=== PATIENT | female | born 1995 | race Caucasian/White ===

== ENCOUNTER 2022-11-14 15:58 | Outpatient (OUT) | payer OTHER, SELFPAY ==
[2022-11-14 16:40] LABS: HCG Quantitative 247 mIU/mL
== END 2022-11-14 15:59 ==
LOC: LAB 16:01
PROVIDERS: PCP Family Medicine; Visit Provider Obstetrics & Gynecology
DX: N92.6 Irregular menstruation, unspecified (principal)
CPT/HCPCS: 36415; 84702

== ENCOUNTER 2022-11-16 11:05 | Outpatient (OUT) | payer OTHER, SELFPAY ==
[2022-11-16 12:22] LABS: HCG Quantitative 544 mIU/mL
== END 2022-11-16 11:06 ==
LOC: LAB 11:06
PROVIDERS: PCP Family Medicine; Visit Provider Obstetrics & Gynecology
DX: N92.6 Irregular menstruation, unspecified (principal)
CPT/HCPCS: 36415; 84702

== ENCOUNTER 2022-12-08 12:39 | Emergency (ER) | payer OTHER, SELFPAY ==
[2022-12-08 12:45] VITALS: BP 131/99; PULSE 98; RESP 16; TEMP 36.5; O2SAT 99; BMI 27.1
--- NOTE | 2022-12-08 12:54 | PC.NURSE ---
PT C/O RELATED NAUSEA AND VOMITING OFF AND ON X 1 WEEK WITH NON PRODUCTIVE COUGH
--- NOTE | 2022-12-08 13:27 | ED.GENADUL1 ---
HPI - General Adult General Chief complaint: Nausea/Vomiting/Diarrhea Stated complaint: DEHYDRATION, COUGH Time Seen by Provider: 12/08/22 13:01 Source: patient Mode of arrival: walk-in Limitations: no limitations History of Present Illness HPI narrative: 27-year-old female presents with chief complaint nausea vomiting. Patient is currently eight weeks . She has not yet seen her RN BURN Dr. Tavares. Patient is one para zero. States symptoms began yesterday.Patient denies any other pain denies any vaginal bleeding or discharge. She states she's also had a cough and congestion. When she coughs it causes her to vomit. States his phlegm and vomiting. She is not taking any medication at home. Related Data Home Medications Medication Instructions Recorded Confirmed cephalexin 500 mg capsule 500 mg PO BID 12/08/22 12/08/22 ondansetron 4 mg disintegrating 4 mg PO TID-QID PRN nausea and 12/08/22 12/08/22 tablet vomiting Allergies Allergy/AdvReac Type Severity Reaction Status Date / Time No Known Drug Allergies Allergy Verified 12/08/22 12:45 Review of Systems ROS Narrative All Systems are negative except as noted/marked.All systems reviewed and otherwise negative PFSH PFSH Social History Smoking status: Never smoker Exam Narrative Exam Narrative: Nurses note and vital signs reviewed and patient is not hypoxic. General: The patient appears well and in no apparent distress. Patient is resting comfortably on cart. Skin: Warm, dry, no pallor noted. There is no rash noted. Head: Normocephalic, atraumatic Eye: Normal conjunctiva, no drainage, EOMI. PERRL Ears, Nose, Mouth, and Throat: oral mucosa is moist. Nares patent. Mouth without vesicles. Ear canals patent. Tm's without Erythema Cardiovascular: Regular Rate and Rhythm Respiratory: Patient is in no distress, no accessory muscle use, lungs are clear to auscultation, no wheezing, rales or rhonchi Back: non-tender, no CVA tenderness bilaterally to percussion. GI: Normal bowel sounds, no tenderness to palpation, no masses appreciated. No rebound, guarding, or rigidity noted. Musculoskeletal: The patient has no evidence of calf tenderness, no pitting edema, symmetrical pulses noted bilaterally Neurological: A&O x4, normal speech Psychiatric: Cooperative Constitutional Vital Signs - 24 hr 12/08/22 12:45 Temperature 97.7 F Pulse Rate [Monitor] 98 H Respiratory Rate 16 Blood Pressure [Right Arm] 131/99 H Pulse Oximetry 99 Oxygen Delivery Method Room Air Course Vital Signs Vital signs: Vital Signs Temperature 97.7 F 12/08/22 12:45 Pulse Rate 98 H 12/08/22 12:45 Respiratory Rate 16 12/08/22 12:45 Blood Pressure 131/99 H 12/08/22 12:45 Pulse Oximetry 99 12/08/22 12:45 Oxygen Delivery Method Room Air 12/08/22 12:45 Temperature 97.7 F 12/08/22 12:45 Pulse Rate 98 H 12/08/22 12:45 Respiratory Rate 16 12/08/22 12:45 Blood Pressure 131/99 H 12/08/22 12:45 Pulse Oximetry 99 12/08/22 12:45 Oxygen Delivery Method Room Air 12/08/22 12:45 Medical Decision Making MDM Narrative Medical decision making narrative: She presented here chief complaint nausea vomiting she currently eight weeks . She states she's been unable to keep any food or fluids down today. Patient was given IV fluids and Zofran. She states she feels much better at this time. CBC BMP review. She does have positive ketones. Patient will To home and of Zofran medication. Patient has a follow-up appointment next week with Dr. Tavares. Patient is to call the office if symptoms worsen or change. Verbalizes understanding agrees with plan of care. Differential Diagnosis Differential Diagnosis: Nausea, vomiting, gastritis, hyperemesis Medical Records Medical records reviewed: Yes I reviewed the patient's medical records Lab Data Lab results reviewed: Yes I reviewed the patient's lab results Labs: Lab Results 12/08/22 12/08/22 Range/Units 13:24 13:54 WBC 11.2 H (4.0-11.0) 10^3/uL RBC 4.65 (4.20-5.40) 10^6/uL Hgb 14.1 (12.0-16.0) g/dL Hct 41.0 (36.0-48.0) % MCV 88.2 (81.0-99.0) fL MCH 30.3 (26.7-34.0) pg MCHC 34.4 (29.9-35.2) g/dL RDW 12.8 (11.0-15.0) % Plt Count 302 (150-450) 10^3/uL MPV 9.2 L (9.5-13.5) fL Neut % (Auto) 73.2 (43.0-75.0) % Lymph % (Auto) 18.8 L (20.5-60.0) % Evangeline % (Auto) 6.3 (1.7-12.0) % Eos % (Auto) 1.0 (0.9-7.0) % Baso % (Auto) 0.4 (0.2-2.0) % Neut # (Auto) 8.2 H (1.4-6.5) 10^3/uL Lymph # (Auto) 2.1 (1.2-3.8) 10^3/uL Evangeline # (Auto) 0.7 (0.3-0.8) 10^3/uL Eos # (Auto) 0.1 (0.0-0.7) 10^3/uL Baso # (Auto) 0.1 (0.0-0.1) 10^3/uL Abs Immat Gran (auto) 0.03 (0.00-0.03) 10^3/uL Imm/Tot Granulo (auto) 0.3 (0.0-0.5) % Sodium 137 (136-145) mmol/L Potassium 3.9 (3.5-5.1) mmol/L Chloride 103 (98-107) mmol/L Carbon Dioxide 23.2 (21.0-32.0) mmol/L Anion Gap 14.7 BUN 9.0 (7.0-18.0) mg/dL Creatinine 0.90 (0.55-1.02) mg/dL Est GFR ( Amer) >60 (>=60) Est GFR (Non-Af Amer) >60 (>=60) BUN/Creatinine Ratio 10.0 Glucose 83 (74-106) mg/dL Calcium 9.6 (8.5-10.1) mg/dL Total Bilirubin 0.5 (0.2-1.0) mg/dL AST 17 (15-37) U/L ALT 22 (14-59) U/L Alkaline Phosphatase 76 (46-116) U/L Total Protein 7.8 (6.4-8.2) g/dL Albumin 3.9 (3.4-5.0) g/dL Globulin 3.9 g/dL Albumin/Globulin Ratio 1.0 Lipase 73.0 (73.0-393.0) U/L HCG, Quant 553144 mIU/mL Urine Color Lt. yellow (YELLOW) Urine Clarity Clear (CLEAR) Urine pH 6.5 (5.0-9.0) Ur Specific [place] 1.015 (1.005-1.025) Urine Protein Negative (NEG/TRACE) mg/dL Urine Glucose (UA) Negative (NEGATIVE) mg/dL Urine Ketones 15 A (NEGATIVE) mg/dL Urine Occult Blood Trace-i (NEGATIVE) Urine Nitrite Negative (NEGATIVE) Urine Bilirubin Negative (NEGATIVE) Urine Urobilinogen 1.0 (0.2-1.0) EU/dL Ur Leukocyte Esterase Small A (NEGATIVE) Urine RBC 2-5 A (0-2) #/HPF Urine WBC 5-10 A (NONE SEEN) #/HPF Ur Squamous Epith Cells Few A (NONE/RARE) #/LPF Urine Crystals None seen (None Seen) #/HPF Urine Bacteria None seen (NONE SEEN) #/HPF Urine Casts None seen (NONE SEEN) #/LPF Urine Mucus Trace A (NONE SEEN) Ur Culture Indicated? Yes Discharge Plan Discharge Chief Complaint: Nausea/Vomiting/Diarrhea Clinical Impression: UTI (urinary tract infection), Nausea and vomiting during Patient Disposition: Home, Self-Care Time of Disposition Decision: 14:28 Condition: Good Mode of Transportation: Private Vehicle Prescriptions / Home Meds: No Action ondansetron 4 mg tablet,disintegrating 4 mg PO TID-QID PRN (Reason: nausea and vomiting) cephalexin 500 mg capsule 500 mg PO BID Patient Comments: X 7 DAYS Instructions: Nausea and Vomiting in (ED) Additional Instructions: follow up with dariusz as scheduled call if symptoms change or worsen Stand Alone Forms: Portal Instructions Referrals: GEETA BARRIOS [Primary Care Provider] - 1 week Discharge Date/Time: 12/08/22 14:48
[2022-12-08] MEDS: 0.9 % SODIUM CHLORIDE 1,000 ML 1000 ML IV (13:35)
[2022-12-08] MEDS: ONDANSETRON PF 4 MG/2 ML VIAL IV (13:35)
[2022-12-08 13:37] LABS: Basophils Absolute Auto 0.1 10^3/uL (0.0-0.1); Basophils Percent Auto 0.4 % (0.2-2.0); Eosinophils Absolute Auto 0.1 10^3/uL (0.0-0.7); Hemoglobin 14.1 g/dL (12.0-16.0); Immature Granulocytes Abs Auto 0.03 10^3/uL (0.00-0.03); Immature Granulocytes Pct Auto 0.3 % (0.0-0.5); Lymphocytes Absolute Auto 2.1 10^3/uL (1.2-3.8); Lymphocytes Percent Auto 18.8 % (20.5-60.0); Mean Corpuscular HGB Conc 34.4 g/dL (29.9-35.2); Mean Corpuscular Hemoglobin 30.3 pg (26.7-34.0); Mean Corpuscular Volume 88.2 fL (81.0-99.0); Mean Platelet Volume 9.2 fL (9.5-13.5); Monocytes Absolute Auto 0.7 10^3/uL (0.3-0.8); Monocytes Percent Auto 6.3 % (1.7-12.0); Neutrophils Absolute Auto 8.2 10^3/uL (1.4-6.5); Neutrophils Percent Auto 73.2 % (43.0-75.0); Platelet Count 302 10^3/uL (150-450); Red Blood Count 4.65 10^6/uL (4.20-5.40); Red Cell Distribution Width 12.8 % (11.0-15.0); White Blood Count 11.2 10^3/uL (4.0-11.0)
[2022-12-08 13:57] LABS: Bilirubin Urine NEGATIVE (NEGATIVE); Blood Urine TRACE-I (NEGATIVE); Clarity Urine CLEAR (CLEAR); Color Urine LT. YELLOW (YELLOW); Glucose Urine UA NEGATIVE (NEGATIVE); Ketones Urine 15 mg/dL (NEGATIVE); Leukocyte Esterase Urine SMALL (NEGATIVE); Nitrite Urine NEGATIVE (NEGATIVE); Protein Urine NEGATIVE (NEG/TRACE); Specific Gravity Urine 1.015 (1.005-1.025); pH Urine 6.5 (5.0-9.0)
[2022-12-08 13:58] LABS: Alanine Aminotransferase 22 U/L (14-59); Albumin Level 3.9 g/dL (3.4-5.0); Alkaline Phosphatase 76 U/L (46-116); Anion Gap 14.7; Aspartate Amino Transferase 17 U/L (15-37); Bilirubin Total 0.5 mg/dL (0.2-1.0); Calcium 9.6 mg/dL (8.5-10.1); Carbon Dioxide 23.2 mmol/L (21.0-32.0); Chloride 103 mmol/L (98-107); Estimated GFR (African America >60 (>=60); Estimated GFR (Non-African Ame >60 (>=60); Globulin 3.9 g/dL; Glucose 83 mg/dL (74-106); Potassium 3.9 mmol/L (3.5-5.1); Sodium 137 mmol/L (136-145); Total Protein 7.8 g/dL (6.4-8.2)
[2022-12-08 14:12] LABS: Bacteria Urine NONE SEEN #/HPF (NONE SEEN); Cast Seen? NONE SEEN #/LPF (NONE SEEN); Crystals Seen? None Seen #/HPF (None Seen); Mucus Urine TRACE (NONE SEEN); Squamous Epithelial Cell Urine FEW #/LPF (NONE/RARE); Urine Culture Indicated YES
[2022-12-08] MEDS: ONDANSETRON 4 MG RAPDIS TABLET SL (14:43)
== END 2022-12-08 14:48 | disposition home or self-care (01) ==
PROVIDERS: Physician Assistant; Emergency Provider Emergency Medicine; PCP Family Medicine
DX: O23.41 Unspecified infection of urinary tract in pregnancy, first trimester (principal); N39.0 Urinary tract infection, site not specified; O26.891 Other specified pregnancy related conditions, first trimester; R11.2 Nausea with vomiting, unspecified; Z3A.08 8 weeks gestation of pregnancy
CPT/HCPCS: 36415; 80053; 81001; 83690; 84702; 85025; 87086; 96361; 96374; 99284

== ENCOUNTER 2022-12-21 12:27 | Outpatient (OUT) | payer OTHER, SELFPAY ==
--- NOTE | 2022-12-21 12:28 | US_ITS ---
[address] [address] Patient Name: KATIE HANNON MRN: [id number] date: 1995 Sex: F Assigned Patient Location: US Current Patient Location: US Accession/Order Number: [id number] Exam Date: 12/21/2022 12:28 Report Date: 12/21/2022 16:58 At the request of: TAYO AVILA Procedure: US OB transvaginal EXAMINATION: US OB transvaginal HISTORY: MISSED PERIOD COMPARISON: No relevant comparison available. FINDINGS: Transvaginal images Cassidy intrauterine gestation Gestational sac: 3.26 cm, 8 weeks 2 days CRL: 2.53 cm, 9 weeks 2 days Yolk sac: 5.2 mm Heart rate: 174 bpm Cervix: Closed, 4.0 cm The uterus is normal, anteverted, anteflexed The ovaries are normal in appearance. Clinical age: 10 weeks 0 days Clinical MARSHAL: 07/19/2023 Ultrasound age: 9 weeks 2 days Ultrasound MARSHAL: 07/24/2023 US/US OB transvaginal IMPRESSION: Viable cassidy intrauterine gestation measuring 9 weeks 2 days Electronically authenticated by: REKHA NIETO Date: 12/21/2022 16:58
== END 2022-12-21 12:28 | disposition home or self-care (01) ==
LOC: US 12:27
PROVIDERS: PCP Family Medicine; Visit Provider Obstetrics & Gynecology
DX: Z34.91 Encounter for supervision of normal pregnancy, unspecified, first trimester (principal); Z3A.09 9 weeks gestation of pregnancy; N92.6 Irregular menstruation, unspecified
CPT/HCPCS: 76817

== ENCOUNTER 2022-12-28 10:57 | Outpatient (OUT) | payer OTHER, SELFPAY ==
[2022-12-28 11:24] LABS: Estimated Average Glucose 94 mg/dL; Glycohemoglobin A1C 4.9 % (4.5-6.2)
[2022-12-28 11:26] LABS: Basophils Absolute Auto 0.1 10^3/uL (0.0-0.1); Basophils Percent Auto 0.5 % (0.2-2.0); Eosinophils Absolute Auto 0.2 10^3/uL (0.0-0.7); Eosinophils Percent Auto 2.3 % (0.9-7.0); Hematocrit 39.8 % (36.0-48.0); Hemoglobin 13.3 g/dL (12.0-16.0); Immature Granulocytes Abs Auto 0.04 10^3/uL (0.00-0.03); Immature Granulocytes Pct Auto 0.4 % (0.0-0.5); Lymphocytes Absolute Auto 2.1 10^3/uL (1.2-3.8); Lymphocytes Percent Auto 22.2 % (20.5-60.0); Mean Corpuscular HGB Conc 33.4 g/dL (29.9-35.2); Mean Corpuscular Hemoglobin 29.8 pg (26.7-34.0); Mean Corpuscular Volume 89.2 fL (81.0-99.0); Mean Platelet Volume 9.3 fL (9.5-13.5); Monocytes Absolute Auto 0.6 10^3/uL (0.3-0.8); Monocytes Percent Auto 6.3 % (1.7-12.0); Neutrophils Absolute Auto 6.6 10^3/uL (1.4-6.5); Neutrophils Percent Auto 68.3 % (43.0-75.0); Platelet Count 294 10^3/uL (150-450); Red Blood Count 4.46 10^6/uL (4.20-5.40); Red Cell Distribution Width 12.7 % (11.0-15.0); White Blood Count 9.7 10^3/uL (4.0-11.0)
[2022-12-28 11:48] LABS: Thyroid Stimulating Hormone 0.482 uIU/mL (0.358-3.740)
[2022-12-29 05:08] LABS: HCV Ab Non Reactive (Non Reactive); HIV Ab/p24 Ag Screen Non Reactive (Non Reactive); Rubella Antibodies, IgG 1.26 index (Immune >0.99)
[2022-12-29 06:09] LABS: HBsAg Screen Negative (Negative)
[2022-12-29 10:09] LABS: Rapid Plasma Reagin, Quant Non Reactive (NonRea<1:1)
== END 2022-12-28 10:58 | disposition home or self-care (01) ==
LOC: LAB 10:57
PROVIDERS: PCP Family Medicine; Visit Provider Obstetrics & Gynecology
DX: N91.2 Amenorrhea, unspecified (principal)
CPT/HCPCS: 36415; 83036; 84443; 85025; 86592; 86706; 86762; 86803; 86850; 86900; 86901; 87086; 87389

== ENCOUNTER 2023-01-11 12:34 | Outpatient (OUT) | payer OTHER, SELFPAY | END 2023-01-11 12:35 | disposition home or self-care (01) | LOC: LAB 12:35 | PROVIDERS: PCP Family Medicine; Visit Provider Obstetrics & Gynecology | DX: Z34.80 Encounter for supervision of other normal pregnancy, unspecified trimester (principal) | CPT/HCPCS: 36415 ==

== ENCOUNTER 2023-02-08 10:28 | Outpatient (OUT) | payer OTHER, SELFPAY ==
[2023-02-13 16:09] LABS: AFP Value 35.4 ng/mL (.); Gest. Age on Collection Date 16.3 weeks (.); Gestat. Age Based On As provided (.); Insulin Dep Diabetes No (.); Maternal Age At EDD 30.3 yr (.); OSBR Risk 1 IN 10000 (.); Results Report (.)
== END 2023-02-08 10:29 | disposition home or self-care (01) ==
PROVIDERS: PCP Family Medicine; Visit Provider Obstetrics & Gynecology
DX: Z34.92 Encounter for supervision of normal pregnancy, unspecified, second trimester (principal)
CPT/HCPCS: 36415; 82105

== ENCOUNTER 2023-03-08 08:47 | Outpatient (OUT) | payer OTHER, SELFPAY ==
--- NOTE | 2023-03-08 08:50 | US_ITS ---
[address] [address] Patient Name: KATIE HANNON MRN: [id number] date: 1995 Sex: F Assigned Patient Location: US Current Patient Location: US Accession/Order Number: [id number] Exam Date: 03/08/2023 08:50 Report Date: 03/08/2023 17:14 At the request of: TAYO AVILA Procedure: US OB anatomy EXAMINATION: US OB anatomy, US OB cervical length HISTORY: ANATOMY COMPARISON: No relevant comparison available. TECHNIQUE: Transabdominal sonographic examination was performed for obstetrical and evaluation. FINDINGS: Number: 1 Heart Rate: 131.0 bpm H.B. /min Amniotic Fluid Volume: Subjectively normal position: Cephalic presentation, longitudinal lie Placental Location: anterior, grade 0. Placental edge 6.0 cm from the internal os Cervix Length: 3.6 cm , closed Normal anatomy: Lateral ventricles, cerebellum, posterior fossa, nose, lips, orbits, four-chamber heart, RVOT, LVOT, diaphragm, stomach, kidneys, abdominal cord insertion, bladder, umbilical arteries, three-vessel cord, spine, extremities BIOMETRY: BPD: 4.7 cm 20 weeks 1 days , 46% HC: 17.7 cm 20 weeks 1 days, 36% AC: 14.7 cm 20 weeks 0 days, 35% FL: 3.3 cm 20 weeks 1 days, 38% EFW:332.5 grams; 12 ounces, 35% FL/AC: 22.1 FL/BPD: 69.4 HC/AC: 1.2 GESTATIONAL AGE: Age by EDC: 20 weeks 2 days Age by current US: 20 weeks 1 days MARSHAL by current US: 07/25/2023 MARSHAL by EDC: 07/24/2023 US/US OB anatomy IMPRESSION: Normal anatomy scan Closed cervix measuring 3.6 cm *Reference: [employer] Practice Guideline for the performance of Obstetric Ultrasound Examinations, March 04, 2007. Electronically authenticated by: REKHA NIETO Date: 03/08/2023 17:14
--- NOTE | 2023-03-08 08:50 | US_ITS ---
[address] [address] Patient Name: KATIE HANNON MRN: [id number] date: 1995 Sex: F Assigned Patient Location: US Current Patient Location: Accession/Order Number: [id number] Exam Date: 03/08/2023 08:50 Report Date: 03/08/2023 17:14 At the request of: TAYO AVILA Procedure: US OB cervical length EXAMINATION: US OB anatomy, US OB cervical length HISTORY: ANATOMY COMPARISON: No relevant comparison available. TECHNIQUE: Transabdominal sonographic examination was performed for obstetrical and evaluation. FINDINGS: Number: 1 Heart Rate: 131.0 bpm H.B. /min Amniotic Fluid Volume: Subjectively normal position: Cephalic presentation, longitudinal lie Placental Location: anterior, grade 0. Placental edge 6.0 cm from the internal os Cervix Length: 3.6 cm , closed Normal anatomy: Lateral ventricles, cerebellum, posterior fossa, nose, lips, orbits, four-chamber heart, RVOT, LVOT, diaphragm, stomach, kidneys, abdominal cord insertion, bladder, umbilical arteries, three-vessel cord, spine, extremities BIOMETRY: BPD: 4.7 cm 20 weeks 1 days , 46% HC: 17.7 cm 20 weeks 1 days, 36% AC: 14.7 cm 20 weeks 0 days, 35% FL: 3.3 cm 20 weeks 1 days, 38% EFW:332.5 grams; 12 ounces, 35% FL/AC: 22.1 FL/BPD: 69.4 HC/AC: 1.2 GESTATIONAL AGE: Age by EDC: 20 weeks 2 days Age by current US: 20 weeks 1 days MARSHAL by current US: 07/25/2023 MARSHAL by EDC: 07/24/2023 US/US OB cervical length IMPRESSION: Normal anatomy scan Closed cervix measuring 3.6 cm *Reference: [employer] Practice Guideline for the performance of Obstetric Ultrasound Examinations, March 04, 2007. Electronically authenticated by: REKHA NIETO Date: 03/08/2023 17:14
== END 2023-03-08 08:48 | disposition home or self-care (01) ==
LOC: US 08:47
PROVIDERS: PCP Family Medicine; Visit Provider Obstetrics & Gynecology
DX: Z34.92 Encounter for supervision of normal pregnancy, unspecified, second trimester (principal)
CPT/HCPCS: 76805; 76817

== ENCOUNTER 2023-04-03 09:00 | Outpatient (OUT) | payer OTHER, SELFPAY ==
[2023-04-03 10:28] LABS: Basophils Absolute Auto 0.1 10^3/uL (0.0-0.1); Basophils Percent Auto 0.5 % (0.2-2.0); Eosinophils Absolute Auto 0.2 10^3/uL (0.0-0.7); Eosinophils Percent Auto 1.6 % (0.9-7.0); Hematocrit 36.4 % (36.0-48.0); Hemoglobin 11.6 g/dL (12.0-16.0); Immature Granulocytes Pct Auto 0.8 % (0.0-0.5); Lymphocytes Absolute Auto 2.3 10^3/uL (1.2-3.8); Lymphocytes Percent Auto 19.2 % (20.5-60.0); Mean Corpuscular HGB Conc 31.9 g/dL (29.9-35.2); Mean Corpuscular Hemoglobin 29.7 pg (26.7-34.0); Mean Corpuscular Volume 93.3 fL (81.0-99.0); Mean Platelet Volume 9.1 fL (9.5-13.5); Monocytes Absolute Auto 0.5 10^3/uL (0.3-0.8); Monocytes Percent Auto 4.5 % (1.7-12.0); Neutrophils Absolute Auto 8.7 10^3/uL (1.4-6.5); Neutrophils Percent Auto 73.4 % (43.0-75.0); Platelet Count 275 10^3/uL (150-450); Red Cell Distribution Width 13.8 % (11.0-15.0); White Blood Count 11.9 10^3/uL (4.0-11.0)
[2023-04-03 11:17] LABS: Glucose 1 Hour 144 mg/dL
== END 2023-04-03 09:01 | disposition home or self-care (01) ==
LOC: LAB 09:00
PROVIDERS: PCP Family Medicine; Visit Provider Obstetrics & Gynecology
DX: Z13.1 Encounter for screening for diabetes mellitus (principal)
CPT/HCPCS: 36415; 82950; 85025

== ENCOUNTER 2023-04-10 06:53 | Outpatient (OUT) | payer OTHER, SELFPAY ==
[2023-04-10 07:08] LABS: Glucose Fasting 74 mg/dL (74-106)
[2023-04-10 09:15] LABS: Glucose 1 Hour 118 mg/dL
[2023-04-10 12:45] LABS: Glucose 2 Hour 69 mg/dL
[2023-04-10 13:07] LABS: Glucose 3 Hour 33 mg/dL
== END 2023-04-10 06:54 | disposition home or self-care (01) ==
LOC: LAB 06:53
PROVIDERS: PCP Family Medicine; Visit Provider Obstetrics & Gynecology
DX: R73.09 Other abnormal glucose (principal)
CPT/HCPCS: 36415; 82951; 82952

== ENCOUNTER 2023-05-01 10:03 | Outpatient (RCR) | payer OTHER, SELFPAY | END 2023-05-03 16:56 | disposition home or self-care (01) | LOC: LAB 10:03 | PROVIDERS: PCP Family Medicine; Visit Provider Obstetrics & Gynecology | DX: O26.893 Other specified pregnancy related conditions, third trimester (principal); Z67.91 Unspecified blood type, Rh negative | CPT/HCPCS: 36415; 86850; 86900; 86901 ==

== ENCOUNTER 2023-05-02 07:23 | Outpatient (RCR) | payer OTHER, SELFPAY ==
[2023-05-02] MEDS: RHO(D) IMMUNE GLOBULIN 1,500 UNIT SYRINGE 1500 UNIT IM (09:04)
[2023-05-02 09:16] VITALS: BP 126/73; PULSE 105; RESP 18; TEMP 36.4; O2SAT 97
--- NOTE | 2023-05-02 09:18 | PC.NURSE ---
0856: Pt. to [facility] amb for Rhophylac injection. Pt. given education regarding med. Denies questions. Blood type verified. VSS. 0904: Medicated with Rhophylac IM as ordered. No bleeding to injection site. Pt. tolerated with no c/o. Instructed pt. need for brief observation to monitor for adverse reaction. Pt. offered food and beverage, pt. declines. 0972: Pt. without c/o or s&s of adverse reaction. No bleeding at injection site. D/c'd amb. to home.
== END 2023-05-03 23:59 | disposition home or self-care (01) ==
LOC: INF 07:23
PROVIDERS: PCP Family Medicine; Visit Provider Obstetrics & Gynecology
DX: O26.893 Other specified pregnancy related conditions, third trimester (principal); Z67.91 Unspecified blood type, Rh negative
CPT/HCPCS: 96372; J2790

== ENCOUNTER 2023-06-26 21:58 | Outpatient (REF) | payer OTHER, SELFPAY ==
--- OUTSIDE RECORDS SUMMARY | 2023-06-26 22:02 | XMS_ITS | CCD ---
Author Name Unknown Address [address] [place] [address] Organization [facility] Care Team Providers Care Jewelry Polisher Name Role Phone Phil Mueller Unavailable PHIL MUELLER Primary Care Physician [phone] ZONIA NELSON Attending Unavailable ZONIA NELSON Admitting Unavailable ERVIN PROVIDERPHIL Admitting Unavail able ERVIN PROVIDERPHIL Attending Unavail able Yue CHOWDARY Attending Unavailable TAYO TAVARES Attending Unavailable TAYO TAVARES Consulting Unavailable TAYO TAVARES Admitting Unavailable DR PHIL MUELLER Primary Care Unavailable AARON THAKKAR Attending Unavailable TAYO TAVARES Attending Unavailable AARON THAKKAR Attending Unavailable Allergies Allergy Classification Reported Allergen(s) Allergy Type Date of Onset Reaction(s) Facility (11 sources) montelukast Drug Allergy stomach upset [facility] Other Medications Current Medications Medication Drug Class(es) Dates Sig (Normalized) Sig (Original) ProAir HFA (6 sources) beta2-Adrenergic Agonist Start: 05-26-2021 ProAir HFA Inhalation, q6hr, Refill(s) 0 Start Date: 05/26/21 Status: Ordered Start: 07-20-2010 take 1 puff(s) by in halation every four hours as needed ProAir HFA 108 (90 Base) MCG/ACT 1 puff Inhalation every 4 hrs PRN for 90 day(s) Jul, Active ethinyl estradiol 0.02 mg / ferrous fumarate 75 mg / norethindrone 1 mg oral tablet (7 sources) Estrogen Start: 05-26-2021 [place] FE 1/2 0 oral tablet Refill(s) 0 Start Date: 05/26/21 Status: Ordered Microgestin FE 1-20 MG-MCG 1 tablet Orally Daily for Three Weeks, 1 Week off for 30 day(s) Active Flovent HFA 44 mcg/inh inhalation aerosol with adapter (2 sources) Start: 01-04-2020 take 2 puff(s) by mouth twice daily Flovent HFA 44 mcg/inh inhalation aerosol with adapter = 2 puff(s), Inhalation, BID, rinse mouth and throat after use, # 1 EA, Refills(s) 0, Pharmacy: [facility], 158, cm, 01/04/20 10:14:00 EDT, Height/Length Measured, 58.4, kg, 01/04/20 10:14:00 EDT, Weight Measured Start Date: 01/04/20 Status: Ordered fluticasone propionate 0.05 mg/actuat metered dose nasal spray (11 sources) Corticosteroid Start: 12-17-2018 take 2 spray(s) nasal route once daily Fluticasone Propionate 50 MCG/ACT 2 spray in each nostril Nasally Once a day for 30 day(s) Dec, Active 60 actuat fluticasone propionate 0.25 mg/actuat / salmeterol 0.05 mg/actuat dry powder inhaler (3 sources) Corticosteroid, beta2-Adrenergic Agonist Start: 09-05-2021 take 1 puff(s) by inhalation twice daily Fluticasone-Salmet alanna 250-50 MCG/DOSE 1 puff Inhalation Twice a day for 90 days Sep, Active fluticasone 0.05 mg/inh Nasal [place] (2 sources) Start: 01-04-2020 fluticasone 0.05 mg/inh Nasal [place] 2 spray(s), Nasal, Daily Congestion, 16 gram, Refill(s) 0, each nostril, [facility], 158, cm, 01/04/20 10:14:00 EDT, Height/Length Measured, 58.4, kg, 01/04/20 10:14:00 EDT, Weight Measured Start Date: 01/04/20 Status: Ordered Fluticasone-Salmet alanna 250-50 MCG/DOSE (8 sources) Start: 09-05-2021 take 1 puff(s) by inhalation twice daily Fluticasone-Salmet alanna 250-50 MCG/DOSE 1 puff Inhalation Twice a day for 90 days Sep, Active montelukast 10 mg oral tablet (2 sources) Leukotriene Receptor Antagonist Start: 01-04-2020 take 1 tablet by mouth once daily in the evening Singulair 10 mg Tab 10 mg = 1 tab(s), Oral, qPM, # 30 tab(s), Refills(s) 0, Pharmacy: [facility] #[facility], 158, cm, 01/04/20 10:14:00 EDT, Height/Length Measured, 58.4, kg, 01/04/20 10:14:00 EDT, Weight Measured Start Date: 01/04/20 Status: Ordered ProAir HFA 108 (90 Base) MCG/ACT (7 sources) Start: 07-20-2010 take 1 puff(s) by inhalation every four hours as needed ProAir HFA 108 (90 Base) MCG/ACT 1 puff Inhalation every 4 hrs PRN for 90 day(s) Jul, Active triamcinolone acetonide 5 mg/ml topical cream (11 sources) Corticosteroid Start: 11-11-2015 Triamcinolone Acetonide 0.5 % 1 application to affected area Externally Twice a day for 90 days Nov, Active Completed/Discontinued Medications Medication Drug Class(es) Dates Sig (Normalized) Sig (Original) sodium chloride 0.111 meq/ml nasal spray (2 sources) Start: 01-04-2020 [place] 0.65% Nasal [place] 2 spray(s), Nasal, QID Congestion, 1 EA, Refill(s) 0, [facility], 158, cm, 01/04/20 10:14:00 EDT, Height/Length Measured, 58.4, kg, 01/04/20 10:14:00 EDT, Weight Measured Start Date: 01/04/20 Status: Ordered Problems Active Problems Problem Classification Problem Date Documented Date Episodic/Chronic Asthma (14 sources) Exacerbation of asthma; Translations: [Unspecified asthma with (acute) exacerbation] Onset: 09-05-2021 Resolved: 11-29-2021 Chronic Disorders usually diagnosed in infancy, childhood, or adolescence (11 sources) Adult attention deficit hyperactivity disorder ; Translations: [Other specified behavioral and emotional disorders with onset usually occurring in childhood and adolescence] Chronic Malaise and fatigue (7 sources) Fatigue; Translations: [Chronic fatigue, unspecified] Chronic Menstrual disorders (10 sources) Irregular periods; Translations: [Irregular menstruation, unspecified] Onset: 09-22-2022 Chronic Nutritional deficiencies (7 sources) Vitamin D deficiency; Translations: [Vitamin D deficiency, unspecified] Chronic Other skin disorders (11 sources) Folliculitis; Translations: [Follicular disorder, unspecified] Episodic Other skin disorders (11 sources) Hyperhidrosis; Translations: [Primary focal hyperhidrosis, unspecified] Episodic Unclassified (2 sources) Body mass index 20-24 - normal 01-04-2020 Past or Other Problems Problem Classification Problem Date Documented Da te Episodic/Chronic Other skin disorders (2 sources) Follicular disorder, unspecified Onset: 09-05-2021 Resolved: 09-06-2021 Episodic Results Test Name Value Interpretation Reference Range Facility ANTI-MULLERIAN HORMONEon Anti-Mullerian Hormone (AMH) 6.57 ng/mL Normal [facility] Comment on above: Result Comment: For assays employing antibodies, the possibility exists for interference by heterophile antibodies in the samples.1 1.Demond Nunez Interferences in Immunoassays - still a threat. Clin. Chem. 2000; 46: 4769-6596. This test was developed and its performance characteristics determined by [facility]. It has not been cleared or approved by the Food and Drug Administration. Reference Range: Females 26 - 30y: 1.03 - 11.10 Median 4.20 AMH concentrations of >= 1.06 ng/mL is correlated with a better response to ovarian stimulation, produced more retrievable oocytes and higher odds of live according to Maryer et al. Fertility and Sterility. 2010: 94:5456-8423. The current AMH test method correlates with the study method with a slope of 0.94. Females at risk of ovarian hyperstimulation syndrome or polycystic ovarian syndrome (PCOS) may exhibit elevated serum AMH concentrations. AMH levels from PCOS patients may be 2 to 5 fold higher than age-appropriate reference interval values. Granulosa cell tumors of the ovary may secrete AMH along with other tumor markers. Elevated AMH is not specific for malignancy, and the assay should not be used exclusively to diagnose or exclude an AMH-secreting ovarian tumor. Performed By: #### A AGGIE #### [facility] [address] [place], [place] [address] Dr. Matilde Fitch PROGESTERONEon 09-23-2022 Progesterone 0.4 ng/mL Normal [facility] Comment on above: Result Comment: Foll icular phase 0.1 - 0.9 Luteal phase 1.8 - 23.9 Ovulation phase 0.1 - 12.0 First trimester 11.0 - 44.3 Second trimester 25.4 - 83.3 Third trimester 58.7 - 214.0 Postmenopausal 0.0 - 0.1 Performed By: #### P ALBA #### [facility] [address] [place], [place] [id number] Dr. Matilde Fitch Coding Summary.on 05-16-2022 Coding Summary. [id number] Gh0bWw+PGhlYWQ+PE1FV KBlY83bbHJeuG4BW0lAJ V8YFEEIEUWAXL5ZAR1ol WL3IYtlF6QmseMo KaahmQAbYI87UJx8IJZ5 rMjuBAhgzJ2cdKAsE0w6 LdEyHO29oS88UBcgMXLu FiC1HfMtgbbfbLXh S4pwEnSklJZlKzf+PHRh YmxlIHdpZHRoPScxMDAl KjJvsUlyML8eEl4cLIBl LWNvbGxhcHNlOiBj o0mhGIVbTKuzWN0ukOai T3QkjFV6BLGwu6x6Zg60 dHI+WUDsXIN7rUyhGFth s366UjPqm6jxSFG6 fXPsZXndQKE8H73ya6U9 ZGEqYHLhZEB7fSW2uR9n eEsfslqxG4CspHMhKjN4 CVJ5aORftI3crJge ugwzrR4rOzp+Q05HGS5W JKWJKC4COuy1O6XfXrux dHI+XF84OQFjKW71bAJb uWDqw6bliPy4DcPn UXBeSGL7qJpcCDtlp2Wu OGVjJ74ufNLpr6X1UIWx xVavvWNdEyEgjOC4uN2e SRygnxbbc2likkqg Qprzx1ombt47gU68D15d WZqeDXYbILC7ZQVpMTNp iFrokl1ilU6qVx8+IDxj n9yfc2eewUm9GkDx TVEcnsNdhPjaHAK7f5Tf Da19X9TmuPdwa7UdRus7 vw54tMAts6G1hEJ5SHqa WGAcaM6aRQrgNoG1 PHOaKnGfkZ99lELhWDny Bn0oyNmneAbxVR7uAACu jrdsYOLjaL0tYYWygNZm wMvcXO5mMQGvkxam n143YoFhMUF1TTBpiAFy A1RvlG6qCzPeRPYkWMQg A2BewIFtSXfyQ065YIya WlN3IEIiyeNpH8If KWIapEvcWjB6z1E6Gw6G h3OxzprqSEZ6WWulKWNc JnAdHfIrSzW9J8AePne8 ALDqlZhlSU4fT5Jp SBGqtczugryuvPQ1ZRBo NTRriG58gYSpMWkvRf1j p2S2u993ULEgBMLorF53 Qi1mvXekNEFaoBAA tB3xtgibe9msveyzPqDt FBPiXTb7IRh7PZGohRws WiEkMVL5SdH4QFZ3hTXn aJ4xaJmxsjyrzO6s Oyc+P69hgM0bWXH5LBI4 eohjEQYgecDwIE77QL02 B8LvIwjiwNFreLG+PGRp hsPrvJyxZA4nSmJv o3aqs3LaOElrI6OiAEBw QXxxTcs1MWNsOAW9eCB3 qA6cQVZvPAdbc7K5nKG0 B4QrdnKobr8eq7nn QDWzFSihX76yzCDqn9S7 DMHjrUF1SVSiuWylWtCm sB03Pmj+FRJucAcqg4Ef Qlnnf8hlw5woaMr3 IjMwJSIgdmFsaWduPSJ0 w7CpWl47A01eTJkkRVPl FFCzCAPfLVLmhIitbi9j gM9wAu2+PGNvbCB3 eLO0yY9tZEIlDtE7HNix X615IsJcdOOuDemvu1ha h3damQp5GiLfBRExxoUn cYjpEBN8i3TfSh54 A14pICioMDYxIKOuRQTb DJQtgVdxop9exJ2tDk0+ YX8za2mjkv27mW97sRH+ CFGdTLS5rGyyAOwb KUNbqR6vEZghUqC0SOKy NgIcpS52dOLhJMjgWf7r lVxdbSrySY9xCRPquyvl i442SdNvh2ebTXFu dEOpAUrmRPR1V68lv4F6 UEXbDVUjRZW8hET6oZ5c bGlnbjogbGVmdDsgdmVy qXvfAWsrAInyI035 IHRvcDsnPlBhdGllbnQg TqNiCLm6N0AmMaj0AGKr jQukDW4fvDOpUGlfGi1k dNazzKlyYT8kGFZx zqtbl939BsTwk7edEOGe eNLtKXsbEIT4I65zr7R7 ZFVfKFXzTOH5qBY4uE6t bGlnbjogbGVmdDsg ycBapYnmXGrhOYkjP973 IHRvcDsnPkJpcnRoIERh sRR4HW06FQ40cUAga3F5 aFW6G5UaXIQruiwk nsrrpMS9MSRiHSGhzQ71 Tg7osVykUs9pDBOzVJD5 NFUigZBzD9ZxtV7sIiUn QHYvBFRcC7ZpcBFn XTygB654WGtkFfK7XKOk kjCyC1XkOIOgwYrxAdO4 k2X5Mc4RZ7J0DA21EY24 hTUzj9X9iWK3I8Re DHTuffgretozcDV8ADDp CBRoxJ35Go9sfXvsXc0m RMPlKNF5KYBgjBFzT8Bm rO5yKiTdBZCbXKBb B1UtyROlYQjxB088IVya HzS1FOVtlaTwO7AfIXFl xHhbZtW2q0J0Jd9FICz9 AI73LH26vDFut4W9 ePT3M5CnUDFwntfwxizs zJE9NNGtYVXhhB31Rj5s rOreGe3wWBTcXOX7NMCo nVShV6UscJ8sKvTo GYVpKGHuQ3QprUJnVWon T396SHjhZrH6MEMjllWl D2KvEQNttOwdGaP9d8V4 Dj8IZFBpSH71JIF9 jFK6CX68LY32O9ZuKvpg dGFibGU+PHRhYmxlIHdp ZHRoPScxMDAlJyBzdHls WK5wNk7iHTBwROKl gGdyiJNwNyFmu9vdCQEx ISpbIB5ytDxaS4IwrLO0 RHTqo1k9Ty97P04hP1Ge dXA+ZPUkfEJ5pUS5 cJ3mXcLdDdM2SVhuF822 CyGfcRDfXimof7ztv9nc sSm9FwF6YGNkpxGmsSem UOF2e4RlGm45H97q IHdpZHRoPSIxNSUiIHZh nOhaxy5fmP7iXi0+PGNv yQQ3aYW3kX2uCkUgVoY7 JHdkJ666NiNivWTz Rralg8xov2ddfDa3JzEo QJBfsjNfiPmuUDK1q1Rn Zg36O6AzkCexv9HpKoo5 rb24aNAas7P2kRJ9 N4UtQBZxzfbmqARisCzg CN4xGDLtpklyGFQpgI8g YAZvP9l5OyCfVrU2TZpc T2SaprQ8JRVdmSQn EVpfJKJ6B50br6H5OVKc UTUsLZC1gBS3fO5pgMhx bjogbGVmdDsgdmVydGlj JYhwPVseM137QHPl kXhgBQUbaM6qQDIoeIHp fDblGZ0zVPEmyfwtMu5K MXSPJXFUQYJTN27CClMl TTwvdGQ+PHRkIHN0 tVjaMUccNPInjM2mYISs B1m4UcAnWyP9FMksI4Oe FPZkwowaVh45gR8pQmMs RiA6HOidI6WrhaD3 KKNcjYVlHZqmFWD0W56t n1O8EICjSRFcBXE5yAL1 tO1lsLedwgrptGZmcYpr dmVydGljYWwtYWxp K459LYKraYfrAmOuOxSl WaK1QTS1R5UuGfv3FWCh cScoDC5lwSXpHPepRx7r sGborEvnIQ4uMSQx drdgEVRcjD1oVOUpnRYm aTltJT0jWMHrudvag718 CjLaBKC7VOJomLTnJ7Qb uG5jIiOxJVQlJKGa W8NgvBTqDWwtS720SCvp OfJ2FMMzhgFaD7NtATYz tPhcTyE2k3Z2Tk9lRRGD ZWFyczwvdGQ+PHRk WSQ3iPxgTQnnMPLikN5z FZAiJ4a4PxTaWfF3KIwf Z3RgYRYxgvpaIi59pJ3y XjRrCaM5PWsfZ0Ge qvN6GSBnvRQaQLveOFI3 H01ba9M6XSCbVYFzMUV1 uZI8oW0vzJurjledgSRh dDsgdmVydGljYWwt RHznE684FTUfuZshDyFq bWFsZTwvdGQ+PHRkIHN0 bAvjTKbgSNXspU3cJRIq V3v5WmPyWpU5OGnu V3OmFNFwdbjvGc33qD3g QwVzUgZ1KIvzD4XcsoU7 LKQfuYDbOCibSWA3S24v d3U8ZJEvRWAvSIG0 fFD0uI6mzWxmmhjfeLDp dDsgdmVydGljYWwtYWxp I306PFWgaUyyPa55bSIf fYrpieS3S2LoQsdw dHI+UQ84NQIpIM94bQPl hAYhj8xzrEj0GlXfYGPx QYQ6yQtcIZgoq8TfIKFg I09eqYLhx5P7KFPn aMpniBIiMrBwbXT1vY2e RPsvltbwn7iuaflmAlew v6ujrc99eL06Y60zKQyd ZHRoPSIzMCUiIHZh gHtlht9moM9iMy1+PGNv kQO5rNT5cA7dVkOuSuX3 SBykT708HbUrvBZwUsrq m2cwf0heoRz3LfBn IDMnswSmqUjmFZI9e1Pb Cq85Y74lJPoeKOTyNJAc BEThQNUbmFwcrr4biW5r Ii8+AC5qq3jmql57 wH46oGA+MPBjBDD8uXtv HStyGXRzhS2aBHopZjP0 AUWrTaWfeP96pWCgWXkt Hx5ysLiojEgvTK1a QWAmpyiym795SoOmg1le BJRibDThLBiuQBT8O62q w5Q6LVKsBCBwVII7kAF5 xV2keUytgmidiMCj dDsgdmVydGljYWwtYWxp H161GXPxeJkmWcNbdFXt N4xnpdMQIE3oPsbsiQW+ DBFuESR2tZylPMwi RJKcwN6jIMUdI2n7MaSo EgG6JGswQ4XrsoQ3WCZu jFKhTLAzvAGZsB4qlrkw r4jujdhxKkHbBKOt BTo1MSa8IEBphGrtOiUi JZL0HzV0BOA4tXNrmH9h kRzayppqlS4yDtf+RklO OjwvdGQ+PHRkIHN0 hUemJTspJGAjuS7cXPMu U6h7XtOwHwR2HSduP2Gf ktD5STRsdDUwPBQnnSHK wN3ubpkob6hmkubn HzXmHPGrJDt7XFb1MGBd cEjhLjXcAQM7SyB0CBM1 iEYsuN0tpGnbhzazkX6q Oyc+TVJOOjwvdGQ+ KFQeCJP2oBcxPIjeYSNe lV7pXHBlQ8f5BgHgNnF9 MJtpU8XhgyG2RYQcrNZi IRSgnBZMkL9qfotf k6gfsylnHtAvSNRiUNw2 NNj2ZINarSozQzIrXZZ4 TgS3ZJK3sGMbrI0yaFdu aqvejT5eAmm+UGF5 ZUX3EC98CB66C1HlMdbq dGFibGU+PHRhYmxlIHdp ZHRoPScxMDAlJyBzdHls EW9hTt0oKGTsGXCy bGxh (more content not included)... Normal [facility] T3 Freeon 05-12-2022 Free T3 [Mass/Vol] 3.8 pg/mL Invalid Interpretation Code 2.0-4.4 [facility] Comment on above: Result Comment: Perf ormed at: [facility] [address] [id number] PhD Boone Coronado Performed By: #### 2 885275, 3121215, 2958805, 5559880, 646110465, 9875645, 00503320, 2005834, 2373990 ####[facility] [address] [place] [address] Auto Diffon 05-11-2022 Basophils/100 WBC (Bld) 1.1 % Normal 0.0-2.0 [facility] Comment on above: Order Comment: Order Added by Discern Expert. Performed By: #### 2 481512, 8367470, 2952633, 2928416, 297622938, 9460393, 64762674, 3209331, 4928230 #### [facility] [address] [place] [address] Basophils/Leukocytes Auto (Bld) [Pure # fraction] 0.1 E9/L Normal 0.0-0.2 [facility] Comment on above: Order Comment: Order Added by Discern Expert. Performed By: #### 2 968561, 8016939, 6990897, 1687144, 451093469, 6916468, 77965098, 7110808, 9453396 #### [facility] [address] [place] [address] Eosinophils/100 WBC (Bld) 3.3 % Normal 0.0-8.0 [facility] Comment on above: Order Comment: Order Added by Discern Expert. Performed By: #### 2 805592, 9479716, 0397073, 1234556, 841867950, 3947772, 19266412, 4352760, 7857766 #### [facility] [address] [place] [address] Eosinophils/Leukocyte s Auto (Bld) [Pure # fraction] 0.3 E9/L Normal 0.0-0.5 [facility] Comment on above: Order Comment: Order Added by Discern Expert. Performed By: #### 2 212767, 3392315, 6089343, 9366241, 983203872, 1180909, 71970294, 0906568, 0805495 #### [facility] [address] [place] [address] Lymphocytes/100 WBC (Bld) 34.9 % Normal 14.0-50.0 [facility] Comment on above: Order Comment: Order Added by Discern Expert. Performed By: #### 2 017556, 8643520, 6256580, 2463008, 031497906, 8048558, 32552556, 4745586, 9200435 #### [facility] [address] [place] [address] Lymphocytes/Leukocyte s Auto (Bld) [Pure # fraction] 3.0 E9/L Normal 1.0-4.0 [facility] Comment on above: Order Comment: Order Added by Discern Expert. Performed By: #### 2 645137, 8586902, 6315001, 9488607, 030360852, 1367000, 27850058, 3886154, 0597971 #### [facility] [address] [place] [address] Monocytes/100 WBC (Bld) 5.8 % Normal 4.0-14.0 [facility] Comment on above: Order Comment: Order Added by Discern Expert. Performed By: #### 2 881263, 4144431, 1373388, 8896138, 213087272, 8765646, 80908518, 0844328, 6056118 #### [facility] [address] [place] [address] Monocytes/Leukocytes Auto (Bld) [Pure # fraction] 0.5 E9/L Normal 0.2-1.0 [facility] Comment on above: Order Comment: Order Added by Roma Expert. Performed By: #### 2 960471, 2849182, 4565301, 9680803, 840416241, 5104458, 91524565, 6672140, 1793584 #### [facility] [address] [place] [address] Neutrophils/100 WBC (Bld) 54.9 % Normal 36.0-75.0 [facility] Comment on above: Order Comment: Order Added by Roma Expert. Performed By: #### 2 501492, 2406911, 0062280, 4032228, 400683228, 4578682, 53794393, 0983469, 8966377 #### [facility] [address] [place] [address] Neutrophils/Leukocyte s Auto (Bld) [Pure # fraction] 4.7 E9/L Normal 2.0-7.5 [facility] Comment on above: Order Comment: Order Added by Roma Expert. Performed By: #### 2 419736, 6957872, 9217125, 8778052, 180109538, 0529356, 58518021, 5084268, 0696513 #### [facility] [address] [place] [address] CBC w/ Auto Diffon Erythrocyte distribution width (RBC) [Ratio] 12.9 % Normal 10.9-14.2 [facility] Comment on above: Performed By: #### 2 263079, 8740195, 2732954, 9844161, 693117834, 2393521, 57993218, 9129464, 2658368 #### [facility] [address] [place] [address] Hematocrit (Bld) [Volume fraction] 43.0 % Normal 34.0-46.0 [facility] Comment on above: Performed By: #### 2 341574, 2012129, 2033689, 1882020, 139345757, 0506057, 94259316, 4910072, 7700688 #### [facility] [address] [place] [address] Hemoglobin (Bld) [Mass/Vol] 14.6 g/dL Normal 12.0-16.0 [facility] Comment on above: Performed By: #### 2 265281, 5620880, 4576704, 9992938, 367178562, 7430597, 31458427, 2363070, 2266930 #### [facility] [address] [place] [address] MCH (RBC) [Entitic mass] 29.4 pg Normal 27.0-34.0 [facility] Comment on above: Performed By: #### 2 813400, 5745530, 7513278, 8048752, 280593081, 7383573, 79686624, 1942734, 7994518 #### [facility] [address] [place] [address] MCHC (RBC) [Mass/Vol] 33.9 g/dL Normal 31.4-36.0 [facility] Comment on above: Performed By: #### 2 467969, 0685543, 8751716, 1646808, 769588056, 0114617, 38042384, 8676954, 8458180 #### [facility] [address] [place] [address] MCV (RBC) [Entitic vol] 86.7 fL Normal 80.0-100.0 [facility] Comment on above: Performed By: #### 2 159629, 0404989, 2832755, 4580590, 991707182, 6255755, 86564632, 8249492, 9319590 #### [facility] [address] [place] [address] Platelet mean volume (Bld) [Entitic vol] 7.1 fL Normal 6.4-10.8 [facility] Comment on above: Performed By: #### 2 179265, 2368082, 7893696, 1820763, 895740650, 5595818, 77899360, 4838083, 3880216 #### [facility] [address] [place] [address] Platelets (Bld) [#/Vol] 316.0 E9/L Normal 150.0-500.0 [facility] Comment on above: Performed By: #### 2 484044, 8792579, 9657046, 2134087, 248835236, 4907311, 57418945, 8215256, 5340785 #### [facility] [address] [place] [address] RBC (Bld) [#/Vol] 5.0 E12/L Normal 4.3-5.9 [facility] Comment on above: Performed By: #### 2 805480, 8787400, 8616190, 7066000, 990146571, 4129105, 59427891, 8107895, 6184904 #### [facility] [address] [place] [address] WBC corrected for nucl RBC Auto (Bld) [#/Vol] 8.5 E9/L Normal 4.0-11.0 [facility] Comment on above: Performed By: #### 2 931259, 2152657, 2588828, 2474314, 297453150, 5616438, 95050307, 1842555, 2289909 #### [facility] [address] [place] [id number] CHEMISTRYOrdered By: SYSTEM SYSTEM on 05-11-2022 25-hydroxyvitamin D3 [Mass/Vol] 48.8 ng/mL Normal 30.0 - 100.0 ng/mL [facility] Remisol Albumin [Mass/Vol] 4.3 g/dL Normal 3.3 - 5.0 gm/dL [facility] Albumin/Globulin [Mass ratio] 1.2 {ratio} Normal 1.1 - 2.2 [facility] ALP [Catalytic activity/Vol] 80 [iU]/d Normal 21 - 98 Int._Unit/L [facility] ALT No additional P-5'-P [Catalytic activity/Vol] 15 [iU]/d Normal 6 - 46 Int._Unit/L [facility] Anion gap [Moles/Vol] 11 mmol/L Normal 6 - 16 mEq/L [facility] AST [Catalytic activity/Vol] 17 [iU]/d Normal 5 - 43 Int._Unit/L [facility] Bilirubin [Mass/Vol] 0.9 mg/dL Normal 0.0 - 1 .1 mg/dL [facility] Calcium [Mass/Vol] 9.6 mg/dL Normal 8.9 - 11. 1 mg/dL [facility] Chloride [Moles/Vol] 102 mmol/L Normal 101 - 1 11 mmol/L [facility] CO2 [Moles/Vol] 28 mmol/L Normal 21 - 31 mmol/L [facility] Creatinine [Mass/Vol] 0.8 mg/dL Normal 0.5 - 1.3 mg/dL [facility] Free T4 [Mass/Vol] 0.64 ng/dL Normal 0.58 - 1. 64 ng/dL [facility] GFR/1.73 sq M.predicted among blacks MDRD (S/P/Bld) [Vol rate/Area] mL/min/1.73 m2 Normal >=59mL/min/1. 73 m2 [facility] Chem S GFR/1.73 sq M.predicted among non-blacks MDRD (S/P/Bld) [Vol rate/Area] mL/min/1.73 m2 Normal >=59mL/min/1. 73 m2 [facility] Chem S Globulin (S) [Mass/Vol] 3.5 g/dL Normal 1.4 - 4.0 gm/dL [facility] Glucose [Mass/Vol] 83 mg/dL Normal 55 - 199 mg/dL [facility] Potassium [Moles/Vol] 4.0 mmol/L Normal 3.5 - 5.3 mmol/L [facility] Protein [Mass/Vol] 7.8 g/dL Normal 6.0 - 7.8 gm/dL [facility] Sodium [Moles/Vol] 137 mmol/L Normal 135 - 145 mmol/L [facility] TSH Qn 2.11 m[IU]/L Normal 0.34 - 5.60 mcIU/mL [facility] Urea nitrogen [Mass/Vol] 16 mg/dL Normal 5 - 21 mg/dL [facility] Urea nitrogen/Creatinine [Mass ratio] 20 mg/mg Normal 10 - 20 [facility] CHEMISTRYOrdered By: Phil gould on 05-11-2022 Cobalamin (Vitamin B12) [Mass/Vol] 364 pg/mL Normal 50 - 1500 pg/mL [facility] CMPon 05-11-2022 Albumin [Mass/Vol] 4.3 g/dL Normal 3.3-5.0 [facility] Comment on above: Performed By: #### 2 [id number], 6468591, 0885922, 4066841, [id number], 8132542, 78925257, 0695897, 9082544 #### [facility] [address] [place] [address] Albumin/Globulin (S) [Mass conc ratio] 1.2 Normal 1.1-2.2 [facility] Comment on above: Performed By: #### 2 026568, 7454747, 6215857, 6425150, [id number], 5091626, 02771678, 7388265, 2109850 #### [facility] [address] [place] [address] ALP [Catalytic activity/Vol] 80 Int._Unit/L Normal 21-98 [facility] Comment on above: Performed By: #### 2 409196, 0710300, 6489425, 9788254, [id number], 0666923, 52214440, 7544138, 4535119 #### [facility] [address] [place] [address] ALT No additional P-5'-P [Catalytic activity/Vol] 15 Int._Unit/L Normal 6-46 [facility] Comment on above: Performed By: #### 2 951906, 3942543, 8359669, 5995302, [id number], 5275413, 61303253, 0514894, 2478329 #### [facility] [address] [place] [address] Anion gap [Moles/Vol] 11 mmol/L Normal 6-16 [facility] Comment on above: Performed By: #### 2 465342, 5202791, 0411604, 1155722, [id number], 3578562, 72431278, 4168694, 8067833 #### [facility] [address] [place] [address] AST [Catalytic activity/Vol] 17 Int._Unit/L Normal 5-43 [facility] Comment on above: Performed By: #### 2 640409, 0021526, 4906580, 0604660, 071525854, 6462654, 99511731, 7522428, 3522780 #### [facility] [address] [place] [address] Bilirubin [Mass/Vol] 0.9 mg/dL Normal 0.0-1.1 [facility] Comment on above: Performed By: #### 2 479031, 5719882, 1980516, 4922873, 114623821, 0589727, 96262593, 1007532, 4868629 #### [facility] [address] [place] [address] Calcium [Mass/Vol] 9.6 mg/dL Normal 8.9-11.1 [facility] Comment on above: Performed By: #### 2 121606, 4544706, 9663169, 2721431, 236066352, 4370224, 43145961, 6860103, 3931335 #### [facility] [address] [place] [address] Chloride [Moles/Vol] 102 mmol/L Normal 101-111 [facility] Comment on above: Performed By: #### 2 632232, 8666588, 2912774, 8814709, 879475761, 9300890, 77057563, 7149269, 7159866 #### [facility] [address] [place] [address] CO2 [Moles/Vol] 28 mmol/L Normal 21-31 [facility] Comment on above: Performed By: #### 2 089155, 4618885, 2461075, 6643750, 663809678, 9097303, 14942532, 7721373, 9011863 #### [facility] Laboratory [address] [place] [address] Creatinine [Mass/Vol] 0.8 mg/dL Normal 0.5-1.3 [facility] Comment on above: Performed By: #### 2 648902, 0951319, 0449375, 4386906, [id number], 5320099, 72489572, 3240028, 3609500 #### [facility] [address] [place] [address] Globulin (S) [Mass/Vol] 3.5 g/dL Normal 1.4-4.0 [facility] Comment on above: Performed By: #### 2 351278, 8783314, 3000892, 4270270, 768711070, 9830294, 30489995, 6006831, 3370392 #### [facility] Laboratory [address] [place] [address] Glucose [Mass/Vol] 83 mg/dL Normal 55-199 [facility] Comment on above: Result Comment: If t his glucose result represents a fasting glucose, interpretation should refer to the following reference range: 55-99 mg/dL Performed By: #### 2 413696, 8394369, 7306452, 3872054, 382573597, 0874007, 98528619, 3151623, 6393444 #### [facility] [address] [place] [address] Potassium [Moles/Vol] 4.0 mmol/L Normal 3.5-5.3 [facility] Comment on above: Performed By: #### 2 086134, 9356819, 5145747, 1298300, 513526160, 2627311, 90584363, 1536013, 8069499 #### [facility] [address] [place] [address] Protein [Mass/Vol] 7.8 g/dL Normal 6.0-7.8 [facility] Comment on above: Performed By: #### 2 443661, 8501369, 2799446, 8042283, 446358032, 1263674, 39054950, 2632019, 7602558 #### [facility] Laboratory [address] [place] [address] Sodium [Moles/Vol] 137 mmol/L Normal 135-145 [facility] Comment on above: Performed By: #### 2 519178, 4557599, 9385807, 3728054, 560836945, 7869343, 26543711, 1854554, 1981083 #### [facility] [address] [place] [address] Urea nitrogen [Mass/Vol] 16 mg/dL Normal 5-21 [facility] Comment on above: Performed By: #### 2 877196, 2628278, 5427600, 6976584, 629441167, 4025235, 09376156, 5170232, 5674083 #### [facility] [address] [place] [address] Urea nitrogen/Creatinine [Mass ratio] 20 No Units Normal 10-20 [facility] Comment on above: Performed By: #### 2 260869, 5556131, 8839215, 5307380, 556792185, 2277563, 08490096, 1724015, 7859477 #### [facility] [address] [place] [address] [place] [id number] Coding Summary.on 05-11-2022 Coding Summary. CD:[id number] Gh0bWw+PGhlYWQ+PE1FV LYvJ16raNAfcB7FG9kVW E3KLVHSHQFXKB0NZN6ub GI3QGfzO3HpvqAh DuxqiHBjUC31WOf3EQX9 tIofPCmyzY9rkWTsG0j6 CnUgVR09pX60BBsrNYNu GgP2EqHwuknngFPn N4zgYuPvwOBzTfd+PHRh YmxlIHdpZHRoPScxMDAl JpCkxLubFL4qNf4pOYGx LWNvbGxhcHNlOiBj m7raCSOcJDcxXJ9fnUhy B2OliLU5AYCho2s7Ak64 dHI+BIUlXEF9pNozMGmu p576JaOtn5znPHL3 zCXbVKjfHGL2X92bk2C6 MPVkGZSlNKW8mWO0fY4v wEbavmubV1VldEUxSxK2 QIB3wFIpwR5caBgv qvugsH9lHww+M48SVI7E OTVRYN5TTig5R3IcAvdp dHI+UE02TLRhUQ72vIPk uLOmk2pybQr9LaAs ZMXkCFL0vKciGKnay9Bv XYFhW61bqIKuw8K2QXIq dFdmwYGyQhUgwQS9bJ8w YJnysxmdy3tzuttk Kmqcj9ezxi82cI06F62z XXexKSQcLJS0XMRaNEHz pGhkhv8osM8zKw5+IDxj p3slv2uhpYl7OaGb XRGzefUhaYunXZB5o6Wn Et78W0BhdFwas8EmRms4 dn76qKJfc1F9gWQ8GKhx GFVcvG4rBZswVdE8 CEWhZlAsmT30sLZyPBog Qn5zrTzuqIkqTZ0cHHVx wtqmGGMczR9cBBIctLBo xTvsAD9jRURqizhn q174ZuMuBUV2FMYwaAQb Y8VouG6qWlJsDFCfERRy S4YszCCvXPhpB954WIti UrR4ZXYiwxBzY9Zc PFTouCmhHoL9z4A4Ak6Q h9NticrsWIW3VImyMWBb LdA8DaJfCoI1I8WhZsb0 CUTfuFkhCO5uV8Op QGUxqujoiiixmWQ5YLZm KRSbfH88tYCmJZzbPa5e h4G2r071FYBgNFJqhS07 Lw2jdEyfVVLhxEQN jX0mukdip3suzbntJyNk DKFaXGf7AWw3RHAorZbq HvPoMTW5SlT0DWF9vWUe gN2hlAjcvnbuwB8z Oyc+L50dxR5aWBH4THX4 gxseSTUktnJgVK18HT50 M5OqVqrfuKHfvFK+PGRp ujAcmFmlRP2eRsRy g4rll8WcXPvyD9JiGYTu FMatWmp9JHLvLJJ3fRY7 sE0yLJUjPMybx8H4aEI2 D8SbirCfvj7rz7cj GDMyXSubE91wmBFpg6S7 GENxnSY5OXXnyAmkYdWy bV70Trd+TIJnwQpzw7Qe Bkgqz5qoj5nelVb7 IjMwJSIgdmFsaWduPSJ0 l8YiFa20U24ePXeyDRZz HJRzXCSoCLIziElsam5k hL9kZi8+PGNvbCB3 wJY1nR3rJCXcHcU8REnn B387OfNokGJvZgqrk2dv t4tprOv7IfIyJBNqnhZo cFjiIWX9x5CjMq61 B64nWNnaXJEdMNEoOTWi JGDjzTgiie6naM6tEv4+ YC0bg6qciz99eC64zPF+ ITJvWBC0vUwuQSqr IWReyJ4tUZvtDdI4BBMe QwBdwT76nDQzMPpiUd4z tDmwjRrjRP2hBWTnxxwt k294CeTzq5ghYZEx rLIwDEpgIYP3C63je2F0 KJFnWNIuGMT1aIX4yR1b bGlnbjogbGVmdDsgdmVy aRsoWUvzOSivL351 IHRvcDsnPlBhdGllbnQg MjEkEAl5L4XxUcz0NCYp yPtlCN5kvVEnWFkoSk4q aLsxjQgkNV1xZSHu xkwvh316PuFpd7upBTUh hFXqESxvOFD8C02av9C1 HKUnETCsJWW0xMM6yT2y bGlnbjogbGVmdDsg loJuiEfbWRdfFOohE629 IHRvcDsnPkJpcnRoIERh fSI6QA30QK86qRXbv5S0 fHH5U6BhTRPbxnfo dhoklTJ6IJZnFLNxgE90 Eq1jdXewPr7xZYSrRBF9 FHHtkQSfZ2LrxB5lYhUn JBArVRCnB3RfyVFd JReoE611PWotXwP0IODt hoWqN8FtIHEwnOgrVeI4 c0T6Oj8CS5A6JY18PC84 zSXvb4O5zVZ5V9Go VKImeufaywhecVB2SHBz YAEdbS62Bb6pbCuiSc1q SXPvUJX6XYYbuVLuK5Mk sU4dEqZxYQJaCYNh U8KrbSGxVYoaC678WGyc LrU5WXPwkeDaW9XgQDSr uFqmFwG5e9E7Kz5FGWe7 KU57BK00cQRng2E5 sKA4A4RrNEGmwsdglkyn yIQ4SYShWLHpiP34Sd3q jXlpRb8fHLVmUAC9ZYBt kYPnU7IwnF3iXpKx YRYwUCFqN2MoxBLmMGer Q586RKiyLtY9SBZnyrRf Q1HyOLLzxBblObR1o9M1 Om9RPXMoLH27OHK9 uYW5PN35QM47P5NyPide dGFibGU+PHRhYmxlIHdp ZHRoPScxMDAlJyBzdHls DB8hXp0aFTGqYYGu uRdfuYQpGzUwe1sgKHCz AVmuQI5kdJknR2FekFL1 SAHpk5r2Gs52V19aP9Hm dXA+QDTbvJJ7fRG1 gV8lGfHaTyO0VFytF057 AhWaeVJxTbdji7ivi9pe mHo4UuI7XBZyseEffOuq TAX8f3GyIk99L35x IHdpZHRoPSIxNSUiIHZh uRvusv9drN8nXe9+PGNv iTX1oOZ9dQ4wTpRnVwK4 JOqsK999KqRyfANe Kyeag7xra2mkiGa5FvEb ZTKtqwBjqWghMUQ9c2Mg Dj95A6FweJsil3SeFkw4 gl14uYMij3U6lMM2 Z6ZgTRAmtyfojBZldJus FM4yXUPbecezANVyeV4p IQIeD4g1JqRcPtZ6GXyu W1DzqrW4SJGnkQVu ERsaJJL2N73gt3X0ULRo EBDnCPM7gED4uF9mlUtq bjogbGVmdDsgdmVydGlj FAiyZDghO231XMKs uIlhOYUowO3xHKEbzTCb fNsqIX5hSVHqgnqcVr8P NCPZEWUTVJDAV81FSkJy TTwvdGQ+PHRkIHN0 oIgcVOjvHOMdqK3eIFRg R6o2WcNrDpQ8SZiaX8Bd WLFeugvaQk64pT8hOtCw TcY3YOyhT4ImtnJ3 NBOwgKMrAVrnILX6H76r i4O7KHIlNEQdHDI1vSA7 hN7jiCjzssadtDJcpNgy dmVydGljYWwtYWxp T966TVXamIruVpIcViCt DeN3MKG7E1TtZbu3RBQh oHhzEF3xlUSqFYvbHf1d yCagrVwfQV8kMCMl tdwsFCGpsS7bNTMjnTMm xGjnUE0gYWKyzkugm423 CmMkXAU1NVLbjSGcK5Vz lZ6hHnOiOBLeCKDb A2HbeVQaBDqaF243IYej NdF0YHLptlZdL7FoCJOh wFybAzQ7j9Z1Vl8nQPWV ZWFyczwvdGQ+PHRk RPQ0iPgqGXaaADHjeD9u AGHmT5q9BiEwCrF4IJye C9HkHUGdgamwCu24hG8d SbZdWwJ1QFwgY5Op bcK9IOYwxEYrFFepPZR2 X19hm3J8PVFkJHXwLNV7 oKS0qN7xuAtpvvtiiEGh dDsgdmVydGljYWwt JAitQ813WKZcrAdhXrQt bWFsZTwvdGQ+PHRkIHN0 nVwxXBvyGHSgaR0gRSCx N2u4LzMzJzV6GElm G6HgWYObpqfyEu69fU8w VmQhXwB9QBvnC6MvinQ6 LSNfsMOoWDgsIHI3L11d j0N5MQWhWJIkCIL0 dQJ9vO7gtUbqvvqbqKZp dDsgdmVydGljYWwtYWxp B952POCcuEhpIz54rHGu tIhpfkR6M4BsWfkd dHI+AV58IDHzJZ74dWEy nZDhz9pcqXn3KzOmQQIx BKO0nGqmFKglo5TaJGMt E82fsGNhd9A0FNCd eVqrgYUaKcConRF3eL3x YQgyisoej1kwqjknCgos v4sebf17dZ51Q80gGZqu ZHRoPSIzMCUiIHZh cGzchk3snQ1iHm7+PGNv aES0gVF7uY1nPzHfIrR1 HZxhM586LdNizJElAklr o6jsz4xrtLg3MxXh RPStzfIgmCbmNAE8l6Dx Jv15R36nFObqGYNlADGr PJNdTOEpbBuqvd3uyL9q Ii8+VM1uc3jfiq72 zK49eAN+OEOrQEZ3zXan NZtjONPvnY3dPYcfKaD6 MSKnBnAkxE73jFIbMDzy Bv8kpLvphMugNC6f XUOhalgpd821MiWyj2xv ZXFmnAYyDFlaZLE3H26l x9D8AXDqUXKhAFY6oUV2 nZ2rrZjycnpluOGy dDsgdmVydGljYWwtYWxp K288VQSifQbcGiFitLUj Q9ndklUDQC9pOnvedAF+ INApNYL7sOrbIXft KAJmtZ0uVMUnD9f8GdXe PkR1WFemG0GmbpE2HHOh tCQgAWHjeSKIqC3ingxd c9duvtvhGzHoYDQx AGu7POm3YDEckNlmPaRs SJW0TsJ8EHR1qQEvvV5b cQacfnuejW6pZct+RklO OjwvdGQ+PHRkIHN0 oVgrCFkfSMFfqZ2qNRVb R8v2XcSnJaW2DGynC6Fa vlZ6IEIdhQJnKXKusLGZ wO1zmcwdl9tdkdfp IbUxTODyIPp3SOd4TMGs pKioVcVgFMH4NjX0CXE7 yOSmgP1krYjudmjryK3l Oyc+TVJOOjwvdGQ+ LRPcYRQ7hOewEOprUJLy zH9rJSZrT0n8HxIlVuA7 DUtxT1TuxgF1VAEcyLYc ZQIinRZKyM0yjkjt e0tzsankUiGhETXbNJs1 BAp0FFNbmUypAvSsTZC8 EhJ6UZX4kDWnwY6ibHuc faoauE9qLbl+UGF5 IIS4MH31CG05O0PbFvva dGFibGU+PHRhYmxlIHdp ZHRoPScxMDAlJyBzdHls NA3lYy8nOOSsUIBo bGxh (more content not included)... Normal [facility] Consent for Treatmenton Consent for Treatment [id number] #1.00CD:127 Normal [facility] Free T4on 05-11-2022 Free T4 [Mass/Vol] 0.64 ng/dL Normal 0.58-1.64 [facility] Comment on above: Performed By: #### 2 872919, 0350554, 0191749, 7350636, 079564122, 5019089, 55209462, 7073774, 2301956 #### [facility] [address] [place] [address] HEMATOLOGYOrdered By: SYSTEM SYSTEM on 05-11-2022 Basophils/100 WBC (Bld) 1.1 % Normal 0.0 - 2.0 % [facility] Basophils/Leukocytes Auto (Bld) [Pure # fraction] 0.1 E9/L Normal 0.0 - 0.2 E9/L [facility] Eosinophils/100 WBC (Bld) 3.3 % Normal 0.0 - 8.0 % [facility] Eosinophils/Leukocyte s Auto (Bld) [Pure # fraction] 0.3 E9/L Normal 0.0 - 0.5 E9/L [facility] Lymphocytes/100 WBC (Bld) 34.9 % Normal 14.0 - 50.0 % [facility] Lymphocytes/Leukocyte s Auto (Bld) [Pure # fraction] 3.0 E9/L Normal 1.0 - 4.0 E9/L [facility] Monocytes/100 WBC (Bld) 5.8 % Normal 4.0 - 14.0 % [facility] Monocytes/Leukocytes Auto (Bld) [Pure # fraction] 0.5 E9/L Normal 0.2 - 1.0 E9/L [facility] Neutrophils/100 WBC (Bld) 54.9 % Normal 36.0 - 75.0 % [facility] Neutrophils/Leukocyte s Auto (Bld) [Pure # fraction] 4.7 E9/L Normal 2.0 - 7.5 E9/L [facility] HEMATOLOGYOrdered By: Lyndsey Alba on 05-11-2022 Erythrocyte distribution width (RBC) [Ratio] 12.9 % Normal 10.9 - 14.2 % [facility] Hematocrit (Bld) [Volume fraction] 43.0 % Normal 34.0 - 46.0 % [facility] Hemoglobin (Bld) [Mass/Vol] 14.6 g/dL Normal 12.0 - 16.0 gm/dL [facility] MCH (RBC) [Entitic mass] 29.4 pg Normal 27.0 - 34.0 pg [facility] MCHC (RBC) [Mass/Vol] 33.9 g/dL Normal 31.4 - 36.0 gm/dL [facility] MCV (RBC) [Entitic vol] 86.7 fL Normal 80.0 - 100.0 fL [facility] Platelet mean volume (Bld) [Entitic vol] 7.1 fL Normal 6.4 - 10.8 fL [facility] Platelets (Bld) [#/Vol] 316.0 E9/L Normal 150.0 - 500.0 E9/L [facility] RBC (Bld) [#/Vol] 5.0 E12/L Normal 4.3 - 5.9 E12/L [facility] WBC corrected for nucl RBC Auto (Bld) [#/Vol] 8.5 E9/L Normal 4.0 - 11.0 E9/L [facility] Physician Orderon 05-11-2022 Physician Order [id number] 5#1.00CD:127 Normal [facility] TSHon 05-11-2022 TSH Qn 2.11 m[IU]/L Normal 0.34-5.60 [facility] Comment on above: Performed By: #### 2 057693, 4890466, 2653473, 3165831, 281784600, 2387865, 34235331, 7034466, 6098874 #### [facility] [address] [place] [address] Vit B12on 05-11-2022 Cobalamin (Vitamin B12) [Mass/Vol] 364 pg/mL Normal 50-1500 [facility] Comment on above: Performed By: #### 2 237642, 3109419, 6887941, 2830539, 657343280, 8496503, 93361782, 6864896, 5680870 ####[facility] [address] [place] [address] Vitamin D 25 Hydroxyon 05-11 25-hydroxyvitamin D3 [Mass/Vol] 48.8 ng/mL Normal 30.0-100.0 [facility] Comment on above: Result Comment: Vit young D deficiency has been defined as a level of serum 25-OH vitamin D less than 20 ng/mL (1,2) by the [place] [employer] and an Endocrine Society practice guideline. The Endocrine Society further defined vitamin D insufficiency as a level between 21 and 29 ng/mL (2). 1. IOM ([place] [employer]). 2010. Dietary reference intakes for calcium and D. [place]: The National Academies Press. 2. Megan MF, Lay [place], John VALERIO, et al. Evaluation, treatment, and prevention of vitamin D deficiency: an Endocrine Society clinical practice guideline. JCEM. 2010; 96 (7):1911-30. Performed By: #### 2 601354, 9874296, 9377148, 2438678, 999047689, 1667720, 51244278, 9338181, 6566172 #### [facility] [address] [place] [address] eGFRon 05-11-2022 GFR/1.73 sq M.predicted among blacks MDRD (S/P/Bld) [Vol rate/Area] mL/min/{1.73_m2} Normal >=59 [facility] Comment on above: Order Comment: Order added by Discern Expert. Result Comment: eGFR is race adjusted. AA=. Performed By: #### 2 885927, 6199670, 9590840, 4871623, 861055009, 5861925, 57101638, 0351013, 2760074 ####[facility] [address] [place] [address] GFR/1.73 sq M.predicted among non-blacks MDRD (S/P/Bld) [Vol rate/Area] mL/min/{1.73_m2} Normal >=59 [facility] Comment on above: Order Comment: Order added by Discern Expert. Result Comment: Web Editor zach kidney disease could be indicated at eGFR's of less than 60 mL/min/1.73m2. Kidney failure is indicated at less than 15 mL/min/1.73m2. Performed By: #### 2 844557, 0859949, 1257085, 1506695, 226669266, 3976908, 87867608, 2902277, 7233548 ####[facility] [address] [place] [address] CHEMISTRYOrdered By: SYSTEM SYSTEM on 05-06-2022 Progesterone [Mass/Vol] 1.10 ng/mL Invalid Interpretation Code [facility] Remisol Consent for Treatmenton Consent for Treatment [id number] #1.00CD:127 Normal [facility] Physician Orderon 05-06-2022 Physician Order [id number] #1.00CD:127 Normal [facility] Progesteroneon 05-06-2022 Progesterone [Mass/Vol] 1.10 ng/mL Invalid Interpretation Code [facility] Comment on above: Result Comment: REFE RENCE RANGE Males 0.14-2.06 ng/mL Non- Females Follicular 0.10-0.60 ng/mL Luteal 3.00-17.5 ng/mL Midluteal 3.30-18.6 ng/mL Post-Menopausal 0.10-0.40 ng/mL First Trimester 8.30-66.5 ng/mL Second Trimester 18.9-66.1 ng/mL Third Trimester 35.8-312.4 ng/mL Performed By: #### 2 [id number] #### [facility] [address] [place] [address] Family Medicine Office/Clini c Noteon 05-26-2021 Family Medicine Office/Clinic Note Chief Complaint EST - asthma and coughing HPI Staff Pt is a 26 y/o female presenting with asthma and cough. onset - x4 days congestion - yes, not coughing anything up difficulty breathing - yes wheezing - no chest pain - tightness fevers - no Covid exposure - unknown vaccinated - yes, Pfizer x2 Treatment - breathing tx, Mucinex, Sudafed, nasal spray, inhaler History of Present Illness I have reviewed and verified the staff HPI to be accurate for this encounter. Patient presents in office for concern of cough x4 days. States she has a history of asthma. Complains of shortness of breath. Complains of chest tightness. Denies fever. Denies known Covid exposure. Patient is vaccinated with 2 Pfizer vaccines- last dose about 2 months ago. Patient took a rapid Covid test on first day of symptoms which was negative. Has been using albuterol breathing treatments, Mucinex, Sudafed, nasal spray with minimal improvement. Review of Systems PHQ Score Initial Depression Screen Score: 0 Fatigue: no Body aches: no Chills: no Fever: no VALERIO: no Nasal congestion: yes Rhinorrhea: yes Cough: yes, dry SOB: minimal Wheezing: yes, mild + chest tightness Sore throat: no, resolved Ear pain: no Ear drainage: no Loss of taste or smell: no Nausea: no Vomiting: no Diarrhea: no Current or former smoker: no Underlying health conditions: yes, asthma Known Covid exposure: no Physical Exam Vitals & Measurements T: 36.4 ?C(Oral) HR: 115(Peripheral) BP: 130/82 SpO2: 99% HT: 158 cm HT: 158.0 cm WT: 58.4 kg WT: 58.4 kg BMI: 23.39 General: Well developed, well nourished, in no acute distress Ears: No deformity or lesion of external ear. Canals and TM appear normal bilaterally. TM?s intact, not inflamed, with normal light reflex. Hearing grossly normal to conversational speech Nose: mild nasal mucosa inflammation and edema, no significant drainage. Mouth: Mucous membranes moist. Normal oropharynx, and posterior pharynx without lesions or exudates. Tongue normal, no pharyngeal erythema Neck: no adenopathy Lungs: Clear anteriorly. Mild scattered wheezing posteriorly. No rales. No signs of respiratory distress. Pulse ox stable. Cardio: regular rate and rhythm, no murmur Mental Status: Alert and oriented x3. Normal mood and affect Assessment/Plan 1. Acute asthma exacerbation (J45.901: Unspecified asthma with (acute) exacerbation) Discussed exam and hx are consistent with viral illness. Advised of typical duration. Discussed antibiotics unfortunately do not treat viral illnesses, it will take time to run course- usually 7-14 days. Fluids/rest encouraged, PRN tylenol/ibuprofen for any pain. May use Sudafed D, Mucinex DM, Flonase for symptomatic tx. Follow up with PCP if not improving over next 7 days or significantly worsening symptoms. Patient and/or parent verbalized understanding of tx plan. with mild asthma exacerbation. Will treat with 9-day prednisone taper given wheezing. Continue rescue inhaler or albuterol nebs for SOB, wheezing. Follow up with PCP if not improving over next 4-5 days with medications, sooner or ER if significantly worsening symptoms, SOB, signs respiratory distress. May use mucinex DM for cough/symptoms. Discussed other cold symptoms are consistent with viral uri- typical duration usually 7-14 days. Patient and/or parent verbalized understanding of tx plan. Orders: albuterol, 2.5 mg, 3 mL, Inhalation, q6hr for wheezing for 30 day(s), 25 EA, Refill(s) 0, [facility], 158, cm, 05/26/21 15:24:00 EST, Height/Length Dosing, 58.4, kg, 05/26/21 15:24:00 EST, Weight Dosing predniSONE, 20 mg = 1 tab(s), Oral, As Directed, Take three tabs by mouth for 3 days, then two tabs for 3 days, then one tab for 3 days, X 2 week(s), # 18 tab(s), Refills(s) 0, Pharmacy: [facility], 158, cm, 05/26/21 15:24:00 EST, Height/Length Do... Follow-up With When Contact Information ERVIN LOCK[place], PHIL Hernadez, [facility] [address], [facility] [address] [place] [address]- Additional Instructions: Patient Education Asthma, Adult, [id number] Problem List/Past Medical History Ongoing BMI 23.0-23.9, adult Historical No qualifying data Procedure/Surgical History None. Medications albuterol 0.083% Inh [place] 3 mL, 2.5 mg= 3 mL, Inhalation, q6hr, PRN [place]isovi FE 06/23 oral tablet Flovent HFA 44 mcg/inh inhalation aerosol with adapter, 2 puff(s), Inhalation, BID, Not taking fluticasone 0.05 mg/inh Nasal [place], 2 spray(s), Nasal, Daily, PRN, Not taking [place] 0.65% Nasal [place], 2 spray(s), Nasal, QID, PRN, Not taking predniSONE 20 mg Tab, 20 mg= 1 tab(s), Oral, As Directed ProAir HFA, Inhalation, q6hr Singulair 10 mg Tab, 10 mg= 1 tab(s), Oral, qPM, Not taking Allergies No Known Allergies Social History Tobacco - Denies Tobacco Use, 05/26/2021 Never (less than 100 in lifetime) Tobacco Use:. Never Smokeless Tobacco Use:. Cigarettes, 05/26/2021 Never (less than 100 in lifetime) Tobacco (more content not included)... Normal [facility] Comment on above: Result Comment: Elec tronically Signed By: Yue CHOWDARY CNP\.willam\Date and Time Signed: 05/26/21 16:13 EST Patient Educationon 05-26-20 Patient Education Pulmonary Medicine Asthma, Adult Asthma is a long-term (chronic) condition in which the airways get tight and narrow. The airways are the breathing passages that lead from the nose and mouth down into the lungs. A person with asthma will have times when symptoms get worse. These are called asthma attacks. They can cause coughing, whistling sounds when you breathe (wheezing), shortness of breath, and chest pain. They can make it hard to breathe. There is no cure for asthma, but medicines and lifestyle changes can help control it. There are many things that can bring on an asthma attack or make asthma symptoms worse (triggers). Common triggers include: ? Mold. ? Dust. ? Cigarette smoke. ? Cockroaches. ? Things that can cause allergy symptoms (allergens). These include animal skin flakes (dander) and pollen from trees or grass. ? Things that pollute the air. These may include household hadoop consultant, wood smoke, smog, or chemical odors. ? Cold air, weather changes, and wind. ? Crying or laughing hard. ? Stress. ? Certain medicines or drugs. ? Certain foods such as dried fruit, potato chips, and grape juice. ? Infections, such as a cold or the flu. ? Certain medical conditions or diseases. ? Exercise or tiring activities. Asthma may be treated with medicines and by staying away from the things that cause asthma attacks. Types of medicines may include: ? Controller medicines. These help prevent asthma symptoms. They are usually taken every day. ? Fast-acting reliever or rescue medicines. These quickly relieve asthma symptoms. They are used as needed and provide short-term relief. ? Allergy medicines if your attacks are brought on by allergens. ? Medicines to help control the body's defense (immune) system. Follow these instructions at home: Avoiding triggers in your home ? Change your heating and air conditioning filter often. ? Limit your use of fireplaces and wood stoves. ? Get rid of pests (such as roaches and mice) and their droppings. ? Throw away plants if you see mold on them. ? Clean your floors. Dust regularly. Use cleaning products that do not smell. ? Have someone vacuum when you are not home. Use a vacuum bobbin cleaner hand with a HEPA filter if possible. ? Replace carpet with wood, tile, or vinyl phillip. Carpet can trap animal skin flakes and dust. ? Use allergy-proof pillows, mattress covers, and box spring covers. ? Wash bed sheets and blankets every week in hot water. Dry them in a dryer. ? Keep your bedroom free of any triggers. ? Avoid pets and keep windows closed when things that cause allergy symptoms are in the air. ? Use blankets that are made of polyester or cotton. ? Clean bathrooms and jd with bleach. If possible, have someone repaint the swift in these rooms with mold-resistant paint. Keep out of the rooms that are being cleaned and painted. ? Wash your hands often with soap and water. If soap and water are not available, use hand litigation associate. ? Do not allow anyone to smoke in your home. General instructions ? Take [id number] and prescription medicines only as told by your doctor. ? Talk with your doctor if you have questions about how or when to take your medicines. ? Make note if you need to use your medicines more often than usual. ? Do not use any products that contain nicotine or tobacco, such as cigarettes and e-cigarettes. If you need help quitting, ask your doctor. ? Stay away from secondhand smoke. ? Avoid doing things outdoors when allergen counts are high and when air quality is low. ? Wear a ski mask when doing outdoor activities in the winter. The mask should cover your nose and mouth. Exercise indoors on cold days if you can. ? Warm up before you exercise. Take time to cool down after exercise. ? Use a peak flow meter as told by your doctor. A peak flow meter is a tool that measures how well the lungs are working. ? Keep track of the peak flow meter's readings. Write them down. ? Follow your asthma action plan. This is a written plan for taking care of your asthma and treating your attacks. ? Make sure you get all the shots (vaccines) that your doctor recommends. Ask your doctor about a flu shot and a pneumonia shot. ? Keep all follow-up visits as told by your doctor. This is important. Contact a doctor if: ? You have wheezing, shortness of breath, or a cough even while taking medicine to prevent attacks. ? The mucus you cough up (sputum) is thicker than usual. ? The mucus you cough up changes from clear or white to yellow, green, breen, or bloody. ? You have problems from the medicine you are taking, such as: ? A rash. ? Itching. ? Swelling. ? Trouble breathing. ? You need reliever medicines more than 2?3 times a week. ? Your peak flow reading is still at 50?79% of your personal best after following the action plan for 1 hour. ? You have a fever. Get help right away if: ? You seem to be worse and are not res (more content not included)... Normal [facility] Patient Letter [facility]TMCon 2020 Patient Letter [facility] May 26, 2021 KATIE ARIAS [address] [place] [phone] Please excuse KATIE ARIAS from work . Date and/or Time of Absence: From: 05/26/21 May return to work on: next scheduled work day Restrictions: None Comments: Please excuse due to an acute illness. Provider Signature: Yue Chowdary, REGIONAL [employer] MANAGER-SUPERVISOR [employer]UT PROCESSING, INVESTMENT OFFICER-C Nurse Practitioner [address] [place] [address] [place] [address] [facility] Vital Signs Date Time Vital Sign Value Performing Clinician Facility 07-14-2022 09:45-0500 Body height 153.67 cm Phil Ervin Other [facility] Other 07-14-2022 09:45-0500 Body mass index (BMI) [Ratio] 26.7 kg/m2 Phil Ervin Other [facility] Other 07-14-2022 09:45-0500 Body temperature 96 [degF] Phil Ervin Other [facility] Other 07-14-2022 09:45-0500 Body weight 63.05 kg Phil Ervin Other [facility] Other 07-14-2022 09:45-0500 Diastolic blood pressure 62 mm[Hg] Phil Ervin Other [facility] Other 07-14-2022 09:45-0500 Respiratory rate 16 /min Phil Ervin Other [facility] Other 07-14-2022 09:45-0500 SaO2% (BldA) [Mass fraction] 97 % Phil Ervin Other [facility] Other 07-14-2022 09:45-0500 Systolic blood pressure 98 mm[Hg] Phil Ervin Other [facility] Other 05-09-2022 12:45-0500 Body height 153.67 cm Phil Ervin Other [facility] Other 05-09-2022 12:45-0500 Body mass index (BMI) [Ratio] 26.12 kg/m2 Phil Ervin Other [facility] Other 05-09-2022 12:45-0500 Body temperature 97.9 [degF] Phil Ervin Other [facility] Other 05-09-2022 12:45-0500 Body weight 61.69 kg Phil Ervin Other [facility] Other 05-09-2022 12:45-0500 Diastolic blood pressure 82 mm[Hg] Phil Ervin Other [facility] Other 05-09-2022 12:45-0500 Respiratory rate 16 /min Phil Ervin Other [facility] Other 05-09-2022 12:45-0500 SaO2% (BldA) [Mass fraction] 98 % Phil Ervin Other [facility] Other 05-09-2022 12:45-0500 Systolic blood pressure 124 mm[Hg] Phil Ervin Other [facility] Other 09-05-2021 11:00-0400 Body height 153.67 cm Phil Ervin Other [facility] Other 09-05-2021 11:00-0400 Body mass index (BMI) [Ratio] 26.5 kg/m2 Phil Ervin Other [facility] Other 09-05-2021 11:00-0400 Body temperature 98.5 [degF] Phil Ervin Other [facility] Other 09-05-2021 11:00-0400 Body weight 62.6 kg Phil Ervin Other [facility] Other 09-05-2021 11:00-0400 Diastolic blood pressure 60 mm[Hg] Phil Ervin Other [facility] Other 09-05-2021 11:00-0400 Respiratory rate 16 /min Phil Ervin Other [facility] Other 09-05-2021 11:00-0400 SaO2% (BldA) [Mass fraction] 98 % Phil Ervin Other [facility] Other 09-05-2021 11:00-0400 Systolic blood pressure 96 mm[Hg] Phil Ervin Other [facility] Other Encounters Encounter Date Encounter Type Care Provider Facility Start: 06-12-2023 End: 06-12-2023 ambulatory AARON THAKKAR Not Available Start: 05-24-2023 End: 05-24-2023 ambulatory AARON THAKKAR Not Available Start: 05-10-2023 End: 05-10-2023 ambulatory TAYO AUSTIN Not Available Start: 11-06-2022 End: 11-06-2022 ambulatory Phil Ervin Other [facility] Other Start: 11-06-2022 Telephone encounter Phil Ervin [facility] Start: 09-22-2022 End: 09-23-2022 ambulatory TAYO AUSTIN Facility: Start: 07-14-2022 End: 07-14-2022 ambulatory Phil Ervin Other [facility] Other Start: 07-14-2022 Office outpatient vi sit 25 minutes Phil Ervin [facility] Start: 07-14-2022 Telephone encounter Phil Ervin [facility] Start: 07-11-2022 End: 07-11-2022 ambulatory Phil Ervin Other [facility] Other Start: 07-11-2022 Telephone encounter Phil Ervin [facility] Start: 05-16-2022 End: 05-16-2022 ambulatory Phil Ervin Other [facility] Other Start: 05-16-2022 Telephone encounter Phil Ervin [facility] Start: 05-11-2022 End: 05-12-2022 ambulatory PHIL M ERVIN PROVIDER Facility:[facility] Start: 05-11-2022 End: 05-11-2022 Patient encounter procedure PHIL M ERVIN [facility] Start: 05-09-2022 End: 05-09-2022 ambulatory Phil Ervin Other [facility] Other Start: 05-09-2022 Office outpatient vi sit 15 minutes Phil Ervin [facility] Start: 05-06-2022 End: 05-07-2022 ambulatory ZONIA NELSON Facility:[facility] Start: 05-06-2022 End: 05-06-2022 Patient encounter procedure ZONIA NELSON [facility] Start: 05-02-2022 End: 05-02-2022 ambulatory Phil Ervin Other [facility] Other Start: 05-02-2022 Telephone encounter Phil Ervin [facility] Start: 11-29-2021 End: 11-29-2021 ambulatory Phil Ervin Other [facility] Other Start: 11-29-2021 Telephone encounter Phil Ervin [facility] Start: 09-09-2021 End: 09-09-2021 ambulatory Phil Ervin Other [facility] Other Start: 09-09-2021 Telephone encounter Phil Ervin [facility] Start: 09-06-2021 End: 09-06-2021 ambulatory Phil Ervin Other [facility] Other Start: 09-06-2021 Telephone encounter Phil Ervin [facility] Start: 09-05-2021 End: 09-05-2021 ambulatory Phil Ervin Other [facility] Other Start: 09-05-2021 Encounter for genera l adult medical examination without abnormal findings Phil Ervin [facility] Start: 09-05-2021 Periodic preventive med est patient 18-39 yrs Phil Ervin [facility] Start: 05-26-2021 End: 05-27-2021 ambulatory uYe CHOWDARY Facility:[facility] Procedures Date Procedure Procedure Detail Performing Clinician None (qualifier value) JESUS NELSON Immunizations Immunization Date Immunization Notes Care Provider Fa cility 03-20-2021 COVID-19 Vaccine Pfizer - Documentation Purposes Only Phil Ervin Other [facility] Other 02-27-2021 COVID-19 Vaccine Pfizer - Documentation Purposes Only Phil Ervin Other [facility] Other NEGATED: Highlighted row has not occurred!12-17-2018 influenza, injectable, quadrivalent, contains preservative Patient Objection Phil Ervin Other [facility] Other NEGATED: Highlighted row has not occurred!07-14-2016 influenza, injectable, quadrivalent, contains preservative Patient Objection Phil Ervin Other [facility] Other Payers Date Payer Category Payer [facility] [id number] 1995 Unknown [id number] [id number] 1995 Unknown [id number] 2.16.8 [id number] 1993 Unknown [id number] 2.16.8 [id number] 1993 Unknown [id number] 2.16.84 [id number] 1993 Unknown [id number] 2.16.84 [id number] 1993 Unknown [id number] 1993 Unknown [id number] 1959 Unknown [id number] 2. [id number] Social History Date Type Detail Facility Unknown if ever smoked [employer] [facility] Compendium Other Sex Assigned At [facility] Start: 05-26-2021 Tobacco smoking status Never s moked tobacco (finding) [facility] Tobacco smoking status Never [facility] Clinical Notes 06-04-2014 to 07-14-2022 Note Date & Type Note Facility 07-14-2022 Evaluation note Encounter Date Diagnosis Assessment Notes Jul, Irregular periods (ICD-10 - N92.6) Lengthy 30+ minute discussion with patient and her mother today. I will do some research on the insulin level, but I feel that this number is actually normal, especially in a nonfasting position. Patient states she had fast food as well as a [employer] coffee shortly before the lab testing. With her hemoglobin A1c being 5.0, there is certainly no evidence of any diabetes. Also, without abnormalities on the ultrasound, PCOS seems unlikely. Patient took control for over 10 years, and has just really been off control for barely 6 months. She is going to be seeing a different [employer] [facility], and I think this is certainly not unreasonable. [facility] Other 12-08-2022 Evaluation + Plan note Diagnostic Tests Pending * T3 Free 05/11/22 [facility]12-06-2022 Evaluation note* Encounter Date Diagnosis Assessment Notes Treatment Notes Treatment Clinical Notes May, Chronic fatigue (ICD-10 - R53.82) We will simply call patient with results of the blood work. Should all of this proved to be normal, she would just simply need to continue to follow-up with [employer] [facility]. May, Vitamin D deficiency (ICD-10 - E55.9) [facility] Other 06-28-2022 Evaluation note* Encounter Date Diagnosis Assessment Notes Treatment Notes Treatment Clinical Notes Nov, Asthma exacerbation (ICD-10 - J45.901) [facility] Other 04-05-2022 Evaluation note* Encounter Date Diagnosis Assessment Notes Treatment Notes Treatment Clinical Notes Sep, Asthma exacerbation (ICD-10 - J45.901) Sep, Folliculitis (ICD-10 - L73.9) [facility] Other 04-04-2022 Evaluation note* Encounter Date Diagnosis Assessment Notes Treatment Notes Treatment Clinical Notes Sep, Encntr for general adult medical exam w/o abnormal findings (ICD-10 - Z00.00) Sep, Asthma exacerbation (ICD-10 - J45.901) Discussed with patient that we will go ahead and send this locally. She is to call or get a hold of the office if this absolutely has to go through mail order insurance. Call with results. Sep, Folliculitis (ICD-10 - L73.9) Sep, Other No change today...Continue as is...FU PRN/Yearly... [facility] Other 01-01-2015 History general Narrative - Reported* Type Description Date Medical History 6 Weeks Premature Medical History Asthma Medical History ADD Surgical History cervical bx. from [employer] [facility] = Dr. Leyva 06/2014 Hospitalization History - Apnea [place] i3 membrane Other Evaluation + Plan note No data available for this section [facility] Other Hospital Discharge instructions No data available for this section [facility] No data available for this section [facility] Summary Purpose Family History No Family History Records FoundNo Family History Records FoundNo Family History Records Found Advance Directives No Advanced Directives Records FoundNo Advanced Directives Records FoundNo Advanced Directives Records Found Additional Source Comments REASON FOR VISIT (unrecogniz ed section and content) refill albuterol MDIRequest for CardFollow up - annual wellness examrequest 90 dayBlood work requestDiscuss getting lab work - generalized as I haven't been feeling well Clinical Acute IllnessLab work concernsInsulin Lab resultsDiscuss PATHOLOGICAL TECHNICIAN labs - will bring copy for review. (dr Martinez) - is switching to Dr Tavares and that appt is 08/21/22 (she says Pap from june was normal), says that her insulin level was very high and she is concerned-says that all of the labs were drawn d/t her not having a period-Clinical Acute Illness Patient Care team informatio n (unrecognized section and content) Personnel Name: PHIL MUELLER DO Address: Address: [facility] [place] [address]- Personnel Name: PHIL MUELLER DO Address: Address: [facility] [place] [address]- INFORMATION SOURCE (unrecogn ized section and content) DATE CREATED AUTHOR 05/17/2022 [place] [facility] DATE CREATED AUTHOR AUTHOR'S ORGANIZ ATION 09/29/2022 [facility] DATE CREATED AUTHOR AUTHOR'S ORGANIZ ATION 06/13/2023 [facility] FOR RECORDS PERTAINING TO PATIENTS WHO ARE OR HAVE BEEN ENROLLED IN A CHEMICAL DEPENDENCY/SUBSTANCEABUSE PROGRAM, SOME INFORMATION MAY BE OMITTED. This clinical summary was aggregated from multiple sources. Caution should be exercised in using it in the provision of clinical care. This summary normalizes information from multiple sources, and as a consequence, information in this document may materially change the coding, format and clinical context of patient data. In addition, data may be omitted in some cases. CLINICAL DECISIONS SHOULD BE BASED ON THE PRIMARY CLINICAL RECORDS. [facility] [employer] provides no warranty or guarantee of the accuracy or completeness of information in this document.
== END 2023-06-26 21:59 | disposition home or self-care (01) ==
LOC: LAB 21:58
PROVIDERS: PCP Family Medicine; Visit Provider Obstetrics & Gynecology
DX: Z34.93 Encounter for supervision of normal pregnancy, unspecified, third trimester (principal)
CPT/HCPCS: 87081; 87150; 87186

== ENCOUNTER 2023-07-03 09:06 | Outpatient (OUT) | payer OTHER, SELFPAY ==
--- NOTE | 2023-07-03 09:07 | US_ITS ---
[address] [address] Patient Name: KATIE HANNON MRN: [id number] date: 1995 Sex: F Assigned Patient Location: [facility] Current Patient Location: [facility] Accession/Order Number: [id number] Exam Date: 07/03/2023 09:08 Report Date: 07/03/2023 09:54 At the request of: TAYO AVILA Procedure: US OB growth EXAMINATION: US OB growth HISTORY: LGA COMPARISON: No relevant comparison available. FINDINGS: Heart Rate: 131.0 bpm Amniotic Fluid Volume: 11.5 cm Number: 1.0 Position: Cephalic presentation, longitudinal lie Maximum Vertical Pocket: 3.3 cm cm 3.0 cm cm 1.9 cm cm 3.4 cm cm BIOMETRY: BPD: 8.6 cm cm; 34 weeks 6 days; 11% HC: 31.5 cmcm; 35 weeks 3 days , 4% AC: 33.6 cm cm; 37 weeks 3 days, 77% FL: 7.1 cm cm; 36 weeks 3 days; 33.9 % % EFW: 3002.7 grams, 6 lbs. 10 oz., 47% FL/AC: 21.2 FL/BPD: 82.4 HC/AC: 0.9 GESTATIONAL AGE: Age by EDC: 37 weeks 0 days MARSHAL by EDC: 07/24/2023 Age by US: 36 weeks 0 days MARSHAL by US: 07/31/2023 US/US OB growth IMPRESSION: Normal interval growth Electronically authenticated by: REKHA NIETO Date: 07/03/2023 09:54
--- OUTSIDE RECORDS SUMMARY | 2023-07-03 09:09 | XMS_ITS | CCD ---
Author Name Unknown Address [address] [place] [address] Organization [facility] Care Team Providers Care Certified Ethical Hacker Name Role Phone Phil Mueller Unavailable PHIL MUELLER Primary Care Physician ZONIA NELSON Attending Unavailable ZONIA NELSON Admitting Unavailable ERVIN PROVIDERPHIL Admitting Unavail able ERVIN PROVIDERPHIL Attending Unavail able Yue CHOWDARY Attending Unavailable TAYO TAVARES Attending Unavailable TAYO TAVARES Consulting Unavailable TAYO TAVARES Admitting Unavailable DR PHIL MUELLER Primary Care Unavailable AARON THAKKAR Attending Unavailable TAYO TAVARES Attending Unavailable TAYO TAVARES Attending Unavailable AARON THAKKAR Attending Unavailable Allergies Allergy Classification Reported Allergen(s) Allergy Type Date of Onset Reaction(s) Facility (11 sources) montelukast Drug Allergy stomach [facility] [employer] Other Medications Current Medications Medication Drug Class(es) [...] use, # 1 EA, Refills(s) 0, Pharmacy: [facility] [address], 158, cm, 01/04/20 10:14:00 EDT, Height/Length [...] days Sep, Active fluticasone 0.05 mg/inh Nasal [place] (2 sources) Start: 01-04-2020 fluticasone 0.05 mg/inh Nasal [place] 2 spray(s), Nasal, Daily Congestion, 16 gram, Refill(s) 0, each nostril, [facility] [address], 158, cm, 01/04/20 10:14:00 EDT, Height/Length [...] qPM, # 30 tab(s), Refills(s) 0, Pharmacy: [facility] [address], 158, cm, 01/04/20 10:14:00 EDT, Height/Length [...] meq/ml nasal spray (2 sources) Start: 01-04-2020 [place] 0.65% Nasal [place] 2 spray(s), Nasal, QID Congestion, 1 EA, Refill(s) 0, [facility] [address], 158, cm, 01/04/20 10:14:00 EDT, Height/Length [...] Anti-Mullerian Hormone (AMH) 6.57 ng/mL Normal [facility] Comment on above: Result Comment: For assays employing antibodies, the possibility exists for interference by heterophile antibodies in the samples.1 1.Demond Nunez Interferences in Immunoassays - still a threat. Clin. Chem. 2000; 46: 2982-1891. This test was developed and its performance characteristics determined by [employer]. It has not been cleared or approved by the Food and Drug Administration. Reference Range: Females 26 - 30y: 1.03 - 11.10 Median 4.20 AMH concentrations of >= 1.06 ng/mL is correlated with a better response to ovarian stimulation, produced more retrievable oocytes and higher odds of live according to Maryer et al. Fertility and Sterility. 2010: 94:2860-5761. The current AMH test method correlates with [...] tumor. Performed By: #### A AGGIE #### [facility] [address], [place] [address] Dr. Matilde Fitch PROGESTERONEon 09-23-2022 Progesterone 0.4 ng/mL Normal [facility] Comment on above: Result Comment: Foll icular phase 0.1 - 0.9 Luteal phase 1.8 - 23.9 Ovulation phase 0.1 - 12.0 First trimester 11.0 - 44.3 Second trimester 25.4 - 83.3 Third trimester 58.7 - 214.0 Postmenopausal 0.0 - 0.1 Performed By: #### P ALBA #### [facility] [address], [place] [address] Dr. Matilde Fitch Coding Summary.on 05-16-2022 Coding Summary. CD:[id number] Gh0bWw+PGhlYWQ+PE1FV MGtI49biQPaiU2KY9nRJ R5ODGFPLBQWZA3VNS1rk QL7SSxtO0KansOv AirbxKDlRR78JOb3RPA8 gErtWZmkxO3hiAUzN1n9 CaInKC45zZ09PLkaSWWm WfK0EzGlmqintXWn G7xvNuZxsKAyZor+PHRh YmxlIHdpZHRoPScxMDAl PwEibZtyPQ2qYp9gYBHi LWNvbGxhcHNlOiBj a9ikMTVnEQejKA8etDvo Y6MbtRM7PDLdj5z4Ou24 dHI+DBFiXOH8sBnmSIoi l093AdZjj0wwRKC2 eHWvRPytKRO8V82mz3Y9 ISVwYWYyKPB9cAV0mK2h pKcvkpqkO5KgcDVyGuA4 QGT5jYKpgN4wvMrt ipvbcX0nPfv+L04GBU1G ASODUP5DFss0B4LnBtpz dHI+VH29UPRnDB49uRLu uEZeb7yawWu4RmNf KIWeCFO9pRavVXtaw5St BUAnY67rbFRgz9Y1RGFs sMxteRDiMbXffTB1nN1h XQqhoosjn6gxqtxs Wrczd3bahs25cS43M68j VXeqJYQrFOS9KBDwZVIl sEbvts0mtH7dGy8+IDxj y4mbm3jxiPs1PpRm RBBqwkFjoCuyBRN5m8Lv Cp71C8VexRvmo8LqDpq2 lx52mSWbf7W5hNF4JUxr YOMzlG7oOZasXqU2 YBLeYdExwT06rFYeTJmw Fi5wgPnaeWuzJR9qUCQk sgyxVHLdyP6tCTDrfMTa fTzmFE1vUXYmrzci p597MzAhTPA9MAEowGEy G1UleT5hPoZaPZIlNBZy H3AfcMYuPPmgT969YUpd WpM7JJLncvOuF8Us UQIldWolBbH5i3D4Wy0Z h5PjkujvWHZ1BQqsYTQt VaXxOrVdPtY6G3DtEld9 AGCwnHcmGU0yD0Iw NTPdxawaxinfsWW2NONz XAQpdO99xTWsTBezJq9e e4C6w430OXMwQFLcuL52 Qi5itJteYSDtyPHT lE6lsypvu3sqtfblKqPv PEXwFTt1AAe3LDVwbFeb IbXkPYI6UpU3YWJ1vRBi qZ0khMvlvbicmO9j Oyc+G24geH9zWRT6FJN2 indwRYTatnZlAY12PV68 H8VsRdzghHZliAE+PGRp qkBrsDstTZ7sKrYs a4rxi3TzSXxqR0EwXVVv KQquAgl2WCKqBIW9kVP1 fF2dGFVcJVvnj4G5qNO4 O2SysqPgeu0zz8oy TJKfDTniU93sjMQrs2G7 TFLeyVU0WDYvbBwgHiSa gV97Ede+RIBevFija7Le Hakyz6kjw7rndTq4 IjMwJSIgdmFsaWduPSJ0 r6LgAm02W77yZHetMKBg LZNfNDLePGHhfUutvl2p cC4lKt7+PGNvbCB3 aSV5lT5bYVGvWgW2BXui M789NrTlpEOmLhphi8gt i1bnuOp9EpOoBIGlvdQx uEbuNQX2r3TuPl98 Y60jGUipOMWkEAYtQLJm RWGtfSxbhj0bsF3xLm8+ CG1kp7dpid95oU88oMG+ NXDeDHK8eUmpBUez RSLwqU3dOHguCiW2SSWz KtZjaQ92pEGhXRkeJw1p dPgfuFreYC9fPINsyrzn g997YnZoc0ytJLAi fJTpMNuxWJW5N90ob6L0 IHQyZUZpTOL8cZK2dL4j bGlnbjogbGVmdDsgdmVy hCttAEbtNObeT577 IHRvcDsnPlBhdGllbnQg LlLiYXc9A2HwAjs9AMVl xEqiXH4ffLRwSMhlZt4n nAyozKgmEX7pBKJs wgfbn885FrTky1xrVZVz pMXtBGmmOGN1M05th2P3 YXTtBBXsDKS7qDC3sD3s bGlnbjogbGVmdDsg vxDrjHqwSEjyWAxcW652 IHRvcDsnPkJpcnRoIERh uOX2NV82MT62cCSeh2H5 tVY7U5GzTGXqszjo ozwfrXQ0IRGcMZQtlB31 Ym4blFeoCz4dVGCeHQT8 MDHlsRNsX6ImwM5iIlPa AXVjFCCfV8YlsCMa QMbaU465QWbkTeY6WJVa afNpN5FfQZFnqOccRkU6 y5O2Rc6NH8O4BR40ZX31 wQAgh9G9pRR0L9Wd YLEjfitfezxoxCK2UTXn JHNsdG30Mc2wsKuzFj3q DCJuNKN8TYGikRRwO4Os rX7fIhReUZWvVTJo O8FmxTJnJUvtZ260LWix DpT9LIXmkaWhA3UuSMQh jGhlQdT0r6N4Gn9DRBi5 GT44XM18rCEtf4W2 hXU6B9GeVCHfhiymdwyy qXS7UODuBQJapU66Vk6d yGwnGj0uNSJjXNO2YEUz jSAcQ6EzaZ5gNqJw SHXzESYeK5AyqCAeWTzu A344DFvzXoO9UZPhskWj S5ZkCQUabXkgHgJ9k8B3 Mn6FYLAfLU03IIF2 gVU1PW17PX55M2PaVncx dGFibGU+PHRhYmxlIHdp ZHRoPScxMDAlJyBzdHls GM4wMi3oXBRjYKNt mYzltKInHkQos9cqIMXk XMxcUD0yaKegA7BicPT5 NJSxm4a3Cj39W09dM8Bn dXA+PVXjtOP2oMM5 cK4pBcLpWrU0XWsmW041 ZhWdiYTfExkzh7oti4ol lWx5SrW1JHUvycAcdPcg UHU5o0AkLz58C41v IHdpZHRoPSIxNSUiIHZh jVrkwx5ymV2gJv2+PGNv yJB5lKC6oN9yKqSjJrI5 VFqyA214QnTpeREa Aeooy6udr5sinLb5YdQg FLQqdiHlaQvtMTO9i6Ez Zz22D1RkyHjjc5PdIae7 wj10oDIxl4U7aMY1 O1FpHXWdwauhcUHixIfy LX1xBLPsijryLDFokN7b MCOtY5w6YjHlDxD3FDck T4ZvztU4VQCfjWAh VEsnZOB4D94ug7S2HDYc TJWeSMI0bCG2zO0fhKsr bjogbGVmdDsgdmVydGlj BXjaPSdsH301UHKa iUeyUQWmxJ1aSISmcPKm qSsgDM0nMTAclwpcZw0J YAYNNMHAPRFNQ50MMqYg TTwvdGQ+PHRkIHN0 iIeiWKhoLJPfvT4pQXIu Q1z5IkYsJvE8TSmpB6Lb VPHauqdnRv68pI4kSyVi ZpH1CSdbN9HazjN6 CKKwmIJwFBdjLYW2A38m w1U1YUJcHVWrNMO8lYE6 sO7nhPmfvxoldBHjsXog dmVydGljYWwtYWxp P787XXQhbOahTwLwHvHh HdH7RIT9S3YqEkc4CHGc wGoqQZ3duRGgAKxmCe6i kBikvJpiWH3zSHOt jjohCCLpwD5vQREckVXr lEpgTS6hXELvfyxex787 JxNcXFK3EGKdeGFwG3We zY4yDaJzSFIuHYMc N1UauNPpCWynC399LPkd LeO4UDScbgStK4WyTAVz nRoyLdX8n0V9Ki9xCCKA ZWFyczwvdGQ+PHRk LSP2dNudOFzmEGRiuA3w IZPuC8z4RnBlHdX6UErb V0VtJOAueotwFb62vH8t ZnAsHwJ7QMxiV0Qu pjN6ZHGhwBRhBKnsMDA2 S47bq2Q2IRMkDUTjZVK6 sAI1yA1xfFctbhppmSTy dDsgdmVydGljYWwt EKvvE766ECYxmDdgUxDj bWFsZTwvdGQ+PHRkIHN0 wMljYGbbSZEgbC4rCBUr K9m9OfTbFyM6YIea V4RtQILslcofZw46lZ5f NuBsVmD0PRdvM0CwudZ4 CZKiuCJzLFvfELN4E08j v8J9LRTuMRUlAWG6 gHK7eM5xyCrktfmubQIu dDsgdmVydGljYWwtYWxp G064VFQndMuuJu32gQYm rMhwflA7K0DiOswz dHI+IO84DYYaBS66xPWu xTYxj0xnqKd3HjJjIGVc NFI7sGukJXamh4EgDORz Q69wwKOkq0V4UBIe pGndgAApFrHrlFT5oU5s FApxxtumy4dqhqzkQjch f0atmw12cK60F73nSFsh ZHRoPSIzMCUiIHZh rUxhmf8asP8rNc2+PGNv gEO4nIA1zB2cOdHeCoN5 LEakR640UgQahPKpNhyc q4bxh6elxUa3GjTy GVMgukBhvJqvTZJ1v6Es Aw47H25qILorVRWfLKRm FUPjSJVwvJlzsz7mgN6q Ii8+IQ4wv6iasr59 bG22pSB+MMUvCRT7fGvx XSbmVSCwoN0aONtuVzT1 HXUrYjTssW35kRZjEMjv Wf7ogXaviHlhGG7l WKUpjrlar609FsOek7mq TBXxtZTzXEqqHYT5M87x y6O6OKNuEYQrCYR6rLO7 vA2xeForwfzebLIk dDsgdmVydGljYWwtYWxp L941TBQeiGkzYbLreARu Q7xgwiWRPM3fShahhXT+ BEUfWMZ5zSsxBDps RZCdnQ1tMWOdT6x2HvQq NtK4MFzyY4QejuZ8XTUm lHAyWOXdjMHTqW1qhdty u5bwxorzPoReKLSu QYx2WVy6TJQpyQjmSaSj WLK3TqK4QNH0oXAvkU8w bFqzrhpwuF4hNbb+RklO OjwvdGQ+PHRkIHN0 uSeeCYoxVTKioH9lIJIh W5r3LlFbTwI4KDpnX5Qa vxE7UPZvfAOjAYEibHGR uS3tkvhtf0wqhlmc ZfRsETPtSYx5QZl0CPMc uZjpLpXdHCU0OcX9TUL3 yMCelI9kyZepxxferX0j Oyc+TVJOOjwvdGQ+ ZHQhFPD4qPfhPQxmWSLu mZ1uYJBhX8q9EfZgQoL2 OYlwQ0IdgsQ0LTSuyCDh EQZdxZGAbQ5xvmgj y6ybhwvcLoKoUFHcMCr2 JQd3GNGxtAdoPsWyKIZ2 KrJ6YWP2yRNpfV9gtVcx ltbnvG9eRso+UGF5 ORM0DU29KI26U2DhOyom dGFibGU+PHRhYmxlIHdp ZHRoPScxMDAlJyBzdHls XU6kBz3kFOMgUAOb bGxh (more content not included)... Normal [facility] T3 Freeon 05-12-2022 Free T3 [Mass/Vol] 3.8 pg/mL Invalid Interpretation Code 2.0-4.4 [facility] Comment on above: Result Comment: Perf ormed at: [facility] [address], [place] [id number] PhD Boone Coronado Performed By: #### 2 579340, 8793998, 5798005, 9688680, 301449450, 1755410, 83807398, 7930010, 7004222 ####[facility] [address] [place] [address] Auto Diffon 05-11-2022 Basophils/100 WBC (Bld) 1.1 % Normal 0.0-2.0 [facility] Comment on above: Order Comment: Order Added by Discern Expert. Performed By: #### 2 183985, 9253366, 2784371, 4001727, 256654259, 6515475, 89759985, 6143001, 2000201 #### [facility] [address] [place] [address] Basophils/Leukocytes Auto (Bld) [Pure # fraction] 0.1 E9/L Normal 0.0-0.2 [facility] Comment on above: Order Comment: Order Added by Discern Expert. Performed By: #### 2 581666, 3578777, 8497064, 1003335, 757804892, 8700162, 11930388, 0456173, 9840481 #### [facility] [address] [place] [address] Eosinophils/100 WBC (Bld) 3.3 % Normal 0.0-8.0 [facility] Comment on above: Order Comment: Order Added by Discern Expert. Performed By: #### 2 003371, 4077012, 3154343, 6644952, 355086570, 3062458, 34896581, 5647935, 8849372 #### [facility] [address] [place] [address] Eosinophils/Leukocyte s Auto (Bld) [Pure # fraction] 0.3 E9/L Normal 0.0-0.5 [facility] Comment on above: Order Comment: Order Added by Discern Expert. Performed By: #### 2 018148, 2179875, 4223669, 1099602, 660671273, 7567735, 18828498, 3609806, 4224687 #### [facility] [address] [place] [address] Lymphocytes/100 WBC (Bld) 34.9 % Normal 14.0-50.0 [facility] Comment on above: Order Comment: Order Added by Discern Expert. Performed By: #### 2 463181, 9390106, 7514886, 3555473, 193323788, 6854598, 34086818, 6969459, 0202910 #### [facility] [address] [place] [address] Lymphocytes/Leukocyte s Auto (Bld) [Pure # fraction] 3.0 E9/L Normal 1.0-4.0 [facility] Comment on above: Order Comment: Order Added by Discern Expert. Performed By: #### 2 195860, 6216742, 6985836, 2131911, 885463240, 6791962, 10157475, 5156891, 6604261 #### [facility] [address] [place] [address] Monocytes/100 WBC (Bld) 5.8 % Normal 4.0-14.0 [facility] Comment on above: Order Comment: Order Added by Discern Expert. Performed By: #### 2 434685, 5019893, 6565197, 8112476, 348279670, 4974907, 64581079, 9016093, 0157067 #### [facility] [address] [place] [address] Monocytes/Leukocytes Auto (Bld) [Pure # fraction] 0.5 E9/L Normal 0.2-1.0 [facility] Comment on above: Order Comment: Order Added by Roma Expert. Performed By: #### 2 123321, 2749458, 4766349, 8208915, 801444422, 9187533, 21093337, 3166983, 6348391 #### [facility] [address] [place] [address] Neutrophils/100 WBC (Bld) 54.9 % Normal 36.0-75.0 [facility] Comment on above: Order Comment: Order Added by Roma Expert. Performed By: #### 2 599228, 8777533, 8302044, 8089186, 940577574, 9583654, 81372012, 8155183, 0357898 #### [facility] [address] [place] [address] Neutrophils/Leukocyte s Auto (Bld) [Pure # fraction] 4.7 E9/L Normal 2.0-7.5 [facility] Comment on above: Order Comment: Order Added by Roma Expert. Performed By: #### 2 656935, 8206296, 6645287, 5247846, 339229790, 3049369, 10393252, 9623963, 0987472 #### [facility] [address] [place] [address] CBC w/ Auto Diffon Erythrocyte distribution width (RBC) [Ratio] 12.9 % Normal 10.9-14.2 [facility] Comment on above: Performed By: #### 2 330333, 7025515, 3756311, 9008475, 756666642, 2106176, 76562352, 8424755, 4638288 #### [facility] [address] [place] [address] Hematocrit (Bld) [Volume fraction] 43.0 % Normal 34.0-46.0 [facility] Comment on above: Performed By: #### 2 380279, 4445090, 9097398, 9716362, 788351180, 0214918, 26821195, 5432271, 1214322 #### [facility] [address] [place] [address] Hemoglobin (Bld) [Mass/Vol] 14.6 g/dL Normal 12.0-16.0 [facility] Comment on above: Performed By: #### 2 096091, 1333688, 8991556, 1554167, 932627532, 6332116, 87445682, 6048911, 1351399 #### [facility] [address] [place] [address] MCH (RBC) [Entitic mass] 29.4 pg Normal 27.0-34.0 [facility] Comment on above: Performed By: #### 2 553744, 7491793, 3308149, 3105265, 625820830, 7540796, 31365264, 5770101, 5918749 #### [facility] [address] [place] [address] MCHC (RBC) [Mass/Vol] 33.9 g/dL Normal 31.4-36.0 [facility] Comment on above: Performed By: #### 2 921804, 7753438, 6751488, 5752234, 787472699, 8955860, 33145528, 8773777, 8895239 #### [facility] [address] [place] [address] MCV (RBC) [Entitic vol] 86.7 fL Normal 80.0-100.0 [facility] Comment on above: Performed By: #### 2 706263, 9979258, 2408705, 2558261, 361403464, 0900189, 94580320, 1815386, 4120167 #### [facility] [address] [place] [address] Platelet mean volume (Bld) [Entitic vol] 7.1 fL Normal 6.4-10.8 [facility] Comment on above: Performed By: #### 2 839365, 8034633, 4000558, 2548424, 014447844, 3144117, 20727562, 7566445, 3618104 #### [facility] [address] [place] [address] Platelets (Bld) [#/Vol] 316.0 E9/L Normal 150.0-500.0 [facility] Comment on above: Performed By: #### 2 236443, 0702998, 9717810, 1370883, 130949861, 9301266, 94256301, 5430650, 3558708 #### [facility] [address] [place] [address] RBC (Bld) [#/Vol] 5.0 E12/L Normal 4.3-5.9 [facility] Comment on above: Performed By: #### 2 841586, 6791118, 4802423, 6298264, 155456920, 7453266, 36582950, 0598324, 2377874 #### [facility] [address] [place] [address] WBC corrected for nucl RBC Auto (Bld) [#/Vol] 8.5 E9/L Normal 4.0-11.0 [facility] Comment on above: Performed By: #### 2 451902, 7628601, 4553085, 7958027, 472194591, 7596778, 12333383, 7802951, 2149468 #### [facility] [address] [place] [address] CHEMISTRYOrdered By: SYSTEM SYSTEM on 05-11-2022 25-hydroxyvitamin [...] 05-11-2022 Albumin [Mass/Vol] 4.3 g/dL Normal 3.3-5.0 [facility] Comment on above: Performed By: #### 2 356242, 2504505, 7827676, 9859824, 363342459, 8308857, 85410982, 1675081, 4353927 #### [facility] [address] [place] [address] Albumin/Globulin (S) [Mass conc ratio] 1.2 Normal 1.1-2.2 [facility] Comment on above: Performed By: #### 2 797174, 5529196, 7429012, 0524353, 492483432, 3123408, 08717950, 7615247, 8910456 #### [facility] [address] [place] [address] ALP [Catalytic activity/Vol] 80 Int._Unit/L Normal 21-98 [facility] Comment on above: Performed By: #### 2 816149, 3973167, 6393729, 6920659, 565428554, 3298468, 53924241, 4790350, 1470552 #### [facility] [address] [place] [address] ALT No additional P-5'-P [Catalytic activity/Vol] 15 Int._Unit/L Normal 6-46 [facility] Comment on above: Performed By: #### 2 426801, 7173582, 3509850, 1461177, 666420449, 5665136, 01512986, 9465546, 1405579 #### [facility] [address] [place] [address] Anion gap [Moles/Vol] 11 mmol/L Normal 6-16 [facility] Comment on above: Performed By: #### 2 570909, 7687255, 5898759, 2476932, 966902232, 0476721, 66726745, 9821752, 7013190 #### [facility] [address] [place] [address] AST [Catalytic activity/Vol] 17 Int._Unit/L Normal 5-43 [facility] Comment on above: Performed By: #### 2 946508, 4931675, 0200299, 7576450, 404954662, 7588904, 17712602, 4642355, 5839532 #### [facility] [address] [place] [address] Bilirubin [Mass/Vol] 0.9 mg/dL Normal 0.0-1.1 [facility] Comment on above: Performed By: #### 2 793464, 1340851, 4356834, 2227034, 927167637, 4279153, 78251302, 5839802, 3516150 #### [facility] [address] [place] [address] Calcium [Mass/Vol] 9.6 mg/dL Normal 8.9-11.1 [facility] Comment on above: Performed By: #### 2 272417, 1052186, 4667248, 3187503, 161008832, 4023051, 12179753, 8751100, 3014336 #### [facility] [address] [place] [address] Chloride [Moles/Vol] 102 mmol/L Normal 101-111 [facility] Comment on above: Performed By: #### 2 672788, 2085625, 1428341, 1612754, 107526196, 0769794, 07835312, 8943902, 1793517 #### [facility] [address] [place] [address] CO2 [Moles/Vol] 28 mmol/L Normal 21-31 [facility] Comment on above: Performed By: #### 2 110191, 0864650, 8566284, 6672756, 432934916, 0675822, 15376198, 0560538, 3077248 #### [facility] [address] [place] [address] Creatinine [Mass/Vol] 0.8 mg/dL Normal 0.5-1.3 [facility] Comment on above: Performed By: #### 2 401123, 5625353, 8962095, 0902377, 556760879, 6406015, 47790925, 4511030, 5884309 #### [facility] [address] [place] [address] Globulin (S) [Mass/Vol] 3.5 g/dL Normal 1.4-4.0 [facility] Comment on above: Performed By: #### 2 195398, 9970042, 4116504, 1812150, 267422559, 6254953, 88594071, 7921522, 9924855 #### [facility] [address] [place] [address] Glucose [Mass/Vol] 83 mg/dL Normal 55-199 [facility] Comment on above: Result Comment: If t his glucose result represents a fasting glucose, interpretation should refer to the following reference range: 55-99 mg/dL Performed By: #### 2 890993, 0252507, 4515649, 9695930, 505943787, 1801546, 15036806, 1583981, 1610154 #### [facility] [address] [place] [address] Potassium [Moles/Vol] 4.0 mmol/L Normal 3.5-5.3 [facility] Comment on above: Performed By: #### 2 816027, 7140053, 8347601, 7138143, 285912768, 3168799, 56909741, 8668366, 3233918 #### [facility] [address] [place] [address] Protein [Mass/Vol] 7.8 g/dL Normal 6.0-7.8 [facility] Comment on above: Performed By: #### 2 839986, 7830997, 3230052, 8921521, 432690997, 2078555, 92634986, 8818491, 6827117 #### [facility] [address] [place] [address] Sodium [Moles/Vol] 137 mmol/L Normal 135-145 [facility] Comment on above: Performed By: #### 2 [id number], [id number], 4703127, 1052524, [id number], 2105238, 06041500, 2674486, 8569825 #### [facility] [address] [place] [address] Urea nitrogen [Mass/Vol] 16 mg/dL Normal 5-21 [facility] Comment on above: Performed By: #### 2 [id number], 5159078, 8117290, 1672068, [id number], 8685982, [id number], 5303700, [id number] #### [facility] [address] [place] [address] Urea nitrogen/Creatinine [Mass ratio] 20 No Units Normal 10-20 [facility] Comment on above: Performed By: #### 2 [id number], 3899103, 5512519, 6211242, [id number], 5388119, 71207094, 5432420, 5574960 #### [facility] [address] [place], [place] [address] [address] Coding Summary.on 05-11-2022 Coding Summary. CD:[id number] Gh0bWw+PGhlYWQ+PE1FV JJeV50mjVDodM3HO8mDV T7WZGQIXKFYVR4HNU6gk RJ9QMvdY8RwtuKe YttzpKFrQU03OBe0QYD7 aJlcTRwepC3euUEdR2n4 KcFdLI43iI40ZEcsELLw EoW1BeClrgzbcLXp D5ioRfAdeBQlFua+PHRh YmxlIHdpZHRoPScxMDAl WlIkvUazGJ3yVn1xQFQe LWNvbGxhcHNlOiBj y3pfTKQaPYjySW5iuDut U2GqcQI1MAPax9i2Mu71 dHI+ZRMdUQI1gAtrPQgy b589HhUoq4veMNM5 hKHsRGjeMVI1W70kz6J4 BMCfTMEwIUV4eON1fT7z mXtjbxbqU3FeqYCbPvM0 DNH2rKWglK4moUse epfssU9gEqw+A84CXL5A GTHTRT7BPii2I9VvOtiv dHI+KD54ZSCvCW05zJMn mBAjs8ofqDy9LxKk DAKpXXT5eNysZUmea8Vm VEEyG41uwZGmg2U2WTGl lPlmcEQmNbBqpPT3sZ5h PYbajyojs0mmyoil Vnswi1tggm84bK72E08k FDyoRABePOP8EXMpEJSp lLafht3rbG1lFs2+IDxj d5tim9wncAl2BbMh QWKaxqFxfBjbLVY8s7Ms Fj81G5NifYbaf2IrZuu7 pv09sZGzq2Y5fPZ9APbg IRUzfB6lIBexLjP6 NVPeArVhoI31qJFcHWpg Jr6mzTobxPqgRL1wWSTw nttwKHNbnB6bKPIetRYx zCsqGQ3qAANshuac e752BdXcPOJ6DOKplYQz Z3GfoW2zEtPfJVEuSGHj D2OyrKBhEZyuI206VCsd SpR3MBRsofUrH2Sz NYBgwTjzVhU7q4C7Xx4X n4PfbehbCTY1JQtiHBCr WkX0TaExIyA7P3TlFgd1 LDRsoCkcNL3pO5Mj WEFhfvpjhtehoJX4ZIPb HZZftE12bIZcYQyrDw5x g3K2y552DRTeLJQbbA95 Pa7apOuuGTFatCZP kK8kqtwdm4almhaiLpZl UWDiBTz7BBo9LUReyFjz PlDhFTQ7RuF6FTC4uHIn xF9yyDcfzwslqT8e Oyc+Z96seT8pJAU5JFC5 rqbpDFZharByZL46SH26 F2UtFtfvgBWdqRD+PGRp erLfbBjrZN8wMxSi j5lqq6EiUBajD0RvJSBq QDkuEvi9BDWcRHK2oTG8 zI5nADEsGGbcb2K2eZN4 A8ZkvvBfbu7vl8bg DWNiFNtrY66gpHDzy7V9 KXBogRT9TOXewFpgFgWm tT93Dnv+BKXfgLklg0Vf Vjief0fgo1cbtTq0 IjMwJSIgdmFsaWduPSJ0 q9AzRw96Z27kBFnkPSQm DTQpUZVxNDUvkTocur4m kT4hXj1+PGNvbCB3 xXH8wF5pSFLfDgX2IMng T239RsHqkOUySbbtj4vd g8rgjNi6HxIzNGJgdqJv wXfzIZN0s4QqDv39 H54rUDftEKRkPHYsGJJs KDXbcZuthh0oiJ0pKz0+ WH1ea8beqs89jU40eXM+ PHFqXBW6lOaqKCmg FPOwuR4tDRxzGeU9NCGw MmAlfF95bLAhFVdcFc2s hEkceIhiJE1sZJYksnwl o832WjZll9iuEHQg mTAzXMkxFSA6C16wx2Q5 KBAaBKQbJAS0xTL9fV9s bGlnbjogbGVmdDsgdmVy nObiTGohLGepR078 IHRvcDsnPlBhdGllbnQg TiAbATa7Q4OaWyx2SUPe iMdsHO7goHOvSUrnWk0v rFtpgDjiMM9xIEJm lpwuo929LjIpr8ahORIo cMAzNZzwWFO2M42yn2Z8 FMGoXFIgSMO4rDC9uE8y bGlnbjogbGVmdDsg yvIquUxaBTctODasG755 IHRvcDsnPkJpcnRoIERh uZU7IX74DS82gJCyf8F5 vFC6R0GaMLEuipyy ykxgkGH2MZXtJVCtoR34 Qc3atRswFn2qBRPhAKN0 NJHhuLXvO7TliF8xCyQe SUCfNDRgT7PdfTZu GWexI903ZAbaWvF0WQIh ebIqX9QlWSXxiNwwWhY7 o6E6Mu2TQ4Z8QG59KJ07 tGZwb6J4nFQ6V2Qk SYTulphqaehyhPG8OGIh FXIfwP71Sd5ncNayNw2r STDoUUS2WOYdsQTmT3Xv aZ0iUbFpSHBaSZWi X3MaaQSsQSfzJ184YYej EfI6VCOtrcDcV3KaVHVw aCecVgB1b8N7Bu1RZUd3 IT65AW71yDZlf6V2 lKG5R7YwNFAztjcpirhu xGA1WDJnXOBedQ65Lu5y kDgkTz4vLXPgSWX7MRDq kGCnH4LoqE5rXvUw HVKcYIMwX2FpaYYrCMfa P156VXscPqS2WXWufbUp B4ZbTYEewAsdJcZ2z3K6 Dy1XTWVtRS20AZQ8 lBQ4UP20AB87C6LaRzlj dGFibGU+PHRhYmxlIHdp ZHRoPScxMDAlJyBzdHls EW0pOi6wGULuSWKa mUmhgCVqRpJrp5jbSLXj BZvlPX3vrDolB9FlkYF6 GFNsn5g8Qq07V20hQ1Sb dXA+HJPhaKS4wFZ3 dH9yIfHcYtZ5NBhvI838 ZpGwjJPwNlnuf7urr9lv gEd6VsS0LHAlxbUfaOfb PMI1r4GfHk10F38i IHdpZHRoPSIxNSUiIHZh sJzgnb7pqB4dQw0+PGNv mVD0nDG8kA3pRrYvYaK8 CNkeJ670ReKgzBOm Rdpfa7poy2yrwTk5CsNa NNPkxwYzfUbuXUR3x6Hj Lp59A6MpsPthf4UlAvb6 vl43uFAad2U5fYQ7 W7DoFONpfvoqeIHjpEti NQ9fUJIikzhxEGGepE8i TFSvB9n5TyFwXkX6DQfo C9IwgjG8LLHbpFGs KCqdXGL4U58un7U0MMBu CNDwNQQ6kRA6hW0zeJth bjogbGVmdDsgdmVydGlj FQgkHJtqZ932LUXw qDpoQBAjgU7cRYYjsSNs dTvpTG6tEXXxrossCj6F TIPCBBOLVVIUH15VTxCw TTwvdGQ+PHRkIHN0 lKsyUQbrBPHqrP1aNTUd J4k3WyGbFiL1CChaD9Hp DOAqdzlqMz12mT6fEjOw BlB8LGfqG3TvybC1 PHGqcPTaAPfqJOP2E56z u7X5ZLLvXHUcQSB8pFD5 jC1ibDhfxqywhGSvrGtx dmVydGljYWwtYWxp O364ZRCaiDwqCsKsRxEq PsT4MSS7B9QiWmq8QQJa lWduTA6efBJmILtyXm3n rXyooCaqTD8fEQEl wwrzNQQsjD7yBXGxtNAf uWmyMJ0vYPWemrtus511 EhIkHWG6RNWcrNSnG7Nh xF1zUlXrVBXbVFEm Y6FamYDuCFtnL595JFmh FoX9VGJtybUbD2QqHIQb mZerAsR0v1A1Zs4xVMXN ZWFyczwvdGQ+PHRk VSC7gHuxYMvnVDFnrY0y BUXuL5i0OxRdYtS3ITfx L2HrMFVoxrlmWb89mZ0q BmKkOwA4BNssG7Cx lzZ9GYAicOZjLAsiWBA4 D91iu1D2PCBuCKOeDGH6 iYG8pQ8kxRuinmqeuKZj dDsgdmVydGljYWwt IHszE716JWXxsXpmQwOq bWFsZTwvdGQ+PHRkIHN0 kFufMYflWIUggF8gZLMn A1k4TuJjWaK1VMac T0UjJZFiiysiXd34jW5v BhEtGqH2MOaqY5OxdbP0 NSUogKLaZJlfYIA1A65t g6R7BOEbPYNyRKY4 pYG4bL6arNqtyaxjoOYm dDsgdmVydGljYWwtYWxp D049TLSieDicFt15iPWf jJpcjhC0I4RkBzsv dHI+QE04LTYyYW12eTSk pMFbw1tmhTf1DnZeUTFe DPO5tKzoPWmxf4FjOFJp A17zaVIsb0Q7GSCp rHueqCCoNtCdiIE3jL1j IXrzowhvj3zquwecBluo k2zgfw01jI35G39gRCar ZHRoPSIzMCUiIHZh rFgwzv1rcF0wDl5+PGNv fNE6oVE2oJ2bWvJeUrV2 JDovE320QvPtpKClXdtf h9quz8hjmAx1VfWy IRYbfiUumTsaPPO0v2Zu Lb85L80tSVjwDBXvVNLv YNNvTOEhzEnyao4knY9x Ii8+QV9cz0gszd79 bT89nSX+ESReWIM6ePkq QCqfILKagA2aBVcsQjZ8 KMZpEzBrrA39eVQhLCka Ri3waRkatTjlCT3v OSSzlmzqd252KsMat0qa WTSkmMBjJIeoLRZ1T54r d8K9AEZhYAXgNDX5uGM7 xW7jvBbzdylxpGIy dDsgdmVydGljYWwtYWxp S009ESUxlEodSpNjlOEc O3ejhoIFCE6kYdrveJH+ BCSbWKF4sMxkGDln VUXnhJ3kAXTdS7k8BcSp ErN3TStsG8UrjjM4SHWd rAVjWZAeeDZTsQ7qlsva m7gflcxkWxSyHBYv GPg2VJb8RLJlfMgbByKk THR3JpP4EYN8tIRncK4l xRjiygzupG7zHwy+RklO OjwvdGQ+PHRkIHN0 zJwqJCbhXYLaoK0mPVRd I5e8WmBpWtR7IVejW7Ow nkB5JZBgxTPyBZNmuPHO bE3jnzfvp3rlcegj WfUtNLYeEZg6EHf3KUMv fZfyViVfAKI4YvH5KHP1 iYUwcO4pwWxjemkijR0i Oyc+TVJOOjwvdGQ+ FCEyWST0zLwgGEmpYLAr dW2rMQOkL2o6AzVzOyQ1 URszX5BnlgD6VPChfBZe SUXptNTPcN9jqmnk l6tpmojpEoUzDMBsSJw9 ZGp6KNXrrUybTyXyLZG5 ApA1HIY5nQMrbT1qjHjp gqkmcI2qThk+UGF5 HGP0EW66JZ19J4VsMhyz dGFibGU+PHRhYmxlIHdp ZHRoPScxMDAlJyBzdHls LY6pXk8kQVSzFKXq bGxh (more content not included)... Normal [facility] Consent for Treatmenton Consent for Treatment [id number] #1.00CD:127 Normal [facility] Free T4on 05-11-2022 Free T4 [Mass/Vol] 0.64 ng/dL Normal 0.58-1.64 [facility] Comment on above: Performed By: #### 2 [id number], 2736299, 1220162, 5469575, [id number], 1425978, 25445867, 2946032, 1100253 #### [facility] [address] [place] [address] HEMATOLOGYOrdered By: SYSTEM SYSTEM on 05-11-2022 Basophils/100 [...] [facility]AutoSS Physician Orderon 05-11-2022 Physician Order [id number] 5#1.00CD:127 Normal [facility] 05-11-2022 TSH Qn 2.11 m[IU]/L Normal 0.34-5.60 [facility] Comment on above: Performed By: #### 2 433655, 4781545, 3051429, 4852963, [id number], 1097630, 34502159, 5182776, 6229308 #### [facility] [address] [place] [address] Vit B12on 05-11-2022 Cobalamin (Vitamin B12) [Mass/Vol] 364 pg/mL Normal 50-1500 [facility] Comment on above: Performed By: #### 2 259300, 7514640, 2887015, 2650942, 750793514, 0142259, 22256904, 9917741, 6092831 ####[facility] [address] [place] [address] Vitamin D 25 Hydroxyon 05-11 25-hydroxyvitamin D3 [Mass/Vol] 48.8 ng/mL Normal 30.0-100.0 [facility] Comment on above: Result Comment: Vit young D deficiency has been defined as a level of serum 25-OH vitamin D less than 20 ng/mL (1,2) by the [place] [employer] and an Endocrine Society practice guideline. The Endocrine Society further defined vitamin D insufficiency as a level between 21 and 29 ng/mL (2). 1. IOM ([place] [employer]). 2010. Dietary reference intakes for calcium and D. [place]: The National Academies Press. 2. Megan MF, Lay [place], John VALERIO, et al. Evaluation, treatment, and prevention of vitamin D deficiency: an Endocrine Society clinical practice guideline. JCEM. 2010; 96 (7):1911-30. Performed By: #### 2 040249, 5478793, 2678032, 3457946, 157814654, 3957532, 35994852, 9794224, 3705360 #### [facility] [address] [place] [address] eGFRon 05-11-2022 GFR/1.73 sq M.predicted among blacks MDRD (S/P/Bld) [Vol rate/Area] mL/min/{1.73_m2} Normal >=59 [facility] Comment on above: Order Comment: Order added by Discern Expert. Result Comment: eGFR is race adjusted. AA=. Performed By: #### 2 096334, 5072823, 2461976, 0937426, 180556439, 4005225, 73603474, 7264979, 9054240 ####[facility] [address] [place] [address] GFR/1.73 sq M.predicted among non-blacks MDRD (S/P/Bld) [Vol rate/Area] mL/min/{1.73_m2} Normal >=59 [facility] Comment on above: Order Comment: Order added by Discern Expert. Result Comment: Flight Physician zach kidney disease could be indicated at eGFR's of less than 60 mL/min/1.73m2. Kidney failure is indicated at less than 15 mL/min/1.73m2. Performed By: #### 2 691579, 9632997, 2067668, 1778556, 689400497, 3712278, 77155909, 6255865, 5087110 ####[facility] [address] [place] [address] CHEMISTRYOrdered By: SYSTEM SYSTEM on 05-06-2022 Progesterone [Mass/Vol] 1.10 ng/mL Invalid Interpretation Code [facility] Consent for Treatmenton Consent for Treatment [id number] #1.00CD:127 Normal [facility] Physician Orderon 05-06-2022 Physician Order [id number] #1.00CD:127 Normal [facility] Progesteroneon 05-06-2022 Progesterone [Mass/Vol] 1.10 ng/mL Invalid Interpretation Code [facility] Comment on above: Result Comment: REFE RENCE RANGE Males 0.14-2.06 ng/mL Non- Females Follicular 0.10-0.60 ng/mL Luteal 3.00-17.5 ng/mL Midluteal 3.30-18.6 ng/mL Post-Menopausal 0.10-0.40 ng/mL First Trimester 8.30-66.5 ng/mL Second Trimester 18.9-66.1 ng/mL Third Trimester 35.8-312.4 ng/mL Performed By: #### 2 [id number] #### [facility] [address] [place] [address] Family Medicine Office/Clini c Noteon 05-26-2021 Family [...] for 30 day(s), 25 EA, Refill(s) 0, [facility] [address], [address], cm, 05/26/21 15:24:00 EST, Height/Length Dosing, 58.4, kg, 05/26/21 15:24:00 EST, Weight Dosing predniSONE, 20 mg = 1 tab(s), Oral, As Directed, Take three tabs by mouth for 3 days, then two tabs for 3 days, then one tab for 3 days, X 2 week(s), # 18 tab(s), Refills(s) 0, Pharmacy: [facility] [address], 158, cm, 05/26/21 15:24:00 EST, Height/Length Do... Follow-up With When Contact Information ERVIN LOCKWOOD, PHIL Satya, [facility] [address], [address] [place] [address]- Additional Instructions: Patient Education Asthma, Adult, Juju-xe-Zcjm Problem List/Past Medical History Ongoing BMI 23.0-23.9, adult Historical No qualifying data Procedure/Surgical History None. Medications albuterol 0.083% Inh [place] 3 mL, 2.5 mg= 3 mL, Inhalation, q6hr, PRN Blisovi FE 06/23 oral tablet Flovent HFA 44 mcg/inh inhalation aerosol with adapter, 2 puff(s), Inhalation, BID, Not taking fluticasone 0.05 mg/inh Nasal [place], 2 spray(s), Nasal, Daily, PRN, Not taking [place] 0.65% Nasal [place], 2 spray(s), Nasal, QID, PRN, Not taking [...] lifetime) Tobacco (more content not included)... Normal [facility] Comment on above: Result Comment: Elec tronically [...] pollute the air. These may include household road commissioner, wood smoke, smog, or chemical odors. ? [...] you are not home. Use a vacuum parts cleaner with a HEPA filter if possible. ? [...] and water are not available, use hand agriculture laboratory technician. ? Do not allow anyone to smoke in your home. General instructions ? Take rnfq-gig-klwjivn and prescription medicines only as told by [...] not res (more content not included)... Normal [facility] Patient Letter FTon 2020 Patient Letter [facility] May 26, 2021 JUANA KATIE Satya [address] [place] [id number] Please excuse JEFE ARIASONDRA Satya from work . Date and/or Time of Absence: From: 05/26/21 May return to work on: next scheduled work day Restrictions: None Comments: Please excuse due to an acute illness. Provider Signature: Yue Chowdary, FEED MILL SUPERVISOR-ENGRAVER COPPERPLATE, CABLE INSTALLER REPAIRER HELPER-C Nurse Practitioner [address] [place] [address] [place] [address] [facility] Vital Signs Date Time Vital Sign Value Performing Clinician Facility 07-14-2022 09:45-0500 Body height 153.67 cm Phil Ervin Other [facility] Other 07-14-2022 09:45-0500 Body mass index (BMI) [Ratio] 26.7 kg/m2 Phil Ervin Other [facility] Other 07-14-2022 09:45-0500 Body temperature 96 [degF] Phil Ervin Other [facility] Other 07-14-2022 09:45-0500 Body weight 63.05 kg Phil Ervin Other [facility] Other 07-14-2022 09:45-0500 Diastolic blood pressure 62 mm[Hg] Phil Ervin Other [facility] Other 07-14-2022 09:45-0500 Respiratory rate 16 /min Phil Ervin Other [facility] Other 07-14-2022 09:45-0500 SaO2% (BldA) [Mass fraction] 97 % Phil Ervin Other [facility] Other 07-14-2022 09:45-0500 Systolic blood pressure 98 mm[Hg] Phil Ervin Other [facility] Other 05-09-2022 12:45-0500 Body height 153.67 cm Phil Ervin Other [facility] Other 05-09-2022 12:45-0500 Body mass index (BMI) [Ratio] 26.12 kg/m2 Phil Ervin Other [facility] Other 05-09-2022 12:45-0500 Body temperature 97.9 [degF] Phil Ervin Other [facility] Other 05-09-2022 12:45-0500 Body weight 61.69 kg Phil Ervin Other [facility] Other 05-09-2022 12:45-0500 Diastolic blood pressure 82 mm[Hg] Phil Ervin Other [facility] Other 05-09-2022 12:45-0500 Respiratory rate 16 /min Phil Ervin Other [facility] Other 05-09-2022 12:45-0500 SaO2% (BldA) [Mass fraction] 98 % Phil Ervin Other [facility] Other 05-09-2022 12:45-0500 Systolic blood pressure 124 mm[Hg] Phil Ervin Other [facility] Other 09-05-2021 11:00-0400 Body height 153.67 cm Phil Ervin Other [facility] Other 09-05-2021 11:00-0400 Body mass index (BMI) [Ratio] 26.5 kg/m2 Phil Ervin Other [facility] Other 09-05-2021 11:00-0400 Body temperature 98.5 [degF] Phil Ervin Other [facility] Other 09-05-2021 11:00-0400 Body weight 62.6 kg Phil Ervin Other [facility] Other 09-05-2021 11:00-0400 Diastolic blood pressure 60 mm[Hg] Phil Ervin Other [facility] Other 09-05-2021 11:00-0400 Respiratory rate 16 /min Phil Ervin Other [facility] Other 09-05-2021 11:00-0400 SaO2% (BldA) [Mass fraction] 98 % Phil Ervin Other [facility] Other 09-05-2021 11:00-0400 Systolic blood pressure 96 mm[Hg] Phil Ervin Other [facility] Other Encounters Encounter Date Encounter Type Care Provider Facility Start: 06-26-2023 End: 06-26-2023 ambulatory TAYO TAVARES Not Available Start: 06-12-2023 End: 06-12-2023 ambulatory AARON THAKKAR Not Available Start: 05-24-2023 End: 05-24-2023 ambulatory AARON THAKKAR Not Available Start: 05-10-2023 End: 05-10-2023 ambulatory TAYO CLAIREO Not Available Start: 11-06-2022 End: 11-06-2022 ambulatory Phil Ervin Other [facility] Other Start: 11-06-2022 Telephone encounter Phil Ervin [facility] Start: 09-22-2022 End: 09-23-2022 ambulatory TAYO AUSTIN Facility: Start: 07-14-2022 End: 07-14-2022 ambulatory Phil Ervin Other [facility] Other Start: 07-14-2022 Office outpatient vi sit 25 minutes Phil Ervin [facility] Start: 07-14-2022 Telephone encounter Phil Ervin [facility] Start: 07-11-2022 End: 07-11-2022 ambulatory Phil Ervin Other [facility] Other Start: 07-11-2022 Telephone encounter Phil Ervin [facility] Start: 05-16-2022 End: 05-16-2022 ambulatory Phil Ervin Other [facility] Other Start: 05-16-2022 Telephone encounter Phil Ervin [facility] Start: 05-11-2022 End: 05-12-2022 ambulatory PHIL M ERVIN PROVIDER Facility[facility] Start: 05-11-2022 End: 05-11-2022 Patient encounter procedure PHIL M ERVIN [facility] Start: 05-09-2022 End: 05-09-2022 ambulatory Phil Ervin Other [facility] Other Start: 05-09-2022 Office outpatient vi sit 15 minutes Phil Ervin [facility] Start: 05-06-2022 End: 05-07-2022 ambulatory ZONIA NELSON Facility:[facility] Start: 05-06-2022 End: 05-06-2022 Patient encounter procedure ZONIA NELSON [facility] Start: 05-02-2022 End: 05-02-2022 ambulatory Phil Ervin Other [facility] Other Start: 05-02-2022 Telephone encounter Phil Ervin [facility] Start: 11-29-2021 End: 11-29-2021 ambulatory Phil Ervin Other [facility] Other Start: 11-29-2021 Telephone encounter Phil Ervin [facility] Start: 09-09-2021 End: 09-09-2021 ambulatory Phil Ervin Other [facility] Other Start: 09-09-2021 Telephone encounter Phil Ervin [facility] Start: 09-06-2021 End: 09-06-2021 ambulatory Phil Ervin Other [facility] Other Start: 09-06-2021 Telephone encounter Phil Ervin [facility] Start: 09-05-2021 End: 09-05-2021 ambulatory Phil Ervin Other [facility] Other Start: 09-05-2021 Encounter for genera l adult medical examination without abnormal findings Phil Ervin [facility] Start: 09-05-2021 Periodic preventive med est patient 18-39 yrs Phil Ervin [facility] Start: 05-26-2021 End: 05-27-2021 ambulatory Yue CHOWDARY Facility:[facility] Procedures Date Procedure Procedure Detail Performing Clinician None (qualifier value) JESUS NELSON Immunizations Immunization Date Immunization Notes Care Provider Gi alas 03-20-2021 COVID-19 Vaccine Pfizer - Documentation Purposes Only Phil Ervin Other [facility] Other 02-27-2021 COVID-19 Vaccine Pfizer - Documentation Purposes Only Phil Ervin Other [facility] Other NEGATED: Highlighted row has not occurred!12-17-2018 influenza, injectable, quadrivalent, contains preservative Patient Objection Phil Ervin Other [facility] Other NEGATED: Highlighted row has not occurred!07-14-2016 influenza, injectable, quadrivalent, contains preservative Patient Objection Phil Ervin Other [facility] Other Payers Date Payer Category Payer [facility] [id number] 1993 Unknown [id number] 2.16.8 [id number] 1993 Unknown [id number] 2.16.8 [id number] 1993 Unknown [id number] 2.16.8 [id number] 1993 Unknown [id number] 2.16.84 [id number] 1993 Unknown [id number] 2.16.84 [id number] 1993 Unknown [id number] 2.16.84 [id number] 1993 Unknown [id number] [id number] .[id number] 1993 Unknown [id number] [id number] 1959 Unknown [id number] 2. [id number] Social History Date Type Detail Facility Unknown if ever smoked [facility] Other Sex Assigned At [facility] Start: 05-26-2021 Tobacco smoking status Never s moked tobacco (finding) [facility] Tobacco smoking status Never [facility] Clinical Notes 06-04-2014 to 07-14-2022 Note Date [...] is going to be seeing a different HEAVY EQUIPMENT RENTAL ASSOCIATE, and I think this is certainly not unreasonable. [facility] Other 12-08-2022 Evaluation + Plan note Diagnostic Tests Pending * T3 Free 05/11/22 [facility]12-06-2022 Evaluation note* Encounter Date Diagnosis Assessment Notes Treatment Notes Treatment Clinical Notes May, Chronic fatigue (ICD-10 - R53.82) We will simply call patient with results of the blood work. Should all of this proved to be normal, she would just simply need to continue to follow-up with HEAVY EQUIPMENT RENTAL ASSOCIATE. May, Vitamin D deficiency (ICD-10 - E55.9) [facility] Other 06-28-2022 Evaluation note* Encounter Date Diagnosis Assessment Notes Treatment Notes Treatment Clinical Notes Nov, Asthma exacerbation (ICD-10 - J45.901) [facility] Other 04-05-2022 Evaluation note* Encounter Date Diagnosis Assessment Notes Treatment Notes Treatment Clinical Notes Sep, Asthma exacerbation (ICD-10 - J45.901) Sep, Folliculitis (ICD-10 - L73.9) [facility] Other 04-04-2022 Evaluation note* Encounter Date Diagnosis [...] Other No change today...Continue as is...FU PRN/Yearly... [facility] Other 01-01-2015 History general Narrative - Reported* Type Description Date Medical History 6 Weeks Premature Medical History Asthma Medical History ADD Surgical History cervical bx. from HEAVY EQUIPMENT RENTAL ASSOCIATE = Dr. Leyva 06/2014 Hospitalization History - Apnea [place] [facility] Other Evaluation + Plan note No data available for this section [facility] Information[facility] Other Hospital Discharge instructions No data available for this section [facility] No data available for this section [facility] Summary Purpose Family History No Family History [...] Clinical Acute IllnessLab work concernsInsulin Lab resultsDiscuss VISUAL BASIC PROGRAMMER labs - will bring copy for review. [...] Personnel Name: PHIL MUELLER DO Address: Address: [address] [place] [address] [place] [address]- Personnel Name: PHIL MUELLER DO Address: Address: [address] [place] [address] [place] [address]- INFORMATION SOURCE (unrecogn ized section and content) DATE CREATED AUTHOR 05/17/2022 [facility] DATE CREATED AUTHOR AUTHOR'S ORGANIZ ATION 09/29/[address] [facility] DATE CREATED AUTHOR AUTHOR'S ORGANIZ ATION 06/27/2023 [facility] FOR RECORDS PERTAINING TO PATIENTS WHO [...] BE BASED ON THE PRIMARY CLINICAL RECORDS. [facility] [employer] provides no warranty or guarantee of the accuracy or completeness of information in this document.
--- OUTSIDE RECORDS SUMMARY | 2023-07-19 08:20 | XMS_ITS | CCD ---
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 Name Role Phone Phil Mueller Unavailable PHIL MUELLER Primary Care Physician ZONIA NELSON Attending Unavailable ZONIA NELSON Admitting Unavailable ERVIN PROVIDERPHIL Admitting Unavail able ERVIN PROVIDER, PHIL Hernadez Attending Unavail able Yue CHOWDARY Attending Unavailable [...] (11 sources) montelukast Drug Allergy stomach upset ADIKTIVO Other Medications Current Medications Medication Drug Class(es) [...] use, # 1 EA, Refills(s) 0, Pharmacy: [facility], 158, cm, 01/04/20 10:14:00 EDT, Height/Length [...] days Sep, Active fluticasone 0.05 mg/inh Nasal [place] (2 sources) Start: 01-04-2020 fluticasone 0.05 mg/inh Nasal [place] 2 spray(s), Nasal, Daily Congestion, 16 gram, Refill(s) 0, each nostril, [facility], 158, cm, 01/04/20 10:14:00 EDT, Height/Length [...] qPM, # 30 tab(s), Refills(s) 0, Pharmacy: [facility], 158, cm, 01/04/20 10:14:00 EDT, Height/Length [...] meq/ml nasal spray (2 sources) Start: 01-04-2020 [place] 0.65% Nasal [place] 2 spray(s), Nasal, QID Congestion, 1 EA, Refill(s) 0, [facility], 158, cm, 01/04/20 10:14:00 EDT, Height/Length [...] [facility] Work Phone: Color, UA Yellow [facility] Work Phone: Glucose, UA Negative Negative - 1999(110) ++++ mg/dL [facility] Work Phone: Interpretation and review of laboratory results Abnormal [facility] Work Phone: Ketones, UA Negative Negative - 160(16) ++++ mg/dL [facility] Work Phone: Leukocytes, UA Trace Negative - 500+++ Lavern/mcL [facility] Work Phone: Nitrite, UA Negative Negative - Positive [facility] Work Phone: pH, UA 7.0 5 - 9 [facility] Work Phone: Protein, UA Negative Negative - 1999(20) ++++ mg/dL [facility] Work Phone: Spec Grav, UA 1.015 1 - 1.03 [facility] Work Phone: Urobilinogen, UA 0.2 0.2 - 12 mg/dL [facility] Work Phone: [facility] Work Phone: ANTI-MULLERIAN HORMONEon Anti-Mullerian Hormone (AMH) 6.57 ng/mL Normal [facility] Comment on above: Result Comment: For assays employing antibodies, the possibility exists for interference by heterophile antibodies in the samples.1 1.Demond Nunez Interferences in Immunoassays - still a threat. Clin. Chem. 2000; 46: 8888-0079. This test was developed and its performance characteristics determined by [employer] It has not been cleared or approved by the Food and Drug Administration. Reference Range: Females 26 - 30y: 1.03 - 11.10 Median 4.20 AMH concentrations of >= 1.06 ng/mL is correlated with a better response to ovarian stimulation, produced more retrievable oocytes and higher odds of live according to Andrzej et al. Fertility and Sterility. 2010: 94:5864-6121. The current AMH test method correlates with [...] tumor. Performed By: #### A AGGIE #### [facility] [address] [place], [place] [address] Dr. Matilde Fitch PROGESTERONEon 09-23-2022 Progesterone 0.4 ng/mL Normal [facility] Comment on above: Result Comment: Foll icular phase 0.1 - 0.9 Luteal phase 1.8 - 23.9 Ovulation phase 0.1 - 12.0 First trimester 11.0 - 44.3 Second trimester 25.4 - 83.3 Third trimester 58.7 - 214.0 Postmenopausal 0.0 - 0.1 Performed By: #### P ALBA #### [facility] [address] [place], [place] [address] Dr. Matilde Fitch Coding Summary.on 05-16-2022 Coding Summary. CD:[id number] Gh0bWw+PGhlYWQ+PE1FV WScJ34siFCggK9FP3mQV I0FLIGSCGVDII2DOK5wr WH6JOfmQ0ZrcdNm PdopaDQyZD03RCe4XOP0 iAsyAAcmnH1psPTgH2g2 YpRrZK32lH44HGiwQYPc NrG0QhKfzcasrKAe J3ugUbRgsXNnMnt+PHRh YmxlIHdpZHRoPScxMDAl EjRiyCgxHN1rNu0pLFBq LWNvbGxhcHNlOiBj q0xnCZFrBNcrWT5wgPue U9VvhJX0XXMht3v8Bf55 dHI+HVRnOLT7mZpbBJow j715DwIts5kyLUZ1 xKUtZGozLQB8L14pk4B1 TGWbRCJzVFU7gXC6nX3w aWpwqzxuA6WpbHFzSaZ8 JVN2sPLyoP0odWnd zbdpeZ9nVgb+W53QKG7F FARTLQ6FQxq7K4AsKpyx dHI+XH08FFEgMK98rGSx qRHyw8aisBl8IeNs TDAoJBM1oOymBZpte9Rg BPZcN75glNCfw6J6RIAj bUiadTYrXpOqyER5sJ8a JMjtxlvjd6qqjvfw Pwrcd0vxls42zF66C64d QXxfHYFjTKF0DTVxMTRe yJrooy8psM3aJa1+IDxj z9qwa9ogqOo9PeHb PQIrbmWggVfoYWR0y8Ln Zq88D3AhcAbnb1YyTit1 jb77aWKow4J4rSH8EXzr KKQdfI3jNJswGhW7 FMTyHlWtkD76tLEfMGlz Xo9niIjmeEgiCS2aPRMs dodfDRNvlN8cUGZmtZPs rZtrZF6wMZAungne j534IxMfLDL0WPEioPSx P6QglY3zYfZkIKUgOBWx L1DqiTXhIRayU503DMnz ObM0IOQstgOrN4Ku LUYspDwoClM6o1J9Fc2H q4RtaizrKCG2YDisOLVn NlWwUvMxNgO7N6YlMqr3 SHUeaWprIC1dE8Bn BFXdkgdsgdegqCE8GQYu QYLadE43dFEoFEngFx9k k1M7i158VIHuSEOtfU39 Qd8axMzdHWWdgUJT yA9rcowdh6ughielKuXh REOtZKg2GFw9HDHtrIfz ChNhAWL1GmX8HBA9cRBa kK0pcVndkqmeiD6h Oyc+L96zbP3wYCN7GCA8 uxwmDESkhwYwXX87IM41 R3JzXolveMYxySD+PGRp qzSumGplPD2uAiAu f3gds9VrSLwtU5AdWSOf YVfzUez7PVVyFSI2bUE4 aG8yGIFyHKxnf6I0pQH7 N6PvyjMtpy9ot8cg WIJkZNijN29vlYDgy4A1 VBNrhYA9DXExaYvxDoEq iG95Geb+UXOriIyvq9Fl Dautj5lft0mkqKd6 IjMwJSIgdmFsaWduPSJ0 f1GyFw95Y64oQRlkNVUz TAIsFYHhGDSjoJwfho8u aL6aHw2+PGNvbCB3 iYH9sT8bJHFgGuS1GMfx E819OcVkyPQrTaaru3zl r8yeaKm8WaLeYXOociZr xTdkHIR3c5BxEg36 W61dPKhbMUZiCKXkXDHt BVGotEgfin8anZ7uEq2+ OK5fq4emhw72iW57sLE+ TLMhNAR6yGtdETcp CWAqeP5nDUzzNbA4FDRp QtNcsK41iPHgETmjHu5t zQmrrWatMH8lVDAlqfbs e162UiTlh3mlLQMb xKQaSRwaRTQ9B80lo7B5 FKAzEXBlBWX5pJF0rK1d bGlnbjogbGVmdDsgdmVy tWjzWHcnVRwhU388 IHRvcDsnPlBhdGllbnQg VgHgBEk2Y6CnVgm4ILEe zFnfDC9ypBNaKMvpWt0v rUykbIjmWB5hVUWd ohqls066AmXfp9meIRGi hDTkUYpnINM5D98xv1S1 QQZzVQFtYXB5aCE6dX8h bGlnbjogbGVmdDsg foHxkShcQPswCQfiG455 IHRvcDsnPkJpcnRoIERh yXN0OX00RL83zZOsb0Q5 sVP4N2HnWILtecld yviwzIR2YTIhDXXwqE34 Lr8omXwsLz3fETWcVXS9 YQBqcHLbE6BmoC2cSbYc EMEySBHvK6OkhMEk TSbvD216AWprNaN3IGKm kfKbT4MzRAYwhGxkKwS3 l3T0Az4IZ0C1SC46TI14 bGFhw8U6yIO1X0Mg DLXrjdehrugnmNC5YNZc WQNgqO11Jw0ppAinTe3i LCClWNN4ZKUlcLCcN7Lo nU9bNmVwEXOhWADq G8MigTLxDVlxZ436DHll IgH9RFBsgiBeD5WzYIIy tGpyHgS9r1T2Vh4IROw2 MO56FW15kJVeq3S3 dXN3R4HrHDDluspaikie lGN8TFKbGGTjuL98Mw7i tNslTc5jDEAlURM6JRTs gNBzS9FznC6oItGj TJVqUOXqD2GqgGKeQQqk C795KOdcOeS8AQRyqcTc G2YgEBAloSmhPdB9v2X0 Jt9RQUAwLX10VBR8 rPC0FP69QV24W4OeKhpy dGFibGU+PHRhYmxlIHdp ZHRoPScxMDAlJyBzdHls YT7cEz7yLKUtZTMa cJiesNIrQvSsj9maKGKs STqkHD9gxYmcM4HyuAQ9 IMUkj3b7Om71H22mE4Tc dXA+IIXatLM9jLA4 sC0eBpPsQjU2ZRanI563 XaNayVJqFlxkt1zrf5nh cZw7FxD1SPXfqrFdxOeg HWZ3s8YcXt21H01z IHdpZHRoPSIxNSUiIHZh lCaqvq1vmE3fAc0+PGNv jVM6zSA2mW0vRqXeEqA3 HLxeQ796LkOatRRr Mjlln1yqp8mteTx0PgJo TCRbaaGiqNqyRVF2v8Kw Gz04J2ZpyInhh8VvBpu7 vq88gEYsj5E5tYZ7 V1IlSWGizhgrdJThfXoe RR7sPDXwhfisXURecP7j NCVbT3x2XxRpQiQ2MEfa H5UrlgP4MBTamYKx JMexAHN1Z54qe6F6WRTt CZAiPUO3dML1kW8wcMxf bjogbGVmdDsgdmVydGlj RBsbPVfgA935VRBs zLciBQNxnR9jSXHhqORc hQvqXJ1cTUKilxjjWj7B LJHRVDNCYPGMO25ZQwCx TTwvdGQ+PHRkIHN0 xMkrQSfsIIClzM3jRCJs R3e1XhNsLtV7IZjtJ5Wx SBQhvxnzQn78bQ0rXrYj MlU2UBhqN2AtxlC1 LCFyjNGaBZcxTEB7A41c v6P2AMFaDTFuUHJ1yLZ9 gI4tdTbfyhgbvDUfpUtr dmVydGljYWwtYWxp R424HBWehNcdWgUjBcLp DxS2JCY4N6RzAct9GPDv xNpeQD4xeEHqYRugIk4x vImngKtkSO5iLJYf nvaxXNYjpD9aIEDkyRYo vWdaBH5iJCFectakr327 ApFiHVI1MZHanJTeR8Kc fW5oZtPgQNHmOXSq Y6XmeOOlBDqhJ171HThd QbA1RTNmqiBmJ5SrMLUu xArpZqG6u8W4Qk1eJQPE ZWFyczwvdGQ+PHRk ELI0fPxaIEfnVUOkeN5n RFBsX6z5NkDdWgF7TUjh W4PyFTBjpfjcRb03cU4e EcOdVfA7BYsrC7Hk xaI7QIZicARxMKczZOF3 Z97je7C9XJYkLQNyVXO0 vYD7zF0wbOactnzbeSSt dDsgdmVydGljYWwt DWnjC839LJMnqFejJlQq bWFsZTwvdGQ+PHRkIHN0 cAtzYSolTVKgbO3dYNNr R1q4RaDsGiG8OHtg B2VlKHTyqrbmFu28hI4s EzDkQkM5NGhtR2ZzweG7 GXRhgDThOAtbVKV5F11r c7P4IPMvZJGqTXK2 sVS0hH6btRbhyzrteDQd dDsgdmVydGljYWwtYWxp Q809EQTjrFrpWv64zMWl fJamhdP4R2HzReuw dHI+YG01WDQnZK39lWIy pYUzi5ispBc7OdApMMZj ORN0kDmfQPydo6JtSIIt Q74wrEOsr9C3AREc gRlajPPjKdSepYL6vJ2s USxwwygqs9uwolprUicd w0fcmi32bE66O06pKTht ZHRoPSIzMCUiIHZh dJtimf0yzF0xUn0+PGNv mRV1xTZ4kN8aMmQmIeT9 UHdtS402YcWfdQPfOcnx w9xvu1zrzJx9RgHf LKImmuNpaLxcPLF9p5Gh Dy02L86iYKtnCHBdFDVn PFMvZNGbmPxabz4oqD6n Ii8+UK5ju8xqln01 hW40rNU+POWcNAC6tRbv MRlgBIFcsD8hYHeuKpJ3 ZSQqFfRswH86mMYfDWue Rg1vcAyhcIijXH7k IONbqhhit846ZsJxl5zm WKSloUWdHYdfISK1D53b a7R8KRUgHSUdEGB6ePR0 wF7qnPpolpmgzDDd dDsgdmVydGljYWwtYWxp M025UXMmtZvcTdHweUHw I7eptjADBA9dUiqszVR+ ZOGqUNM7hVurSVsk MFQhaW5zTJKwV0e7VuNs SuG3AZtgD9GxrjS1SDOa cSKdJKAofMVYqG8oatxi c2rrvzowUeUxDILz GKz8AIg6TVGliQocZkUg XVG7YyN0PFV4mXIduZ8c zLahxvlljZ6gVdk+RklO OjwvdGQ+PHRkIHN0 mLwbUPurECDcaQ8sLEDr F9y5KjSfIeW6WZpjA6Qn ygZ4SORmzDApGHZkmCCY eF3pglzjr0wazysz MnMzPAKbQVf8XCt0INFr sEtdGtHhUWP2UkX4VBF8 aKIguG8rrEnbxxyntJ1v Oyc+TVJOOjwvdGQ+ OQGdRAQ9qCaoJWviNFTc bQ7mMELgZ7s5LyNpLvO2 DSumL7RzblB9NZXnqUDp NJOgyZZOgR8rveko r2smqmhfBuSwAINnTBm6 TUk8VZEkgXhuVfDkFMN6 MsA5SOA0cJDnfJ7wgNos zblrtY1nEax+UGF5 DZZ0XQ78FY71K1ObPebs dGFibGU+PHRhYmxlIHdp ZHRoPScxMDAlJyBzdHls BZ8hWk0eSEIbHXTn bGxh (more content not included)... Normal [facility] T3 Freeon 05-12-2022 Free T3 [Mass/Vol] 3.8 pg/mL Invalid Interpretation Code 2.0-4.4 [facility] Comment on above: Result Comment: Perf ormed at: [facility] [address] [place], [place] [id number] PhD Boone Coronado Performed By: #### 2 327193, 9144231, 9766897, 0081111, 837507698, 1339343, 00525245, 9243083, 7644805 ####[facility] [address] [place] [address] Auto Diffon 05-11-2022 Basophils/100 WBC (Bld) 1.1 % Normal 0.0-2.0 [facility] Comment on above: Order Comment: Order Added by Discern Expert. Performed By: #### 2 108791, 0631132, 5914768, 0800281, 238614190, 4549225, 80773528, 8605921, 9140251 #### [facility] [address] [place] [address] Basophils/Leukocytes Auto (Bld) [Pure # fraction] 0.1 E9/L Normal 0.0-0.2 [facility] Comment on above: Order Comment: Order Added by Discern Expert. Performed By: #### 2 603369, 1063349, 3112775, 4332057, 419101383, 0748161, 58743960, 5999482, 3363138 #### [facility] [address] [place] [address] Eosinophils/100 WBC (Bld) 3.3 % Normal 0.0-8.0 [facility] Comment on above: Order Comment: Order Added by Discern Expert. Performed By: #### 2 126598, 2762516, 3761665, 3395707, 036749892, 0557382, 94144396, 4370432, 5509440 #### [facility] [address] [place] [address] Eosinophils/Leukocyte s Auto (Bld) [Pure # fraction] 0.3 E9/L Normal 0.0-0.5 [facility] Comment on above: Order Comment: Order Added by Discern Expert. Performed By: #### 2 697067, 8981353, 3610193, 5132052, 746354167, 5372601, 78199731, 9760542, 6556662 #### [facility] [address] [place] [address] Lymphocytes/100 WBC (Bld) 34.9 % Normal 14.0-50.0 [facility] Comment on above: Order Comment: Order Added by Discern Expert. Performed By: #### 2 089997, 0584148, 0526929, 4705561, 933239372, 1497215, 30154608, 2882280, 9317081 #### [facility] [address] [place] [address] Lymphocytes/Leukocyte s Auto (Bld) [Pure # fraction] 3.0 E9/L Normal 1.0-4.0 [facility] Comment on above: Order Comment: Order Added by Discern Expert. Performed By: #### 2 841031, 8304199, 8920510, 8930827, 305065030, 2296238, 99604387, 9192727, 3829948 #### [facility] [address] [place] [address] 24886 Monocytes/100 WBC (Bld) 5.8 % Normal 4.0-14.0 [facility] Comment on above: Order Comment: Order Added by Discern Expert. Performed By: #### 2 588550, 7387181, 7397213, 4088328, 305306687, 1561157, 82185235, 2607851, 9185913 #### [facility] [address] [place] [address] Monocytes/Leukocytes Auto (Bld) [Pure # fraction] 0.5 E9/L Normal 0.2-1.0 [facility] Comment on above: Order Comment: Order Added by Discern Expert. Performed By: #### 2 242223, 4433599, 6918613, 1866690, 519309303, 9773483, 22390611, 5619850, 6651523 #### [facility] [address] [place] [address] Neutrophils/100 WBC (Bld) 54.9 % Normal 36.0-75.0 [facility] Comment on above: Order Comment: Order Added by Discern Expert. Performed By: #### 2 584447, 5435958, 3640767, 5838191, 770691817, 2027685, 63315306, 2124349, 0839113 #### [facility] [address] [place] [address]001 Neutrophils/Leukocyte s Auto (Bld) [Pure # fraction] 4.7 E9/L Normal 2.0-7.5 [facility] Comment on above: Order Comment: Order Added by Discern Expert. Performed By: #### 2 780210, 3578211, 9306063, 2454196, 395367398, 9405134, 73600513, 9822936, 1903053 #### [facility] [address] [place] [address] CBC w/ Auto Diffon Erythrocyte distribution width (RBC) [Ratio] 12.9 % Normal 10.9-14.2 [facility] Comment on above: Performed By: #### 2 540723, 6258351, 5337647, 0042226, 208188721, 8364102, 19205661, 7384532, 9416713 #### [facility] [address] [place] [address] Hematocrit (Bld) [Volume fraction] 43.0 % Normal 34.0-46.0 [facility] Comment on above: Performed By: #### 2 105868, 8396968, 5695982, 9501270, 734404050, 8438206, 07505909, 8273371, 2038493 #### [facility] [address] [place] [address] Hemoglobin (Bld) [Mass/Vol] 14.6 g/dL Normal 12.0-16.0 [facility] Comment on above: Performed By: #### 2 676795, 9827889, 1475760, 7316630, 452777082, 5394766, 68866604, 8488847, 4994832 #### [facility] [address] [place] [address] MCH (RBC) [Entitic mass] 29.4 pg Normal 27.0-34.0 [facility] Comment on above: Performed By: #### 2 479848, 7446635, 2880378, 0404778, 800126249, 8465244, 15687823, 5039609, 5073490 #### [facility] [address] [place] [address] MCHC (RBC) [Mass/Vol] 33.9 g/dL Normal 31.4-36.0 [facility] Comment on above: Performed By: #### 2 291958, 7551965, 9831871, 3284546, 775385353, 7056936, 14960065, 0970478, 6079756 #### [facility] [address] [place] [address] MCV (RBC) [Entitic vol] 86.7 fL Normal 80.0-100.0 [facility] Comment on above: Performed By: #### 2 034390, 9616101, 6145197, 7743803, 758746114, 9033473, 85018954, 2946790, 8014012 #### [facility] [address] [place] [address] Platelet mean volume (Bld) [Entitic vol] 7.1 fL Normal 6.4-10.8 [facility] Comment on above: Performed By: #### 2 582938, 7273905, 2334997, 4063337, 028135757, 2237970, 42849067, 6978534, 9607586 #### [facility] [address] [place] [address] Platelets (Bld) [#/Vol] 316.0 E9/L Normal 150.0-500.0 [facility] Comment on above: Performed By: #### 2 131098, 8341707, 2611446, 4317313, 296009426, 5006195, 51809606, 1569865, 4829911 #### [facility] [address] [place] [address] RBC (Bld) [#/Vol] 5.0 E12/L Normal 4.3-5.9 [facility] Comment on above: Performed By: #### 2 903388, 1930068, 3676530, 1427846, 009434759, 0204372, 34216745, 2631610, 2031816 #### [facility] [address] [place] [address] WBC corrected for nucl RBC Auto (Bld) [#/Vol] 8.5 E9/L Normal 4.0-11.0 [facility] Comment on above: Performed By: #### 2 487634, 5972824, 1788399, 7269287, 799981220, 0001835, 15464587, 0564706, 1726034 #### [facility] [address] [place] [address] CHEMISTRYOrdered By: SYSTEM SYSTEM on 05-11-2022 25-hydroxyvitamin [...] 05-11-2022 Albumin [Mass/Vol] 4.3 g/dL Normal 3.3-5.0 [facility] Comment on above: Performed By: #### 2 590028, 7308462, 8384544, 5253978, 336813985, 5219812, 81394777, 7244704, 5143184 #### [facility] [address] [place] [address] Albumin/Globulin (S) [Mass conc ratio] 1.2 Normal 1.1-2.2 [facility] Comment on above: Performed By: #### 2 482617, 6039661, 1595730, 1335117, 306139206, 2048012, 14641259, 9698720, 6333551 #### [facility] [address] [place] [address] ALP [Catalytic activity/Vol] 80 Int._Unit/L Normal 21-98 [facility] Comment on above: Performed By: #### 2 393179, 5213209, 9721082, 2098628, 587352988, 4129517, 09123612, 5781400, 0015339 #### [facility] [address] [place] [address] ALT No additional P-5'-P [Catalytic activity/Vol] 15 Int._Unit/L Normal 6-46 [facility] Comment on above: Performed By: #### 2 732849, 1203282, 8576069, 1454099, 500410406, 2835048, 86981750, 0983502, 5196236 #### [facility] [address] [place] [address] Anion gap [Moles/Vol] 11 mmol/L Normal 6-16 [facility] Comment on above: Performed By: #### 2 094874, 1475438, 3397418, 6493230, 164207907, 0045467, 22199282, 8021818, 0458476 #### [facility] [address] [place] [address]2866 AST [Catalytic activity/Vol] 17 Int._Unit/L Normal 5-43 [facility] Comment on above: Performed By: #### 2 301552, 0879610, 7555103, 7360639, 743226280, 4295369, 49623059, 4897936, 4657519 #### [facility] [address] [place] [address]357 Bilirubin [Mass/Vol] 0.9 mg/dL Normal 0.0-1.1 [facility] Comment on above: Performed By: #### 2 319656, 6314163, 9618308, 2865237, 710317268, 7690745, 09154875, 9414056, 1115232 #### [facility] [address] [place] [address] Calcium [Mass/Vol] 9.6 mg/dL Normal 8.9-11.1 [facility] Comment on above: Performed By: #### 2 503430, 2545122, 8886580, 2440313, 499856017, 2959027, 06338959, 4678345, 7886948 #### [facility] [address] [place] [address] Chloride [Moles/Vol] 102 mmol/L Normal 101-111 [facility] Comment on above: Performed By: #### 2 269132, 0528574, 2294117, 1652179, 225032446, 2246580, 09661970, 6549317, 8136625 #### [facility] [address] [place] [address] CO2 [Moles/Vol] 28 mmol/L Normal 21-31 [facility] Comment on above: Performed By: #### 2 568089, 6951375, 3148471, 2594193, 571061477, 5434501, 48269279, 2525264, 3974517 #### [facility] [address] [place] [address] Creatinine [Mass/Vol] 0.8 mg/dL Normal 0.5-1.3 [facility] Comment on above: Performed By: #### 2 750442, 8323491, 0948420, 8677877, 010144938, 2437250, 17041405, 7679019, 9487888 #### [facility] [address] [place] [address] Globulin (S) [Mass/Vol] 3.5 g/dL Normal 1.4-4.0 [facility] Comment on above: Performed By: #### 2 230892, 2296022, 3685249, 1325531, 697914499, 6491230, 97008052, 2234968, 2861979 #### [facility] [address] [place] [address] Glucose [Mass/Vol] 83 mg/dL Normal 55-199 [facility] Comment on above: Result Comment: If t his glucose result represents a fasting glucose, interpretation should refer to the following reference range: 55-99 mg/dL Performed By: #### 2 475591, 3362715, 6202620, 9428818, 683481548, 8920953, 06209083, 4552913, 1816833 #### [facility] [address] [place] [address] Potassium [Moles/Vol] 4.0 mmol/L Normal 3.5-5.3 [facility] Comment on above: Performed By: #### 2 917641, 9394940, 6779603, 5706175, 278027881, 1809527, 47892878, 7839220, 5471762 #### [facility] [address] [place] [address] Protein [Mass/Vol] 7.8 g/dL Normal 6.0-7.8 [facility] Comment on above: Performed By: #### 2 650235, 4502965, 9391512, 0217530, 077540438, 7642193, 26538370, 7669641, 9776763 #### [facility] [address] [place] [address] Sodium [Moles/Vol] 137 mmol/L Normal 135-145 [facility] Comment on above: Performed By: #### 2 701703, 2004925, 3012417, 3560488, 188173062, 4991689, 89086077, 2934746, 9252408 #### [facility] [address] [place] [address] Urea nitrogen [Mass/Vol] 16 mg/dL Normal 5-21 [facility] Comment on above: Performed By: #### 2 603822, 8130707, 5168799, 7502245, 910988553, 6716262, 43508203, 0753727, 3846710 #### [facility] [address] [place] [address] Urea nitrogen/Creatinine [Mass ratio] 20 No Units Normal 10-20 [facility] Comment on above: Performed By: #### 2 583837, 5026004, 4431847, 7931243, 633002520, 0549189, 45727145, 9196258, 2302913 #### [facility] [address] [place] [address] Coding Summary.on 05-11-2022 Coding Summary. [id number] Gh0bWw+PGhlYWQ+PE1FV TFxE23ufFGtwK6YF8iUS H5EABLXXQZQQS4KEM7zj OV5GLhpI1HuaiPe PxmnlAFbLB91NEs7VQM7 kXuqAKzsoA1joTNfS8l9 GzVuFS88rV93GLgoERDg MzS9HjGjhcoxzIQj U0avDjWfwSPuPtg+PHRh YmxlIHdpZHRoPScxMDAl KtJwvVeoVB4xPe2eLYWx LWNvbGxhcHNlOiBj h9mjVDXpNElfCH7juVwy G3HgsHP4HMZhl5v5Pv56 dHI+PUJsHUO3iKabEDzt l623EuBoo2hpBNL8 qZKmVOxsMGO7Z69hm4C5 IVVbVSTkLPG9qMS8pH5y eXtzwosdL2MnyPJmHdN7 UMQ8zFWehR6zqGkf epyxbF8hXvx+N94YBX0C LBBNYB3CSuq9W2CqGydh dHI+NC65MZCjTD48sAEo tAXlp8vdmPg8HwZh OTCxQWH9tFmsJMepa3Je TFWpN13waPHlq2Z5EQKg iIzxsIZfYvGjzMZ4zZ0l ZWekqibcv0mavevh Jhxvn2uarg01eQ91Q59v LKfaDEQxQHB0XFNpYPOv pJvtcq0gdU7fEt9+IDxj w9nrk6ugwYq3BiJv GYTfivVmyGjdTJJ4p5Ka Vg80C7UmqCtxx7XtVde6 xs76xPVvi3L0vHP2XBtp PVMynB1bEOtsYeC0 JXRrIeIarW57qBWrAQkl Hx6koXdccWkbZP0ePRXg cvlxAIHngE2bCRTdpDFb bOjyLW5pPOBwepml e724KwAlNGU1CVNzqQVg J8SjcD5fFyArXDGsGANd D0PekBAbUVkqA885BTzh SmR5YGJqafBiR9Yx SOHmvVdwDnZ1q4D1Yi7Y a4ZehhixBCS7FAsmAYMx DpS3TeIxXiE8X4EgZxy3 ZIOkeEorJT9wR1Pg WMRpeixajeqgeCD0RNSy IZTmgT32mPKeOOjtJl5b n4I9b686TWSdAIAnbO77 Ag6jaIhmIMDvmKGH lU4pbhpnk7uljlrxSpBs HUDhCFv0VJw5AFIaiZiq QgXyKJP1RjO6EHZ7yQYj zI0lwMsjgrkqaO4z Oyc+B59zkB0hDYQ0URT3 dzhcOQAoskEcUU85XK20 I9FwJyjheCSeqDR+PGRp qgYxsWlmXE8yPaMb m3rzl8RkKMquT9AnMBLl KSbdGrz0WUCeHLI7lGP8 uB5cUORbLPmta1Y8pDS3 A8CuvnZpmv8ta6mv EIAgEBrdI59jrYVff2W3 DXKndXG0HUPmpAetWbRk pZ61Zop+DFEchWfel4Kq Hqwer7vgw3ettDl4 IjMwJSIgdmFsaWduPSJ0 x7VmWx29Q18hFNlvGQAa CDFeYXWnAPHmtBiphr3l mH9zZi5+PGNvbCB3 jLY1vC4aPRImEyI1NYvh W510BdDpzJBiZoram7gx a8vpmOa0MkQeJYDnsfJj qXgnUYW3x8GaQf48 M47kQVlmPOVrCVBrOWEd DKBcsJfxfb1loP8sLd9+ CJ7yr5gidd60eZ11zZU+ MKTvZKC2wNriRSvi PQHieC6zXTojCkV5FKEl AxAyfR62pRAwRGubMo3k wRbzeFghMN4lKBTieefj y095ZqEkc4vyRGJy cKEgKEnkFYX4K26fb9F1 RFFaVUOxBBD5pGT6dA6u bGlnbjogbGVmdDsgdmVy wGboIQxvJXohB335 IHRvcDsnPlBhdGllbnQg DpNxZFt6S5KyUwh8AANg eVpbLF5fiNTjTAibPn3w aXkzuDbyLJ3pQLAy ygbzd415QoHpd4enWBSf gAXuQNueMOJ3X91vc2T1 FJDnDQVeTFX8bEY1nZ0u bGlnbjogbGVmdDsg quFjhAppAXznMGcgG413 IHRvcDsnPkJpcnRoIERh tIG6RV85ET06xOSjv1T9 mRL8D8FyRQBndydz iwxxuDV6SKZiHPUanE66 Ij6jhKhrUr1mHDKyBBJ1 NEFxhEUjY4RsrZ5iYrEa YOLdEKCyG9BlkQVo BDnlJ891JXjuHzO1SBZx glFwJ4PgXBLylXpkCqA4 z8T0Mv3WX2Q2VB39HN32 wGBdl7I9cNR5C6Yt WZRcpmcceyythUU8UMZy HZTqoA54Mb4zsKyyOe8d LJWoZTJ8OZIomOLzK8Ms mY6eMnTtYRWaQBLr F8GpiVTrZKmgW399YLro VlC2GCToryHaF7JmYGIu jGrpDjR7r5T5Tn3IYNn1 LD60SC27fIPgr6K6 zWA7E9WbPKAhrezzwubb uFV7IKTmEGKvhA35Pd9n gHcxUa3kPMNbQAP2PTHp zFLsF3DqyK8dGwDa FAQfDUTuE6YdaJVkDNcu M554GYdiNlJ9OMUxrnBg V8FdGJNkvYnyWzF1s1K0 Bg4KXZBcAX91UZN4 pQF8RM88ZY26U9InTkll dGFibGU+PHRhYmxlIHdp ZHRoPScxMDAlJyBzdHls RN9gXj9gZEMnAMPk lFdnaPEfKeFda6zdKWQi YBrsXR2ssAtcP9TzhPX6 GYEzc6x6Kg99M08oV4Ra dXA+KCNhpLC2hZH6 yJ9mWzOlKoB0KOdwB341 NgPzmQGqLeyky7ecd2cp wRz2JnB4BRYcubRsbWln PES9d8BsVx24D37v IHdpZHRoPSIxNSUiIHZh kDmrdv6edU9mVn4+PGNv aXO6fLY7jE8mEoQiBbK9 LHnuU124RfQjhHWy Uxhug9wit4lhvOh4TvKm QZPopoGceZodIZE5k9Ib Wl26U8HlcBgfl6CgNyi1 jt40rZNgw1W4rMQ7 M6ElXTEhvbnlqLCvzGdt YH6uIVXhuglfYSLxzV2b JRBqL6d4KzUoLlH9UJoc B0HhvaH2AQRzoTBx KRkcSRY2E64qv4J3OLOt AMKlSNW7uWK0aB7xnDie bjogbGVmdDsgdmVydGlj MIoaPGapS759EEDf zXwvUAVloP8zZFFojSAa xAgkOV0rIYVbtjtdFk9N IKJWWRQNSGWFE74VAsTq TTwvdGQ+PHRkIHN0 pLydOOxfGDAtuD3tHSOz P6v7HxAdAdU6TXswI4Sj ZAGuedspEm70rB2sTaUo EfF0PIrlO5TyoiE6 BSKfyQCcIFglOLZ1T16y m6F1AMSlHMUgXYR1eWT3 gI2ghWgucphglSIdbOat dmVydGljYWwtYWxp T043VMPqlYzxAdAcPxHy MgT0AVT4I5XwPns8GEVk bNbjNV2giARsBFbrMt1g uMkrbEgfXI4iSZDk zxetBUSfpW0wHPIzqNRd aShwDC2aTUYaacfac679 IgYcMAE9SBVcyTMeM6Hy nQ5aMwPtPDZsVXAd A7LhpIEgESkiB087NFrl UvZ2ADXzjmDmY5ZfABVz mYxzSuM3r3X1Ws1eGOUM ZWFyczwvdGQ+PHRk ZCH0cAahRLywDWBupQ9s VXTiR9q5KqUiAbK8SYvu F5JtZXByjwfySz84pP6g LoWjIvR0PLnmX8Es bxZ1TWSkuMEyZRliYMY1 Z02wz3A1IFTbIUGfYKB0 mFL9hU0ykFrryfdqoNAg dDsgdmVydGljYWwt ZPucH278ODQtgLrrJrOo bWFsZTwvdGQ+PHRkIHN0 kBjhMUzhLJTafO5qKPUz M4n6QhNuKzL6AMlq G6ZcWQFblkeqJf93gE1z VxIuHlL2WSauP1BqvbP0 KNNwvJFfHDyqZYA7W45a s7K7XHYvGMTzIEQ3 aXB6iE2uiWsksoctwQQm dDsgdmVydGljYWwtYWxp J917YQHxmJsoAk08uOTa iIyvyzZ2J5FaAozv dHI+CJ48HBDxMZ85gRNc jAXih9lgtAh4WuBwGKMq ZUN3dMviFAaow3LhRYYw P77lfDBso7V5NJLz zWovsUBaFkSoeKL9kZ7z UFtbrunzr9eeyydqNdrp q4emen10bG46Y65lITqt ZHRoPSIzMCUiIHZh eFdyew7cvD5gKr1+PGNv ePS0rBX2gQ6nFfGtWdP7 BBzrY999IoPkfMPiHjcr o4mzc7hhzFf1OvFm LXBlrsOyeIjoPPB3k2Yx Jx94A42dFEynSBGiFCWg CHDoYFUpaIgonq3lnW0g Ii8+XO7wl2kdnr71 bI22fXP+UJRfVMA6bHie FSpnEGQdaV7zJCufGpK0 SUSwYyZsnI62aXBoVJhn Up4jvUwopRybLH7l HYIfcqwjm927LaNwc7rk QGUrzGJoDHteZLX9I63k s7G3EAFtISEnLXY3jEI0 cU4xqOwmpdejsQKq dDsgdmVydGljYWwtYWxp I462UZPblSdtKxYuuZQq G4tidySYXS9jMeqhdCN+ YFDhDMI7aStrTKyt TNEesA6sIJGaN0g5MtDy XvT8BSuqM3LkapV2OUGf cIAsJMJsoYSSdN2cehox e9xbquimGdOhKHNb PAw7QRy8NBOzcGtvMePe QWJ1NiZ6WQY0pOUiwE6e jYeiomclfW1wSzj+RklO OjwvdGQ+PHRkIHN0 wRbtYFhmHEIsmZ3pBVXf X9k6GcIvBdP1HAkjI5Wm ssU7YLNfoFTgRZJweSTQ dC6ewyctl7izvosz GsMjTNRwTBd0IKj5CTKv fXvvQdWuVEF3TkU6ROB8 hHSanQ0zhQoueyotnC4z Oyc+TVJOOjwvdGQ+ ROPhQWC5bBpxYQfgFSLu jW8kKXEhM2u2XxAlMiX7 ECtoA4RxanK2KXCweWYu DWJgmLCMjM1ddjyx d1xauysrEkPfNESgVTf0 QKk6JVTgnLdlXyUuSBZ3 OxT9JVJ2zVFmlO4ndGet mncmeG8ePiw+UGF5 QIM4SI08PV86I8CbBxuj dGFibGU+PHRhYmxlIHdp ZHRoPScxMDAlJyBzdHls VV4jEp6mETTuXRAg bGxh (more content not included)... Normal [facility] Consent for Treatmenton Consent for Treatment [id number] #1.00CD:127 Normal [facility] Free T4on 05-11-2022 Free T4 [Mass/Vol] 0.64 ng/dL Normal 0.58-1.64 [facility] Comment on above: Performed By: #### 2 [id number], [id number], 3989205, 6737361, [id number], 7543187, 32994217, 5127032, 2680671 #### [facility] Laboratory [address] [place] [address] HEMATOLOGYOrdered By: SYSTEM SYSTEM on 05-11-2022 Basophils/100 [...] 8.5 E9/L Normal 4.0 - 11.0 E9/L [facility] HemeAutoSS Physician Orderon 05-11-2022 Physician Order [id number]#1.00CD:127 Normal [facility] TSHon 05-11-2022 TSH Qn 2.11 m[IU]/L Normal 0.34-5.60 [facility] Comment on above: Performed By: #### 2 755210, 5560503, 4305060, 2825823, [id number], 3741738, 22464328, 6859211, 9788298 #### [facility] Laboratory [address] [place] [address] Vit B12on 05-11-2022 Cobalamin (Vitamin B12) [Mass/Vol] 364 pg/mL Normal 50-1500 [facility] Comment on above: Performed By: #### 2 454454, 0399440, 3628296, 8342048, [id number], 0160760, 02210019, 7867785, 7350760 ####[facility] [address] [place] [address] Vitamin D 25 Hydroxyon 05-11 25-hydroxyvitamin D3 [Mass/Vol] 48.8 ng/mL Normal 30.0-100.0 [facility] Comment on above: Result Comment: Vit young D deficiency has been defined as a level of serum 25-OH vitamin D less than 20 ng/mL (1,2) by the [place] of [employer] and an Endocrine Society practice guideline. The Endocrine Society further defined vitamin D insufficiency as a level between 21 and 29 ng/mL (2). 1. IOM ([place] of Medicine). 2010. Dietary reference intakes for calcium and D. [place]: The National Academies Press. 2. Megan MF, Lay [place], John VALERIO, et al. Evaluation, treatment, and prevention of vitamin D deficiency: an Endocrine Society clinical practice guideline. JCEM. 2010; 96 (7):1911-30. Performed By: #### 2 759355, 6508553, 8560812, 3772342, 218532777, 1659352, 51716219, 2825249, 5294353 #### [facility] Laboratory [address] [place] [address] eGFRon 05-11-2022 GFR/1.73 sq M.predicted among blacks MDRD (S/P/Bld) [Vol rate/Area] mL/min/{1.73_m2} Normal >=59 [facility] Comment on above: Order Comment: Order added by Discern Expert. Result Comment: eGFR is race adjusted. AA=. Performed By: #### 2 184807, 2058686, 5116818, 1449773, 157780708, 3364328, 14203609, 5145602, 4200648 ####[facility] [address] [place] [address] GFR/1.73 sq M.predicted among non-blacks MDRD (S/P/Bld) [Vol rate/Area] mL/min/{1.73_m2} Normal >=59 [facility] Comment on above: Order Comment: Order added by Discern Expert. Result Comment: Skill Labor zach kidney disease could be indicated at eGFR's of less than 60 mL/min/1.73m2. Kidney failure is indicated at less than 15 mL/min/1.73m2. Performed By: #### 2 648370, 6402040, 3090256, 9771095, 162894991, 3957173, 44992200, 8720052, 3877648 ####[facility] [address] [place] [address] CHEMISTRYOrdered By: SYSTEM SYSTEM on 05-06-2022 Progesterone [Mass/Vol] 1.10 ng/mL Invalid Interpretation Code [facility] Remisol Consent for Treatmenton Consent for Treatment [id number] #1.00CD:127 Normal [facility] Physician Orderon 05-06-2022 Physician Order [id number] #1.00CD:127 Normal [facility] Progesteroneon 05-06-2022 Progesterone [Mass/Vol] 1.10 ng/mL Invalid Interpretation Code [facility] Comment on above: Result Comment: REFE RENCE RANGE Males 0.14-2.06 ng/mL Non- Females Follicular 0.10-0.60 ng/mL Luteal 3.00-17.5 ng/mL Midluteal 3.30-18.6 ng/mL Post-Menopausal 0.10-0.40 ng/mL First Trimester 8.30-66.5 ng/mL Second Trimester 18.9-66.1 ng/mL Third Trimester 35.8-312.4 ng/mL Performed By: #### 2 [id number] #### [facility] [address] [place] [address] Family Medicine Office/Clini c Noteon 05-26-2021 Family [...] for 30 day(s), 25 EA, Refill(s) 0, [facility], 158, cm, 05/26/21 15:24:00 EST, Height/Length Dosing, 58.4, kg, 05/26/21 15:24:00 EST, Weight Dosing predniSONE, 20 mg = 1 tab(s), Oral, As Directed, Take three tabs by mouth for 3 days, then two tabs for 3 days, then one tab for 3 days, X 2 week(s), # 18 tab(s), Refills(s) 0, Pharmacy: [facility], 158, cm, 05/26/21 15:24:00 EST, Height/Length Do... Follow-up With When Contact Information ERVIN LOCKWOOD, PHIL Hernadez, [facility] [employer] [address] [facility], [place] [address] [place] [address]- Additional Instructions: Patient Education Asthma, Adult, Jcmo-fs-Tzut Problem List/Past Medical History Ongoing BMI 23.0-23.9, adult Historical No qualifying data Procedure/Surgical History None. Medications albuterol 0.083% Inh Melida 3 mL, 2.5 mg= 3 mL, Inhalation, q6hr, PRN Blisovi FE 06/23 oral tablet Flovent HFA 44 mcg/inh inhalation aerosol with adapter, 2 puff(s), Inhalation, BID, Not taking fluticasone 0.05 mg/inh Nasal [place], 2 spray(s), Nasal, Daily, PRN, Not taking [place] 0.65% Nasal [place], 2 spray(s), Nasal, QID, PRN, Not taking [...] lifetime) Tobacco (more content not included)... Normal [facility] Comment on above: Result Comment: [...] pollute the air. These may include household mica plate layer, wood smoke, smog, or chemical odors. ? [...] you are not home. Use a vacuum fish cleaner with a HEPA filter if possible. [...] and water are not available, use hand principal law clerk. ? Do not allow anyone to smoke in your home. General instructions ? Take pupa-ebe-egxrtib and prescription medicines only as told by [...] not res (more content not included)... Normal [facility] Patient Letter FTon 2020 Patient Letter [facility] May 26, [address]AS [address] [place] [phone] Please excuse SHELLY ARIAS from work . Date and/or Time of Absence: From: 05/26/21 May return to work on: next scheduled work day Restrictions: None Comments: Please excuse due to an acute illness. Provider Signature: Yue Chowdary, VICTIM ADVOCATE-POWERHOUSE ATTENDANT, SIGN DESIGNER-C Nurse Practitioner [address] [place] [address] [facility] Vital Signs Date Time Vital Sign Value Performing Clinician Facility 07-10-2023 09:38-0500 Body mass index (BMI) [Ratio] 30.79 kg/m2 TayoTripChamp DO Work Phone: [facility] 07-10-2023 09:38-0500 Body weight 78.83 kg Tayo Chaitanya DO Work Phone: [facility] 07-10-2023 09:38-0500 Diastolic blood pressure 80 mm[Hg] Tayo Chaitanya DO Work Phone: [facility] 07-10-2023 09:38-0500 Systolic blood pressure 112 mm[Hg] Tayo Chaitanya DO Work Phone: [facility] 07-14-2022 09:45-0500 Body height 153.67 cm Phil Ervin Other [facility] Other 07-14-2022 09:45-0500 Body mass index (BMI) [Ratio] 26.7 kg/m2 Phil Ervin Other [facility] Other 07-14-2022 09:45-0500 Body temperature 96 [degF] Phil Ervin Other [facility] Other 07-14-2022 09:45-0500 Body weight 63.05 kg Phil Ervin Other [facility] Other 07-14-2022 09:45-0500 Diastolic blood pressure 62 mm[Hg] Phil Ervin Other [facility] Other 07-14-2022 09:45-0500 Respiratory rate 16 /min Phil Ervin Other [facility] Other 07-14-2022 09:45-0500 SaO2% (BldA) [Mass fraction] 97 % Phil Ervin Other [facility] Other 07-14-2022 09:45-0500 Systolic blood pressure 98 mm[Hg] Phil Ervin Other [facility] Other 05-09-2022 12:45-0500 Body height 153.67 cm Phil Ervin Other [facility] Other 05-09-2022 12:45-0500 Body mass index (BMI) [Ratio] 26.12 kg/m2 Phil Ervin Other [facility] Other 05-09-2022 12:45-0500 Body temperature 97.9 [degF] Phil Ervin Other [facility] Other 05-09-2022 12:45-0500 Body weight 61.69 kg Phil Ervin Other [facility] Other 05-09-2022 12:45-0500 Diastolic blood pressure 82 mm[Hg] Phil Ervin Other [facility] Other 05-09-2022 12:45-0500 Respiratory rate 16 /min Phil Ervin Other [facility] Other 05-09-2022 12:45-0500 SaO2% (BldA) [Mass fraction] 98 % Phil Ervin Other [facility] Other 05-09-2022 12:45-0500 Systolic blood pressure 124 mm[Hg] Phil Ervin Other [facility] Other 09-05-2021 11:00-0400 Body height 153.67 cm Phil Ervin Other [facility] Other 09-05-2021 11:00-0400 Body mass index (BMI) [Ratio] 26.5 kg/m2 Phil Ervin Other [facility] Other 09-05-2021 11:00-0400 Body temperature 98.5 [degF] Phil Ervin Other [facility] Other 09-05-2021 11:00-0400 Body weight 62.6 kg Phil Ervin Other [facility] Other 09-05-2021 11:00-0400 Diastolic blood pressure 60 mm[Hg] Phil Ervin Other [facility] Other 09-05-2021 11:00-0400 Respiratory rate 16 /min Phil Ervin Other [facility] Other 09-05-2021 11:00-0400 SaO2% (BldA) [Mass fraction] 98 % Phil Ervin Other [facility] Other 09-05-2021 11:00-0400 Systolic blood pressure 96 mm[Hg] Phil Ervin Other [facility] Other Encounters Encounter Date Encounter Type Care [...] 11-06-2022 End: 11-06-2022 ambulatory Phil Ervin Other [facility] Other Start: 11-06-2022 Telephone encounter Phil Ervin [facility] [place] Start: 09-22-2022 End: 09-23-2022 ambulatory TAYO CHAITANYA Facility: Start: 07-14-2022 End: 07-14-2022 ambulatory Phil Ervin Other [facility] Other Start: 07-14-2022 Office outpatient vi sit 25 minutes Phil Ervin [facility] Start: 07-14-2022 Telephone encounter Phil Ervin [facility] Start: 07-11-2022 End: 07-11-2022 ambulatory Phil Ervin Other [facility] Other Start: 07-11-2022 Telephone encounter Phil Ervin [facility] Start: 05-16-2022 End: 05-16-2022 ambulatory Phil Ervin Other [facility] Other Start: 05-16-2022 Telephone encounter Phil Ervin [facility] Start: 05-11-2022 End: 05-12-2022 ambulatory PHIL M ERVIN PROVIDER Facility:[facility] Start: 05-11-2022 End: 05-11-2022 Patient encounter procedure PHIL M ERVIN [facility] Start: 05-09-2022 End: 05-09-2022 ambulatory Phil Ervin Other [facility] Other Start: 05-09-2022 Office outpatient vi sit 15 minutes Phil Ervin [facility] Start: 05-06-2022 End: 05-07-2022 ambulatory PENOLA NELSON Facility:[facility] Start: 05-06-2022 End: 05-06-2022 Patient encounter procedure PENOLA NELSON [facility] Start: 05-02-2022 End: 05-02-2022 ambulatory Phil Ervin Other [facility] Other Start: 05-02-2022 Telephone encounter Phil Ervin [facility] Start: 11-29-2021 End: 11-29-2021 ambulatory Phil Ervin Other [facility] Other Start: 11-29-2021 Telephone encounter Phil Ervin [facility] Start: 09-09-2021 End: 09-09-2021 ambulatory Phil Ervin Other [facility] Other Start: 09-09-2021 Telephone encounter Phil Ervin [facility] Start: 09-06-2021 End: 09-06-2021 ambulatory Phil Ervin Other [facility] Other Start: 09-06-2021 Telephone encounter Phil Ervin [facility] Start: 09-05-2021 End: 09-05-2021 ambulatory Phil Ervin Other [facility] Other Start: 09-05-2021 Encounter for genera l adult medical examination without abnormal findings Phil Ervin [facility] Start: 09-05-2021 Periodic preventive med est patient 18-39 yrs Phil Ervin [facility] Start: 05-26-2021 End: 05-27-2021 ambulatory Yue CHOWDARY Facility:[facility] Procedures Date Procedure Procedure Detail Performing Clinician Start: 07-10-2023 Urnls dip stick/tabl et rgnt non-auto w/o micrscp Tayo Tavares DO Work Phone: None (qualifier value) JESUS NELSON Plan of Treatment Date Care Activity Detail Author Start: 07-17-2023 End: 07-17-2023 Patient encounter procedure 07/17/2023 8:30 AM EST Routine [facility] [address] [place] [id number] Tayo Tavares, DO [address] [place] [address] [facility] Immunizations Immunization Date Immunization Notes Care Provider Fa cility 03-20-2021 COVID-19 Vaccine Pfizer - Documentation Purposes Only Phil Ervin Other [facility] Other 02-27-2021 COVID-19 Vaccine Pfizer - Documentation Purposes Only Phil Ervin Other [facility] Other NEGATED: Highlighted row has not occurred!12-17-2018 influenza, injectable, quadrivalent, contains preservative Patient Objection Phil Ervin Other [facility] Other NEGATED: Highlighted row has not occurred!07-14-2016 influenza, injectable, quadrivalent, contains preservative Patient Objection Phil Ervin Other [facility] Other Payers Date Payer Category Payer Unknown [employer] [id number] 2022-Present [address] [place] [address] [id number] 2021 [facility] [id number] 1993 Unknown [id number] [id number] 7 1993 Unknown [id number] [id number] 7 1993 Unknown [id number] [id number] 7 1993 Unknown [id number] 2.16.840.1.192782.3.579.2.59 3 1993 Unknown [id number] 2.16.840.1.776796.3.579.2.12 59 1993 Unknown [id number] 2.16.840.1.429443.3.579.2.12 59 1993 Unknown [id number] 2.16.840.1.153497.3.579.2.12 59 1993 Unknown [id number] 2.16.840.1.026493.3.579.2.12 59 1993 Unknown [id number] 2.16.840.1.988619.3.579.2.12 59 1993 Unknown [id number] [id number] 59 1959 Unknown [id number] Social History Date Type Detail Facility Unknown if ever smoked [facility] Other Start: 01-09-2023 End: 04-11-2023 Sex Assigned At [facility] Start: 05-26-2021 End: 01-09-2023 Tobacco smoking status Never smoked tobacco (finding) [facility] Tobacco smoking status Never [facility] Start: 01-09-2023 Tobacco use and exposure [...] Not on file [facility] Start: 08-16-2022 Gender identity Identifies as female gender (finding) [facility] Clinical Notes 06-04-2014 to 07-10-2023 Marguerite Hawley, [employer] - 07/10/2023 9:30 AM EST Note Date [...] nursing note reviewed. Exam conducted with a precinct captain present. Vitals: Estimated body mass index is 30.79 kg/m as calculated from the following: Height as of 23: 5' 3 . Weight as of this [...] Tayo Tavares DO documented in this encounter [facility] 07-14-2022 Evaluation note Encounter Date Diagnosis Assessment [...] is going to be seeing a different TABULATING SUPERVISOR, and I think this is certainly not unreasonable. [facility] Other 12-08-2022 Evaluation + Plan note Diagnostic Tests Pending * T3 Free 05/11/22 [facility]12-06-2022 Evaluation note* Encounter Date Diagnosis Assessment Notes Treatment Notes Treatment Clinical Notes May, Chronic fatigue (ICD-10 - R53.82) We will simply call patient with results of the blood work. Should all of this proved to be normal, she would just simply need to continue to follow-up with TABULATING SUPERVISOR. May, Vitamin D deficiency (ICD-10 - E55.9) [facility] Other 06-28-2022 Evaluation note* Encounter Date Diagnosis Assessment Notes Treatment Notes Treatment Clinical Notes Nov, Asthma exacerbation (ICD-10 - J45.901) [facility] Other 04-05-2022 Evaluation note* Encounter Date Diagnosis Assessment Notes Treatment Notes Treatment Clinical Notes Sep, Asthma exacerbation (ICD-10 - J45.901) Sep, Folliculitis (ICD-10 - L73.9) [facility] Other 04-04-2022 Evaluation note* Encounter Date Diagnosis [...] Other No change today...Continue as is...FU PRN/Yearly... [facility] Other 01-01-2015 History general Narrative - Reported* Type Description Date Medical History 6 Weeks Premature Medical History Asthma Medical History ADD Surgical History cervical bx. from TABULATING SUPERVISOR = Dr. Leyva 06/2014 Hospitalization History - Apnea [facility] Other Evaluation + Plan note No data available for this section [facility] Other Evaluation note* Diagnosis Third trimester state, incidental [facility] No data available for this section [facility] No data available for this section [facility] Summary Purpose Family History No Family History Records FoundNo Family History Records FoundNo Family History Records Found Advance Directives No Advanced Directives Records FoundNo Advanced Directives Records FoundNo Advanced Directives Records Found Additional Source Comments REASON FOR VISIT (unrecogniz ed section and content) Reason Comments Routine Visit Patient Care team informatio n (unrecognized section and content) 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 DATE CREATED AUTHOR AUTHOR'S ORGANIZ ATION 07/11/2023 [facility] FOR RECORDS PERTAINING TO PATIENTS [...] BE BASED ON THE PRIMARY CLINICAL RECORDS. [facility] [employer] [facility]. provides no warranty or guarantee of the accuracy or completeness of information in this document.
== END 2023-07-03 09:07 | disposition home or self-care (01) ==
LOC: NOMS 09:06
PROVIDERS: PCP Family Medicine; Visit Provider Obstetrics & Gynecology
DX: O36.63X1 Maternal care for excessive fetal growth, third trimester, fetus 1 (principal); Z3A.37 37 weeks gestation of pregnancy
CPT/HCPCS: 76816

== ENCOUNTER 2023-07-13 11:55 | Observation (INO) | payer OTHER, SELFPAY ==
--- OUTSIDE RECORDS SUMMARY | 2023-07-13 12:17 | XMS_ITS | CCD ---
Author Name Unknown Address [facility] [address] [place] [id number] Organization [facility] Care Team Providers Care Real Estate Account Executive Name Role Phone Phil Mueller Unavailable PHIL MUELLER Primary Care Physician [phone] ZONIA NELSON Attending Unavailable ZONIA NELSON Admitting Unavailable ERVIN PROVIDER, PHIL Hernadez Admitting Unavail able ERVIN PROVIDER, PHIL Hernadez Attending Unavail Yue Ochoa Attending Unavailable TAYO TAVARES Attending Unavailable TAYO TAVARES Consulting Unavailable TAYO TAVARES Admitting Unavailable ERVIN, DR PHIL Hernadez Primary Care Unavailable AARON THAKKAR Attending Unavailable TAYO TAVARES Attending Unavailable TAYO TAVARES Attending Unavailable TAYO TAVARES Attending Unavailable TAYO TAVARES Attending Unavailable AARON THAKKAR Attending Unavailable Phil Mueller MD Primary Care Provider Allergies Allergy Classification Reported Allergen(s) Allergy Type Date of Onset Reaction(s) Facility (11 sources) montelukast Drug Allergy stomach upset [facility] Other Medications Current Medications Medication Drug Class(es) Dates Sig (Normalized) Sig (Original) ProAir HFA (8 sources) beta2-Adrenergic Agonist Start: 05-26-2021 ProAir HFA Inhalation, q6hr, Refill(s) 0 Start Date: 05/26/21 Status: Ordered Start: 07-20-2010 take 1 puff(s) by in halation every four hours as needed ProAir HFA 108 (90 Base) MCG/ACT 1 puff Inhalation every 4 hrs PRN for 90 day(s) Jul, Active take 2 puff(s) by in halation every four hours for wheezing albuterol HFA 90 mcg/act inhaler Inhale 2 puffs every 4 (four) hours if needed for wheezing. 0 Active ethinyl estradiol 0.02 mg / ferrous [...] use, # 1 EA, Refills(s) 0, Pharmacy: [facility], 158, cm, 01/04/20 10:14:00 EDT, Height/Length [...] days Sep, Active fluticasone 0.05 mg/inh Nasal [place] (2 sources) Start: 01-04-2020 fluticasone 0.05 mg/inh Nasal [place] 2 spray(s), Nasal, Daily Congestion, 16 gram, Refill(s) 0, each nostril, [facility], 158, cm, 01/04/20 10:14:00 EDT, Height/Length Measured, 58.4, kg, 01/04/20 10:14:00 EDT, Weight Measured Start Date: 01/04/20 Status: Ordered Fluticasone-[place] rol 250-50 MCG/DOSE (8 sources) Start: 09-05-2021 take [...] qPM, # 30 tab(s), Refills(s) 0, Pharmacy: [facility], 158, cm, 01/04/20 10:14:00 EDT, Height/Length Measured, 58.4, kg, 01/04/20 10:14:00 EDT, Weight Measured Start Date: 01/04/20 Status: Ordered ondansetron 4 mg disintegrating oral tablet (2 sources) Serotonin-3 Receptor Antagonist Start: 12-08-2022 take 1 tablet by mouth every eight hours as needed ondansetron ODT (Zofran-ODT) 4 MG disintegrating tablet Take 4 mg by mouth every 8 (eight) hours if needed. 0 12/08/2022 Active ProAir HFA 108 (90 Base) MCG/ACT (7 [...] meq/ml nasal spray (2 sources) Start: 01-04-2020 [place] 0.65% Nasal [place] 2 spray(s), Nasal, QID Congestion, 1 EA, Refill(s) 0, [facility], 158, cm, 01/04/20 10:14:00 EDT, Height/Length [...] Translations: [Vitamin D deficiency, unspecified] Chronic Other and delivery including normal (2 sources) Third trimester ; Translations: [Encounter for supervision of normal , unspecified, third trimester] 07-04-2023 Episodic Other skin disorders (11 sources) Folliculitis; Translations: [...] Test Name Value Interpretation Reference Range Facility Urinalysis macro (dipstick) panel (U)Ordered By: Mary Chavez on 07-10-2023 Bilirubin, UA Negative Negative - 4(70) +++ mg/dL [facility] Work Phone: Blood, UA Negative Negative - 50 Pasha/mcL [facility] Work Phone: Clarity, UA Clear [facility] Work Phone: Color, UA Yellow [facility] Work Phone: Glucose, UA Negative Negative - 1999(110) ++++ mg/dL [facility] Work Phone: Interpretation and review of laboratory results Abnormal [facility] Work Phone: Ketones, UA Negative Negative - 160(16) ++++ mg/dL [facility] Work Phone: Leukocytes, UA Trace Negative - 500+++ Lavern/mcL [facility] Work Phone: Nitrite, UA Negative Negative - Positive [facility] Work Phone: pH, UA 7.0 5 - 9 [facility] Work Phone: Protein, UA Negative Negative - 1999(20) ++++ mg/dL [facility] Work Phone: Spec Grav, UA 1.015 1 - 1.03 [facility] Work Phone: Urobilinogen, UA 0.2 0.2 - 12 mg/dL [facility] Work Phone: [facility] Work Phone: ANTI-MULLERIAN HORMONEon Anti-Mullerian Hormone (AMH) 6.57 ng/mL Normal [facility] Comment on above: Result Comment: For assays employing antibodies, the possibility exists for interference by heterophile antibodies in the samples.1 1.Demond Boyer. Interferences in Immunoassays - still a threat. Clin. Chem. 2000; 46: 9389-4194. This test was developed and its performance characteristics determined by [facility]. It has not been cleared or approved by the Food and Drug Administration. Reference Range: Females 26 - 30y: 1.03 - 11.10 Median 4.20 AMH concentrations of >= 1.06 ng/mL is correlated with a better response to ovarian stimulation, produced more retrievable oocytes and higher odds of live according to Andrzej et al. Fertility and Sterility. 2010: 94:7496-3111. The current AMH test method correlates with [...] tumor. Performed By: #### A AGGIE #### [facility] [address] [place], [place] [address] Dr. Matilde Fitch PROGESTERONEon 09-23-2022 Progesterone 0.4 ng/mL Normal [facility] Comment on above: Result Comment: Foll icular phase 0.1 - 0.9 Luteal phase 1.8 - 23.9 Ovulation phase 0.1 - 12.0 First trimester 11.0 - 44.3 Second trimester 25.4 - 83.3 Third trimester 58.7 - 214.0 Postmenopausal 0.0 - 0.1 Performed By: #### P ALBA #### [facility] [address] [place] [id number] Matilde Fitch Coding Summary.on 05-16-2022 Coding Summary. CD:[id number] Gh0bWw+PGhlYWQ+PE1FV CSlE31xtQOtsZ3ZU1hXS M1WZFYPYOZQUQ2BUO0yk VD4LMtoX1RapxRa PjwjyHSyUF22LXf7SMM6 hUemXTdriA5zeIMfG5e5 CrLfDI01iF34SKgfDLAb IcN8NxOpipcvlQKc A5goMdRqmEBuJgb+PHRh YmxlIHdpZHRoPScxMDAl OhHdjWohEZ2rDp6fYPFi LWNvbGxhcHNlOiBj i5mwQQQrCKibXE3heQsr M2VwqFJ1DULwb3u4Gw65 dHI+UWSwIMR4pZtaUBiu i247XiXov3ruQIG8 wZRaZIlwWGZ4U29iv3I7 BSUuEGDhVUF0fQC8hB9u rGyugaqjK4ReaMMtAtA0 RKY2sSEwvP9wxVrd mehzyQ1gAwn+I86SLW8R YKHEUP4XVkw3L4IkLdht dHI+HK35HCOoME90pCOu iPDsw6syxJd5JdEy DTChJFV6wLeaLCtwi0Xf GBZfU98frCZja5H4PXFa kEqpoUMuYhFpiXQ4vD8h FZcocaibz6awbyqv Dbsqp9tuam38nR65G45i HKnaCVYiCUC5JGPsEDMq vIuyzo3gxQ2mKw9+IDxj u5yez0qvdSy7HvUw HDZklmRmrUyzEOQ2a7Tk Om07A3GpnLknf3PnYxt2 xj53xHTco1B5bNQ4HYbn JORzoN2pZHttXuG0 VBWgSlDfbC58gNBiLYvy Bo0qcAnffPhiSZ3xZVCe sswnXGJkeP0tQYKmrOCd lOrxWH1vHYHpfmcv b555SzCkVNL7TPOdhSKe U2IacX1oYlLrLRYfRYYs G2HvlCKaYSdfB296LCnr JwU3NLDgjwPlN2Yp DDXghVdzIpS3y7Q3He1G t8EckenbNZX4GNkeQCFv ByBxJqZlBvD8B7RjEbl8 AVOzdYdxIN1kR4Rb QUUowvjovzflwWV5SIDf VCCorV17fNMaFBfbDe8s d4M6x869LDZqLVEyoV12 Ub9djOuaHJRnlOEG sF6hpdsne0rluawvPoZr AXKvFOp5GAg8XYDrtDyk LuMmVIJ2BjX7VQL4dTWt gM3pvQlyhpoazB5t Oyc+A68auM5aDKB2DKQ8 gdbjYJOjajCjGS26HJ66 O1VtPtjsnJYfpJM+PGRp djAyhXnrPB5yDqCq t7dms3QjIZkwT2VsOAPs GUldZyp9IPMhKER6fEI4 dK4sHVFxABcay4A2jAV2 K5EnlgQutp0wb6hx YMDqJRrcO17nhAKbu4M3 WZZtsRN2YWAmhTayThUo qX80Sun+TQNoyFmyy3Ht Qodrm5abg8ulvZg9 IjMwJSIgdmFsaWduPSJ0 t0SsFy70G01mNEigDMKm LRTuFDIhYOOnrGuubl1d bO9rDw3+PGNvbCB3 pIH6dR6hSLGsZtJ6WElk B889PsWxcSCxDuhsl3zk q7mlvSy3BoUhQSQyzjHo hRhbRDA3h1OzHl43 N09iIFpbVLHmUZNgHAXx NSKwdUnido4iaU8lWp9+ OI7pw2okyc49xT85kQS+ SHQbYMO5fAwcMRoi SRBfyY6mIGmyNaQ2ITTp GmEryT59eYXoTXylMz1q nQtlpOacHP9mSBMkdrxp f562OfDun1zdPKVe rYCjWOkuCLA1O89yf5W6 XRYmUCQkONN3jLN0qM7f bGlnbjogbGVmdDsgdmVy rRswWVyzCUsjG682 IHRvcDsnPlBhdGllbnQg DgFqNCo0V6WqBvh3OJKc aBjfZF0mkWQjBNdpDh9q yYsmnUpcLL8aDHWb djemw697SfIrz9yeFEVx aWEdRHopREB2T87qy9M6 EGCdUUZtDKI2tMD4dU1l bGlnbjogbGVmdDsg vkUjsAvfVEysSRajK428 IHRvcDsnPkJpcnRoIERh mXV6DP16OC75aAGuf1T9 lKK0C1ZfLUDoqqrz fvnqwGX2WWJzTVOfcB05 Is5ezDwcNo7nIOHqDVI1 GGYhdDGoT1WbyG0aNoGr JINzMTOhT5RjmNCh YNinL304GVzfCyH7MRVe jxPqD3NmZIAndWnbYzG2 n2Y4Xo6MZ2Q1LW51XX03 mGQzh7L8cUC3X3Qa QNWgvllsmbukoLL7WTFa AFGeyJ14Iy4mwWqcLb9c OCJlFBZ5HNHdgDQdZ1Uz tC8zPkZnVBKpBWWl G6BncXVrYEtjR452XKoo VvQ9JATptbAhN2BpIKUp lTwuVlY9m0Y0Hs2ABVl6 SF79MA96vQXql7Z6 pZH6K8TkQHAuuwjpgump wRE9NNFdOTPgxB82Mh2v gVmkNl2wWLLnQEO4IEPc bTKvO7DgvS7zOlJs FQAlNLOvW5KraUKpYWxv T179GHdbWgX5HJDeacZu B4WeJVDjbJjoFfF4o9L2 Wk5PXMBwQL97YXI9 yVI3RD18QM60Y3ExXfmi dGFibGU+PHRhYmxlIHdp ZHRoPScxMDAlJyBzdHls GG7eXm5bCXEyQHNq aCxcuZDrUrHoq4ysYIIu AJriFV1ttHizC5EmyGK3 MOLcc0p2Rl28R60iY7Dk dXA+OLHovCG9mGN4 dW7bWdXrNqT0ETidX250 LwLufCAdRfqdx8fyb4cj qGh9AcG0TERwthBitFsr NTB5r2AmDa37K72d IHdpZHRoPSIxNSUiIHZh vGjelu2coT5bHs5+PGNv bJO5hEV2cL1fHcOfSeU2 VKkrQ976EmNkcSCu Gvson4noo8jyyFg9YsFx FVZlolWlpJmlXLP5b4Ho Fk30P9MxfPzss1BrPgp3 pp29hYHmu4B4mDP1 O7FpCPKxqeduuVQcaCwe OU1mTHCpvlrnNNHllU4o WIWdB7b4DgJnPmL6BUwf C1VwcnL7RMOroXZe GJbeZCJ9O49xb7T1DPYf KBSzZCB8qPK7yP7mzHmz bjogbGVmdDsgdmVydGlj QLtxCNgiM081BDNi rJqpHYVvbF7vVIWcgFXa kLulDX4aPSKmkbehXe0C BTUTVSKHLUGXZ88IZmSc TTwvdGQ+PHRkIHN0 cEqfPVlvANRgvP4mIAQv J3y1ShRnGnA6UNqvH4Mu HMTwcqokBj00fM9gJpBp RlH4QPfjO8ClhwB6 KOKohOYjEDibEDK7F63x e4D6ZPYcMCRyHEZ1dUW4 wO0bpCsfedwwlZGhoZlq dmVydGljYWwtYWxp H184WWFdzNfwCzItWhLz UbG3GWZ3K1DoHld1QVWm bCfdDV3iuKJhAZywNv2f pYvflFbvPG1zDSAk qnfdDQZojG2rJUBliAYq gZzcTF9fBHGpvccwe186 NoYtPUK1YZRjtVXbY6Id bV0jLnPsCZMdDPPk C4MtcJDdEQvuD296KOlj RtM0THBntcRrU2TeTZYd zRmoHcK4a8N7Ns8vPZDJ ZWFyczwvdGQ+PHRk UBT3mHchMUxtJMLnhG7u OMTxA3f9IlIgImO3GXov N7ArAVJmrfzlCv86oA5q FkXwJxM1DVlwY9Hg krX8AMUsrJDcJNgyMGY0 D38io9F1TXRcHWMyBAT9 vMJ1kG2mhRqhwutbwGQd dDsgdmVydGljYWwt PCgpE519ODOphFpmYtUu bWFsZTwvdGQ+PHRkIHN0 wZxqYOjaOAKyyE7rUULi Q3y3UyQlCqP9VQjj Y8SxPRZbswnoUr88yG9u DvNaRgW7FFlzH3VkjrA8 CPBwwQEbWRdoENF4F99g u7H4GCAhWHJcPYX6 qAA2sM7cjTsynpbjkRJr dDsgdmVydGljYWwtYWxp M569VFHcyOqvQu17qIVi fUbexeZ0V8AmNnmf dHI+EJ87SSTuWB88yVCi kQBiz3hjbCk3YuMfLNFl XAP3cUvmMZram1KkZBGc T82zoYXtn1S3DYAw yAhjoWSaQzLvgNB5rG7j WXdkdgjht5atqqhtSsjy k1ktqs43aK60K75oLQvn ZHRoPSIzMCUiIHZh vVynbt5htP6iPv6+PGNv nLQ2yHG8lJ1fYlQvNeD8 QJkpQ518DmLjdNPeUska i5smw0emvVo7OoRn EKBywpAbbFshXUF5h4Rf Jc26J41hSShsGKDbMEEp CXQwBURwuIkmjt4xkC3n Ii8+JS6gm5hssq57 tD66aXQ+LJFdYFY4wVyw VEtvRDUawI1zEKllVbV7 UNYbAuZalA59yZUgKBsj Zc4pzVkpaTyjYY1o ZPNouheoy113WtUbo1iv CJGjcSSyJZflXLR0M23g k9P7MUQsKJYtAMS4wAZ0 cR3omSdprmsezUJh dDsgdmVydGljYWwtYWxp W662JLOxqTnlNxUprIUc S8zisfKHLL1iVbzkqNL+ MOGxZPM6pRgyBFhu CUHajA7mAYCxL5w5MaHw DdP9QSvnO9DluuX0MNQu cZYhMWRseDYHwR8dihpj o0qburfaQdMlIJHf XYc0OTo9GTYcxScqEiMv PZJ5XrZ9HVE4cUDxuP6u mTwifpyyrW4sSwu+RklO OjwvdGQ+PHRkIHN0 vSmeWGeiGYDufE0kXHXb O2k7HpJaWpK7RSpvT9Uc tqE1QVDffQLqSOLgaVEU pC7twlnch5jurvyz SaWsDRKwHEg2ZIv8LBXk dRkvFsSyAZW2BvP1VIM1 jPGwkX1fiVyvlqeoaE2y Oyc+TVJOOjwvdGQ+ ZFJiFDK9cLrlCTmgDNNg nZ0jXTXuK7x7KiUnGiF0 BPtwW2PxkpQ3PIJzsXZw IVGxyAGUtI7vfhxd o4wnqzjjNpZaSQFcBSe2 JIc5NEPylMnpUvQgRZR1 ErN7OJG4iBYyoP7zdIfx bbhqqL4vGwg+UGF5 ZCO5TQ62JA47F1WyRbak dGFibGU+PHRhYmxlIHdp ZHRoPScxMDAlJyBzdHls SX1hXy9fFERkERSz bGxh (more content not included)... Normal [facility] T3 Freeon 05-12-2022 Free T3 [Mass/Vol] 3.8 pg/mL Invalid Interpretation Code 2.0-4.4 [facility] Comment on above: Result Comment: Perf ormed at: [facility] [address] [place], [place] [id number] PhD Boone Coronado Performed By: #### 2 886942, 2634133, 8182179, 1677555, 994849682, 9156768, 98696123, 9653683, 7055926 ####[place] [place] [address] Auto Diffon 05-11-2022 Basophils/100 WBC (Bld) 1.1 % Normal 0.0-2.0 [facility] Comment on above: Order Comment: Order Added by Discern Expert. Performed By: #### 2 926064, 8234998, 7521671, 6924519, 161234685, 5743490, 44732530, 9937173, 5891061 #### [facility] [address] [place] [address]26[address] Basophils/Leukocytes Auto (Bld) [Pure # fraction] 0.1 E9/L Normal 0.0-0.2 [facility] Comment on above: Order Comment: Order Added by Discern Expert. Performed By: #### 2 048801, 7931288, 2680878, 8183105, 965668870, 6861263, 75537759, 3227006, 6425123 #### [facility] [address] [place] [address] 51783 Eosinophils/100 WBC (Bld) 3.3 % Normal 0.0-8.0 [facility] Comment on above: Order Comment: Order Added by Discern Expert. Performed By: #### 2 667706, 6073389, 7321650, 3987800, 610565766, 7433387, 10933189, 5026427, 0379716 #### [facility] [address] [place] [address]1935 Eosinophils/Leukocyte s Auto (Bld) [Pure # fraction] 0.3 E9/L Normal 0.0-0.5 [facility] Comment on above: Order Comment: Order Added by Discern Expert. Performed By: #### 2 842804, 8737760, 7195097, 0468323, 187275156, 4240107, 85268382, 6042552, 1776078 #### [facility] [address] [place] [address]169 Lymphocytes/100 WBC (Bld) 34.9 % Normal 14.0-50.0 [facility] Comment on above: Order Comment: Order Added by Discern Expert. Performed By: #### 2 628964, 2873466, 5975720, 7127646, 430764924, 4345408, 91505818, 2050140, 3812620 #### [facility] [address] [place] [address] 67[address] Lymphocytes/Leukocyte s Auto (Bld) [Pure # fraction] 3.0 E9/L Normal 1.0-4.0 [facility] Comment on above: Order Comment: Order Added by Discern Expert. Performed By: #### 2 506554, 5353192, 2918132, 5591425, 070072156, 3508119, 84334844, 1122687, 3142920 #### [facility] [address] [place] [address] 29991 Monocytes/100 WBC (Bld) 5.8 % Normal 4.0-14.0 [facility] Comment on above: Order Comment: Order Added by Discern Expert. Performed By: #### 2 985972, 2350327, 0486849, 4227572, 185004028, 8477158, 40741141, 7467050, 8517368 #### [facility] [address] [place] [address] 10687 Monocytes/Leukocytes Auto (Bld) [Pure # fraction] 0.5 E9/L Normal 0.2-1.0 [facility] Comment on above: Order Comment: Order Added by Discern Expert. Performed By: #### 2 392723, 4124438, 4068521, 1032470, 712875738, 9788701, 97460477, 9045845, 1479701 #### [facility] [address] [place] [address] 84973 Neutrophils/100 WBC (Bld) 54.9 % Normal 36.0-75.0 [facility] Comment on above: Order Comment: Order Added by Discern Expert. Performed By: #### 2 919062, 6269033, 9011487, 7907500, 823687681, 5544190, 49033664, 9462078, 9078019 #### [facility] [address] [place] [address] 72844 Neutrophils/Leukocyte s Auto (Bld) [Pure # fraction] 4.7 E9/L Normal 2.0-7.5 [facility] Comment on above: Order Comment: Order Added by Discern Expert. Performed By: #### 2 431413, 3301661, 8796321, 5943254, 830372234, 0992882, 89383925, 2480731, 9189089 #### [facility] [address] [place] [address] CBC w/ Auto Diffon 2 Erythrocyte distribution width (RBC) [Ratio] 12.9 % Normal 10.9-14.2 [facility] Comment on above: Performed By: #### 2 125518, 6874990, 0832091, 1848038, 517730227, 1420547, 77218030, 6239204, 8836647 #### [facility] [address] [place] [address] Hematocrit (Bld) [Volume fraction] 43.0 % Normal 34.0-46.0 [facility] Comment on above: Performed By: #### 2 893512, 2989816, 5706194, 6550519, 661897371, 5506673, 86521026, 9451337, 8442093 #### [facility] [address] [place] [address] Hemoglobin (Bld) [Mass/Vol] 14.6 g/dL Normal 12.0-16.0 [facility] Comment on above: Performed By: #### 2 564050, 5492454, 2218958, 0622048, 990095516, 1239596, 35452474, 0285323, 8067096 #### [facility] [address] [place] [address] MCH (RBC) [Entitic mass] 29.4 pg Normal 27.0-34.0 [facility] Comment on above: Performed By: #### 2 419521, 8517093, 1387638, 6686678, 386039442, 3353091, 24904930, 9318155, 0548893 #### [facility] [address] [place] [address] 08237 MCHC (RBC) [Mass/Vol] 33.9 g/dL Normal 31.4-36.0 [facility] Comment on above: Performed By: #### 2 065215, 0504026, 1582716, 4207213, 114758358, 7990998, 77348342, 8299511, 3572290 #### [facility] [address] [place] [address] 17574 MCV (RBC) [Entitic vol] 86.7 fL Normal 80.0-100.0 [facility] Comment on above: Performed By: #### 2 869727, 2743097, 8222344, 1331748, 395518052, 8066600, 58127661, 0315700, 3818879 #### [facility] [address] [place] [address] 99544 Platelet mean volume (Bld) [Entitic vol] 7.1 fL Normal 6.4-10.8 [facility] Comment on above: Performed By: #### 2 029722, 1118267, 2846544, 1651291, 531001658, 9317842, 85332508, 4292571, 2010018 #### [facility] [address] [place] [address] 86176 Platelets (Bld) [#/Vol] 316.0 E9/L Normal 150.0-500.0 [facility] Comment on above: Performed By: #### 2 932778, 0413326, 6278651, 9248071, 883551377, 0753020, 82729734, 8133347, 7276114 #### [facility] [address] [place] [address] 61481 RBC (Bld) [#/Vol] 5.0 E12/L Normal 4.3-5.9 [facility] Comment on above: Performed By: #### 2 678821, 8226107, 0801526, 1930003, 375919436, 5679399, 35250246, 1491012, 5796120 #### [facility] [address] [place] [address] WBC corrected for nucl RBC Auto (Bld) [#/Vol] 8.5 E9/L Normal 4.0-11.0 [facility] Comment on above: Performed By: #### 2 949526, 2648100, 9500227, 6110181, 518319133, 1066696, 09271614, 6116268, 6418335 #### [facility] [address] [place] [address] CHEMISTRYOrdered By: SYSTEM SYSTEM on 05-11-2022 25-hydroxyvitamin [...] rate/Area] mL/min/1.73 m2 Normal >=59mL/min/1. 73 m2 FT Chem S Globulin (S) [Mass/Vol] 3.5 g/dL [...] 05-11-2022 Albumin [Mass/Vol] 4.3 g/dL Normal 3.3-5.0 [facility] Comment on above: Performed By: #### 2 664240, 6290432, 7324922, 0715931, 245290976, 5048259, 60953582, 2463414, 7523335 #### [facility] [address] [place] [address] Albumin/Globulin (S) [Mass conc ratio] 1.2 Normal 1.1-2.2 [facility] Comment on above: Performed By: #### 2 116687, 3235631, 5170456, 9897920, 905639134, 7119152, 45221016, 3632925, 1564299 #### [facility] [address] [place] [address] ALP [Catalytic activity/Vol] 80 Int._Unit/L Normal 21-98 [facility] Comment on above: Performed By: #### 2 729974, 5197721, 8581569, 9302701, 337127897, 0151670, 86437995, 1370084, 7109809 #### [facility] [address] [place] [address] ALT No additional P-5'-P [Catalytic activity/Vol] 15 Int._Unit/L Normal 6-46 [facility] Comment on above: Performed By: #### 2 552890, 1648739, 0812682, 0235906, 845458060, 5373333, 38597628, 0306693, 9895664 #### [facility] [address] [place] [address] Anion gap [Moles/Vol] 11 mmol/L Normal 6-16 [facility] Comment on above: Performed By: #### 2 846195, 6128115, 1030014, 3685314, 113044396, 1884198, 19246711, 0007240, 3823326 #### [facility] [address] [place] [address] AST [Catalytic activity/Vol] 17 Int._Unit/L Normal 5-43 [facility] Comment on above: Performed By: #### 2 366686, 0087927, 0782002, 8483506, 534789681, 5779097, 65438592, 5823758, 8725628 #### [facility] [address] [place] [address] Bilirubin [Mass/Vol] 0.9 mg/dL Normal 0.0-1.1 [facility] Comment on above: Performed By: #### 2 404757, 7074302, 7571254, 3719818, 458291969, 7940092, 79222059, 3422751, 6692216 #### [facility] [address] [place] [address] Calcium [Mass/Vol] 9.6 mg/dL Normal 8.9-11.1 [facility] Comment on above: Performed By: #### 2 863734, 3520710, 3495930, 0458402, 208637329, 7439971, 01218128, 6358840, 3003129 #### [facility] [address] [place] [address] Chloride [Moles/Vol] 102 mmol/L Normal 101-111 [facility] Comment on above: Performed By: #### 2 654141, 1306265, 9359562, 7433570, 976768088, 9519465, 07261436, 4742656, 2956008 #### [facility] [address] [place] [address] CO2 [Moles/Vol] 28 mmol/L Normal 21-31 [facility] Comment on above: Performed By: #### 2 054618, 6171482, 1006718, 5606655, 075424164, 0450284, 71043781, 8489349, 3857000 #### [facility] [address] [place] [address] Creatinine [Mass/Vol] 0.8 mg/dL Normal 0.5-1.3 [facility] Comment on above: Performed By: #### 2 894017, 8130154, 8775499, 5688812, 391167560, 3933289, 02909738, 9908834, 5257787 #### [facility] [address] [place] [address] Globulin (S) [Mass/Vol] 3.5 g/dL Normal 1.4-4.0 [facility] Comment on above: Performed By: #### 2 085756, 0276317, 4761125, 7733417, 380051008, 0458886, 85774742, 8902021, 4505994 #### [facility] [address] [place] [address] Glucose [Mass/Vol] 83 mg/dL Normal 55-199 [facility] Comment on above: Result Comment: If t his glucose result represents a fasting glucose, interpretation should refer to the following reference range: 55-99 mg/dL Performed By: #### 2 331172, 0378271, 7487867, 9155731, 558685326, 4668332, 74424490, 5776588, 3812382 #### [facility] [address] [place] [address] Potassium [Moles/Vol] 4.0 mmol/L Normal 3.5-5.3 [facility] Comment on above: Performed By: #### 2 737413, 3893858, 6993451, 4673001, 220015415, 7550233, 30935800, 0909916, 1346224 #### [facility] [address] [place] [address] Protein [Mass/Vol] 7.8 g/dL Normal 6.0-7.8 [facility] Comment on above: Performed By: #### 2 712019, 9184171, 3276892, 6574625, 160333786, 9430511, 95000000, 4728577, 7305662 #### [facility] [address] [place] [address] Sodium [Moles/Vol] 137 mmol/L Normal 135-145 [facility] Comment on above: Performed By: #### 2 843629, 5484477, 1217189, 6453091, 959714474, 9877732, 38565868, 5132806, 8207619 #### [facility] [address] [place] [address] Urea nitrogen [Mass/Vol] 16 mg/dL Normal 5-21 [facility] Comment on above: Performed By: #### 2 170733, 6058898, 8182042, 4817044, 239378703, 7070137, 91839000, 2231525, 9050149 #### [facility] [address] [place] [address] Urea nitrogen/Creatinine [Mass ratio] 20 No Units Normal 10-20 [facility] Comment on above: Performed By: #### 2 [id number], [id number], 1840555, [id number], [id number], 1155701, [id number], [id number], [id number] #### [facility] Laboratory [address] [place] [address] Coding Summary.on 05-11-2022 Coding Summary. CD:[id number] Gh0bWw+PGhlYWQ+PE1FV IRsF76xxLFhpY6GH0cHG K8FNTRCXGHFLS6FEE7cl FJ2NAdkS7DagaHw FsneiTLkMW06HTr5ZNH2 yZlcFFwycC6jvGCrF6w1 LaTwIG24aV81SXqqWKIe PuA8IcDkcnxcvKQr X6dkNiPfwGZbNsm+PHRh YmxlIHdpZHRoPScxMDAl MxJowFsdWD5aDs1zWUEs LWNvbGxhcHNlOiBj r8boDWMiAUhdLB7ttHwj B4PsmDU5YGAgt6w2Xl82 dHI+GMDrNXF8jQebBNgo q859NySsr6tbTJT2 dUOyDMcyUCH9J50bi0R0 PKZaTOZqUXR6rIT5qV6b cRbmripsG2KvvHMtVxG5 IHN9iVHwrR7mdXii vighhS4lAre+O67EYC3U FVTSFO5XOah6C1DoBnro dHI+RO41IICkJO96aWOq eJJet0hthSn4JfOc NUByYZD6lBllZQcwu7Ah USYiH81qsKUfu7U5BFCi yVauxUAaQhOfmIN9uG3y EYgjmrith1asvdqd Cjpfh7kkff64cA94E33w WDwmEZYrTYB1SMKuAEMf xAcuwa6tuF3eKp7+IDxj k7tna7zkyFk2WtHw ZMDelvHsmDnbXXK1k6Af Im96Z4RgxMyjw9JwJuy2 dk63bSCrx2Z7kDV6ULjj ASEgbG0xBWzhBkU0 SNGqGpHpcE76mRHdRQit To2ibGojiKbdSP3dONJx ptgnQSAaoY3bERKzyPCn nEnqIA6gKYZcnvko d329CtCmPTM3UTWktKTs L5BcoX7pLmNhFWZnMEQf P5QoyXCjLXgeD866QGuv WdQ5OPQjpyLvQ9Yv RXWwgZjoXaZ4y2P6Qe0S a2SbcyuxUQY4WVrsCZZb JcT5ZvNtZoE6B2MvMrx8 NAMhcEtwIW4yJ3Hp IQXkxnlqqzzdmZI7TESc ETEszE19eEPfJOmcLk9h j0Q6v727QZZlRGJslY04 Cs9myMehWIIktIDZ kM8rhngvs4fkwmkeSmSg MKRzBFt4GHo2LHGqaHme DdZgSYP3JiB9AKY5vWNl iJ8afDkkufmrtV5b Oyc+E21jzW2sRPW3DOS3 bybsQVFztcNwLM76IW23 O1CtJbtaqPGvqPC+PGRp rzItzXpjLK2eFbRm i3ofm0BaXQnwS5HrBMIr BKysIcw0YPNlIXP7iZC4 rW1xMBZqTTepx4Z3zHD7 R5HhtpKkyp1oq6zw FATxZMgqE65ajTQkl8F6 DYVbgHG4APNbhJseXbJn zJ11Wvv+VSOjhNrhn9Ln Xnzna6voe8nffUw9 IjMwJSIgdmFsaWduPSJ0 n0IqLm05E07oUJysEBAh VQFbWACtMHZfxEitqw0v hA5zMe4+PGNvbCB3 sIU9lO7nJQPwJbB1UMnq N309CuEuqVToDgmqm5rs z8otgJz4TvNtKEZdpkEf fYdbQFL0h0UnPu13 W58gKZceQFNcTWYsUSJl MIGzmTbdxx4gdL8aRm5+ NV3sd9eavg11sA91oTI+ XWUmTLW1dUalQTnb TFRgzW0cZFszVhM6WOTd BwEvnD21tYGmEGzxIr8u lZfaoOshAJ8dSJIefbfk n377XgUvk2rpZFWi cXZsQTxxRWA9Q90cx6X2 DRGbIJZoRZW1yVW1iA9k bGlnbjogbGVmdDsgdmVy mMmzHOasIOjaH932 IHRvcDsnPlBhdGllbnQg MwMrPJw8K7SqCow8NWZt jKuqOY3haEEsRZnxTo9l tNvqyNntSQ3gYBVl vmjyj887FpJil6rdDGWi oURrCWpxEID5V02le6K3 PZHxRLXyGXN6aWY6aE2g bGlnbjogbGVmdDsg neIuxHfdRUhwPCoeX324 IHRvcDsnPkJpcnRoIERh wPT3VQ26OR42vRTms5T0 fAD0I2GlZEYxgwis idrmtTH6XHVzEXHnfF80 Rd6kyLlvJt4zRHZnVHV9 JBQkvDNiR1PlqX2eMuEh BCRhBUOuT6BjxKEj MFelK584PIrrWmD3VYSm zlNwC8VlERVozTnkAxZ2 m2D1Fr5JB0S7RQ93WZ11 yUKso5X3bCP8Q2Ef FKZyfvwylylroSE2XDCo YAFusG43Zq9zhEirFl0h SILdDSM6KQLimAZvZ1Az fC9yXePsWWDrEHOl Q6SwaQTxSOhsR119OBvb ShF3SCWtjbRtS8PtSULm nXfjItA7m2P6Ba8IWAc8 IR98ZK70wKMfw5R4 qGK1Q9XqNBVwiarvixki eUD3ITIkWKQmaP92Ek1o uFvbQk9aJWQmUCG3WKHr ySKlH1KwzB1uQaQy HRTzEBWvA3QqmJFgZTtl R704HFpgWvJ8UHRidxVy J6YfCTUldYgaKlJ0b8L3 Nc4AAYJwRA44NJN3 zWK4PR55PU82Q9LnNvzx dGFibGU+PHRhYmxlIHdp ZHRoPScxMDAlJyBzdHls DO3mGn6uVPUdEYYt mWpwiRNlXeFtu6ccAQJq DMhqUH1gxChsO5SrrMO2 KJBev7g3Om67K44lW3Yo dXA+TPXxtKF0jTA2 dX8fXiIgJuO4ONhoJ360 WjOfuWLzLrwtb4xza7fn gQy8MbY9XCVmezPrdTzo TNN6b4IiDs79U97l IHdpZHRoPSIxNSUiIHZh hUywtt4vjS9cLv5+PGNv wMP0gKQ4gR3cOpCkVjT7 GOwjM986OsJtaDEq Jusev2heu3jezSs9XzXv RNTbapFgjOoaETG2t7Wd Ok92U0AswOjer3HqDsd1 gy57oOWmt7B9bEU2 Y4IaKWOwlcswjJBupZsf VL3vNBYcfzxoFCAnkK5t BPSzU4p2TaYtIsY1KNkg B9XbweF1XGBdoRFg WRxqMLN7A86bf5K0HUAc JMOvUPU7xOJ1sJ9asAot bjogbGVmdDsgdmVydGlj YBxdYEisT385DJAp rTayZLJthB8sAKJyfHFd mEopLL8oFMVzzkvzZk9P HPABQDQZWXWQV34RZmNu TTwvdGQ+PHRkIHN0 vXwiDRafFZBioN0cPURi A2w0WwDjMeC9TAwuW8Gx EBRnzptaZq56fR3iPwMl SxC3VJgsY0OduiC6 HWCrwMGzBVftTOB5T08v u7R7ZQLpCNJrNPL1pBD8 yN7ikRutwokxeEXjtOvg dmVydGljYWwtYWxp E882TZFtoDwzChLfUpXb LvC7SEK0F1MyKvt7LFGg uAmzDU3rvFLlIZwlFe8x bYpztEczZT2nAKLb ohreMLOwsZ4mQFMguFRs eLauRR6hCDZkcemkk756 HgBuRBX2RIOwtLTkO7Ra oL1sFeInKUQwGQOy A5WgcQImNBxdV998WDqs NkZ0FQVvazRaB8JpEZKl pRfjOiH5l0O0Xn6sSHTG ZWFyczwvdGQ+PHRk QFQ2kBqjTSdeEQTmbM6u LNQiB8d7VnIwZfO7MZab B3VdNEVxpdoiTg25vP6c UuVpKuA8SEcbE4Aa vgC3QHPopDAzZRlcXIN3 L10pc2W4KABqUUMmXZG2 nNC2kX7eoWwlaocrjOXc dDsgdmVydGljYWwt BKcdT989ZENvoNavRmXj bWFsZTwvdGQ+PHRkIHN0 yKryAMtmXFAkoR5gUTJe F0t0JxPqKiH2IAym G7PfIPHycsrcFv05rG3r UlFxHwS6OEttM9NcjkE1 YIJbcTTbNZvqUEE4Q25x r0M7KPXtJQFfHGN7 bUR2lE8sdRopfplkhCEj dDsgdmVydGljYWwtYWxp U688TNLtrOphIj07iZNv mZeatxX5P3MlPcil dHI+UK89ABBpUV52oXHr hOKoq3mmyXo9KnVbUHSq CVZ4oPbaTUont1XuSEDo Q25rgMGqo5Q2ZFFv oMkheFIdSmMftUJ3zW6f BIxvklaoa0ychnoqSxnk m6wtgf59aH94F22dTJvy ZHRoPSIzMCUiIHZh cRauli1pbI0tBi7+PGNv nOC5dIE5qC1yHgDrYcZ4 HRkcD038HeOucTGnLhms i0tei6apqZx1FzMq MSAposJbnGmkAFC1q1Wh Pp87L64lUBkvTOEqYQSv XXQnKCZvhNkpgw9htW4t Ii8+IK5dx1nvpq63 iC82jKX+FWCcBFD8mJhh NZmrXFJhcO6oXEaiSkU0 SYDrJiUnvH66hMCyKYwa Os1ebDrunXxaKT1r PSNtwwupo618HxWwp7rw ESWvoUXzXSgnUWV9G32o j1L6SNKsFQEcAOW8oNV2 zU4iwZkbjzazeNSx dDsgdmVydGljYWwtYWxp F660CZHkrAacXpChgXUe J0fydrKSLU4dEituqMR+ RKXvYJU6nSeoWXzm DFPfpA2qFMUsP7g8TtYf NwD8CLhgC8FaswA1BPMw cOGtBMXhrVHKiK5qqmwd x8nbzpljTsAqJKRw VCp1KQz5TAHekVojNyYg ADZ8MyI1THU7oDEtbM1v hPfjvtaouT7gTwi+RklO OjwvdGQ+PHRkIHN0 pVhoZRnyUBVnzN1dDFHt R2e2TfYpQqK1JNzgE7Gd zgX7FRKvfMWaLJQifZLQ qL7jzoprb8lgaepx DdJrZPXbHOw0HWo3JVWy bAmnAbUqKNN8NeH1CYO4 iZAynY1alSzmfyfmmF8e Oyc+TVJOOjwvdGQ+ ZLOmPVX3wVtzLXkxBNAu tU1rCYCmF5e9HsPsExU4 WTxoX0NyynE2PSWslULs WWQmeJMFtZ5khszn n9dguvgpCzCsWGCrFUr0 MZc0ETOxbRtbXgPxJRE3 SgF9BXK5gXIvxQ0czVck goikrX7eNkx+UGF5 ZNC8RM85GM64K9RhQvyj dGFibGU+PHRhYmxlIHdp ZHRoPScxMDAlJyBzdHls HH0hYb4uFSWpDMFs bGxh (more content not included)... Normal [facility] Consent for Treatmenton Consent for Treatment [id number] #1.00CD:127 Normal [facility] Free T4on 05-11-2022 Free T4 [Mass/Vol] 0.64 ng/dL Normal 0.58-1.64 [facility] Comment on above: Performed By: #### 2 687390, 8902359, 4165326, 4793970, [id number], 2343811, 33314798, 8435642, 2566194 #### [facility] Laboratory [address] [place] [address] HEMATOLOGYOrdered By: SYSTEM SYSTEM on 05-11-2022 Basophils/100 [...] 4.7 E9/L Normal 2.0 - 7.5 E9/L FT HemeAutoSS HEMATOLOGYOrdered By: Lyndsey Alba on 05-11-2022 [...] 8.5 E9/L Normal 4.0 - 11.0 E9/L [facility] HemeAutoSS Physician Orderon 05-11-2022 Physician Order [id number]#1.00CD:127 Normal [facility] TSHon 05-11-2022 TSH Qn 2.11 m[IU]/L Normal 0.34-5.60 [facility] Comment on above: Performed By: #### 2 930790, 4384361, 6335616, 0994134, [id number], 0218903, 59027376, 9877678, 0663759 #### [facility] [address] [place] [address] Vit B12on 05-11-2022 Cobalamin (Vitamin B12) [Mass/Vol] 364 pg/mL Normal 50-1500 [facility] Comment on above: Performed By: #### 2 851189, 0592258, 1128703, 9112559, [id number], 7447529, 80223085, 5338662, 2949676 ####[facility] [address] [place] [address] Vitamin D 25 Hydroxyon 05-11 25-hydroxyvitamin D3 [Mass/Vol] 48.8 ng/mL Normal 30.0-100.0 [facility] Comment on above: Result Comment: Vit young D deficiency has been defined as a level of serum 25-OH vitamin D less than 20 ng/mL (1,2) by the [employer] and an Endocrine Society practice guideline. The Endocrine Society further defined vitamin D insufficiency as a level between 21 and 29 ng/mL (2). 1. IOM ([employer]). 2010. Dietary reference intakes for calcium and D. [place]: The National Academies Press. 2. Megan MF, Lya ATKINS, John VALERIO, et al. Evaluation, treatment, and prevention of vitamin D deficiency: an Endocrine Society clinical practice guideline. JCEM. 2010; 96 (7):1911-30. Performed By: #### 2 745075, 0453206, 6000570, 6737518, [id number], 8578037, 77189756, 5644348, 6508404 #### [facility] [address] [place] [address] eGFRon 05-11-2022 GFR/1.73 sq M.predicted among blacks MDRD (S/P/Bld) [Vol rate/Area] mL/min/{1.73_m2} Normal >=59 [facility] Comment on above: Order Comment: Order added by Discern Expert. Result Comment: eGFR is race adjusted. AA=. Performed By: #### 2 927239, 2821785, 5861970, 6669965, [id number], 8633534, 51647660, 1903803, 0028336 ####[facility] [address] [place] [address] GFR/1.73 sq M.predicted among non-blacks MDRD (S/P/Bld) [Vol rate/Area] mL/min/{1.73_m2} Normal >=59 [facility] Comment on above: Order Comment: Order added by Discern Expert. Result Comment: Heel Slicker zach kidney disease could be indicated at eGFR's of less than 60 mL/min/1.73m2. Kidney failure is indicated at less than 15 mL/min/1.73m2. Performed By: #### 2 637140, 1900674, 6634146, 4845111, 969299273, 6988923, 39775172, 1896868, 9533849 ####[facility] [address] [place] [address] CHEMISTRYOrdered By: SYSTEM SYSTEM on 05-06-2022 Progesterone [Mass/Vol] 1.10 ng/mL Invalid Interpretation Code [facility] Remisol Consent for Treatmenton Consent for Treatment [id number] #1.00CD:127 Normal [facility] Physician Orderon 05-06-2022 Physician Order [id number] #1.00CD:127 Normal [facility] Progesteroneon 05-06-2022 Progesterone [Mass/Vol] 1.10 ng/mL Invalid Interpretation Code [facility] Comment on above: Result Comment: REFE RENCE RANGE Males 0.14-2.06 ng/mL Non- Females Follicular 0.10-0.60 ng/mL Luteal 3.00-17.5 ng/mL Midluteal 3.30-18.6 ng/mL Post-Menopausal 0.10-0.40 ng/mL First Trimester 8.30-66.5 ng/mL Second Trimester 18.9-66.1 ng/mL Third Trimester 35.8-312.4 ng/mL Performed By: #### 2 [id number] #### [facility] [address] [place] [address] Family Medicine Office/Clini c Noteon 05-26-2021 Family [...] for 30 day(s), 25 EA, Refill(s) 0, [facility], 158, cm, 05/26/21 15:24:00 EST, Height/Length Dosing, 58.4, kg, 05/26/21 15:24:00 EST, Weight Dosing predniSONE, 20 mg = 1 tab(s), Oral, As Directed, Take three tabs by mouth for 3 days, then two tabs for 3 days, then one tab for 3 days, X 2 week(s), # 18 tab(s), Refills(s) 0, Pharmacy: [facility], 158, cm, 05/26/21 15:24:00 EST, Height/Length Do... Follow-up With When Contact Information ERVIN LOCKWOOD, PHIL Hernadez, [facility] [address] [facility], [facility] [address] [place] [address]- Additional Instructions: Patient Education Asthma, Adult, Izpj-dr-Uolp Problem List/Past Medical History Ongoing BMI 23.0-23.9, adult Historical No qualifying data Procedure/Surgical History None. Medications albuterol 0.083% Inh Melida 3 mL, 2.5 mg= 3 mL, Inhalation, q6hr, PRN Blisovi FE 06/23 oral tablet Flovent HFA 44 mcg/inh inhalation aerosol with adapter, 2 puff(s), Inhalation, BID, Not taking fluticasone 0.05 mg/inh Nasal [place], 2 spray(s), Nasal, Daily, PRN, Not taking [place] 0.65% Nasal [place], 2 spray(s), Nasal, QID, PRN, Not taking [...] lifetime) Tobacco (more content not included)... Normal [facility] Comment on above: Result Comment: Elec tronically Signed By: Yue CHOWDARY CNP\.br\Date and Time Signed: 05/26/21 16:13 EST Patient [...] pollute the air. These may include household laborer petroleum refinery, wood smoke, smog, or chemical odors. ? [...] you are not home. Use a vacuum building cleaner with a HEPA filter if possible. [...] and water are not available, use hand baby stroller rental clerk. ? Do not allow anyone to smoke in your home. General instructions ? Take vowz-plw-xrebcrm and prescription medicines only as told by [...] not res (more content not included)... Normal [facility] Patient Letter FTon 2020 Patient Letter [facility] May 26, 2021 SHELLY ARIAS [address] [place] [phone] Please excuse SHELLY ARIAS from work . Date and/or Time of Absence: From: 05/26/21 May return to work on: next scheduled work day Restrictions: None Comments: Please excuse due to an acute illness. Provider Signature: Yue Chowdary, CONTRACT POST OFFICE CLERK-PRORATION CLERK, PUBLISHING MANAGER-C Nurse Practitioner [address] [place] [address] [place] [address] [facility] Vital Signs Date Time Vital Sign Value Performing Clinician Facility 07-10-2023 09:38-0500 Body mass index (BMI) [Ratio] 30.79 kg/m2 Tayo Chaitanya DO Work Phone: [facility] 07-10-2023 09:38-0500 Body weight 78.83 kg Tayo Chaitanya DO Work Phone: [facility] 07-10-2023 09:38-0500 Diastolic blood pressure 80 mm[Hg] Tayo Chaitanya DO Work Phone: [facility] 07-10-2023 09:38-0500 Systolic blood pressure 112 mm[Hg] Tayo Chaitanya DO Work Phone: [facility] 07-14-2022 09:45-0500 Body height 153.67 cm Phil Ervin Other [facility] Other 07-14-2022 09:45-0500 Body mass index (BMI) [Ratio] 26.7 kg/m2 Phil Ervin Other [facility] Other 07-14-2022 09:45-0500 Body temperature 96 [degF] Phil Ervin Other [facility] Other 07-14-2022 09:45-0500 Body weight 63.05 kg Phil Ervin Other [facility] Other 07-14-2022 09:45-0500 Diastolic blood pressure 62 mm[Hg] Phil Ervin Other [facility] Other 07-14-2022 09:45-0500 Respiratory rate 16 /min Phil Ervin Other [facility] Other 07-14-2022 09:45-0500 SaO2% (BldA) [Mass fraction] 97 % Phil Ervin Other [facility] Other 07-14-2022 09:45-0500 Systolic blood pressure 98 mm[Hg] Phil Ervin Other [facility] Other 05-09-2022 12:45-0500 Body height 153.67 cm Phil Ervin Other [facility] Other 05-09-2022 12:45-0500 Body mass index (BMI) [Ratio] 26.12 kg/m2 Phil Ervin Other [facility] Other 05-09-2022 12:45-0500 Body temperature 97.9 [degF] Phil Ervin Other [facility] Other 05-09-2022 12:45-0500 Body weight 61.69 kg Phil Ervin Other [facility] Other 05-09-2022 12:45-0500 Diastolic blood pressure 82 mm[Hg] Phil Ervin Other [facility] Other 05-09-2022 12:45-0500 Respiratory rate 16 /min Phil Ervin Other [facility] Other 05-09-2022 12:45-0500 SaO2% (BldA) [Mass fraction] 98 % Phil Ervin Other [facility] Other 05-09-2022 12:45-0500 Systolic blood pressure 124 mm[Hg] Phil Ervin Other [facility] Other 09-05-2021 11:00-0400 Body height 153.67 cm Phil Ervin Other [facility] Other 09-05-2021 11:00-0400 Body mass index (BMI) [Ratio] 26.5 kg/m2 Phil Ervin Other [facility] Other 09-05-2021 11:00-0400 Body temperature 98.5 [degF] Phil Ervin Other [facility] Other 09-05-2021 11:00-0400 Body weight 62.6 kg Phil Ervin Other [facility] Other 09-05-2021 11:00-0400 Diastolic blood pressure 60 mm[Hg] Phil Ervin Other [facility] Other 09-05-2021 11:00-0400 Respiratory rate 16 /min Phil Ervin Other [facility] Other 09-05-2021 11:00-0400 SaO2% (BldA) [Mass fraction] 98 % Phil Ervin Other [facility] Other 09-05-2021 11:00-0400 Systolic blood pressure 96 mm[Hg] Phil Ervin Other [facility] Other Encounters Encounter Date Encounter Type Care Provider Facility Start: 07-10-2023 End: 07-10-2023 ambulatory TAYO CHAITANYA Not Available Start: 07-10-2023 End: 07-10-2023 flow sheet Tayo Chaitanya DO Work Phone: [facility] Comment on above: Third trimester preg ashleigh Start: 07-03-2023 End: 07-03-2023 ambulatory TAYO CHAITANYA Not Available Start: 06-26-2023 End: 06-26-2023 ambulatory TAYO CHAITANYA Not Available Start: 06-12-2023 End: 06-12-2023 ambulatory AARON ARIANE Not Available Start: 05-24-2023 End: 05-24-2023 ambulatory AARON ARIANE Not Available Start: 05-10-2023 End: 05-10-2023 ambulatory TAYO CHAITANYA Not Available Start: 11-06-2022 End: 11-06-2022 ambulatory Phil Ervin Other [facility] Other Start: 11-06-2022 Telephone encounter Phil Ervin [facility] Start: 09-22-2022 End: 09-23-2022 ambulatory TAYO CHAITANYA Facility: Start: 07-14-2022 End: 07-14-2022 ambulatory Phil Ervin Other [facility] Other Start: 07-14-2022 Office outpatient vi sit 25 minutes Phil Ervin [facility] Start: 07-14-2022 Telephone encounter Phil Ervin [facility] Start: 07-11-2022 End: 07-11-2022 ambulatory Phil Ervin Other [facility] Other Start: 07-11-2022 Telephone encounter Phil Ervin [facility] Start: 05-16-2022 End: 05-16-2022 ambulatory Phil Ervin Other [facility] Other Start: 05-16-2022 Telephone encounter Phil Ervin [facility] Start: 05-11-2022 End: 05-12-2022 ambulatory PHIL M ERVIN PROVIDER Facility:[facility] Start: 05-11-2022 End: 05-11-2022 Patient encounter procedure PHIL M ERVIN [facility] Start: 05-09-2022 End: 05-09-2022 ambulatory Phil Ervin Other [facility] Other Start: 05-09-2022 Office outpatient vi sit 15 minutes Phil Ervin [facility] Start: 05-06-2022 End: 05-07-2022 ambulatory PENOLA NELSON Facility:[facility] Start: 05-06-2022 End: 05-06-2022 Patient encounter procedure PENOLA NELSON [facility] Start: 05-02-2022 End: 05-02-2022 ambulatory Phil Ervin Other [facility] Other Start: 05-02-2022 Telephone encounter Phil Ervin [facility] Start: 11-29-2021 End: 11-29-2021 ambulatory Phil Ervin Other [facility] Other Start: 11-29-2021 Telephone encounter Phil Ervin [facility] Start: 09-09-2021 End: 09-09-2021 ambulatory Phil Ervin Other [facility] Other Start: 09-09-2021 Telephone encounter Phil Ervin [facility] Start: 09-06-2021 End: 09-06-2021 ambulatory Phil Ervin Other [facility] Other Start: 09-06-2021 Telephone encounter Phil Ervin [facility] Start: 09-05-2021 End: 09-05-2021 ambulatory Phil Ervin Other [facility] Other Start: 09-05-2021 Encounter for genera l adult medical examination without abnormal findings Phil Ervin [facility] Start: 09-05-2021 Periodic preventive med est patient 18-39 yrs Phil Ervin [facility] Start: 05-26-2021 End: 05-27-2021 ambulatory Yue CHOWDARY Facility:[facility] Procedures Date Procedure Procedure Detail Performing Clinician Start: 07-10-2023 Urnls dip stick/tabl et rgnt non-auto w/o micrscp Tayo Tavares DO Work Phone: None (qualifier value) JESUS NELSON Plan of Treatment Date Care Activity Detail Author Start: 07-17-2023 End: 07-17-2023 Patient encounter procedure 07/17/2023 8:30 AM EST Routine [facility] [address] [place] [address] Tayo Tavares, DO [address] [place] [address] [facility] Immunizations Immunization Date Immunization Notes Care Provider Fa cility 03-20-2021 COVID-19 Vaccine Pfizer - Documentation Purposes Only Phil Ervin Other [facility] Other 02-27-2021 COVID-19 Vaccine Pfizer - Documentation Purposes Only Phil Ervin Other [facility] Other NEGATED: Highlighted row has not occurred!12-17-2018 influenza, injectable, quadrivalent, contains preservative Patient Objection Phil Ervin Other [facility] Other NEGATED: Highlighted row has not occurred!07-14-2016 influenza, injectable, quadrivalent, contains preservative Patient Objection Phil Ervin Other [facility] Other Payers Date Payer Category Payer Unknown [employer] [id number] 2022-Present [address] [place] [address] [id number] 2021 [employer] Cross [employer] [id number] 1993 Unknown [id number] 2.16.840.1.021065.3.579.2.72 7 1993 Unknown [id number] 2.16.840.1.477026.3.579.2.72 7 1993 Unknown [id number] 2.16.840.1.128736.3.579.2.72 7 1993 Unknown [id number] 2.16.840.1.363851.3.579.2.59 3 1993 Unknown [id number] 2.16.840.1.317914.3.579.2.12 59 1993 Unknown [id number] 2.16.840.1.920659.3.579.2.12 59 1993 Unknown [id number] 2.16.840.1.294441.3.579.2.12 59 1993 Unknown [id number] 2.16.840.1.846177.3.579.2.12 59 1993 Unknown [id number] 2.16.840.1.790763.3.579.2.12 59 1993 Unknown [id number] 2.16.840.1.365023.3.579.2.12 59 1959 Unknown [id number] Social History Date Type Detail Facility Unknown if ever smoked [facility] Other Start: 01-09-2023 End: 04-11-2023 Sex Assigned At [facility] Start: 05-26-2021 End: 01-09-2023 Tobacco smoking status Never smoked tobacco (finding) [facility] Tobacco smoking status Never [facility] Start: 01-09-2023 Tobacco use and exposure Smokeless tobacco non-user [facility] Start: 07-10-2023 Alcohol intake Current drinke r of alcohol (finding) [facility] Start: 01-09-2023 End: 04-11-2023 History of Social function [facility] How often to you hav e a drink containing alcohol? 2-4 times a month [facility] How many standard drinks containing alcohol do you have on a typical day? 3 or 4 [facility] How often do you hav e 6 or more drinks on 1 occasion? Never [facility] Start: 01-09-2023 Alcohol Comment Alcohol: 3 or 4 drinks /2 to 4 times a month. Caffeine: occasional soda [facility] Start: 10-31-2022 [facility] Start: 1995 Sex Assigned At Not on file [facility] Start: 03-15-2023 Gender identity Identifies as female gender (finding) [facility] Clinical Notes 06-04-2014 to 07-10-2023 Marguerite Hawley, [employer] - 07/10/2023 9:30 AM EST Note Date & Type Note Facility 07-10-2023 History of Presen t illness Narrative Reason for Appointment: Patient ID: Shelly Hannon is a 28 y.o. female who presents for Routine Visit Patient presents today for Return OB appointment. Current Medications: has a current medication list which includes the following prescription(s): albuterol hfa and ondansetron odt. Medical History: Active Ambulatory Problems Diagnosis Date Noted No Active Ambulatory Problems Resolved Ambulatory Problems Diagnosis Date Noted No Resolved Ambulatory Problems Past Medical History: Diagnosis Date ADD (attention deficit disorder) ADHD (attention deficit hyperactivity disorder) (CMS/HCC) Adrenal abnormality (CMS/HCC) Amenorrhea FERNANDO I (cervical intraepithelial neoplasia I) History of medical problems Insulin resistance Irregular menses Mild cervical dysplasia Ovarian dysfunction Prematurity Family History Problem Relation Name Age of Onset Pancreatitis Mother Learning disabilities Brother Cancer Neg Hx Social History Tobacco Use Smoking status: Never Smokeless tobacco: Never Substance Use Topics Alcohol use: Yes Comment: Alcohol: 3 or 4 drinks /2 to 4 times a month. Caffeine: occasional soda Drug use: Never Past Surgical History: Procedure Laterality Date CAST APPLICATION Right wrist COLPOSCOPY 01/02/2015 FERNANDO 1 PAP SMEAR 07/03/2022 negative No Known Allergies Review of Systems: Review of Systems Constitutional: Negative. HENT: Negative. Eyes: Negative. Respiratory: Negative. Cardiovascular: Negative. Gastrointestinal: Negative. Genitourinary: Negative. Musculoskeletal: Negative. Skin: Negative. Neurological: Negative. All other systems reviewed and are negative. Hematological: Negative. Endocrine: Negative. Allergic/Immunologic: Negative. Objective Physical Exam Constitutional: Appearance: Normal appearance. She is well-developed. Genitourinary: Vulva normal. Cardiovascular: Rate and Rhythm: Normal rate and regular rhythm. Pulmonary: Effort: Pulmonary effort is normal. Breath sounds: Normal breath sounds. Abdominal: General: Bowel sounds are normal. There is no distension. Palpations: Abdomen is soft. Tenderness: There is no abdominal tenderness. There is no guarding or rebound. Musculoskeletal: General: No swelling. Normal range of motion. Right lower leg: No edema. Left lower leg: No edema. Neurological: Mental Status: She is alert and oriented to person, place, and time. Skin: General: Skin is warm and dry. Psychiatric: Mood and Affect: Mood normal. Behavior: Behavior normal. Vitals and nursing note reviewed. Exam conducted with a manager video present. Vitals: Estimated body mass index is 30.79 kg/m as calculated from the following: Height as of 01/11/23: 5' 3 . Weight as of this encounter: 173 lb 12.8 oz. BP: 112/80 Patient's last menstrual period was 10/12/2022. Assessment/Plan Encounter Diagnosis Name Primary? Third trimester Patient presents today for a routine obstetrics appointment. Patient is currently 36w0d . Patient states she is doing well but has complaints of being tired due to current . Patient has verbalizes frequent movement. labor precautions was discussed/given and patient was instructed to perform kick counts three times a day. Follow Up: Patient is to return to office in 1 week for routine OB appointment. Documented by Marguerite Hawley LPN on behalf of: Tayo Tavares DO documented in this encounter [facility] 07-14-2022 Evaluation note Encounter Date Diagnosis Assessment [...] is going to be seeing a different [employer], and I think this is certainly not unreasonable. [facility] 12-08-2022 Evaluation + Plan note Diagnostic Tests Pending * T3 Free 05/11/22 [facility]12-06-2022 Evaluation note* Encounter Date Diagnosis Assessment Notes Treatment Notes Treatment Clinical Notes May, Chronic fatigue (ICD-10 - R53.82) We will simply call patient with results of the blood work. Should all of this proved to be normal, she would just simply need to continue to follow-up with [employer]. May, Vitamin D deficiency (ICD-10 - E55.9) [facility] Other 06-28-2022 Evaluation note* Encounter Date Diagnosis Assessment Notes Treatment Notes Treatment Clinical Notes Nov, Asthma exacerbation (ICD-10 - J45.901) [facility] 04-05-2022 Evaluation note* Encounter Date Diagnosis Assessment Notes Treatment Notes Treatment Clinical Notes Sep, Asthma exacerbation (ICD-10 - J45.901) Sep, Folliculitis (ICD-10 - L73.9) [facility] 04-04-2022 Evaluation note* Encounter Date Diagnosis [...] Other No change today...Continue as is...FU PRN/Yearly... [facility] Other 01-01-2015 History general Narrative - Reported* Type Description Date Medical History 6 Weeks Premature Medical History Asthma Medical History ADD Surgical History cervical bx. from [employer] = Dr. Leyva 06/2014 Hospitalization History - Apnea [facility] Other Evaluation + Plan note No data available for this section [facility] Other Evaluation note* Diagnosis Third trimester state, incidental [facility] No data available for this section [facility] data available for this section [facility] Summary Purpose Family History No Family History Records FoundNo Family History Records FoundNo Family History Records Found Advance Directives No Advanced Directives Records FoundNo Advanced Directives Records FoundNo Advanced Directives Records Found Additional Source Comments REASON FOR VISIT (unrecogniz ed section and content) Reason Comments Routine Visit Patient Care team informatio n (unrecognized section and content) Real Estate Account Executive Relationship Specialty Start Date End Date Phil Mueller MD [address] [place] [phone] PCP - General Family Medicine 12/21/22 INFORMATION SOURCE (unrecogn ized section and content) DATE CREATED AUTHOR 05/17/2022 [facility] DATE CREATED AUTHOR AUTHOR'S ORGANIZ ATION 09/29/2022 [facility] DATE CREATED AUTHOR AUTHOR'S ORGANIZ ATION 07/11/2023 [facility] FOR RECORDS PERTAINING TO PATIENTS WHO [...] BE BASED ON THE PRIMARY CLINICAL RECORDS. [employer] [facility]. provides no warranty or guarantee of the accuracy or completeness of information in this document.
[2023-07-13 12:47] VITALS: BP 122/84; PULSE 93
== END 2023-07-13 12:53 | disposition home or self-care (01) ==
PROVIDERS: Admitting Provider Obstetrics & Gynecology; PCP Family Medicine; Visit Provider Obstetrics & Gynecology
DX: O26.893 Other specified pregnancy related conditions, third trimester (principal); R52 Pain, unspecified; Z3A.38 38 weeks gestation of pregnancy
CPT/HCPCS: 59025; G0378; G0379

== ENCOUNTER 2023-07-14 08:32 | Inpatient (IN) | payer OTHER, SELFPAY ==
[2023-07-14] VITALS (65 sets, daily range): BP systolic 85–192; BP diastolic 33–96; PULSE 72–106; RESP 13–27; TEMP 35.9–36.8; O2SAT 95–97
--- OUTSIDE RECORDS SUMMARY | 2023-07-14 08:37 | XMS_ITS | CCD ---
Author Name Unknown Address [facility] [address] [place] [id number] Organization [facility] Care Team Providers Care License And Permit Specialist Name Role Phone Phil Mueller Unavailable PHIL MUELLER Primary Care Physician [phone] ZONIA NELSON Attending Unavailable ZONIA NELSON Admitting [...] (11 sources) montelukast Drug Allergy stomach upset [employer] Other Medications Current Medications Medication Drug Class(es) [...] use, # 1 EA, Refills(s) 0, Pharmacy: [facility], 158, cm, 01/04/20 10:14:00 EDT, Height/Length [...] days Sep, Active fluticasone 0.05 mg/inh Nasal [place] (2 sources) Start: 01-04-2020 fluticasone 0.05 mg/inh Nasal [place] 2 spray(s), Nasal, Daily Congestion, 16 gram, Refill(s) 0, each nostril, [facility], 158, cm, 01/04/20 10:14:00 EDT, Height/Length [...] qPM, # 30 tab(s), Refills(s) 0, Pharmacy: [facility], 158, cm, 01/04/20 10:14:00 EDT, Height/Length [...] meq/ml nasal spray (2 sources) Start: 01-04-2020 [place] 0.65% Nasal [place] 2 spray(s), Nasal, QID Congestion, 1 EA, Refill(s) 0, [facility], 158, cm, 01/04/20 10:14:00 EDT, Height/Length [...] [facility] Work Phone: Color, UA Yellow [facility] Work Phone: Glucose, UA Negative Negative - 1999(110) ++++ mg/dL [facility] Work Phone: Interpretation and review of laboratory results Abnormal [facility] Work Phone: Ketones, UA Negative Negative - 160(16) ++++ mg/dL [facility] Work Phone: Leukocytes, UA Trace Negative - 500+++ La[place]/mcL [facility] Work Phone: Nitrite, UA Negative Negative - Positive [facility] Work Phone: pH, UA 7.0 5 - 9 [facility] Work Phone: Protein, UA Negative Negative - 1999(20) ++++ mg/dL [facility] Work Phone: Spec Grav, UA 1.015 1 - 1.03 [facility] Work Phone: Urobilinogen, UA 0.2 0.2 - 12 mg/dL [facility] Work Phone: [facility] Work Phone: ANTI-MULLERIAN HORMONEon Anti-Mullerian Hormone (AMH) 6.57 ng/mL Normal [facility] Comment on above: Result Comment: For assays employing antibodies, the possibility exists for interference by heterophile antibodies in the samples.1 1.Demond Boyer. Interferences in Immunoassays - still a threat. Clin. Chem. 2000; 46: 0246-8134. This test was developed and its performance characteristics determined by [employer]. It has not been cleared or approved by the Food and Drug Administration. Reference Range: Females 26 - 30y: 1.03 - 11.10 Median 4.20 AMH concentrations of >= 1.06 ng/mL is correlated with a better response to ovarian stimulation, produced more retrievable oocytes and higher odds of live according to Andrzej et al. Fertility and Sterility. 2010: 94:3778-7868. The current AMH test method correlates with [...] tumor. Performed By: #### A AGGIE #### [facility] [address] [place], [place] [address] Dr. Matilde Fitch PROGESTERONEon 09-23-2022 Progesterone 0.4 ng/mL Normal [facility] Comment on above: Result Comment: Foll icular phase 0.1 - 0.9 Luteal phase 1.8 - 23.9 Ovulation phase 0.1 - 12.0 First trimester 11.0 - 44.3 Second trimester 25.4 - 83.3 Third trimester 58.7 - 214.0 Postmenopausal 0.0 - 0.1 Performed By: #### P ALBA #### [facility] [address] Matilde Fitch Coding Summary.on 05-16-2022 Coding Summary. CD:[id number] Gh0bWw+PGhlYWQ+PE1FV FSaH25qgAZvkW7HO2eEK A6EMOSPXWTVYJ7EYT8ka OK9QMsuG3UdorGz GbrjwFNrAQ18EOo3MDK5 ePpuPMmoaY6ncIWdL9n3 JlAwNK19dV29ZJwgJTJv KzE7PkQmgfsepLIy Y5gsOoDxcNHpZpu+PHRh YmxlIHdpZHRoPScxMDAl YaStfJoxGS9dNv5fSDZk LWNvbGxhcHNlOiBj j1ijDPXbNFneGH5ljRux V2CxoXD8XFNum5g1In38 dHI+FVOdLEB4cSwbZJee j624KdKtg0mzTHJ5 eAAkRMhyOFS1N47bj7P6 PCJyLPYlYMT5nMW4yC8f yWvwlxfbT7IvjSKqXcX6 ITO4vEKqoA8zlAsm ddksaI4lQut+Z83VOG8Q IFCODN1WIme2Z1CvAcqy dHI+FL53ATSpTT43zWQb nBRzk9buwBy5FmWt VAUmXQU6hTetELzsp4Xj YQLfD70elDBor1R1JIQw yFcrcUZzMkJsfLK2gG7n TZrveltcw6otudpz Amgcm6xiph97iS89T13k HFxxUKAlRJF0KSUdEJNr vGxzhg5acZ1nRs8+IDxj t2hnz4kizYr0ZzSe CSEpptJysZlmSZS0p5Ro Cq49K9HmoWiym9AdZsc9 ql15lDGne9T5lLI1JSyz GRFzwV8aECdnZfN8 SLSnFvMhmE26aCYzEBpu Op1anKlszGygCO6dZZXg qgxqVJZjxH7cGHDzbCId uJepQK3cYAPfclbn q542UnLsKXO6CBLhxTKd B3JiqA7eQuYgTXTlOGWn Y8RbwAIaWLlsK717LNso OyB2VQMsvqDxW1Br ATTpsRlcGtV6w4W9Mz6Y n7VdtwfeBZN2QMzvTSFs YiCyFmEuSmU0C7XxRyp6 VTZzdYelCS1xT0Dq ZTPsatpoyzrrvBI9FCOi FGJbnL42kCZiOPvkIn5r p5O3w723SZGxKZYahS24 Qd0ylJqyJIFdgSMK fF2elwjcf5hcxrnoCgWa UYKoLCi9QDi9HUBxpUyy BqWsLXD0JmJ0IUL3gRLu iG1loGjmkydiqR6o Oyc+M09saQ3qCHE9UJR0 ltqpCUZqmbBuGK69VO23 U6KlLmddlOYkzRH+PGRp lrTmkApgJQ9aVvZd r9vxd5IrYAknT9FbJBVc ERikNhu3FRWgNKY4gWD4 xB6xGFVwLMnej7O0xOD7 I8YnwrSxxy6qb6hs BERyQCunH33gxHKme7J8 QVHeiYF2BQRseGatExAn uP01Mfe+LVGoeJyag0Vk Zvkax3dtb4hqaBm4 IjMwJSIgdmFsaWduPSJ0 o8BqGq19S84cIXdyLKAj CVKxVYBsXOPsfLbyay5b hU2kSu2+PGNvbCB3 sRC6xT1lTQFkHlV9NMkp K708KmGpeOMpQngss7fz e9tloQz6JsGoFNWtofRw gBijUOQ9y5AaHz83 U46vXZycTAQvPPBiRZEl VVEpbBnybr5hpG1mJu4+ OZ6lm8ptgk63sN25yOJ+ JIOdRGP1wAbmNBpg NHDlsR2fNQjlAcZ9LRIz MuNzbY98cMYlNDtrHh9m eGwyuGrnPH8xBNPitxbo b620CeWra3egNINl sJWuBDisLNM4J54ni2U0 QDVdDHXaPNT7uZE0kR7a bGlnbjogbGVmdDsgdmVy qFluRRurNLizH213 IHRvcDsnPlBhdGllbnQg WkJjYWm1Q7MgTcy6FPRr mUegHA1wgTIfTNmcUn6a zAifgHdrHT0oSUNf hvpbk345CfPrq4nwFPDn gPSiSRwqWHL6Q98qy9E3 AGBtKQWfZMN4oPS8wL9z bGlnbjogbGVmdDsg paYxuFgvDJnoQXofV224 IHRvcDsnPkJpcnRoIERh pFW2WS14HP03mCUyg3S2 uJH9X1WeLBSvzgsb hlcyaGN0FGRlSMVorP81 Mh5qmSqkGp8gITVhYIK4 AQFjmXKmI9RhsG1rQxBq OUAiBZVwS9FcrEMq LPnxC643MFkbQcB6BHKv meBfD6RuNBWvvLeoKmH8 b9J6Xm8WP1T4QT84LN57 pJUfu7U4rXI3P2Gy AAUjwjouxmwzgFH0EGAf MRIyqC73Lv9qaTgmId5z FPKbQFK4LFLjvIQrG4Ts jJ8nQsVdSZGxCDTi F4LaaGBfQEtyE628CJwg MoB5UPXgueJjD1UlQCFv xOtzYyT8t6B9Cc2JRTc9 BA05JR68qQZfa8J5 pNN9L7VjSIGmiulsmvmc aUL4BXUeWKGwnN93Ak9l aIttKp8aVEXjPUB5WHHx zTVhU8LayV5fGwSn DGPvRJHpF5UxkQPiEDbe K947PWugUhC9UNWnmpAe T1VzWCQwwBezFlG3j7Y7 Nc6ISQSwXO45ODJ3 pJQ0CE53OQ93S6GcOmso dGFibGU+PHRhYmxlIHdp ZHRoPScxMDAlJyBzdHls LT8aMu7hYYBbCZNa oCbriUPxSbEak7dhHWBb WBdaYV3vlAnqX0CylRH0 OSEqi0p5Rz07D79nU8Ui dXA+HZPstKU6qPE5 oL6iAsCaWmZ3EQnuI244 KaSmfLPoVullu3zhg7vw dJf8EeI8YVCutoRmlVof TEA4g5QpOo39O62q IHdpZHRoPSIxNSUiIHZh zWabul0ebO2jTx7+PGNv nPT7fSX8pC9kRxSxXiN6 COejD718OdKawMTt Wmiqp0smv5rvtNk6LgJx SXXvqxJeeXzcOCE3k7Nv Qh32R0OmoKmsr1ZeRpo5 yu08rYIeo1J7kTL1 J4NuJRGlhjnmpRZrkXdo BO4iWBFmfammDNDdjB5d IKYfM4s4QwEpLhU4OYmb O0CxxeV3IQHmrFWy DTggDRM7C64yf9G8RAPz GJZlFUG9yUY5uO8bpWkg bjogbGVmdDsgdmVydGlj VBowGCzoC632EFRp jXkfIFSkrY4lAPDniNKm vSlfPL1uHNUpvnyxSr8Z RXMWHMDSPNMEX83TOjDm TTwvdGQ+PHRkIHN0 dDwkUHvyRJXwoA6rJNZi B8s6WwTqBuL3LUmuC4Ko UNDlfqxvGf17nD4kQcHr XuG9BFnsK9EkulR7 RMMaySLiOMgsZWM9Y85i l8E7MXYzOKHgQKF4wUE9 xK1gpMwgbhpnrYChlJys dmVydGljYWwtYWxp S872LWFpjEoxHkGuFkXi CpN6ASY4K0CcIoi0VDAm vFymFL0igNEcKPrmLe4v sWlamIpwRL1sNYZp ovquDYSisA6dFRXtyHAd lNszYT6vHGEtjmfzi191 AnGxPFK2YUXmgGLaX1Rs oF3sQtErJAFeMUAx J1PytVVxUWqiH982TEqn NvJ0JMPwvtQmO1WrXDLt fCxnLcI0w8T8Yx2xXBLS ZWFyczwvdGQ+PHRk YRR7oXmnYSrnEJEofX0q YNTeI6e4ClHwMfT1YTel G9CgJRPdmaezRy25mU7g RtRxMqU7INugQ2Vr buO8FPPwmWPjCGauERI9 D14uw3W9ODGvSPTuEIJ5 fOT7vN4tgLolgzqblNHj dDsgdmVydGljYWwt JVfiH685KBDcpNisEaAb bWFsZTwvdGQ+PHRkIHN0 lSooDRuySDAfvJ4qESWo F6x6YxZyAyQ9WOkf Z4QbEVZmluluIp25jA9b MlWvKkI5ZWlgF3DwjuA9 FGKswDDsAWuaIUV1V54k o4G7VDYzWNYtMEM2 mAQ7zM0kqAdzoidnqRLh dDsgdmVydGljYWwtYWxp I347WQHzcMkgEv76iMDa pCecyiH2O9JtSomp dHI+AO60FZLjWC42cVRc zUMej0uqaTu8XoOkMXOu COW8rAwoJDcwy4RtBBSz G07piKVsi9D0JVBq jEbmoOMeBwJjfIM4dG3w JRiwfahtb2fjqzoaAreu v9hcyh86yF11Z91lSItk ZHRoPSIzMCUiIHZh nUzkfr4xrI3iZy9+PGNv sQA9rVO4wQ9uMwDqDqM7 NLjjX016EoYkfVFoCcon k5yab1rknWp2LpOq QHCbrgByrImrLBN1j4Pj Tr69Y39rQSncECToIUIl AMHnYQPjmHkqsn5xlQ0l Ii8+TY1jf2azuh84 fR68fWY+JQSfPHU8nMpy ZJotFVPihN0qVXumVsI7 PATcFqZmaX39vXQhGUvn Ok6coBkxwJplUS2u LAIrayrjf102QfLue1uh PENitVQeUGxiAQX8B32l t0X7NSCrZQRyAES6nAD0 xY8exWnjjcairCMb dDsgdmVydGljYWwtYWxp D714QPQsbAczChIehAAv B3bsnmDNTV3tSmeffRF+ ANKvDXZ6cOtlNLjm NHBnrS4kBSHiI4q6UyUt PoQ2SScrL4RxqmE3IFTr jPQbXXGkfIQSlM7qcnxd r4dtkhkjAbGyKJRx RTl2ISh0GYMhxLyfBgAg JGU1KjS1CIP5vCRazY5n tNqksgixxY6uAlk+RklO OjwvdGQ+PHRkIHN0 nCjfINynSMPqgL3wBNNi A5f5PnVqQcQ8VWtjE9Gr phP8IWLvhCLxBMCpxTPS lE6moudpb1qxqzgi JcMxNDCyPXz6EWz3GPBj lYxtDkKdSSS0AkT4FXW2 lPVvfK5joHlifoilvV4z Oyc+TVJOOjwvdGQ+ IXOaCBB4eNvyHYkkTNYq bO3xKQAyF2b0PbCeZeI0 IYuxY8FwkrU7IDJueFWx WRFeyUGAyA9bkarq x6ybrintVeSaLVCxYYv6 PIh6MEQviWmvAyTcGWU1 NvG4FCS3qTQqjZ6jtRaa aadolD7gQev+UGF5 JIJ4NS44LF44H5XjYtek dGFibGU+PHRhYmxlIHdp ZHRoPScxMDAlJyBzdHls OJ6mMq5hSDEwYVKq bGxh (more content not included)... Normal [facility] T3 Freeon 05-12-2022 Free T3 [Mass/Vol] 3.8 pg/mL Invalid Interpretation Code 2.0-4.4 [facility] Comment on above: Result Comment: Perf ormed at: [facility] [address], [place] [id number] PhD Boone Coronado Performed By: #### 2 651627, 8678649, 1708627, 8142437, 005604000, 6477514, 46770544, 9188480, 6939452 ####[place] [address] [place] [address] Auto Diffon 05-11-2022 Basophils/100 WBC (Bld) 1.1 % Normal 0.0-2.0 [facility] Comment on above: Order Comment: Order Added by Discern Expert. Performed By: #### 2 666162, 1619820, 4687920, 7324042, 387856167, 9439122, 24836755, 6056683, 1718911 #### [facility] [address] [place] [address] Basophils/Leukocytes Auto (Bld) [Pure # fraction] 0.1 E9/L Normal 0.0-0.2 [facility] Comment on above: Order Comment: Order Added by Discern Expert. Performed By: #### 2 983502, 7918220, 7058878, 9733365, 967061479, 2764666, 40177731, 9689806, 3296348 #### [facility] [address] [place] [address] Eosinophils/100 WBC (Bld) 3.3 % Normal 0.0-8.0 [facility] Comment on above: Order Comment: Order Added by Discern Expert. Performed By: #### 2 646456, 7160148, 6754730, 3773610, 414560017, 7429952, 39624899, 9104163, 3282292 #### [facility] [address] [place] [address] Eosinophils/Leukocyte s Auto (Bld) [Pure # fraction] 0.3 E9/L Normal 0.0-0.5 [facility] Comment on above: Order Comment: Order Added by Discern Expert. Performed By: #### 2 713158, 8554329, 5649804, 9199601, 087332686, 6686341, 19237526, 7891774, 6575607 #### [facility] [address] [place] [address] Lymphocytes/100 WBC (Bld) 34.9 % Normal 14.0-50.0 [facility] Comment on above: Order Comment: Order Added by Discern Expert. Performed By: #### 2 574628, 5017587, 4203246, 0809423, 156776819, 9918790, 84620919, 1198687, 9205483 #### [facility] [address] [place] [address]2895 Lymphocytes/Leukocyte s Auto (Bld) [Pure # fraction] 3.0 E9/L Normal 1.0-4.0 [facility] Comment on above: Order Comment: Order Added by Discern Expert. Performed By: #### 2 692632, 6771157, 2098213, 7300723, 059567901, 4541225, 67073333, 9179874, 2703136 #### [facility] [address] [place] [address] 49571 Monocytes/100 WBC (Bld) 5.8 % Normal 4.0-14.0 [facility] Comment on above: Order Comment: Order Added by Discern Expert. Performed By: #### 2 393324, 1921126, 5219034, 0957630, 489192601, 7343625, 19442213, 3016492, 8217943 #### [facility] [address] [place] [address]9712 Monocytes/Leukocytes Auto (Bld) [Pure # fraction] 0.5 E9/L Normal 0.2-1.0 [facility] Comment on above: Order Comment: Order Added by Discern Expert. Performed By: #### 2 463807, 7931083, 4912930, 6062649, 318650588, 8111611, 38482824, 8812515, 3337446 #### [facility] [address] [place] [address]285 Neutrophils/100 WBC (Bld) 54.9 % Normal 36.0-75.0 [facility] Comment on above: Order Comment: Order Added by Discern Expert. Performed By: #### 2 215995, 6079025, 6382712, 8039353, 362619203, 5522043, 43811998, 6363514, 0229770 #### [facility] [address] [place] [address] 35232 Neutrophils/Leukocyte s Auto (Bld) [Pure # fraction] 4.7 E9/L Normal 2.0-7.5 [facility] Comment on above: Order Comment: Order Added by Discern Expert. Performed By: #### 2 652590, 6734722, 3876010, 8638353, 949422784, 3480017, 87932952, 5535988, 0615126 #### [facility] [address] [place] [address] CBC w/ Auto Diffon 2 Erythrocyte distribution width (RBC) [Ratio] 12.9 % Normal 10.9-14.2 [facility] Comment on above: Performed By: #### 2 660363, 6836482, 8074762, 9363065, 044727644, 8260988, 10023672, 3094821, 2768857 #### [facility] [address] [place] [address] Hematocrit (Bld) [Volume fraction] 43.0 % Normal 34.0-46.0 [facility] Comment on above: Performed By: #### 2 869706, 7568713, 6746666, 9199503, 030264305, 3831636, 74189821, 6445874, 6377786 #### [facility] [address] [place] [address] Hemoglobin (Bld) [Mass/Vol] 14.6 g/dL Normal 12.0-16.0 [facility] Comment on above: Performed By: #### 2 250072, 2055079, 1776253, 7035821, 565804169, 3596009, 57516251, 6389873, 8122646 #### [facility] [address] [place] [address] MCH (RBC) [Entitic mass] 29.4 pg Normal 27.0-34.0 [facility] Comment on above: Performed By: #### 2 002488, 9914834, 0552705, 3156585, 593852713, 8459642, 84091832, 6200898, 9776304 #### [facility] [address] [place] [address]370 MCHC (RBC) [Mass/Vol] 33.9 g/dL Normal 31.4-36.0 [facility] Comment on above: Performed By: #### 2 863891, 3613889, 4613323, 4521652, 191121721, 1860541, 10065105, 0635240, 4684504 #### [facility] [address] [place] [address] 06420 MCV (RBC) [Entitic vol] 86.7 fL Normal 80.0-100.0 [facility] Comment on above: Performed By: #### 2 667948, 4435646, 7395282, 7846316, 384107805, 2385682, 66751488, 1927800, 5180727 #### [facility] [address] [place] [address] 68703 Platelet mean volume (Bld) [Entitic vol] 7.1 fL Normal 6.4-10.8 [facility] Comment on above: Performed By: #### 2 105430, 6436915, 9577978, 8595331, 273977189, 9070610, 35143232, 7666492, 5629673 #### [facility] [address] [place] [address] 64311 Platelets (Bld) [#/Vol] 316.0 E9/L Normal 150.0-500.0 [facility] Comment on above: Performed By: #### 2 101960, 2545572, 4329886, 6074115, 478752779, 1331308, 55029919, 0905104, 8030166 #### [facility] [address] [place] [address] 29474 RBC (Bld) [#/Vol] 5.0 E12/L Normal 4.3-5.9 [facility] Comment on above: Performed By: #### 2 310404, 2871684, 4173112, 6647181, 856385466, 6590975, 02320425, 3519307, 8305656 #### [facility] [address] [place] [address] WBC corrected for nucl RBC Auto (Bld) [#/Vol] 8.5 E9/L Normal 4.0-11.0 [facility] Comment on above: Performed By: #### 2 524506, 6006725, 0811018, 0725653, 008596213, 4903615, 80199820, 3982011, 1370031 #### [facility] [address] [place] [address] CHEMISTRYOrdered By: SYSTEM SYSTEM on 05-11-2022 25-hydroxyvitamin [...] 05-11-2022 Albumin [Mass/Vol] 4.3 g/dL Normal 3.3-5.0 [facility] Comment on above: Performed By: #### 2 209204, 9030492, 1179770, 1812058, 727708377, 4705341, 77241222, 8001456, 4155963 #### [facility] [address] [place] [address] Albumin/Globulin (S) [Mass conc ratio] 1.2 Normal 1.1-2.2 [facility] Comment on above: Performed By: #### 2 125010, 0888745, 3073137, 9430786, 442766786, 8772429, 57116216, 5609235, 8830565 #### [facility] [address] [place] [address] ALP [Catalytic activity/Vol] 80 Int._Unit/L Normal 21-98 [facility] Comment on above: Performed By: #### 2 393703, 1107387, 2721812, 3746532, 073819527, 0609647, 16236699, 1988747, 3451205 #### [facility] [address] [place] [address] ALT No additional P-5'-P [Catalytic activity/Vol] 15 Int._Unit/L Normal 6-46 [facility] Comment on above: Performed By: #### 2 363593, 1536065, 8428503, 8579289, 483878175, 9981912, 95321685, 9508361, 8270331 #### [facility] [address] [place] [address] 87385 Anion gap [Moles/Vol] 11 mmol/L Normal 6-16 [facility] Comment on above: Performed By: #### 2 780297, 3415019, 8783502, 9577405, 783723414, 8031142, 65871798, 5907466, 8649855 #### [facility] [address] [place] [address] AST [Catalytic activity/Vol] 17 Int._Unit/L Normal 5-43 [facility] Comment on above: Performed By: #### 2 432098, 8267024, 6893133, 6272364, 615608449, 4486690, 84989793, 6843284, 1378230 #### [facility] [address] [place] [address] Bilirubin [Mass/Vol] 0.9 mg/dL Normal 0.0-1.1 [facility] Comment on above: Performed By: #### 2 540907, 5866110, 5354350, 2422147, 389875677, 5179348, 40136522, 7828105, 9994204 #### [facility] [address] [place] [address] Calcium [Mass/Vol] 9.6 mg/dL Normal 8.9-11.1 [facility] Comment on above: Performed By: #### 2 085954, 7452067, 0970805, 9564957, 808125955, 5227108, 62993747, 7157612, 2289847 #### [facility] [address] [place] [address] Chloride [Moles/Vol] 102 mmol/L Normal 101-111 [facility] Comment on above: Performed By: #### 2 224095, 8155087, 1846942, 8338956, 587380654, 7746691, 61047161, 3594523, 9709225 #### [facility] [address] [place] [address] CO2 [Moles/Vol] 28 mmol/L Normal 21-31 [facility] Comment on above: Performed By: #### 2 476182, 2370621, 4946510, 1165743, 129670610, 1157719, 78572634, 1449470, 0927128 #### [facility] [address] [place] [address] Creatinine [Mass/Vol] 0.8 mg/dL Normal 0.5-1.3 [facility] Comment on above: Performed By: #### 2 155288, 8147784, 8250437, 4540153, 063728522, 6544672, 47241179, 0170306, 5062679 #### [facility] [address] [place] [address] Globulin (S) [Mass/Vol] 3.5 g/dL Normal 1.4-4.0 [facility] Comment on above: Performed By: #### 2 676905, 5694264, 6581243, 5869734, 151151949, 8943364, 46343517, 3769193, 9465486 #### [facility] [address] [place] [address] Glucose [Mass/Vol] 83 mg/dL Normal 55-199 [facility] Comment on above: Result Comment: If t his glucose result represents a fasting glucose, interpretation should refer to the following reference range: 55-99 mg/dL Performed By: #### 2 945230, 2619949, 2077729, 6231250, 110309287, 9703915, 22568865, 6646682, 9928525 #### [facility] [address] [place] [address] Potassium [Moles/Vol] 4.0 mmol/L Normal 3.5-5.3 [facility] Comment on above: Performed By: #### 2 800350, 6592004, 6904898, 9187324, 820380350, 8105822, 09647092, 3437853, 7405367 #### [facility] [address] [place] [address] Protein [Mass/Vol] 7.8 g/dL Normal 6.0-7.8 [facility] Comment on above: Performed By: #### 2 842256, 2984377, 6501033, 8379969, 686939243, 1933140, 80263379, 9802508, 7877170 #### [facility] [address] [place] [address] Sodium [Moles/Vol] 137 mmol/L Normal 135-145 [facility] Comment on above: Performed By: #### 2 661540, 8335578, 5949070, 9115647, 724844929, 2560103, 99839231, 9100268, 2263896 #### [facility] [address] [place] [address] Urea nitrogen [Mass/Vol] 16 mg/dL Normal 5-21 [facility] Comment on above: Performed By: #### 2 752171, 6119991, 5990590, 9198729, 478908415, 6279445, 01288438, 5136155, 3715077 #### [facility] [address] [place] [address] Urea nitrogen/Creatinine [Mass ratio] 20 No Units Normal 10-20 [facility] Comment on above: Performed By: #### 2 250922, 9428416, 4240663, 3397804, 227844991, 6843237, 72427929, 1642917, 7374415 #### [facility] [address] [place] [address] Coding Summary.on 05-11-2022 Coding Summary. [id number] Gh0bWw+PGhlYWQ+PE1FV NXqM02oiFQahH4ID3pID Y6YPCERZLCRHV6UTY7mj RY1SYhcN4CgdkJw OkytlOHsLP75YJb3BMF8 rOevQBjbwH8xfHZzW4f4 KxJsBW59jV83JSpdNJEs IiM4WoXwjscoyDWa C2hwGdYmpIIxMfu+PHRh YmxlIHdpZHRoPScxMDAl KhTrcQunDA7pKd7mJAFu LWNvbGxhcHNlOiBj x3umXLUmZGcfKF5deIua G4AmeYP0VUCwz7w1Zw64 dHI+NSJaBJI4vMliEBdw m585RrRbt5djWNM0 xFWfRZjwXAO7E61dn6E6 NDOvRUZjZCK2xYQ1aH6k pHegrxtdN5CehYJqAiQ7 YOP6kNSfgD4oxGip rfzylW2jXpk+N98GFY1N BUVXHL0WKqr5A5DkHuxl dHI+EH16ZHOwPQ19iDDm qEQzd0thvAu4JoVk KUDcIGZ9zIewIBofb3Pj XARkO84xhSCsh8L1CWOm lWwqqJVoJeSxwEH6pQ8o PYfsqyyav2nqzyzt Mayxa2jpym07fL58B66d JFhjYHEgVXN4VWIuDEGn kBlclg2mxG8fNj5+IDxj r7rcy3bwyIs4ZuPw PLLkpiTntVfdSTY9w6Om Ua56W9WxxKdql4VkVje4 mj33fNVmt6U4tYX2UNvq SXQejL5dPZurQbW5 YEAlKaKqoT99hKIgWIyu Gy9ndNoynCnaEU7iIYBh ylueVWXcfC1hMMXzlWFp mSatKA5wHZWnnjlx v896GmWoYES3NWMzxCVa T7UreT8oHuXbIKSlJPMg B3ZieBNpZBrrA426LCgh OrP9YVEaxzCoL8Hb CKTpnOkfAiM7r8C3Ce9D r3QidhciROT6NButMUXh TwX1FoFzZtL7O3QnZsb2 CYEwnVhfKW1yW9Ul ELLgrcgvdaobrWU1SSFs GHJdtS84cTBkYYedNa7z i5Z1u482HBArNXLuyJ29 Yi3vpUntGVZtpOVL rE7bbbdjg5rjwrseYqTl PEMfNKi9PWq1QLUxiRas MlTlOEH2GpF2MBH2jUWu pF3gqXszevhzfS0q Oyc+P49ioC7vSFN5IJJ8 wnssWUQtbfCaNC08WC11 H8RbHifioOQafUJ+PGRp xpUwsRsjNR7wHdAm k3zmk7AwCJmnT2NvEZZs EAofNwy8FWKmKED1mRM5 mY9oJVHmEOomh3S5hNV8 P7RujbWhvs7ii8dw SCXgYAdwV56glWLiu9M8 ZXFuzAR8KAEogDesGiUd rB49Muq+OUNosPrri6Sm Exqur5izx3fclYt7 IjMwJSIgdmFsaWduPSJ0 r8IdUi87A71hIWhnFXSp ZDWbUHMzWVImbCwomu8s jL5jLp9+PGNvbCB3 tOA2lD4qMXOuToU0EKuq F886LbGeaTSdFvggg4cw n5mqiAy0CyBzJZAqmkYm zQbhUVH6k5YeDm98 I39jZRbqPFLsZJOpUYGf LDTtlRcwhx6lxJ8jFi0+ NG0fp5fshy54aZ71dEQ+ QUHrVVL5cTwpDZeg QPTzbC1kBDwxPvG6VUUk QxVwwZ04sZHnGFflBe5n zOwpsVfcUQ0pRSNwdtwx x283DfVap9ezLWVj vKJaXTpdQDQ6G02qp3R2 WYOrNTKbIZG4cPG2qZ7a bGlnbjogbGVmdDsgdmVy nLjxRAilMBgfT157 IHRvcDsnPlBhdGllbnQg FlDwGMi5T3QnNyj8KQYa oVgdER8dzEBdQAsiYl3s yQotgQqeYO6cTTBj vwnch717NeMav8ogOTUh zTHtMBgsPHG9H78op6Y7 OWEsBQHvMHD0pJP2tT4j bGlnbjogbGVmdDsg vaXndDluPDpvFZnoA137 IHRvcDsnPkJpcnRoIERh xWZ6CI13XS10nWBqa4Z3 iTZ1L3BpVRNsvdeh qwthnVG3JENjVTTslF15 Lx5ybHjhBa3fGRLtSVE2 WVNluKRcA0CqtZ2rXoUk CHFaAAChH2HbuTBr CZfhV035EWmeYnF0YCQm ryRvP3OpNEVfjIfdAfL4 a1P1Aj6XQ0O1UI44GW09 uMNms1D1bSJ7O2Se VGPhizqjmqormFO8VMEx KPFwqL85Vk2haYfjZr9w VWFjNFQ0GUTmjXMyT8Hz tN2rQcGmCBZhWDLc M6HtwXEaOCodK239JZur UpO0CMTmeeSiO8VuAKWz kShtVdM5x8S2Xf3JHRf4 WW79OH76sYSel5X2 nND2O0JnTCQbiihvqlds cGP9VJAdBGVtkA67Hf2n sBfqRx7bZHOrIBR6LQOu eUAgR4OrtR8nPbEh NWUnWQKzE5DluIEaSVgf S076PLmoKjT2XCDvhpLk J4RwEIXomEskPtK5s6A0 Ab5JZDReTZ80JRA7 cVX2EB25KS59M8PoVkix dGFibGU+PHRhYmxlIHdp ZHRoPScxMDAlJyBzdHls BZ6iQx7dDYWqZUBv yPymfYGyYhTlv3diTTVc FJzyZF7vdGyjX7AvsRC2 TZGxb9t7Ny40K05aN1Jj dXA+BORseKZ5eNK1 fR0mDzDnYyC3QGvxI877 BcNhvPWhRsnfa5reu8js yYk7HhF5KIXtxaNapJbb JHT0l2CoPp88J13s IHdpZHRoPSIxNSUiIHZh hTonqp7xhS4rZj7+PGNv nUC1aQE5qX2kKfOhQcF1 HLzzJ612IjPglLPg Rukph2foa5uqlMr2KxZk GFGfniEiqWhkNJW9i6Fx Gc35L2YznBlyj1TnVcp7 qj00tZRyy7J0kPV0 N6VtGVVrfdixmDGwjSgg TX9qZLIssvdbMDPveC0s CPQzF3p4GcWfSoU3ISuh N0HlrhL7GBYtkNMz XMmbSHJ7F01th1G2LPNc KOJhGAU6fFZ8rV1fvJjl bjogbGVmdDsgdmVydGlj BRxmZYzwX596SUBy fGsyKWKkoI8pDSHftBEe yDjlZJ8oBTZniawoYp9C ZWUMYZQOEEYQW50OAzAk TTwvdGQ+PHRkIHN0 fBceLTzwSXWcqQ9qADJh H1z3KlWfPwP5GEfsI0Rw PZUywauqRj71tQ1hXqMi OdQ5VUwvE4RygyR6 BSGkyQTkMJhrAWI7G86l w8D2PIBfAEGmRMZ8lXZ6 pP8fcUqbwlcukXJqvZll dmVydGljYWwtYWxp L754OPNspMvdYfFxUmDl YuY4XRN8O4UwAgd1MXDw rJptND1ssSKbOXbsFh6q yZhlaOwwBM8qGIYm xrtkWDZjlV9rBRDrbGWv tQobBQ9yCLDpggxyd492 IoIeNUY7WMXbfONzV8Re pJ0vHlJvGXPqLEMo D2GlmXEuIYrdS031EVfu MdM6WLLxlwVsR3IjSGWc sLnbBwF9m2H5Um8mDEAB ZWFyczwvdGQ+PHRk ZZT5jQbfBEupJHOezO4t AQIhS7j5LaLeKeZ3TErg D5LvSGZerlixIe40mI1q JnXjAwJ2NKnwF4Uw apM3JSCviZYnZIjgYHX6 K89ik4G7IDXsMEPcRCC5 lPP1pJ6ndAnqxjntaVFo dDsgdmVydGljYWwt UCveO456PRIusAgsHoVf bWFsZTwvdGQ+PHRkIHN0 lToiYCjoUOWfiX4zYYNy Y7f1JzTtAjC1QSmy B5GzYBEatmopEx80fU3u BkAfIxJ4QFdxP8AudtS7 PKTsuAWfSSnzXMM8Q26l q0X1AHMpYMSjCJR8 jFW1hT4rxKqoyfiryKNq dDsgdmVydGljYWwtYWxp S127KRZvsKxhFh41zBDc sUdtetK0X0MlTeqi dHI+JA49RSYxFY94qJGs dOLiv5rnqYl7CgJqYOPl RDU8xLdgIKjvv3QcMTLj G77qhPAli1E2CRJq vXcvbODiBcRufRI6tK8s TLfihoznd7dwbqxnSryf e5huoi94vZ56O13sAMfd ZHRoPSIzMCUiIHZh iCtwju1orN2lJd9+PGNv mNM6qQN8gX0mTiMtOcZ1 EZkyL744BpSjtHJbYmqo w3zym6ooaKn5CpDr NPFzgbEomWqiKLY8i3Pk Yn41N83dPFtvAFLvPPFx UTHyOUNpxDykpw0taK4u Ii8+ND4tz2mikb42 mQ39nSA+DKWwKAW8xEfi BMkaWXNyvD9fWGodAgS5 NLJsNaZhlR10fMCtPWul Fw5lyIoevCnjUV3d JQIuqqeks388RuDvw5pq WZGtkRFgSJsoHBL5X11m k6R8VCWbQFXgRKV6wVC7 lK8shVudhmzxiWEg dDsgdmVydGljYWwtYWxp P148MKMvoCmcZsMjhIBl X2nxfkAMWZ5oSsghyLX+ TDIePGZ4wJdbDSwz IOObqG7qGWTnX5k1WmIx NqO2HJxrZ0FxshX8IXMh jBVyWPPuqFXHnW7qycsv m4xuisvxVdQkTVJb LVa9KFf9JTJqxKesTuCh XTA8ZdH4COU9fIJydH3x cDsbamipqY9bLdu+RklO OjwvdGQ+PHRkIHN0 tCwtMTahOXRdbB3dLTDa R3f2PwJlKsB6GRofP4Zr tuJ6TWOjkHIkQLUfjPHY mT8viicbi8vmbkir QtDaHESeGXn9CBp9UXPh gLguDzNpDGW0SaL0OYD9 pIWepL0jjNepovdrxN1n Oyc+TVJOOjwvdGQ+ HRHqOVT0mPopYTppDOQj dI6fSTGrP9m3OcVlVyO7 SSwnP3HojgC2TLRshLOs OAKjiWAAbO1klwix q5tcbwehQwKwFUTxDEk0 RJv6KPIgvGpvIeOlEWO9 FyZ3QQM8yBAnhG7lhYpb okcbfH7bIgz+UGF5 FPJ5BM86DX30P0WdSliu dGFibGU+PHRhYmxlIHdp ZHRoPScxMDAlJyBzdHls XA0qJr8cEVVsEFTf bGxh (more content not included)... Normal [facility] Consent for Treatmenton Consent for Treatment [id number] #1.00CD:127 Normal [facility] Free T4on 05-11-2022 Free T4 [Mass/Vol] 0.64 ng/dL Normal 0.58-1.64 [facility] Comment on above: Performed By: #### 2 [id number], 1258882, 1802072, 3516645, [id number], 4412545, 15175283, 7685606, 7491051 #### [facility] [address] [place] [address] HEMATOLOGYOrdered By: SYSTEM SYSTEM on 05-11-2022 Basophils/100 [...] 8.5 E9/L Normal 4.0 - 11.0 E9/L [facility] HemeAutoSS Physician Orderon 05-11-2022 Physician Order [id number]#1.00CD:127 Normal [facility] TSHon 05-11-2022 TSH Qn 2.11 m[IU]/L Normal 0.34-5.60 [facility] Comment on above: Performed By: #### 2 [id number], 8681844, 0317684, 4043748, [id number], 3277906, 72486541, 9978668, 1516973 #### [facility] [address] [place] [address] Vit B12on 05-11-2022 Cobalamin (Vitamin B12) [Mass/Vol] 364 pg/mL Normal 50-1500 [facility] Comment on above: Performed By: #### 2 [id number], 7846849, 6033996, 0744933, [id number], 9034762, 76529557, 1482552, 3737611 ####[facility] [address] [place] [address] Vitamin D 25 Hydroxyon 05-11 25-hydroxyvitamin D3 [Mass/Vol] 48.8 ng/mL Normal 30.0-100.0 [facility] Comment on above: Result Comment: Vit young D deficiency has been defined as a level of serum 25-OH vitamin D less than 20 ng/mL (1,2) by the [place] of [employer] and an Endocrine Society practice guideline. The Endocrine Society further defined vitamin D insufficiency as a level between 21 and 29 ng/mL (2). 1. IOM ([place] of Medicine). 2010. Dietary reference intakes for calcium and D. [place]: The National Academies Press. 2. Megan MF, Lay ATKINS, John VALERIO, et al. Evaluation, treatment, and prevention of vitamin D deficiency: an Endocrine Society clinical practice guideline. JCEM. 2010; 96 (7):1911-30. Performed By: #### 2 [id number], 9598965, 4042117, 9456365, [id number], 2256686, 79740269, 1620547, 1620251 #### [facility] [address] [place] [address] eGFRon 05-11-2022 GFR/1.73 sq M.predicted among blacks MDRD (S/P/Bld) [Vol rate/Area] mL/min/{1.73_m2} Normal >=59 [facility] Comment on above: Order Comment: Order added by Discern Expert. Result Comment: eGFR is race adjusted. AA=. Performed By: #### 2 357194, 6306792, 5950671, 4444517, 611035493, 7513307, 11119571, 4352116, 1829410 ####[facility] [address] [place] [address] GFR/1.73 sq M.predicted among non-blacks MDRD (S/P/Bld) [Vol rate/Area] mL/min/{1.73_m2} Normal >=59 [facility] Comment on above: Order Comment: Order added by Discern Expert. Result Comment: Embroidery Specialist zach kidney disease could be indicated at eGFR's of less than 60 mL/min/1.73m2. Kidney failure is indicated at less than 15 mL/min/1.73m2. Performed By: #### 2 887860, 9841322, 7167399, 2220320, 252457347, 0824513, 04240576, 0987451, 7336709 ####[facility] [address] [place] [address] CHEMISTRYOrdered By: SYSTEM SYSTEM on 05-06-2022 Progesterone [Mass/Vol] 1.10 ng/mL Invalid Interpretation Code [facility] Remisol Consent for Treatmenton Consent for Treatment [id number] #1.00CD:127 Normal [facility] Physician Orderon 05-06-2022 Physician Order [id number] #1.00CD:127 Normal [facility] Progesteroneon 05-06-2022 Progesterone [Mass/Vol] 1.10 ng/mL Invalid Interpretation Code [facility] Comment on above: Result Comment: REFE RENCE RANGE Males 0.14-2.06 ng/mL Non- Females Follicular 0.10-0.60 ng/mL Luteal 3.00-17.5 ng/mL Midluteal 3.30-18.6 ng/mL Post-Menopausal 0.10-0.40 ng/mL First Trimester 8.30-66.5 ng/mL Second Trimester 18.9-66.1 ng/mL Third Trimester 35.8-312.4 ng/mL Performed By: #### 2 [id number] #### [facility] [address] [place] [address] Family Medicine Office/Clini c Noteon 05-26-2021 Family [...] 30 day(s), 25 EA, Refill(s) 0, [facility], 158, cm, 05/26/21 15:24:00 EST, Height/Length Dosing, 58.4, kg, 05/26/21 15:24:00 EST, Weight Dosing predniSONE, 20 mg = 1 tab(s), Oral, As Directed, Take three tabs by mouth for 3 days, then two tabs for 3 days, then one tab for 3 days, X 2 week(s), # 18 tab(s), Refills(s) 0, Pharmacy: [facility], 158, cm, 05/26/21 15:24:00 EST, Height/Length Do... Follow-up With When Contact Information ERVIN LOCKWOOD, PHIL Hernadez, [facility] [address], [facility] [address] [place] [address]- Additional Instructions: Patient Education Asthma, Adult, Xxio-se-Llsq Problem List/Past Medical History Ongoing BMI 23.0-23.9, adult Historical No qualifying data Procedure/Surgical History None. Medications albuterol 0.083% Inh [place] 3 mL, 2.5 mg= 3 mL, Inhalation, q6hr, PRN Blisovi FE 06/23 oral tablet Flovent HFA 44 mcg/inh inhalation aerosol with adapter, 2 puff(s), Inhalation, BID, Not taking fluticasone 0.05 mg/inh Nasal [place], 2 spray(s), Nasal, Daily, PRN, Not taking [place] 0.65% Nasal [place], 2 spray(s), Nasal, QID, PRN, Not [...] lifetime) Tobacco (more content not included)... Normal [facility] Comment on above: Result Comment: Elec [...] pollute the air. These may include household home connect lpn, wood smoke, smog, or chemical odors. ? [...] you are not home. Use a vacuum lamp cleaner with a HEPA filter if possible. [...] and water are not available, use hand double surface operator. ? Do not allow anyone to smoke in your home. General instructions ? Take pqjy-yfb-fetmdnw and prescription medicines only as told by [...] not res (more content not included)... Normal [facility] Patient Letter FTon 2020 Patient Letter [facility] May 26, 2021 SHELLY ARIAS [address] [place] [phone] Please excuse SHELLY ARIAS from work . Date and/or Time of Absence: From: 05/26/21 May return to work on: next scheduled work day Restrictions: None Comments: Please excuse due to an acute illness. Provider Signature: Yue Chowdary, [employer] PILOT-JOINERY SETTER OUT, EMERGENCY WORKER-C Nurse Practitioner [address] [place] [address] [place] [address] [facility] Vital Signs Date Time Vital Sign Value Performing Clinician Facility 07-10-2023 09:38-0500 Body mass index (BMI) [Ratio] 30.79 kg/m2 Tayo Chaitanya DO Work Phone: [facility] 07-10-2023 09:38-0500 Body weight 78.83 kg Tayo Chaitanya DO Work Phone: [facility] 07-10-2023 09:38-0500 Diastolic blood pressure 80 mm[Hg] Tayo Chaitanya DO Work Phone: [facility] 07-10-2023 09:38-0500 Systolic blood pressure 112 mm[Hg] Tayo Chaitanya DO Work Phone: [facility] 07-14-2022 09:45-0500 Body height 153.67 cm Phil Ervin Other [facility] Other 07-14-2022 09:45-0500 Body mass index (BMI) [Ratio] 26.7 kg/m2 Phil Ervin Other [facility] Other 07-14-2022 09:45-0500 Body temperature 96 [degF] Phil Ervin Other [facility] Other 07-14-2022 09:45-0500 Body weight 63.05 kg Phil Ervin Other [facility] Other 07-14-2022 09:45-0500 Diastolic blood pressure 62 mm[Hg] Phil Ervin Other [facility] Other 07-14-2022 09:45-0500 Respiratory rate 16 /min Phil Ervin Other [facility] Other 07-14-2022 09:45-0500 SaO2% (BldA) [Mass fraction] 97 % Phil Ervin Other [facility] Other 07-14-2022 09:45-0500 Systolic blood pressure 98 mm[Hg] Phil Ervin Other [facility] Other 05-09-2022 12:45-0500 Body height 153.67 cm Phil Ervin Other [facility] Other 05-09-2022 12:45-0500 Body mass index (BMI) [Ratio] 26.12 kg/m2 Phil Ervin Other [facility] Other 05-09-2022 12:45-0500 Body temperature 97.9 [degF] Phil Ervin Other [facility] Other 05-09-2022 12:45-0500 Body weight 61.69 kg Phil Ervin Other [facility] Other 05-09-2022 12:45-0500 Diastolic blood pressure 82 mm[Hg] Phil Ervin Other [facility] Other 05-09-2022 12:45-0500 Respiratory rate 16 /min Phil Ervin Other [facility] Other 05-09-2022 12:45-0500 SaO2% (BldA) [Mass fraction] 98 % Phil Ervin Other [facility] Other 05-09-2022 12:45-0500 Systolic blood pressure 124 mm[Hg] Phil Ervin Other [facility] Other 09-05-2021 11:00-0400 Body height 153.67 cm Phil Ervin Other [facility] Other 09-05-2021 11:00-0400 Body mass index (BMI) [Ratio] 26.5 kg/m2 Phil Ervin Other [facility] Other 09-05-2021 11:00-0400 Body temperature 98.5 [degF] Phil Ervin Other [facility] Other 09-05-2021 11:00-0400 Body weight 62.6 kg Phil Ervin Other [facility] Other 09-05-2021 11:00-0400 Diastolic blood pressure 60 mm[Hg] Phil Ervin Other [facility] Other 09-05-2021 11:00-0400 Respiratory rate 16 /min Phil Ervin Other [facility] Other 09-05-2021 11:00-0400 SaO2% (BldA) [Mass fraction] 98 % Phil Ervin Other [facility] Other 09-05-2021 11:00-0400 Systolic blood pressure 96 mm[Hg] Phil Ervin Other [facility] Other Encounters Encounter Date Encounter Type Care Provider Facility Start: 07-10-2023 End: 07-10-2023 ambulatory TAYO CHAITANYA Not Available Start: 07-10-2023 End: 07-10-2023 flow sheet Tayo Chaitanya DO Work Phone: [facility] Comment on above: Third trimester preg ashleigh Start: 07-03-2023 End: 07-03-2023 ambulatory TAYO CHAITANYA Not Available Start: 06-26-2023 End: 06-26-2023 ambulatory TAOY CHAITANYA Not Available Start: 06-12-2023 End: 06-12-2023 ambulatory AARON ARIANE Not Available Start: 05-24-2023 End: 05-24-2023 ambulatory AARON ARIANE Not Available Start: 05-10-2023 End: 05-10-2023 ambulatory TAYO CHAITANYA Not Available Start: 11-06-2022 End: 11-06-2022 ambulatory Phil Ervin Other [facility] Other Start: 11-06-2022 Telephone encounter Phil Ervin [facility] Start: 09-22-2022 End: 09-23-2022 ambulatory TAYO CHAITANYA Facility: Start: 07-14-2022 End: 07-14-2022 ambulatory Phil Ervin Other [facility] Other Start: 07-14-2022 Office outpatient vi sit 25 minutes Phil Ervin [facility] Start: 07-14-2022 Telephone encounter Phil Ervin [facility] Start: 07-11-2022 End: 07-11-2022 ambulatory Phil Ervin Other [facility] Other Start: 07-11-2022 Telephone encounter Phil Ervin [facility] Start: 05-16-2022 End: 05-16-2022 ambulatory Phil Ervin Other [facility] Other Start: 05-16-2022 Telephone encounter Phil Ervin [facility] Start: 05-11-2022 End: 05-12-2022 ambulatory PHIL M ERVIN PROVIDER Facility:[facility] Start: 05-11-2022 End: 05-11-2022 Patient encounter procedure PHIL M ERVIN [facility] Start: 05-09-2022 End: 05-09-2022 ambulatory Phil Ervin Other [facility] Other Start: 05-09-2022 Office outpatient vi sit 15 minutes Phil Ervin [facility] Start: 05-06-2022 End: 05-07-2022 ambulatory PENOLA NELSON Facility:[facility] Start: 05-06-2022 End: 05-06-2022 Patient encounter procedure PENOLA NELSON [facility] Start: 05-02-2022 End: 05-02-2022 ambulatory Phil Ervin Other [facility] Other Start: 05-02-2022 Telephone encounter Phil Ervin [facility] Start: 11-29-2021 End: 11-29-2021 ambulatory Phil Ervin Other [facility] Other Start: 11-29-2021 Telephone encounter Phil Ervin [facility] Start: 09-09-2021 End: 09-09-2021 ambulatory Phil Ervin Other [facility] Other Start: 09-09-2021 Telephone encounter Phil Ervin [facility] Start: 09-06-2021 End: 09-06-2021 ambulatory Phil Ervin Other [facility] Other Start: 09-06-2021 Telephone encounter Phil Ervin [facility] Start: 09-05-2021 End: 09-05-2021 ambulatory Phil Ervin Other [facility] Other Start: 09-05-2021 Encounter for genera l adult medical examination without abnormal findings Phil Ervin [facility] Start: 09-05-2021 Periodic preventive med est patient 18-39 yrs Phil Ervin [facility] Start: 05-26-2021 End: 05-27-2021 ambulatory Yue CHOWDARY Facility:[facility] Procedures Date Procedure Procedure Detail Performing Clinician Start: 07-10-2023 Urnls dip stick/tabl et rgnt non-auto w/o micrscp Tayo Tavares DO Work Phone: None (qualifier value) JESUS NELSON Plan of Treatment Date Care Activity Detail Author Start: 07-17-2023 End: 07-17-2023 Patient encounter procedure 07/17/2023 8:30 AM EST Routine [facility] [address] [place] [address] Tayo Tavares, DO [address] [place] [address] [facility] Immunizations Immunization Date Immunization Notes Care Provider Fa cility 03-20-2021 COVID-19 Vaccine Pfizer - Documentation Purposes Only Phil Ervin Other [facility] Other 02-27-2021 COVID-19 Vaccine Pfizer - Documentation Purposes Only Phil Ervin Other [facility] Other NEGATED: Highlighted row has not occurred!12-17-2018 influenza, injectable, quadrivalent, contains preservative Patient Objection Phil Ervin Other [facility] Other NEGATED: Highlighted row has not occurred!07-14-2016 influenza, injectable, quadrivalent, contains preservative Patient Objection Phil Ervin Other [facility] Other Payers Date Payer Category Payer Unknown [employer] [id number] 2022-Present [address] [place] [address] [id number] 2021 Blue Cross Blue Shield [id number] 1993 Unknown [id number] 7 1993 Unknown [id number] [id number] 7 1993 Unknown [id number] [id number] 7 1993 Unknown [id number] [id number] 3 1993 Unknown [id number] [id number] 59 1993 Unknown [id number] [id number] 59 1993 Unknown [id number] [id number] 59 1993 Unknown [id number] [id number] 59 1993 Unknown [id number] [id number] 59 1993 Unknown [id number] [id number] 59 1959 Unknown [id number] Social History Date Type Detail Facility Unknown if ever smoked [facility] Other Start: 01-09-2023 End: 04-11-2023 Sex Assigned At [facility] Start: 05-26-2021 End: 01-09-2023 Tobacco smoking status Never smoked tobacco (finding) [facility] Tobacco smoking status Never [facility] Start: 01-09-2023 Tobacco use and exposure [...] Gender identity Identifies as female gender (finding) [facility] Clinical Notes 06-04-2014 to 07-10-2023 Marguerite Hawley, DRY CLEANER - 07/10/2023 9:30 AM EST Note Date [...] nursing note reviewed. Exam conducted with a managing attorney present. Vitals: Estimated body mass index is [...] Tayo Tavares DO documented in this encounter [facility] 07-14-2022 Evaluation note Encounter Date Diagnosis Assessment [...] is going to be seeing a different [facility], and I think this is certainly not unreasonable. [facility] Other 12-08-2022 Evaluation + Plan note Diagnostic Tests Pending * T3 Free 05/11/22 [facility]12-06-2022 Evaluation note* Encounter Date Diagnosis Assessment Notes Treatment Notes Treatment Clinical Notes May, Chronic fatigue (ICD-10 - R53.82) We will simply call patient with results of the blood work. Should all of this proved to be normal, she would just simply need to continue to follow-up with [facility]. May, Vitamin D deficiency (ICD-10 - E55.9) [facility] Other 06-28-2022 Evaluation note* Encounter Date Diagnosis Assessment Notes Treatment Notes Treatment Clinical Notes Nov, Asthma exacerbation (ICD-10 - J45.901) [facility] Other 04-05-2022 Evaluation note* Encounter Date Diagnosis Assessment Notes Treatment Notes Treatment Clinical Notes Sep, Asthma exacerbation (ICD-10 - J45.901) Sep, Folliculitis (ICD-10 - L73.9) [facility] Other 04-04-2022 Evaluation note* Encounter Date Diagnosis [...] Other No change today...Continue as is...FU PRN/Yearly... [facility] Other 01-01-2015 History general Narrative - Reported* Type Description Date Medical History 6 Weeks Premature Medical History Asthma Medical History ADD Surgical History cervical bx. from [facility] = Dr. Leyva 06/2014 Hospitalization History - Apnea [facility] Other Evaluation + Plan note No data available for this section [facility] InformationNortNew [email or web address] Other Evaluation note* Diagnosis Third trimester state, incidental documented in [facility] No data available for this section [facility] No data available for this section [facility] Summary Purpose Family History No Family History Records FoundNo Family History Records FoundNo Family History Records Found Advance Directives No Advanced Directives Records FoundNo Advanced Directives Records FoundNo Advanced Directives Records Found Additional Source Comments REASON FOR VISIT (unrecogniz ed section and content) Reason Comments Routine Visit Patient Care team informatio n (unrecognized section and content) License And Permit Specialist Relationship Specialty Start Date End Date Phil Mueller MD [address] [place] [phone] PCP - General Family Medicine 12/21/22 INFORMATION SOURCE (unrecogn ized section and content) DATE CREATED AUTHOR 05/17/2022 [facility] DATE CREATED AUTHOR AUTHOR'S ORGANIZ ATION 09/29/2022 [facility] DATE CREATED AUTHOR AUTHOR'S ORGANIZ ATION 07/11/2023 [facility] Specialists [facility] FOR RECORDS PERTAINING TO PATIENTS WHO [...] BE BASED ON THE PRIMARY CLINICAL RECORDS. [employer] [employer] [facility]. provides no warranty or guarantee of the accuracy or completeness of information in this document.
[2023-07-14] MEDS: 0.9 % SODIUM CHLORIDE 1,000 ML 125 ML IV ×2 (09:32→10:50)
[2023-07-14] MEDS: AMPICILLIN SODIUM 2,000 MG in 0.9 % SODIUM CHLORIDE 100 ML 200 MG IV (09:33)
[2023-07-14 09:37] LABS: Hematocrit 39.3 % (36.0-48.0); Mean Corpuscular HGB Conc 33.1 g/dL (29.9-35.2); Mean Corpuscular Hemoglobin 28.9 pg (26.7-34.0); Mean Corpuscular Volume 87.3 fL (81.0-99.0); Mean Platelet Volume 11.2 fL (9.5-13.5); Platelet Count 252 10^3/uL (150-450); Red Cell Distribution Width 14.1 % (11.0-15.0); White Blood Count 13.4 10^3/uL (4.0-11.0)
--- NOTE | 2023-07-14 10:20 | PM.OBHP ---
OB - H&P: HPI History of Present Illness Chief complaint: WATER BROKE : 1 Para: 0 Gestational age based on last menstrual period: GA 38.3 History of Present Dating criteria: LMP confirmed by 2nd trimester US care: good care Ultrasounds: normal mid trimester US complications comment: GBS POSITIVE Medical complications OB: none PFSH PFSH Social History Smoking status: Never smoker Meds Home Medications and Allergies Home Medications Medication Instructions Recorded Confirmed Type cephalexin 500 mg capsule 500 mg PO BID 12/08/22 12/08/22 History ondansetron 4 mg disintegrating 4 mg PO TID-QID PRN nausea and 12/08/22 12/08/22 History tablet vomiting Allergies Allergy/AdvReac Type Severity Reaction Status Date / Time No Known Drug Allergies Allergy Verified 12/08/22 12:45 Exam Constitutional Vital Signs, click to edit/add: Last Vital Signs Temp 96.6 F L 07/14/23 09:21 Pulse 87 07/14/23 10:17 BP 107/60 07/14/23 10:17 Results Labs Labs: Short CBC 07/14/23 Range/Units 09:27 WBC 13.4 H (4.0-11.0) 10^3/uL Hgb 13.0 (12.0-16.0) g/dL Hct 39.3 (36.0-48.0) % Plt Count 252 (150-450) 10^3/uL
--- NOTE | 2023-07-14 10:26 | P.OBHP_ITS ---
OB - H&P: HPI History of Present Illness Chief complaint: WATER BROKE : 1 Para: 0 Date of last menstrual period: 10/16/22 Gestational age based on last menstrual period: 38.3 Comments: SROM CLEAR AT 7 AM, GBS POSITIVE History of Present Dating criteria: LMP confirmed by 1st trimester US care: none complications comment: GBS POSITIVE Labs Blood type: A (-) negative Rubella: immune RPR/VDLR: nonreactive GBS status: positive HBsAG: negative Review of Systems ROS Status of ROS: 10 or more systems reviewed and unremarkable except as noted in history and below [facility] Social History Smoking status: Never smoker Meds Home Medications and Allergies Home Medications Medication Instructions Recorded Confirmed Type cephalexin 500 mg capsule 500 mg PO BID 12/08/22 12/08/22 History ondansetron 4 mg disintegrating 4 mg PO TID-QID PRN nausea and 12/08/22 12/08/22 History tablet vomiting Allergies Allergy/AdvReac Type Severity Reaction Status Date / Time No Known Drug Allergies Allergy Verified 12/08/22 12:45 Exam Narrative Exam Narrative: COMFORTABLE WITH SPINAL Constitutional Vital Signs, click to edit/add: Last Vital Signs Temp 96.6 F L 07/14/23 09:21 Pulse 87 07/14/23 10:17 BP 107/60 07/14/23 10:17 Documenting provider has reviewed patient's vital signs: yes Common normals: no apparent distress, oriented x3, alert and well nourished [facility] Common normals: normocephalic and head/scalp atraumatic Eye Pupil: PERRL and accommodation reflex normal Neck & C-Spine Common normals: full ROM Respiratory Common normals: normal respiratory effort Cardio Common normals: regular rate and regular rhythm GI Common normals: Normal to inspection, nondistended, normoactive bowel sounds present, soft to palpation and non-tender Common normals: no CVA tenderness Back & Pelvis Common normals: thoracic and lumbar spine normal to inspection and no thoracic nor lumbar tenderness Extremity Common normals: full ROM and no calf tenderness Neuro Common normals: CN's II-XII intact bilaterally, moves all extremities, no focal motor deficits and no sensory deficits noted Psych Common normals: mental status grossly normal, cooperative, affect normal and activity/motor behavior normal Results Labs Labs: Short CBC 07/14/23 Range/Units 09:27 WBC 13.4 H (4.0-11.0) 10^3/uL Hgb 13.0 (12.0-16.0) g/dL Hct 39.3 (36.0-48.0) % Plt Count 252 (150-450) 10^3/uL OB - A/P Assessment and Plan (1) Normal labor: Assessment and Plan: PRIMIP, 38.3, SROM CLEAR AT 7 AM, GBS POSITIVE, RECEIVED ONE DOSE PCN, CAT I TRACING, VEGA IN, COMFORTABLE WITH SPINAL (2) GBS (group B Streptococcus carrier), +RV culture, currently : Assessment and Plan: RECEIVED ONE DOSE PCN BEFORE DELIVERY Plan EXPECTANT MANAGEMENT FOR VAGINAL DELIVERY
[2023-07-14 10:57] LABS: Amphetamine Screen Urine NEGATIVE (NEGATIVE); Barbiturates Screen Urine NEGATIVE (NEGATIVE); Benzodiazepines Screen Urine NEGATIVE (NEGATIVE); Buprenorphine Screen Urine NEGATIVE (NEGATIVE); Cannabinoid Screen Urine NEGATIVE (NEGATIVE); Cocaine Screen Urine NEGATIVE (NEGATIVE); Methadone Screen Urine NEGATIVE (NEGATIVE); Methamphetamines Screen Urine NEGATIVE (NEGATIVE); Opiate Screen Urine NEGATIVE (NEGATIVE); Oxycodone Screen Urine NEGATIVE (NEGATIVE); Phencyclidine Screen Urine NEGATIVE (NEGATIVE); Tricyclic Antidepressant Urine NEGATIVE (NEGATIVE)
[2023-07-14] MEDS: OXYTOCIN/0.9 % SODIUM CHLORIDE 10 UNITS/500 ML PLAST..BAG 18 UNIT IV (13:17)
[2023-07-14] MEDS: AMPICILLIN SODIUM 1,000 MG in 0.9 % SODIUM CHLORIDE 50 ML 100 MG IV (13:33)
--- NOTE | 2023-07-14 14:46 | PM.OBPN ---
OB - PN: Subj Subjective Interval history: HAS PROGRESSED QUICKLY FOR A PRIMIP TO COMPLETE DILATION BUT AT ZERO STATION TWO HOURS AGO. SUSPECT POSTERIOR PRESENTATION SPINAL STILL EFFECTIVE. STARTED PITOCIN AT 6 MIU. Patient comments: no complaints Exam Constitutional Vital Signs, click to edit/add: Last Vital Signs Temp 97.5 F L 07/14/23 10:50 Pulse 99 H 07/14/23 14:39 Resp 16 07/14/23 10:50 BP 141/68 07/14/23 14:39 Documenting provider has reviewed patient's vital signs: yes Common normals: no apparent distress HENMT Common normals: normocephalic and head/scalp atraumatic Eye Common normals: PERRL Respiratory Common normals: normal respiratory effort Cardio Common normals: regular rate and regular rhythm GI Common normals: soft to palpation and non-tender Common normals: no CVA tenderness Manual OB Exam: dilated 10 cm, effaced fully, station 0 and other (SUSPECT POSTERIOR) Amniotic Fluid: clear Back & Pelvis Common normals: thoracic and lumbar spine normal to inspection Extremity Common normals: full ROM and no calf tenderness Neuro Common normals: CN's II-XII intact bilaterally, moves all extremities, no focal motor deficits and no sensory deficits noted Psych Common normals: mental status grossly normal, cooperative and affect normal Results Labs Labs: Short CBC 07/14/23 Range/Units 09:27 WBC 13.4 H (4.0-11.0) 10^3/uL Hgb 13.0 (12.0-16.0) g/dL Hct 39.3 (36.0-48.0) % Plt Count 252 (150-450) 10^3/uL OB - PN: A/P Assessment and Plan (1) Normal labor: (2) GBS (group B Streptococcus carrier), +RV culture, currently : (3) Occipito-posterior presentation at : Assessment and Plan: SUSPECT POSTERIOR PRESENTATION , WILL LOOK FOR ONE CM OF DESCENT IN NEXT HOUR WITH ADEQUATE CONTRACTIONS WHICH WILL REQUIRE PITOCIN AUGMENTATION STARTING AT 6 MIU Plan START PITOCIN AT 6 MIU TO ESTABLISH ADQUATE CONTRACTION PATTERN, CHECK IN ONE HOUR, DISCUSS SITUATION WITH PERSONNEL RESEARCH PSYCHOLOGIST SPINAL WILL SOON BE REACHING LIMIT OF EFFICACY, (ANTICIPATED QUICK DELIVERY WHEN PLACED). WILL NEED TO GIVE EPIDURAL EITHER TO FACILITATE LABOR AND DELIVERY OR SECTION IF THERE IS FAILURE TO DESCEND. INDICATIONS FOR PRIMARY LTCS B EXPLAINED TO PATIENT AND THE FOB. ALL QUESTIONS WERE ANSWERED WITH STATED UNDERSTANDING. Time Spent with Patient Time: Total time spent is greater than 50% in coordination of care (as documented) at patient's floor/unit and/or counseling patient: Total time spent with greater than 50% in coordination of care (as documented) at patient's floor/unit and/or counseling patient: less than 15 minutes
[2023-07-14] MEDS: CEFAZOLIN SODIUM/DEXTROSE,ISO 2 GM/50 ML PIGGYBACK IV (17:20)
[2023-07-14] MEDS: METOCLOPRAMIDE HCL 10 MG/2 ML VIAL IVP (17:30)
[2023-07-14] MEDS: FAMOTIDINE/PF 20 MG/2 ML VIAL IV (17:30)
[2023-07-14] MEDS: CITRIC ACID/SODIUM CITRATE 30 ML SOLUTION ORACIT SHOHL'S SOLN PO (17:30)
[2023-07-14] MEDS: BUPIVACAINE LIPOSOME/PF 266 MG/13.3 ML VIAL INJ (18:27)
[2023-07-14] MEDS: WATER FOR INJECTION, STERILE 20 ML VIAL 40 ML INJ (18:28)
[2023-07-14] MEDS: LACTATED RINGER'S SOLUTION 1,000 ML 50 ML IV (18:28)
[2023-07-14] MEDS: BUPIVACAINE HCL 0.5% PF 50 MG/10 ML VIAL 20 ML INJ (18:28)
--- NOTE | 2023-07-14 18:48 | PM.OBPRCCS ---
Procedure Pre-op/Post-op diagnoses: Pre-Op/Post-Op Diagnoses Operation Date: 07/14/23 17:30 <No data on this case meets the specified criteria> Procedure: Procedures Operation Date: 07/14/23 17:30 Actual Procedure Side Surgeon p Not Applicable Minerva Bowser MD Sales Assistant: Rianna Bob Estimated blood loss (mL): 400 Disposition: floor Anesthesia type: Epidural Complications: none
[2023-07-14] MEDS: OXYTOCIN/0.9 % SODIUM CHLORIDE 20 UNITS/1,000 ML PLAST..BAG 125 UNIT IV (19:51)
--- NOTE | 2023-07-14 19:52 | PC.NURSE ---
Pericare given with clean chux and diaper applied; no active vaginal drainage noted; old pad and diaper with medium amount bloody drainage without clots
--- NOTE | 2023-07-14 19:55 | PC.NURSE ---
Recovered in FBC; pt shivering; denies feeling cold
[2023-07-15] VITALS (10 sets, daily range): BP systolic 112–128; BP diastolic 73–83; PULSE 81–103; RESP 12–16; TEMP 36.4–36.7; O2SAT 97
[2023-07-15] MEDS: KETOROLAC TROMETHAMINE 30 MG/ML VIAL IVP ×3 (00:02→13:08)
[2023-07-15] MEDS: CEFAZOLIN SODIUM/DEXTROSE,ISO 2 GM/50 ML PIGGYBACK IV (00:07)
[2023-07-15 05:53] LABS: Hemoglobin 9.5 g/dL (12.0-16.0); Mean Corpuscular HGB Conc 31.7 g/dL (29.9-35.2); Mean Corpuscular Hemoglobin 29.1 pg (26.7-34.0); Mean Platelet Volume 9.9 fL (9.5-13.5); Platelet Count 227 10^3/uL (150-450); Red Blood Count 3.26 10^6/uL (4.20-5.40); Red Cell Distribution Width 14.5 % (11.0-15.0); White Blood Count 20.7 10^3/uL (4.0-11.0)
[2023-07-15] MEDS: ACETAMINOPHEN 500 MG TABLET 1000 MG PO ×3 (06:18→23:02)
[2023-07-15 06:21] LABS: Band Neutrophils Absolute 0.6 10^3/uL (0.0-0.3); Lymphocytes Absolute Manual 3.31 10^3/uL (1.20-3.80); Monocytes Absolute Manual 1.03 10^3/uL (0.30-0.80); Segmented Neut Absolute Manual 15.73 10^3/uL (1.4-6.5)
[2023-07-15] MEDS: RHO(D) IMMUNE GLOBULIN 1,500 UNIT SYRINGE 1500 UNIT IV (09:06)
[2023-07-15] MEDS: DOCUSATE SODIUM 100 MG CAPSULE PO ×2 (09:20→20:39)
[2023-07-15] MEDS: ENOXAPARIN SODIUM 40 MG/0.4 ML SYRINGE SUBQ (09:20)
--- NOTE | 2023-07-15 13:13 | PM.OBPN ---
OB - PN: Subj Subjective Interval history: HAS PROGRESSED QUICKLY FOR A PRIMIP TO COMPLETE DILATION BUT AT ZERO STATION TWO HOURS AGO. SUSPECT POSTERIOR PRESENTATION SPINAL STILL EFFECTIVE. STARTED PITOCIN AT 6 MIU. Patient comments: no complaints, pain well controlled and flatus present infant status: doing well and well feeding status: exclusively Exam Narrative Exam Narrative: NO COMPLAINTS, HAPPY Constitutional Vital Signs, click to edit/add: Last Vital Signs Temp 97.9 F 07/15/23 09:47 Pulse 88 07/15/23 09:47 Resp 16 07/15/23 09:47 BP 127/73 07/15/23 09:47 Pulse Ox 97 07/15/23 05:30 O2 Del Method Room Air 07/15/23 05:30 Documenting provider has reviewed patient's vital signs: yes Common normals: no apparent distress, oriented x3, healthy appearing, alert and well nourished HENMT Common normals: normocephalic and head/scalp atraumatic Eye Pupil: PERRL and accommodation reflex normal Neck & C-Spine Common normals: full ROM Respiratory Common normals: normal respiratory effort Cardio Common normals: regular rate and regular rhythm GI Common normals: Normal to inspection, nondistended, normoactive bowel sounds present, soft to palpation and non-tender Common normals: no CVA tenderness Back & Pelvis Common normals: thoracic and lumbar spine normal to inspection Extremity Common normals: normal to inspection and no calf tenderness Neuro Common normals: CN's II-XII intact bilaterally, moves all extremities, no focal motor deficits and no sensory deficits noted Psych Common normals: mental status grossly normal, thought process normal, cooperative and affect normal Results Labs Labs: Short CBC 07/15/23 Range/Units 05:47 WBC 20.7 H (4.0-11.0) 10^3/uL Hgb 9.5 L (12.0-16.0) g/dL Hct 30.0 L (36.0-48.0) % Plt Count 227 (150-450) 10^3/uL Urinary Catheter Management Urinary Catheter Management Urethral: Cath placed during this visit: yes, but has since been removed by the nurse Removal date: 07/15/23 Removal time: 06:00 2-way Urethral: Cath placed during this visit: yes Urethral indwelling: No Insertion date: 07/14/23 OB - PN: A/P Assessment and Plan (1) GBS (group B Streptococcus carrier), +RV culture, currently : (2) Occipito-posterior presentation at : (3) CPD (cephalo-pelvic disproportion): Assessment and Plan: PPD POD ONE S/P PRIMARY CS FOR CPD. DOING WELL. ATTEMPTED VACUUM EXTRACTION (OUTLET) TIMES THREE WITH GENTLE TRACTION AFTER CUTTING EPISIOTOMY MIDLINE BY UNSUCCESSFUL. HEALTHY BABY BORN BY CS. Qualifiers: Cephalopelvic disproportion type: mixed maternal and factors Fetus number: single or unspecified fetus Qualified Code(s): O33.4XX0 - Maternal care for disproportion of mixed maternal and origin, not applicable or unspecified Plan EXPLAINED TO PATIENT THAT THOUGH BABY NOT LARGE, THAT THE POSITION OF THE BABY WAS SUCH THAT BABY COULD NOT FIT THROUGH PELVIC OUTLET. THIS WAS DETERMINED IN OPERATION WHEN THE LIE OF THE BABY'S BODY COULD BE SEEN. THIS WAS WHY VACUUM UNSUCCESSFUL. EXPLAINED THAT PATIENT NOT A GOOD CANDIDATE FOR LIKELY NOT TO BE SUCCESSFUL. Plan - day: 1 Plan: routine postop care Time Spent with Patient Time: Total time spent is greater than 50% in coordination of care (as documented) at patient's floor/unit and/or counseling patient: Total time spent with greater than 50% in coordination of care (as documented) at patient's floor/unit and/or counseling patient: less than 15 minutes
--- NOTE | 2023-07-15 13:31 | P.OBPRC_ITS ---
Procedure Pre-op/Post-op diagnoses: Pre-Op/Post-Op Diagnoses Operation Date: 07/14/23 17:30 <No data on this case meets the specified criteria> Procedure: Procedures Operation Date: 07/14/23 17:30 Actual Procedure Side Surgeon p Not Applicable Minerva Bowser MD Narrative: THE PATIENT PROGRESSED TO COMPLETE DILATION WITHOUT PITOCIN. ONCE COMPLETE, THE PATIENT BEGAN PUSHING WHICH SHE DID FOR NEARLY TWO HOURS. SHE WAS ABLE TO BRING THE BABY TO + 3 STATION. POSITION WAS OP. PATIENT HAS ASTHMA AND PUSHING NOW BECAME DIFFICULT FOR HER DUE TO HER ASTHMA. A MIDLINE EPISIOTOMY WAS CUT AND THE VACUUM WAS ATTACHED OVER THE MIDLINE ANTERIOR TO THE POSTERIOR FONTANELLY AND POSTERIOR TO THE ANTERIOR FONTANELLE BUT AFTER THIRD GENTLY TRACTION, THE HEAD WOULD NOT MOVE. THE NURSE WAS INSTRUCTED TO CALL A B CS. THE EPISIOTOMY WAS REPAIRED IN LAYERS WITH 2-0 VICRYL WITHOUR PROBLEM. THE PATIENT WAS BROUGHT TO THE OR AND HERE EPIDURAL WAS DOSED APPROPRIATELY FOR A CS. IN THE OR THE PATIENT WAS PREPPED AND DRAPED. TIME OUT WAS PERFORMED. A LOW TRANSVERSE INCISION WAS MADE THREE FINGERBREADTHS ABOVE THE PUBIC SYMPHYSIS BONE. THIS INC ISION WAS CARRIED DOWN TO THE FASCIA. THE FASCIA WAS INCISED WITH THE SCALPLE AND THIS INCISION WAS WIDENED TO THE FULL EXTENT OF THE SKIN INCISION WITH THE RÍOS SCISSORS. THE INFERIOR AND POSTERIOR BORDERS OF THE FASCIA WERE DISSECTED FROM THE MUSCLE WITH BOVIE ON CUTTING CURRENT (40) AND BLUNT DISSECTION. THE MUSCLE WAS IN THE MIDLINE, PERITONEUM ID'D AND BLUNTING OPENED ABOVE THE BLADDER WITH THE CURVED HEMOSTAT. THIS OPENING WAS MANUALLY WIDENED. THE PERITONEAL FLAP WAS DEVELOPED WITH THE SCALPEL AND CURVED JERRY SCISSORS. THE BLADDER BLADE WAS POSITIONED. THE ANA WAS ENCISED TWO INCHES AND THIS OPENING MANUALLY WIDENED. THE RIGHT HAND OF THE SURGEON WAS PLACED AROUND THE VERTEX WHICH HAD TO BE ELEVATED OUT OF VAGINAL VAULT AND THEN EASILY DELIVERED WITH GENTLE FUNDAL PRESSURE. NO NUCHAL CORD. THE SHOULDERS AND TORSO THEN EASILY DELIVERED. BABY WAS CRYING AND HANDED OFF TO THE RN IN CHARGE OF CARE AFTER UMBILICAL CORD DOUBLY CLAMPED AND CUT. CORD BLOODS WERE OBTAINED. THE PLACENTA WAS DELIVERED IN INTACT AND NOT SENT TO PATHOLOGY. THE UTERUS WAS DELIVERED AND THE HYSTEROTOMY REPAIRED IN A SINGLE LAYER WITH LOCKED 0 VICRYL. EXCELLENT HEMOSTASIS WAS OBSERVED. HEMOSTATIC COLLAGEN WAS SPRINKLED OVER CLOSURE. LAP SPONGE, NEEDLE AND INSTRUMENT COUNT WERE CORRECT TIMES TWO. PRIOR TO CLOSING THE FASCIA THE PELVIS WAS IRRIGATED WITH WARM SALINE AND ALL CLOTS REMOVED. THE SUBCU TISSUE WAS CLOSED WITH 3 - 0 VICRYL. THE SKIN WAS CLOSED WITH 4 - 0 VICRYL USING SUBCUTICULAR CLOSURE. THE FINAL COUNTS WERE CORRECT. THE URINE REMAIN SLIGHTLY BLOOD TINGED IT WAS PRIOR TO CS. THE PATIENT WAS TRANSPORTED BACK TO [facility] FOR [facility] IN HYMODYNAMICALLY STABLE CONDITION.
[2023-07-15] MEDS: IBUPROFEN 400 MG TABLET 800 MG PO (20:39)
[2023-07-16] MEDS: IBUPROFEN 400 MG TABLET 800 MG PO ×3 (04:32→21:10)
[2023-07-16] MEDS: ACETAMINOPHEN 500 MG TABLET 1000 MG PO ×2 (06:09→14:17)
[2023-07-16 09:04] VITALS: BP 124/82
[2023-07-16 09:15] VITALS: RESP 18; TEMP 36.9
[2023-07-16] MEDS: ENOXAPARIN SODIUM 40 MG/0.4 ML SYRINGE SUBQ (09:31)
[2023-07-16] MEDS: DOCUSATE SODIUM 100 MG CAPSULE PO ×2 (09:31→21:10)
--- NOTE | 2023-07-16 12:00 | P.OBPN_ITS ---
OB - PN: Subj Subjective Interval history: HAS PROGRESSED QUICKLY FOR A PRIMIP TO COMPLETE DILATION BUT AT ZERO STATION TWO HOURS AGO. SUSPECT POSTERIOR PRESENTATION SPINAL STILL EFFECTIVE. STARTED PITOCIN AT 6 MIU. Patient comments: no complaints and pain well controlled [place] status: doing well Exam Constitutional Vital Signs, click to edit/add: Last Vital Signs Temp 98.4 F 07/16/23 09:15 Pulse 83 07/15/23 22:54 Resp 18 07/16/23 09:15 BP 112/73 07/15/23 22:54 Pulse Ox 97 07/15/23 05:30 O2 Del Method Room Air 07/15/23 22:54 Documenting provider has reviewed patient's vital signs: yes Common normals: no apparent distress Respiratory Common normals: clear to auscultation bilaterally Cardio Common normals: regular rate and regular rhythm GI Common normals: Normal to inspection, nondistended, normoactive bowel sounds present Extremity Common normals: no calf tenderness Urinary Catheter Management Urinary Catheter Management Urethral: Cath placed during this visit: yes, but has since been removed by the nurse Removal date: 07/15/23 Removal time: 06:00 2-way Urethral: Cath placed during this visit: yes Urethral indwelling: No Insertion date: 07/14/23 OB - PN: A/P Assessment and Plan (1) GBS (group B Streptococcus carrier), +RV culture, currently : (2) Occipito-posterior presentation at : (3) CPD (cephalo-pelvic disproportion): Qualifiers: Cephalopelvic disproportion type: mixed maternal and factors Fetus number: single or unspecified fetus Qualified Code(s): O33.4XX0 - Maternal care for disproportion of mixed maternal and origin, not applicable or unspecified Plan - day: 2 Plan: routine postop care Time Spent with Patient Time: Total time spent is greater than 50% in coordination of care (as documented) at patient's floor/unit and/or counseling patient: Total time spent with greater than 50% in coordination of care (as documented) at patient's floor/unit and/or counseling patient: less than 15 minutes
[2023-07-16 15:48] VITALS: BP 113/75
[2023-07-16 16:46] VITALS: RESP 16
[2023-07-17 01:00] VITALS: BP 126/74; PULSE 82; RESP 16; TEMP 36.8; O2SAT 97
[2023-07-17] MEDS: ACETAMINOPHEN 500 MG TABLET 1000 MG PO (05:04)
--- NOTE | 2023-07-17 07:48 | PM.OBPN ---
OB - PN: Subj Subjective Interval history: HAS PROGRESSED QUICKLY FOR A PRIMIP TO COMPLETE DILATION BUT AT ZERO STATION TWO HOURS AGO. SUSPECT POSTERIOR PRESENTATION SPINAL STILL EFFECTIVE. STARTED PITOCIN AT 6 MIU. Patient comments: no complaints and pain well controlled [place] status: doing well and well Exam Constitutional Vital Signs, click to edit/add: Last Vital Signs Temp 98.3 F 07/17/23 01:00 Pulse 82 07/17/23 01:00 Resp 16 07/17/23 01:00 BP 126/74 07/17/23 01:00 Pulse Ox 97 07/17/23 01:00 O2 Del Method Room Air 07/17/23 01:00 Documenting provider has reviewed patient's vital signs: yes Common normals: no apparent distress and oriented x3 General appearance: cooperative and comfortable Orientation/consciousness: Yes awake, Yes oriented to person, Yes oriented to place and Yes oriented to time HENMT Common normals: normocephalic Eye Common normals: EOMs intact bilaterally General eye: normal appearance of both eyes Neck & C-Spine Common normals: full ROM and no lymphadenopathy Lymph Lymphatic: no lymphadenopathy noted Chest Common normals: inspection of chest normal Respiratory Common normals: normal respiratory effort Cardio Common normals: regular rate and regular rhythm Rate: regular rate Rhythm: regular rhythm GI Common normals: Normal to inspection, nondistended, normoactive bowel sounds present and non-tender Inspection: normal to inspection Auscultation: normoactive bowel sounds Palpation: soft Common normals: no CVA tenderness Back & Pelvis Common normals: no CVA tenderness Extremity Common normals: normal to inspection and full ROM Neuro Common normals: oriented x3 and moves all extremities Sensorium/orientation: awake, alert, oriented to person, oriented to place and oriented to time Speech: speech normal Psych Common normals: mental status grossly normal, thought process normal, cooperative and speech normal Attitude: calm Speech: normal speech Thought process: normal thought process Urinary Catheter Management Urinary Catheter Management Urethral: Cath placed during this visit: yes, but has since been removed by the nurse Removal date: 07/15/23 Removal time: 06:00 2-way Urethral: Cath placed during this visit: yes Urethral indwelling: No Insertion date: 07/14/23 OB - PN: A/P Assessment and Plan (1) GBS (group B Streptococcus carrier), +RV culture, currently : (2) Occipito-posterior presentation at : (3) CPD (cephalo-pelvic disproportion): Qualifiers: Cephalopelvic disproportion type: mixed maternal and factors Fetus number: single or unspecified fetus Qualified Code(s): O33.4XX0 - Maternal care for disproportion of mixed maternal and origin, not applicable or unspecified Time Spent with Patient Time: Total time spent is greater than 50% in coordination of care (as documented) at patient's floor/unit and/or counseling patient: Total time spent with greater than 50% in coordination of care (as documented) at patient's floor/unit and/or counseling patient: less than 15 minutes
[2023-07-17] MEDS: DOCUSATE SODIUM 100 MG CAPSULE PO (08:52)
[2023-07-17] MEDS: ENOXAPARIN SODIUM 40 MG/0.4 ML SYRINGE SUBQ (08:52)
[2023-07-17] MEDS: IBUPROFEN 400 MG TABLET 800 MG PO (08:54)
[2023-07-17 09:30] VITALS: BP 122/70; PULSE 80; RESP 16; TEMP 36.3
--- NOTE | 2023-07-17 13:59 | PC.NURSE ---
0855 07/17/2023 LC into room, baby crying, mom holds baby at breast, no active attempt to latch baby. Dad asleep on couch. Mom moved to rocking chair, and placed in cross cradle hold. With soothing and expression of colostrum baby latches after several attempts. Baby relaxes with feed and maintains latch. Continues to suckle, swallows are soft, audible with stethoscope with every other suck. Baby remains latched for 20 min. Moved to private room with recliner for 2nd breast and demo of laid back position. Baby reflexively flexes head back, large gape and deep latch at breast noted. Parents pleased with position and will try next feed. Much education completed on positioning and deep latch. Father very attentive and mom tired but tries to listen well. REturns to room after feed finished.
--- NOTE | 2023-07-17 14:14 | PC.NURSE ---
1145 Mother walking in hallway, reminded to feed baby every 2-3 hours (3 hours begins at 12 noon) To prep for feeding and get to baby prior to baby crying and feeds may go better. Verbalized understanding. To room into chair, and places baby in arms attempts to latch cross cradle, baby immediately cries and arches away. Up and to private room to use recliner again. Able to latch baby with minimal assistance, mostly verbal encouragement from LC. very encouraging and supportive. Nurses 12 min and begins to sleep, mom removed from breast and tries to latch at second breast. Minimal hands on assistance from LC needed. Dad helpful, LC demo's hand placement for tipping nipple up towards roof of mouth. Parents work well together for latch and feed. Baby nursed close to 20 minutes. Quiet and content after feed. Parents recognize change in demeanor of baby after good feeding .. BF handouts and instructions reviewed, mom verbalized understanding.
--- NOTE | 2023-09-09 10:58 | P.DS_ITS ---
DS: Providers Provider Date of admission: 07/14/23 09:10 Primary care physician: GEETA BARRIOS Consults: 07/14/23 Consult to Anesthesiology Routine Consulting Provider: Kobe Lopes II Reason for consultation: EPIDURAL Has provider been notified: No Attending physician on discharge: CAYLA GRAVES Discharging clinician: CAYAL GRAVES Anticipated date of discharge: 07/17/23 DS: Diagnosis Discharge Diagnosis (1) GBS (group B Streptococcus carrier), +RV culture, currently : (2) Occipito-posterior presentation at : (3) CPD (cephalo-pelvic disproportion): Qualifiers: Cephalopelvic disproportion type: mixed maternal and factors Fetus number: single or unspecified fetus Qualified Code(s): O33.4XX0 - Maternal care for disproportion of mixed maternal and origin, not applicable or unspecified OB - DS: Summary Peripartum Data - Procedures: Procedures Operation Date: 07/14/23 17:30 Actual Procedure Side Surgeon p Not Applicable Minerva Bowser MD Peripartum Data - Vaginal Delivery Procedures: Procedures Operation Date: 07/14/23 17:30 Actual Procedure Side Surgeon p Not Applicable Minerva Bowser MD Complications complications: none Delivery method: section Discharge plan: home Time Spent with Patient Time attestation: Total time spent providing and/or coordinating discharge services: Time spent: less than 30 minutes Exam Constitutional Vital Signs, click to edit/add: Last Vital Signs Temp 97.4 F L 07/17/23 09:30 Pulse 80 07/17/23 09:30 BP 122/70 07/17/23 09:30 Pulse Ox 97 07/17/23 01:00 O2 Del Method Room Air 07/17/23 01:00 Documenting provider has reviewed patient's vital signs: yes Common normals: no apparent distress HENMT Common normals: normocephalic Eye Common normals: EOMs intact bilaterally Neck & C-Spine Common normals: full ROM Lymph Lymphatic: no lymphadenopathy noted Chest Common normals: inspection of chest normal Respiratory Common normals: normal respiratory effort, no use of accessory muscles and clear to auscultation bilaterally Cardio Common normals: regular rate and regular rhythm Rate: regular rate Rhythm: regular rhythm GI Common normals: Normal to inspection, nondistended, normoactive bowel sounds present Inspection: normal to inspection Common normals: external appearance normal Back & Pelvis Common normals: no CVA tenderness Thoracic spine/upper back: normal to inspection Extremity Common normals: normal to inspection and full ROM Neuro Common normals: oriented x3 and moves all extremities Sensorium/orientation: awake, alert, oriented to person, oriented to place and oriented to time Psych Common normals: mental status grossly normal Appearance: grossly normal Discharge Plan Discharge Disposition: Home, Self-Care Condition: Good Discharge Medications: New oxycodone-acetaminophen 5-325 mg Tablet 1 tab PO Q8H PRN (Reason: Pain Scale 4-6) 7 Days Qty: 20 0RF ibuprofen 400 mg Tablet 800 mg PO Q8H 30 Days Qty: 60 1RF docusate sodium 100 mg Capsule 100 mg PO BID 30 Days Qty: 60 0RF Continued albuterol inhaler 1 puff inhalation PRN (Reason: asthma) Print Language: Tamazight Forms: Portal Instructions Discharge Date/Time: 07/17/23 14:00
== END 2023-07-17 14:00 | disposition home or self-care (01) | DRG 788 ==
PROVIDERS: Admitting Provider Obstetrics & Gynecology; PCP Family Medicine; Visit Provider Obstetrics & Gynecology
PROC: (CPT 59514; principal; 2023-07-14 17:30)
DX: O33.4XX0 Maternal care for disproportion of mixed maternal and fetal origin, not applicable or unspecified (principal); O64.0XX0 Obstructed labor due to incomplete rotation of fetal head, not applicable or unspecified; O42.92 Full-term premature rupture of membranes, unspecified as to length of time between rupture and onset of labor; O66.5 Attempted application of vacuum extractor and forceps; Z3A.38 38 weeks gestation of pregnancy; Z37.0 Single live birth; O99.824 Streptococcus B carrier state complicating childbirth; O99.52 Diseases of the respiratory system complicating childbirth; J45.909 Unspecified asthma, uncomplicated
CPT/HCPCS: 36415; 51702; 59050; 64488; 80307; 85007; 85027; 85461; 86850; 86900; 86901; 96365; 96372; 96375; 96376; J0131; J0290; J0665; J0690; J1100; J1650; J1885; J2274; J2371; J2405; J2590; J2765; J2790; J3010

== ENCOUNTER 2023-12-05 21:24 | Outpatient (REF) | payer OTHER, SELFPAY ==
--- OUTSIDE RECORDS SUMMARY | 2023-12-05 21:29 | XMS_ITS | CCD ---
Author Organization [facility] Care Team Providers Care Duty Officer Name Role Phone Phil Mueller Unavailable PHIL MUELLER Primary Care Physician [phone] TAYO TAVARES Attending Unavailable TAYO TAVARES Consulting Unavailable TAYO TAVARES Admitting Unavailable DR PHIL MUELLER Primary Care Unavailable Phil Mueller MD Primary Care Provider Dariel Godfrey Attending Unavailable IZZY THAKKAR Attending Unavailable TAYO TAVARES Attending Unavailable TAYO TAVARES Attending Unavailable TAYO TAVARES Attending Unavailable IZZY THAKKAR Attending Unavailable IZZY THAKKAR Attending Unavailable TAYO TAVARES Attending Unavailable IZZY THAKKAR Attending Unavailable Allergies Allergy Classification Reported Allergen(s) Allergy Type Date of Onset Reaction(s) Facility (11 sources) montelukast Drug Allergy stomach upset Seer Other Medications Current Medications Medication Drug Class(es) Dates Sig (Normalized) Sig (Original) ProAir (11 sources) beta2-Adrenergic Agonist Start: 05-26-2021 ProAir HFA [...] hours if needed for wheezing. 0 Active cephalexin 500 mg oral capsule (1 source) Cephalosporin Antibacterial Start: 08-07-2023 take 1 capsule by mouth four times daily cephalexin 500 mg Cap 500 mg = 1 cap(s), Oral, QID, # 40 cap(s), Refills(s) 0, Pharmacy: [facility], 160, cm, 08/07/23 20:13:00 EST, Height/Length Dosing, 64, kg, 08/07/23 20:13:00 EST, Weight Dosing Start Date: 08/07/23 Status: Ordered docusate sodium 100 mg oral capsule (2 sources) Start: 07-17-2023 take 1 capsule by mouth in the morning docusate sodium (Colace) 100 MG capsule Take 100 mg by mouth in the morning and 100 mg before bedtime. 0 07/17/2023 Active ethinyl estradiol 0.02 mg / ferrous fumarate 75 mg / norethindrone 1 mg oral tablet (8 sources) Estrogen Start: 05-26-2021 Blisovi FE 06/23 oral tablet Refill(s) 0 Start Date: 05/26/21 Status: Ordered Microgestin FE 1-20 MG-MCG 1 tablet Orally Daily for Three Weeks, 1 Week off for 30 day(s) Active Flovent HFA 44 mcg/inh inhalation aerosol with adapter (3 sources) Start: 01-04-2020 take 2 puff(s) by mouth twice daily Flovent HFA 44 mcg/inh inhalation aerosol with adapter = 2 puff(s), Inhalation, BID, rinse mouth and throat after use, # 1 EA, Refills(s) 0, Pharmacy: [facility], 158, cm, 01/04/20 10:14:00 EDT, Height/Length [...] days Sep, Active fluticasone 0.05 mg/inh Nasal [place] (3 sources) Start: 01-04-2020 fluticasone 0.05 mg/inh Nasal [place] 2 spray(s), Nasal, Daily Congestion, 16 gram, Refill(s) 0, each nostril, [facility], 158, cm, 01/04/20 10:14:00 EDT, Height/Length Measured, 58.4, kg, 01/04/20 10:14:00 EDT, Weight Measured Start Date: 01/04/20 Status: Ordered Fluticasone-[place] rol 250-50 MCG/DOSE (8 sources) Start: 09-05-2021 take 1 puff(s) by inhalation twice daily Fluticasone-[place]met alanna 250-50 MCG/DOSE 1 puff Inhalation Twice a day for 90 days Sep, Active ibuprofen 400 mg oral tablet (2 sources) Nonsteroidal Anti-inflammatory Drug Start: 07-17-2023 take 2 tablets by mouth every eight hours ibuprofen 400 MG tablet TAKE 2 TABLETS BY MOUTH EVERY 8 HOURS 0 07/17/2023 Active montelukast 10 mg oral tablet (3 sources) Leukotriene Receptor Antagonist Start: 01-04-2020 take 1 tablet by mouth once daily in the evening Singulair 10 mg Tab 10 mg = 1 tab(s), Oral, qPM, # 30 tab(s), Refills(s) 0, Pharmacy: [facility], 158, cm, 01/04/20 10:14:00 EDT, Height/Length Measured, 58.4, kg, 01/04/20 10:14:00 EDT, Weight Measured Start Date: 01/04/20 Status: Ordered ondansetron 4 mg disintegrating oral tablet (4 sources) Serotonin-3 Receptor Antagonist Start: 12-08-2022 End: 07-19-2023 take 1 tablet by mouth every eight hours as needed ondansetron ODT (Zofran-ODT) 4 MG disintegrating tablet Take 4 mg by mouth every 8 (eight) hours if needed. 0 12/08/2022 07/19/2023 Discontinued (Other) ProAir HFA 108 (90 Base) MCG/ACT (7 [...] (Original) sodium chloride 0.111 meq/ml nasal spray (3 sources) Start: 01-04-2020 [place] 0.65% Nasal [place] 2 spray(s), Nasal, QID Congestion, 1 EA, Refill(s) 0, [facility], 158, cm, 01/04/20 10:14:00 EDT, Height/Length Measured, 58.4, kg, 01/04/20 10:14:00 EDT, Weight Measured Start Date: 01/04/20 Status: Ordered Start: 01-04-2020 [place] 0.65% Na melquiades [place] 2 spray(s), Nasal, QID Congestion, 1 EA, Refill(s) 0, [facility], 158, cm, 01/04/20 10:14:00 EDT, Height/Length [...] Translations: [Irregular menstruation, unspecified] Onset: 09-22-2022 Chronic Nonmalignant breast conditions (1 source) Inflammatory disorder of breast; Translations: [Mastitis without abscess] Onset: 08-07-2023 Episodic Nutritional deficiencies (7 sources) Vitamin D deficiency; Translations: [Vitamin D deficiency, unspecified] Chronic Other aftercare (2 sources) Postoperative visit; Translations: [Encounter for other specified surgical aftercare] 07-17-2023 Episodic Other and delivery including normal (2 sources) Third trimester ; Translations: [Encounter for supervision of normal , unspecified, third trimester] 07-04-2023 Episodic Other skin disorders (11 sources) Folliculitis; Translations: [Follicular disorder, unspecified] Episodic Other skin disorders (11 sources) Hyperhidrosis; Translations: [Primary focal hyperhidrosis, unspecified] Episodic Unclassified (3 sources) Body mass index 20-24 - normal 01-04-2020 Past or Other Problems Problem Classification Problem Date Documented Da te Episodic/Chronic Other skin disorders (2 sources) Follicular disorder, unspecified Onset: 09-05-2021 Resolved: 09-06-2021 Episodic Results Test Name Value Interpretation Reference Range Facility C Urineon 08-10-2023 Bacteria identified Cx Nom (U) Microbiology PROCEDURE: Urine Culture [R1] SOURCE: U CleanCatch BODY SITE: COLLECTED DATE/TIME: 08/07/2023 22:30 EST RECEIVED DATE/TIME: 08/08/2023 08:13 EST START DATE/TIME: 08/08/2023 08:13 EST FREE TEXT SOURCE: Megan GUERRA, Vianey Guzman PA-C, Vianey Staples FINAL REPORTS Final Report [] Verified Date/Time: 08/10/2023 09:37 EST 2,000 cfu/ml Mixed skin contaminants Performing Locations R1: This test was performed at: [facility], [address] [place] [address], [id number] , , [facility] Comment on above: Performed By: #### 1 [id number] #### [facility] [address] [place] [address] BMPon 08-08-2023 Anion gap [Moles/Vol] 14 mmol/L Normal 6-16 [facility] Comment on above: Performed By: #### 2 [id number], [id number], [id number] #### [facility] [address] [place] [address] Calcium [Mass/Vol] 9.1 mg/dL Normal 8.9-11.1 [facility] Comment on above: Performed By: #### 2 [id number], [id number], [id number] #### [facility] [address] [place] [address] Chloride [Moles/Vol] 107 mmol/L Normal 101-[address] [facility] Comment on above: Performed By: #### 2 [id number], [id number], [id number] #### [facility] [address] [place] [address] CO2 [Moles/Vol] 22 mmol/L Normal 21-31 [facility] Comment on above: Performed By: #### 2 [id number], [id number], [id number] #### [facility] [address] [place] [address] Creatinine [Mass/Vol] 1.0 mg/dL Normal 0.5-1.3 [facility] Comment on above: Performed By: #### 2 [id number], [id number], [id number] #### [facility] [address] [place] [address] Glucose [Mass/Vol] 104 mg/dL Normal 55-199 [facility] Comment on above: Performed By: #### 2 [id number], [id number], [id number] #### [facility] [address] [place] [address] Potassium [Moles/Vol] 3.6 mmol/L Normal 3.5-5.3 [facility] Comment on above: Performed By: #### 2 [id number], [id number], [id number] #### [facility] [address] [place] [address] Sodium [Moles/Vol] 139 mmol/L Normal 135-145 [facility] Comment on above: Performed By: #### 2 [id number], [id number], [id number] #### [facility] [address] [place] [address] Urea nitrogen [Mass/Vol] 20 mg/dL Normal 5-21 [facility] Comment on above: Performed By: #### 2 [id number], [id number], [id number] #### [facility] [address] [place] [address] Urea nitrogen/Creatinine [Mass ratio] 20 No Units Normal 10-20 [facility] Comment on above: Performed By: #### 2 [id number], [id number], [id number] #### [facility] [address] [place] [address] Discharge Instructionson Discharge Instructions [id number] Normal [facility] ED Clinical Summaryon 2023 ED Clinical Summary [address] [address] ED Clinical Summary Person Information Name: SHELLY HANNON Mary/[facility] Age: 28 Years : 1995 Sex: Female Language: Canadian PCP: PHIL MUELLER DO Marital Status: Phone: [phone] Visit Id: Visit Reason: Fever; Breast Pain/Discharge; [place] FEVER Speciality: Acuity: 3 Enc Type: Emergency Med Service: Emergency Arrival: 08/07/2023 20:03:26 Discharge: 08/07/2023 22:36:43 LOS: 000 02:33 Checkin: 08/07/2023 20:03:26 Checkout: 08/07/2023 22:36:43 Dispo Type: Home (Routine DC) EVENTS: Event Name Event Status Request Date/Time Start Date/Time Complete Date/Time Arrive Complete 08/07/2023 20:03:26 08/07/2023 20:03:26 08/07/2023 20:03:26 Document Home Meds Request 08/07/2023 20:03:26 Triage Complete 08/07/2023 20:03:26 08/07/2023 20:13:00 08/07/2023 20:13:00 Registration Complete 08/07/2023 20:08:58 08/07/2023 20:08:58 08/07/2023 20:08:58 Reg Complete Request 08/07/2023 20:08:58 Reg Bed Request Complete 08/07/2023 20:08:59 08/07/2023 20:08:59 08/07/2023 20:08:59 Bed Assign Complete 08/07/2023 20:13:18 08/07/2023 20:13:18 08/07/2023 20:13:18 Dr Exam Complete 08/07/2023 20:13:18 08/07/2023 21:08:55 08/07/2023 21:08:55 RN Exam Complete 08/07/2023 20:13:18 08/07/2023 21:05:03 08/07/2023 21:05:03 Registration Request 08/07/2023 21:08:55 Pending Labs Collected 08/07/2023 21:09:48 Lab Collected 08/07/2023 21:09:48 Patient Care Complete 08/07/2023 21:09:48 08/07/2023 22:16:56 Urine Collect Collected 08/07/2023 21:09:48 Dr Exam Complete 08/07/2023 21:17:58 08/07/2023 21:17:58 08/07/2023 21:17:58 Pending Labs Complete 08/07/2023 21:43:57 08/07/2023 21:43:57 08/07/2023 22:04:09 Lab Complete 08/07/2023 21:43:57 08/07/2023 21:43:57 08/07/2023 22:04:09 Pending Labs Complete 08/07/2023 21:50:58 08/07/2023 21:50:58 08/07/2023 21:50:59 Meds Admin Complete 08/07/2023 21:56:49 08/07/2023 22:12:37 Discharge Complete 08/07/2023 22:10:27 08/07/2023 22:37:04 08/07/2023 22:37:04 Transfer Complete 08/07/2023 22:37:04 08/07/2023 22:37:04 08/07/2023 22:37:04 ADDRESS: [facility] [id number] PHYS DOC NOTES: MEDICAL INFORMATION: Prescriptions Given: New Medications [facility], [address] [place], [place] [id number], [phone] cephalexin (cephalexin 500 mg Cap) 1 Capsules By Mouth 4 times a day. Refills: 0. Medications to Continue with No Changes Other Medications albuterol (ProAir HFA) Inhalation every 6 hours. ethinyl estradiol-norethindr one (Blisovi FE / oral tablet) fluticasone (Flovent HFA 44 mcg/inh inhalation aerosol with adapter) 2 Puffs Inhalation 2 times a day. rinse mouth and throat after use. Refills: 0. fluticasone nasal (fluticasone 0.05 mg/inh Nasal [place]) 2 Sprays Nasal Inhalation every day as needed Congestion. each nostril. Refills: 0. montelukast (Singulair 10 mg Tab) 1 Tablets By Mouth once a day (in the evening). Refills: 0. sodium chloride nasal ([place] 0.65% Nasal [place]) 2 Sprays Nasal Inhalation 4 times a day as needed Congestion. Refills: 0. PATIENT EDUCATION INFORMATION: Instructions: Mastitis, Pfas-ce-Cjiq; and Mastitis Follow up: With: Address: When: [facility] support group [phone]; [facility] [phone] In 3 days 08/10/2023 With: Address: When: PHIL MUELLER [facility]D [address] [address] Business (1) In 3 days 08/10/2023 DIAGNOSIS: 1:Mastitis Normal [facility] ED Note-Physicianon 08-08-19 ED Note-Physician Basic Information Time Seen: Vianey Guzman PA-C 08/07/2023 21:08 Chief Complaint Pt. is a 3 wks post- reports left breast tenderness and discharges from areola. Pt. also reports fever, chills, and body aches. History of Present Illness This patient presents emergency department with chief complaint of left breast pain. The patient states she is 3 weeks . She delivered at [facility] via . She states earlier today she had some discharge from the areola on the left. She also had a low-grade fever. She denies any chills or sweats. She denies any nausea or vomiting. She denies any urinary burning frequency or urgency. She denies any constipation or diarrhea. She states that her incision is healing well. She did call today and talk to the measurement specialist who advised her to come in and be evaluated. Review of Systems Constitutional: + fevers, malaise Eyes: Denies visual changes, eye pain, double vision, scotomas, floaters ENT: Denies runny nose, epistaxis, sinus pain, ear pain, ringing in ears, tooth ache, sore throat, pain with swallowing Cardiovascular: Denies chest pain, shortness of breath, orthopnea, edema, palpitations, loss of consciousness, claudication Respiratory: Denies cough, sputum production, wheezing, hemoptysis, shortness of breath, dyspnea on exertion. R breast pain and discharge Gastrointestinal: Denies abdominal pain, unintentional weight loss, difficulty swallowing, indigestion, bloating, cramping, loss of appetite, nausea, vomiting, diarrhea, constipation, hematochezia, melena Genitourinary: Denies any incontinence of urine, dysuria, hematuria, nocturia, polyuria, hesitancy, frequency, urgency, burning Musculoskeletal: Denies joint pain, morning stiffness, joint swelling, decreased range of motion, crepitus Integumentary: Denies any pruritus, rashes, lesions, wounds, petechiae Neurologic: Denies any changes in sight, smell, hearing, taste, seizures, headache, paresthesia, numbness, weakness, balance disturbance Psychiatric denies any depression, change in sleep patterns, anxiety, difficulty concentrating, paranoia, anhedonia, lack of energy, yunior Hematologic/lymphati c: Denies any purpura, petechiae, excessive bleeding, bruising Physical Exam Vitals & Measurements T: 38.2 ?C(Oral) HR: 106(Monitored) RR: 18 BP: 127/89 SpO2: 96% HT: 160 cm WT: 64 kg BMI: 25 Vital signs and nursing notes reviewed. General: Awake, alert, NAD. HEENT: Head is normocephalic, atraumatic. PERRL. EOMI. Sclerae are anicteric. External ears are normal. TMs are intact bilaterally. Canals are clear bilaterally. Nares are patent bilaterally. Oral mucosa is pink and moist. No lesions noted. Tongue protrudes in midline. Uvula rises with phonation. Neck is supple, no no palpable adenopathy. No JVD. Trachea is midline. Thorax: Symmetrical rise and fall. R breast has tenderness around the areola with some mild erythema, that extends inferiorly. There is no lymphangitic streaking. There was no discharge from the breast at the time of my evaluation. Left breast unremarkable. No palpable adenopathy in the neck. Lungs: Clear to auscultation throughout all cazares, no wheezes, no crackles Heart: Regular rate and rhythm. No murmur, gallop, or rub Abdomen: No tenderness on palpation. Bowel sounds are present active and normal. No organomegaly. No palpable masses. No CVA tenderness. Extremities: Motor sensory pulses intact x4 extremities. No lower extremity edema. Skin: No lesions, rashes, ulcerations. No bruising or petechiae. Color appropriate, warm and dry Neuro: No oriented x3, no focal neuro deficits Psych: Mood and affect are normal Medical Decision Making MEDICAL DECISION MAKING Number and Complexity of Problems Differential Diagnosis: Patient is breast-feeding and pumps every 3 hours, mastitis, sepsis MDM Data External documents reviewed: Not applicable My EKG interpretation: Noted in chart if applicable My CT interpretation: Noted in chart if applicable My X-ray interpretation: Noted in chart if applicable My Ultrasound interpretation: Not applicable Decision rules/scores evaluated: Noted in chart if applicable Discussed with: Not applicable Treatment and Disposition ED Course: The patient was interviewed and examined. The appropriate ER workup was initiated. White blood count 15.3, hemoglobin 11.6, hematocrit 35.7, platelets 417. Sodium 139, potassium 3.6, chloride 107, CO2 22, BUN 20, creatinine 1.0, glucose 104, calcium 9.1. UA remarkable for 1+ ketone 1+ blood 1+ leukocytes 6-15 WBCs with negative nitrite. The patient here was given dose of ceftriaxone 1 g IV piggyback. I discussed the discharge diagnosis, plan of care, home-going instructions and prescriptions with the patient and her family. The patient was given the phone number for follow-up if she has requested consultation with the measurement specialist. She is going to call tomorrow to schedule an appointment. The patient w (more content not included)... [facility] Comment on above: Result Comment: Elec tronically Signed By: Vianey Guzman PA-C\.br\Date and Time Signed: 08/08/23 00:19 EST\.br\Electronically Co-Signed By: Dariel Godfrey M.D.\.br\Date and Time Co-Signed: 08/08/23 00:20 EST ED Patient Education Noteon 08-08-2023 ED Patient Education Note Obstetrics and Gynecology Mastitis Mastitis is irritation and swelling (inflammation) in an area of the breast. This most often happens in women who are , but it can happen to other women too, as well as some men. A doctor will help decide if treatment is needed. What are the causes? This condition is caused by: ? Germs (bacteria). This can happen when germs enter the breast through cuts or openings in the skin. ? A plugged milk duct. This happens when something blocks the flow of milk in the breast. ? Nipple piercing. The pierced area can allow germs to enter the breast. ? Some types of breast cancer. What are the signs or symptoms? ? Swelling, redness, and pain in the breast. ? Swelling of the glands under the arm. ? Fluid flowing from the nipple. ? Feeling very tired. ? Headache and body aches. ? Fever and chills. ? Vomiting or feeling like you may vomit. ? Fast heart rate. Symptoms often last 2?5 days. The pain and redness can be the worst on days 2 and 3. This will often go away by day 5. If the infection is not treated, pus or a pocket of fluid may form under the skin (abscess). How is this diagnosed? This condition can usually be diagnosed based on a physical exam and your symptoms. You may also have other tests, such as: ? Blood tests to check if your body is fighting infection. ? X-rays or ultrasounds of the breast. ? Fluid tests. If a pocket of fluid has formed, the fluid may be taken out with a needle. The fluid may be checked to see whether germs are present. ? Breast milk testing. A sample of breast milk may be tested for germs. This is done only when or pumping. How is this treated? Mastitis will sometimes go away on its own, so your doctor may choose to wait 24 hours after first seeing you to decide if medicine is needed. This condition may be treated with: ? Continuing to breastfeed or pump from both breasts to allow milk flow and prevent a pocket of fluid from forming. ? Using hot or cold compresses. ? Taking medicine for pain. ? Taking antibiotic medicine. ? Rest. ? Drinking plenty of fluids. ? Taking out fluid with a needle, if a pocket of fluid has formed. Follow these instructions at home: Breast care ? Keep your nipples clean and dry. ? If told, put heat on the affected area of your breast. Use the heat source that your doctor or measurement specialist tells you to use. ? If told, put ice on the affected area of your breast. To do this: ? Put ice in a plastic bag. ? Place a towel between your skin and the bag. ? Leave the ice on for 20 minutes, 2?3 times a day. ? Take off the ice if your skin turns bright red. This is very important. If you cannot feel pain, heat, or cold, you have a greater risk of damage to the area. and pumping tips Continue to breastfeed your baby on demand. This means feeding your baby whenever he or she is hungry. ? Ask your doctor or measurement specialist whether you need to change your routine. ? Avoid using nipple johnson, if possible. Ask a measurement specialist for help. ? Change the breast you offer first at each feeding to make sure your baby feeds from both breasts. ? Offer both breasts to your baby every time your baby feeds. ? Use gentle breast massage during feeding or pumping sessions only as told by your doctor or measurement specialist. ? Avoid letting your breasts get very full with milk (engorged). If your breasts are very full, you can hand express a small amount of milk for comfort. If you are pumping, keep pumping on the same schedule as you were before. In the breast with mastitis, pump until very little milk is coming out. Do not empty your breast. Emptying your breast causes your body to make more milk and can make symptoms worse. ? Ask your doctor or measurement specialist whether you need to change your pumping routine. Medicines ? Take szdp-eah-bnkjgxh and prescription medicines only as told by your doctor. ? If you were prescribed an antibiotic medicine, take it as told by your doctor. Do not stop taking it even if you start to feel better. Contact a doctor if: ? You have pus-like fluid leaking from your breast. ? You have a fever. ? Your symptoms do not get better within 2 days of starting treatment. Get help right away if: ? Your pain and swelling are getting worse. ? Your pain is not helped by medicine. ? You have a red line going from your breast toward your armpit. Summary ? Mastitis is irritation and swelling in an area of the breast. ? Mastitis will sometimes go away on its own. ? Get plenty of rest. ? Contact a doctor if your symptoms do not get better within 2 days. ? If you were prescribed an antibiotic medicine, do not stop taking it even if you start to feel better. This information is not intended to replace advice given to you by your health care provider. Make sure (more content not included)... [facility] ED Patient Summaryon 024 ED Patient Summary [place] [id number] Patient Discharge Instructions Person Information Name: SHELLY HANNON Age: 28 Years Arrival Date: 08/07/2023 20:03:26 Discharge Diagnosis: 1:Mastitis Primary Care Physician: PHIL MUELLER DO Provider Information Primary Provider: Dariel Godfrey M.D. Advanced Associate Embalmer/Funeral Director:None The exam and treatment you received in the Emergency Department were for an urgent problem and are not intended as complete care. It is important that you follow up with a doctor, nurse practitioner, or physician?s kindergarten instructional assistant for ongoing care. If your symptoms become worse or you do not improve as expected and you are unable to reach your usual health care provider, you should return to the Emergency Department. We are available 24 hours a day. SHELLY HANNON has been given the following list of patient education materials, prescriptions and follow-up instructions: Follow-up Instructions: With: Address: When: [place] [facility] [phone]; [facility] [phone] In 3 days 08/10/2023 With: Address: When: PHIL MUELLER [facility] [address] [address] Business (1) In 3 days 08/10/2023 In the event that this physician does not participate in your insurance network, please consult with your insurance company to find a nearby participating provider. Patient Education Materials: Mastitis, Dshr-uf-Fabm; and Mastitis A MESSAGE TO ALL PATIENTS REGARDING OPIOIDS PRESCRIPTION OPIOIDS: WHAT YOU NEED TO KNOW Prescription opioids can be used to help relieve ovjanmzj-ef-jufnig pain and are often prescribed following a surgery or injury, or for certain health conditions. These medications can be an important part of the treatment but also come with serious risks. It is important to work with your healthcare provider to make sure you are getting the safest, most effective care. WHAT ARE THE RISKS AND SIDE EFFECTS OF OPIOID USE? Prescription opioids carry serious risks of addiction and overdose, especially with prolonged use. An opioid overdose, often marked by slowed breathing, can cause sudden . The use of prescription opioids can have a number of side effects as well, even when taken as directed: ? Tolerance?meaning you might need to take more of the medication for the same pain relief ? Physical dependence?meaning you have symptoms of withdrawal when a medication is stopped ? Increased sensitivity to pain ? Constipation ? Nausea, vomiting, and dry mouth ? Sleepiness and dizziness ? Confusion ? Depression ? Low levels of testosterone that can result in lower sex drive, energy, and strength ? Itching and sweating RISKS ARE GREATER WITH: ? History of drug misuse, substance use disorder, or overdose ? Mental health conditions (such as depression or anxiety) ? Sleep apnea ? Older age (65 years and older) ? Avoid alcohol while taking prescription opioids. Also, unless specifically advised by your health care provider, medications to avoid include: ? Benzodiazepines (such as Xanax or Valium) ? Muscle relaxants (such as Soma or Flexeril) ? Hypnotics (such as Ambien or Lunesta) ? Other prescription opioids KNOW YOUR OPTIONS Talk to your health care provider about ways to manage your pain that don?t involve prescription opioids. Some of these options may actually work better and have fewer risks and side effects. Options may include: ? Pain relievers such as acetaminophen, ibuprofen, and naproxen ? Some medication that are also used for depression or seizures ? Physical therapy and exercise ? Cognitive behavioral therapy, a psychological, goal-directed approach, in which patients learn how to modify physical, behavioral, and emotional triggers of pain and stress. IF YOU ARE PRESCRIBED OPIOIDS FOR PAIN: ? Never take opioids in greater amounts or more often than prescribed. ? Follow up with your primary health care provider. o Work together to create a plan on how to manage your pain. o Talk about ways to help manage your pain that don?t involve prescription opioids. o Talk about any and all concerns and side effects. ? Help prevent misuse and abuse o Never sell or share prescription opioids. o Never use another person?s prescription opioids. ? Store prescription opioids in a secure place and out of reach of others (this may include visitors, children, friends, and family). ? Safely dispose of unused prescription opioids: Find your community drug take-back program or your pharmacy mail-back program, or flush them down the toilet, following guidance from the Food and Drug Administration (www.fda.gov/Drugs/R esourcesForYou). ? Visit www.cdc.gov/drugover dose to learn about the risks of opioids abuse and overdose. ? If you believe you may be struggli (more content not included)... Normal [facility] UA With Cult Reflexon 2023 Bacteria LM Ql (Urine sed) TRACE Normal Trace [facility] Comment on above: Performed By: #### 1 [id number], [id number] #### [facility] [address] [place] [address] Bilirubin Ql (U) Negative Normal Negative [facility] Comment on above: Performed By: #### 1 [id number], [id number] #### [facility] [address] [place] [address] Clarity (U) CLEAR Normal Clear [facility] Comment on above: Performed By: #### 1 [id number], [id number] #### [facility] [address] [place] [address] Color (U) YELLOW Normal Yellow [facility] Comment on above: Performed By: #### 1 [id number], [id number] #### [facility] [address] [place] [address] Epithelial cells.squamous LM.HPF (Urine sed) [#/Area] 3-4 Normal 0-2 [facility] Comment on above: Performed By: #### 1 [id number], [id number] #### [facility] [address] [place] [address] Glucose Test strip (U) [Mass/Vol] Negative Normal Negative [facility] Comment on above: Performed By: #### 1 [id number], [id number] #### [facility] [address] [place] [address] Hemoglobin Ql (U) 1+ Abnormal Negative [facility] Comment on above: Performed By: #### 1 [id number], [id number] #### [facility] [address] [place] [address] Ketones (U) [Mass/Vol] 1+ Abnormal Negative [facility] Comment on above: Performed By: #### 1 [id number], [id number] #### [facility] [address] [place] [address] Luxora.plasma/Lithiu m.RBC (Bld) [Mass ratio] 4-20 Normal 0-3 [facility] Comment on above: Performed By: #### 1 [id number], [id number] #### [facility] [address] [place] [address] Nitrite Ql (U) Negative Normal Negative [facility] Comment on above: Performed By: #### 1 [id number], [id number] #### [facility] [address] [place] [address] pH (U) 6.0 [pH] Invalid Interpretation Code 5.0-9.0 [facility] Comment on above: Performed By: #### 1 [id number], [id number] #### [facility] [address] [id number] Protein (U) [Mass/Vol] Negative Normal Negative [facility] Comment on above: Performed By: #### 1 [id number], [id number] #### [facility] [address] [place] [address] Specific gravity (U) [Rel density] 1.020 Invalid Interpretation Code 1.005-1.030 [facility] Comment on above: Performed By: #### 1 [id number], [id number] #### [facility] [address] [place] [address] Type of Urine collection method Clean Catch Normal [facility] Comment on above: Performed By: #### 1 [id number], [id number] #### [facility] [address] [place] [address] Urobilinogen Qn (U) 0.2 {Jayce'U}/dL Normal 0.0-1.0 [facility] Comment on above: Performed By: #### 1 [id number], [id number] #### [facility] [address] [place] [address] WBC Auto Ql (U) 1+ Abnormal Negative [facility] Comment on above: Performed By: #### 1 [id number], [id number] #### [facility] [address] [place] [address] WBC LM.HPF (Urine sed) [#/Area] 6-15 Abnormal 0-5 [facility] Comment on above: Performed By: #### 1 [id number], [id number] #### [facility] [address] [place], [place] [id number] eGFRon 08-08-2023 eGFR 78 mL/min/1.73 m2 Normal >=59 [facility] Comment on above: Order Comment: Order added by Discern Expert. Performed By: #### 2 [id number], [id number], [id number] #### [facility] [address] [place] [address] CBC w/ Auto Diffon 4 Basophils/100 WBC (Bld) 0.6 % Normal 0.0-2.0 [facility] Comment on above: Performed By: #### 2 [id number], [id number], [id number] #### [facility] [address] [place] [address] Basophils/Leukocytes Auto (Bld) [Pure # fraction] 0.1 E9/L Normal 0.0-0.2 [facility] Comment on above: Performed By: #### 2 963771, [id number], [id number] #### [facility] [address] [place] [address] Eosinophils (Bld) [#/Vol] 0.5 E9/L Normal 0.0-0.5 [facility] Comment on above: Performed By: #### 2 372447, 9259883, [id number] #### [facility] [address] [place] [address] Eosinophils/100 WBC (Bld) 3.5 % Normal 0.0-8.0 [facility] Comment on above: Performed By: #### 2 225952, 3066098, [id number] #### [facility] [address] [place] [address] Erythrocyte distribution width (RBC) [Ratio] 15.5 % High 10.9-14.2 [facility] Comment on above: Performed By: #### 2 977068, 1673865, [id number] #### [facility] [address] [place] [address] Hematocrit (Bld) [Volume fraction] 35.7 % Normal 34.0-46.0 [facility] Comment on above: Performed By: #### 2 839568, 5577983, [id number] #### [facility] [address] [place] [address] Hemoglobin (Bld) [Mass/Vol] 11.6 g/dL Low 12.0-16.0 [facility] Comment on above: Performed By: #### 2 223494, 4220608, [id number] #### [facility] [address] [place] [address] Lymphocytes (Bld) [#/Vol] 2.1 E9/L Normal 1.0-4.0 [facility] Comment on above: Performed By: #### 2 545423, 4771205, [id number] #### [facility] [address] [place] [address] Lymphocytes/100 WBC (Bld) 13.5 % Low 14.0-50.0 [facility] Comment on above: Performed By: #### 2 583406, 9687729, [id number] #### [facility] [address] [place] [address] MCH (RBC) [Entitic mass] 28.1 pg Normal 27.0-34.0 [facility] Comment on above: Performed By: #### 2 077980, 3416984, [id number] #### [facility] [address] [place] [address] MCHC (RBC) [Mass/Vol] 32.5 g/dL Normal 31.4-36.0 [facility] Comment on above: Performed By: #### 2 061483, 5004216, [id number] #### [facility] [address] [place] [address] MCV (RBC) [Entitic vol] 86.3 fL Normal 80.0-100.0 [facility] Comment on above: Performed By: #### 2 868783, 0120982, [id number] #### [facility] [address] [place] [address] Monocytes (Bld) [#/Vol] 1.1 E9/L High 0.2-1.0 [facility] Comment on above: Performed By: #### 2 948998, 7354464, [id number] #### [facility] [address] [place] [address] Neutrophils (Bld) [#/Vol] 11.5 E9/L High 2.0-7.5 [facility] Comment on above: Performed By: #### 2 058116, 6362973, [id number] #### [facility] [address] [place] [address] Neutrophils/100 WBC (Bld) 75.4 % High 36.0-75.0 [facility] Comment on above: Performed By: #### 2 674635, 4573153, [id number] #### [facility] [address] [place] [address] Platelet mean volume (Bld) [Entitic vol] 7.0 fL Normal 6.4-10.8 [facility] Comment on above: Performed By: #### 2 270068, 2191337, [id number] #### [facility] [address] [place] [address] Platelets (Bld) [#/Vol] 417.0 E9/L Normal 150.0-500.0 [facility] Comment on above: Performed By: #### 2 451673, 9532172, [id number] #### [facility] [address] [place] [address] RBC (Bld) [#/Vol] 4.1 E12/L Low 4.3-5.9 [facility] Comment on above: Performed By: #### 2 646535, 9971364, [id number] #### [facility] [address] [place] [address] WBC corrected for nucl RBC Auto (Bld) [#/Vol] 15.3 E9/L High 4.0-11.0 [facility] Comment on above: Performed By: #### 2 029239, 1237684, [id number] #### [facility] [address] [place] [address] CHEMISTRYOrdered By: SYSTEM SYSTEM on 08-07-2023 Anion gap [Moles/Vol] 14 mmol/L Normal 6 - 16 mEq/L R [facility] Chem Calcium [Mass/Vol] 9.1 mg/dL Normal 8.9 - 11. 1 mg/dL [facility] Chloride [Moles/Vol] 107 mmol/L Normal 101 - 1 11 mmol/L [facility] CO2 [Moles/Vol] 22 mmol/L Normal 21 - 31 mmol/L [facility] Creatinine [Mass/Vol] 1.0 mg/dL Normal 0.5 - 1.3 mg/dL [facility] eGFR 78 mL/min/1.73 m2 Normal >=59mL/min /1. 73 m2 [facility] Glucose [Mass/Vol] 104 mg/dL Normal 55 - 199 mg/dL [facility] Potassium [Moles/Vol] 3.6 mmol/L Normal 3.5 - 5.3 mmol/L [facility] Sodium [Moles/Vol] 139 mmol/L Normal 135 - 145 mmol/L [facility] Urea nitrogen [Mass/Vol] 20 mg/dL Normal 5 - 21 mg/dL [facility] Urea nitrogen/Creatinine [Mass ratio] 20 mg/mg Normal 10 - 20 [facility] Consent for Treatmenton Consent for Treatment [id number] #[id number] Normal [facility] HEMATOLOGYOrdered By: SYSTEM SYSTEM on 08-07-2023 Basophils/100 WBC (Bld) 0.6 % Normal 0.0 - 2.0 % [facility] Basophils/Leukocytes Auto (Bld) [Pure # fraction] 0.1 E9/L Normal 0.0 - 0.2 E9/L [facility] Eosinophils (Bld) [#/Vol] 0.5 E9/L Normal 0.0 - 0.5 E9/L [facility] Eosinophils/100 WBC (Bld) 3.5 % Normal 0.0 - 8.0 % [facility] Erythrocyte distribution width (RBC) [Ratio] 15.5 % High 10.9 - 14.2 % [facility] Hematocrit (Bld) [Volume fraction] 35.7 % Normal 34.0 - 46.0 % [facility] Hemoglobin (Bld) [Mass/Vol] 11.6 g/dL Low 12.0 - 16.0 gm/dL [facility] Lymphocytes (Bld) [#/Vol] 2.1 E9/L Normal 1.0 - 4.0 E9/L [facility] Lymphocytes/100 WBC (Bld) 13.5 % Low 14.0 - 50.0 % [facility] MCH (RBC) [Entitic mass] 28.1 pg Normal 27.0 - 34.0 pg [facility] MCHC (RBC) [Mass/Vol] 32.5 g/dL Normal 31.4 - 36.0 gm/dL [facility] MCV (RBC) [Entitic vol] 86.3 fL Normal 80.0 - 100.0 fL [facility] Monocytes (Bld) [#/Vol] 1.1 E9/L High 0.2 - 1.0 E9/L [facility] Monocytes/100 WBC (Bld) 7.0 % Normal 4.0 - 14.0 % [facility] Neutrophils (Bld) [#/Vol] 11.5 E9/L High 2.0 - 7.5 E9/L [facility] Neutrophils/100 WBC (Bld) 75.4 % High 36.0 - 75.0 % [facility] Platelet mean volume (Bld) [Entitic vol] 7.0 fL Normal 6.4 - 10.8 fL [facility] Platelets (Bld) [#/Vol] 417.0 E9/L Normal 150.0 - 500.0 E9/L [facility] RBC (Bld) [#/Vol] 4.1 E12/L Low 4.3 - 5.9 E12/L [facility] WBC corrected for nucl RBC Auto (Bld) [#/Vol] 15.3 E9/L High 4.0 - 11.0 E9/L [facility] URINALYSISOrdered By: Johny Merino on 08-07-2023 Bacteria LM Ql (Urine sed) Trace /HPF Normal Trace/HPF [facility] UA Auto SS Bilirubin Ql (U) Negative (08/07/23 10:30 PM) Normal Negative [facility] UA Auto SS Clarity (U) Clear (08/07/23 10:30 PM) Normal Clear [facility] UA Auto SS Color (U) Yellow (08/07/23 10:30 PM) Normal Yellow [facility] UA Auto SS Epithelial cells.squamous LM.HPF (Urine sed) [#/Area] 3-4 /HPF Normal 0-2/HPF [facility] UA Aut o SS Glucose Test strip (U) [Mass/Vol] Negative (08/07/23 10:30 PM) Normal Negative [facility] UA Auto SS Hemoglobin Ql (U) 1+ *ABN* (3/5/24 10:30 PM) Invalid Interpretation Code Negative [facility] UA Auto SS Ketones (U) [Mass/Vol] 1+ *ABN* (08/07/23 10:30 PM) Invalid Interpretation Code Negative [facility] UA Auto SS Luxora.plasma/Lithiu m.RBC (Bld) [Mass ratio] 4-20 /HPF Normal 0-3/HPF [facility] UA Auto SS Nitrite Ql (U) Negative (08/07/23 10:30 PM) Normal Negative [facility] UA Auto SS pH (U) 6.0 *NA* (08/07/23 10:30 PM) Invalid Interpretation Code 5.0 - 9.0 [facility] UA Auto SS Protein (U) [Mass/Vol] Negative (08/07/23 10:30 PM) Normal Negative [facility] UA Auto SS Specific gravity (U) [Rel density] 1.020 *NA* (08/07/23 10:30 PM) Invalid Interpretation Code 1.005 - 1.030 [facility] UA Auto SS UA Spec Desc Clean Catch (08/07/23 10:30 PM) Normal [facility] UA Auto SS Urobilinogen Qn (U) 0.7262890 {Jayce'U}/dL Normal 0.0 - 1.0 EU/dL [facility] UA Auto SS WBC Auto Ql (U) 1+ *ABN* (08/07/23 10:30 PM) Invalid Interpretation Code Negative [facility] UA Auto SS WBC LM.HPF (Urine sed) [#/Area] 6-15 /HPF Invalid Interpretation Code 0-5/HPF [facility] UA Auto SS Urinalysis macro (dipstick) panel (U)Ordered By: Mary Chavez on 07-10-2023 Bilirubin, UA Negative Negative - 4(70) +++ mg/dL [facility] Work Phone: Blood, UA Negative Negative - 50 Pasha/mcL [facility] Work Phone: Clarity, UA Clear [facility] Work Phone: Color, UA Yellow [facility] Work Phone: Glucose, UA Negative Negative - 2000(110) ++++ mg/dL [facility] Work Phone: Interpretation and review of laboratory results Abnormal [facility] Work Phone: Ketones, UA Negative Negative - 160(16) ++++ mg/dL [facility] Work Phone: Leukocytes, UA Trace Negative - 500+++ Lavern/mcL [facility] Work Phone: Nitrite, UA Negative Negative - Positive [facility] Work Phone: pH, UA 7.0 5 - 9 [facility] Work Phone: Protein, UA Negative Negative - 2000(20) ++++ mg/dL [facility] Work Phone: Spec Grav, UA 1.015 1 - 1.03 [facility] Work Phone: Urobilinogen, UA 0.2 0.2 - 12 mg/dL [facility] Work Phone: [facility] [employer] Work Phone: ANTI-MULLERIAN HORMONEon Anti-Mullerian Hormone (AMH) 6.57 ng/mL Normal [facility] Comment on above: Result Comment: For assays employing antibodies, the possibility exists for interference by heterophile antibodies in the samples.1 1.Demond Boyer. Interferences in Immunoassays - still a threat. Clin. Chem. 2000; 46: 6325-1373. This test was developed and its performance characteristics determined by [employer]. It has not been cleared or approved by the Food and Drug Administration. Reference Range: Females 26 - 30y: 1.03 - 11.10 Median 4.20 AMH concentrations of >= 1.06 ng/mL is correlated with a better response to ovarian stimulation, produced more retrievable oocytes and higher odds of live according to Maryer et al. Fertility and Sterility. 2010: 94:4782-7760. The current AMH test method correlates with [...] tumor. Performed By: #### A AGGIE #### [facility] [address] [address] [address] Matilde Fitch PROGESTERONEon 09-23-2022 Progesterone 0.4 ng/mL Normal [facility] Comment on above: Result Comment: Foll icular phase 0.1 - 0.9 Luteal phase 1.8 - 23.9 Ovulation phase 0.1 - 12.0 First trimester 11.0 - 44.3 Second trimester 25.4 - 83.3 Third trimester 58.7 - 214.0 Postmenopausal 0.0 - 0.1 Performed By: #### P ALBA #### [facility] [address] [address] [address] Matilde Fitch CHEMISTRYOrdered By: SYSTEM SYSTEM on 05-11-2022 25-hydroxyvitamin [...] Normal 50 - 1500 pg/mL [facility] Remisol HEMATOLOGYOrdered By: SYSTEM SYSTEM on 05-11-2022 Basophils/100 [...] 8.5 E9/L Normal 4.0 - 11.0 E9/L [facility] HemeAutoSS CHEMISTRYOrdered By: SYSTEM SYSTEM on 05-06-2022 Progesterone [Mass/Vol] 1.10 ng/mL Invalid Interpretation Code [facility] Remisol Vital Signs Date Time Vital Sign Value Performing Clinician Facility 08-07-2023 22:35-0500 Diastolic blood pressure 89 mm[Hg] [facility] 08-07-2023 22:35-0500 Heart rate 106 /min [facility] 08-07-2023 22:35-0500 Mean blood pressure 102 mm[Hg] [facility] 08-07-2023 22:35-0500 Respiratory rate 18 /min [facility] 08-07-2023 22:35-0500 SaO2% (BldA) [Mass fraction] 96 % [facility] 08-07-2023 22:35-0500 Systolic blood pressure 127 mm[Hg] [facility] 08-07-2023 22:09-0500 Diastolic blood pressure 85 mm[Hg] [facility] 08-07-2023 22:09-0500 Heart rate 100 /min [facility] 08-07-2023 22:09-0500 Mean blood pressure 101 mm[Hg] [facility] 08-07-2023 22:09-0500 Respiratory rate 18 /min [facility] 08-07-2023 22:09-0500 SaO2% (BldA) [Mass fraction] 96 % [facility] 08-07-2023 22:09-0500 Systolic blood pressure 132 mm[Hg] [facility] 08-07-2023 21:57-0500 Diastolic blood pressure 85 mm[Hg] [facility] 08-07-2023 21:57-0500 Heart rate 104 /min [facility] 08-07-2023 21:57-0500 Mean blood pressure 101 mm[Hg] [facility] 08-07-2023 21:57-0500 Respiratory rate 18 /min [facility] 08-07-2023 21:57-0500 SaO2% (BldA) [Mass fraction] 96 % [facility] 08-07-2023 21:57-0500 Systolic blood pressure 132 mm[Hg] [facility] 08-07-2023 20:09-0500 Body temperature 100.76 [degF] [facility] 08-07-2023 20:09-0500 Heart rate 117 /min [facility] 07-19-2023 11:07-0500 Body mass index (BMI) [Ratio] 28.87 kg/m2 Izzy Thakkar PA Work Phone: [facility] 07-19-2023 11:07-0500 Body weight 73.94 kg Izzy Thakkar PA Work Phone: [facility] 07-19-2023 11:07-0500 Diastolic blood pressure 74 mm[Hg] Izzy Thakkar PA Work Phone: [facility] 07-19-2023 11:07-0500 Systolic blood pressure 114 mm[Hg] Izzy Thakkar PA Work Phone: [facility] 07-10-2023 09:38-0500 Body mass index (BMI) [Ratio] 30.79 kg/m2 Tayo Chaitanya DO Work Phone: [facility] 07-10-2023 09:38-0500 Body weight 78.83 kg Tayo Chaitanya DO Work Phone: [facility] 07-10-2023 09:38-0500 Diastolic blood pressure 80 mm[Hg] Tayo Chaitanya DO Work Phone: [facility] 07-10-2023 09:38-0500 Systolic blood pressure 112 mm[Hg] Tayo Tavares DO Work Phone: [facility] 07-14-2022 09:45-0500 Body height 153.67 cm Phil Ervin Other [facility] Other 07-14-2022 09:45-0500 Body mass index (BMI) [Ratio] 26.7 kg/m2 Phil Evrin Other [facility] Other 07-14-2022 09:45-0500 Body temperature 96 [degF] Phil Ervin Other [facility] Other 07-14-2022 09:45-0500 Body weight 63.05 kg Phil Ervin Other [facility] Other 07-14-2022 09:45-0500 Diastolic blood pressure 62 mm[Hg] Phil Ervin Other [facility] Other 07-14-2022 09:45-0500 Respiratory rate 16 /min Phil Ervin Other [facility] Other 07-14-2022 09:45-0500 SaO2% (BldA) [Mass fraction] 97 % Phil Ervin Other [facility] Other 07-14-2022 09:45-0500 Systolic blood pressure 98 mm[Hg] Phil Ervin Other [facility] Other 05-09-2022 12:45-0500 Body height 153.67 cm Phil Ervin Other [facility] Other 05-09-2022 12:45-0500 Body mass index (BMI) [Ratio] 26.12 kg/m2 Phil Ervin Other [facility] Other 05-09-2022 12:45-0500 Body temperature 97.9 [degF] Phil Ervin Other [facility] Other 05-09-2022 12:45-0500 Body weight 61.69 kg Phil Ervin Other [facility] Other 05-09-2022 12:45-0500 Diastolic blood pressure 82 mm[Hg] Phil Ervin Other [facility] Other 05-09-2022 12:45-0500 Respiratory rate 16 /min Phil Ervin Other [facility] Other 05-09-2022 12:45-0500 SaO2% (BldA) [Mass fraction] 98 % Phil Ervin Other [facility] Other 05-09-2022 12:45-0500 Systolic blood pressure 124 mm[Hg] Phil Ervin Other [facility] Other 09-05-2021 11:00-0400 Body height 153.67 cm Phil Ervin Other [facility] Other 09-05-2021 11:00-0400 Body mass index (BMI) [Ratio] 26.5 kg/m2 Phil Ervin Other [facility] Other 09-05-2021 11:00-0400 Body temperature 98.5 [degF] Phil Ervin Other [facility] Other 09-05-2021 11:00-0400 Body weight 62.6 kg Phil Ervin Other [facility] Other 09-05-2021 11:00-0400 Diastolic blood pressure 60 mm[Hg] Phil Ervin Other [facility] Other 09-05-2021 11:00-0400 Respiratory rate 16 /min Phil Ervin Other [facility] Other 09-05-2021 11:00-0400 SaO2% (BldA) [Mass fraction] 98 % Phil Ervin Other [facility] Other 09-05-2021 11:00-0400 Systolic blood pressure 96 mm[Hg] Phil Ervin Other [facility] Other Encounters Encounter Date Encounter Type Care Provider Facility Start: 08-23-2023 End: 08-23-2023 ambulatory IZZY THAKKAR Not Available Start: 08-07-2023 End: 08-08-2023 Emergency department patient visit [facility] Facility:[facility] Start: 08-07-2023 End: 08-07-2023 Emergency department patient visit [facility] Start: 07-19-2023 End: 07-19-2023 ambulatory IZZY THAKKAR Not Available Start: 07-19-2023 End: 07-19-2023 Postop follow up visit related to original px Izzy FOY Work Phone: [facility] Comment on above: Postoperative visit; S/P section Start: 07-10-2023 End: 07-10-2023 ambulatory TAYO TAVARES Not Available Start: 07-10-2023 End: 07-10-2023 flow sheet Tayo Chaitanya DO Work Phone: [facility] Comment on above: Third trimester preg ashleigh Start: 07-03-2023 End: 07-03-2023 ambulatory TAYO CHAITANYA Not Available Start: 06-26-2023 End: 06-26-2023 ambulatory TAYO CHAITANYA Not Available Start: 06-12-2023 End: 06-12-2023 ambulatory IZZY THAKKAR Not Available Start: 05-24-2023 End: 05-24-2023 ambulatory IZZY THAKKAR Not Available Start: 05-10-2023 End: 05-10-2023 ambulatory TAYO CHAITANYA Not Available Start: 11-06-2022 End: 11-06-2022 ambulatory Phil Ervin Other [facility] Other Start: 11-06-2022 Telephone encounter Phil Ervin [facility] Start: 09-22-2022 End: 09-23-2022 ambulatory TAYO CHAITANYA Facility: Start: 07-14-2022 End: 07-14-2022 ambulatory Phil Ervin Other [facility] Other Start: 07-14-2022 Office outpatient vi sit 25 minutes Phil Ervin [facility] Start: 07-14-2022 Telephone encounter Phil Ervin [facility] Start: 07-11-2022 End: 07-11-2022 ambulatory Phil Ervin Other [facility] Other Start: 07-11-2022 Telephone encounter Phil Ervin [facility] Start: 05-16-2022 End: 05-16-2022 ambulatory Phil Ervin Other [facility] Other Start: 05-16-2022 Telephone encounter Phil Ervin [facility] Start: 05-11-2022 End: 05-11-2022 Patient encounter procedure PHIL M ERVIN [facility] Start: 05-09-2022 End: 05-09-2022 ambulatory Phil Ervin Other [facility] Other Start: 05-09-2022 Office outpatient vi sit 15 minutes Phil Ervin [facility] Start: 05-06-2022 End: 05-06-2022 Patient encounter procedure ZONIA NELSON [facility] Start: 05-02-2022 End: 05-02-2022 ambulatory Phil Ervin Other Seer Other Start: 05-02-2022 Telephone encounter Phil Ervin [facility] Start: 11-29-2021 End: 11-29-2021 ambulatory Phil Ervin Other Seer Other Start: 11-29-2021 Telephone encounter Phil Ervin [facility] Start: 09-09-2021 End: 09-09-2021 ambulatory Phil Ervin Other Seer Other Start: 09-09-2021 Telephone encounter Phil Ervin [facility] Start: 09-06-2021 End: 09-06-2021 ambulatory Phil Ervin Other Se[facility] Other Start: 09-06-2021 Telephone encounter Phil Ervin [facility] Start: 09-05-2021 End: 09-05-2021 ambulatory Phil Ervin Other Seer Other Start: 09-05-2021 Encounter for genera l adult medical examination without abnormal findings Phil Ervin [facility] Start: 09-05-2021 Periodic preventive med est patient 18-39 yrs Phil Mueller [facility] [place] Procedures Date Procedure Procedure Detail Performing Clinician Start: 07-10-2023 Urnls dip stick/tabl et rgnt non-auto w/o micrscp Tayo Tavares DO Work Phone: H/O: section S/P sectio n Izzy FOY Work Phone: None (qualifier value) JESUS NELSON Plan of Treatment Date Care Activity Detail Author Start: 08-23-2023 End: 08-23-2023 ambulatory 08/23/2023 9:30 AM EDT Visit [facility] [address] [place] [id number] Izzy Thakkar PA [address] [place], [place] [id number] [facility] Start: 07-17-2023 End: 07-17-2023 Patient encounter procedure 07/17/2023 8:30 AM EST Routine [facility] [address] [place] [id number] Tayo Tavares, DO [address] [place], [place] [id number] [facility] Immunizations Immunization Date Immunization Notes Care Provider Fa [facility] 03-20-2021 COVID-19 Vaccine Pfizer - Documentation Purposes Only Phil Mueller Other Seer Other 02-27-2021 COVID-19 Vaccine Pfizer - Documentation Purposes Only Philgeorgia SinghErvin Other Seer Other NEGATED: Highlighted row has not occurred!12-17-2018 influenza, injectable, quadrivalent, contains preservative Patient Objection Phil Mueller Other Se[facility] Other NEGATED: Highlighted row has not occurred!07-14-2016 influenza, injectable, quadrivalent, contains preservative Patient Objection Phil Ervin Other Seer Other Payers Date Payer Category Payer Unknown [id number] 1993 Unknown [id number] 2.16.84 [id number] 1993 Unknown [id number] 2.16.8 [id number] 1993 Unknown [id number] 2.16.84 [id number] 1993 Unknown [id number] 2.16.84 [id number] 1993 Unknown [id number] 2.16.84 [id number] 1993 Unknown [id number] 2.16.84 [id number] 1993 Unknown [id number] 2.16.84 [id number] 1993 Unknown [id number] 2.16.84 [id number] 1993 Unknown [id number] 2.16.840 .[id number] 1993 Unknown [id number] 2.16.840 .[id number] 1959 Unknown [id number] 2. [id number] [facility] [id number] Social History Date Type Detail Facility Unknown if ever smoked Se[facility] Other Start: 01-09-2023 End: 04-11-2023 Sex Assigned At [facility] Start: 05-26-2021 End: 01-09-2023 Tobacco smoking status Never smoked tobacco (finding) [facility] Tobacco smoking status Never [facility] Start: 01-09-2023 Tobacco use and exposure Smokeless tobacco non-user [facility] Start: 07-10-2023 End: 07-19-2023 Alcohol intake Current drinker of alcohol (finding) [facility] Start: 01-09-2023 [...] Identifies as female gender (finding) [facility] Functional Status Date Assessment Result Facility 08-07-2023 Functional Status N/A [facility] Clinical Notes 06-04-2014 to 08-15-2023 DANII Spencer - 07/19/2023 10:40 AM Cynthia Hawley LPN - 07/10/2023 9:30 AM EST Note Date & Type Note Facility 08-15-2023 Note Microbiology PROCEDURE: Blood Culture Charcoal [R1] SOURCE: Blood BODY SITE: Arm L COLLECTED DATE/TIME: 08/07/2023 21:37 EST RECEIVED DATE/TIME: 08/07/2023 21:44 EST START DATE/TIME: 08/08/2023 07:30 EST FREE TEXT SOURCE: lt melva Guzman PA-C, iVaney Guzman PA-C, Vianey Staples FINAL REPORTS Final Report [] Verified Date/Time: 08/15/2023 15:48 EDT No growth at 7 days. Performing Locations R1: This test was performed at: [facility], [address] [place] [address], [id number] [place] [address], [facility] Comment on above: Performed By: #### [id number] #### [facility] [address] [place] [id number] 08-15-2023 Note Microbiology PROCEDURE: Blood Culture Charcoal [R1] SOURCE: Blood BODY SITE: Arm R COLLECTED DATE/TIME: 08/07/2023 21:36 EST RECEIVED DATE/TIME: 08/07/2023 21:44 EST START DATE/TIME: 08/08/2023 07:30 EST FREE TEXT SOURCE: rt melva Guzman PA-C, Vianey Guzman PA-C, Vianey Staples FINAL REPORTS Final Report [] Verified Date/Time: 08/15/2023 15:48 EDT No growth at 7 days. Performing Locations R1: [facility], [address] [place] [address], [id number] [place] [address], [facility] Comment on above: Performed By: #### 1 [id number] #### [facility] [address] [place] [id number] 08-08-2023 Hospital Discharge instructions Patient Education 08/07/2023 22:37:04 Mastitis, Cgot-as-Qymy Mastitis Mastitis is irritation and swelling (inflammation) in an area of the breast. This most often happens in women who are , but it can happen to other women too, as well as some men. A doctor will help decide if treatment is needed. What are the causes? This condition is caused by: Germs (bacteria). This can happen when germs enter the breast through cuts or openings in the skin. A plugged milk duct. This happens when something blocks the flow of milk in the breast. Nipple piercing. The pierced area can allow germs to enter the breast. Some types of breast cancer. What are the signs or symptoms? Swelling, redness, and pain in the breast. Swelling of the glands under the arm. Fluid flowing from the nipple. Feeling very tired. Headache and body aches. Fever and chills. Vomiting or feeling like you may vomit. Fast heart rate. Symptoms often last 2 5 days. The pain and redness can be the worst on days 2 and 3. This will often go away by day 5. If the infection is not treated, pus or a pocket of fluid may form under the skin (abscess). How is this diagnosed? This condition can usually be diagnosed based on a physical exam and your symptoms. You may also have other tests, such as: Blood tests to check if your body is fighting infection. X-rays or ultrasounds of the breast. Fluid tests. If a pocket of fluid has formed, the fluid may be taken out with a needle. The fluid may be checked to see whether germs are present. Breast milk testing. A sample of breast milk may be tested for germs. This is done only when or pumping. How is this treated? Mastitis will sometimes go away on its own, so your doctor may choose to wait 24 hours after first seeing you to decide if medicine is needed. This condition may be treated with: Continuing to breastfeed or pump from both breasts to allow milk flow and prevent a pocket of fluid from forming. Using hot or cold compresses. Taking medicine for pain. Taking antibiotic medicine. Rest. Drinking plenty of fluids. Taking out fluid with a needle, if a pocket of fluid has formed. Follow these instructions at home: Breast care Keep your nipples clean and dry. If told, put heat on the affected area of your breast. Use the heat source that your doctor or measurement specialist tells you to use. If told, put ice on the affected area of your breast. To do this: ?Put ice in a plastic bag. ?Place a towel between your skin and the bag. ?Leave the ice on for 20 minutes, 2 3 times a day. ?Take off the ice if your skin turns bright red. This is very important. If you cannot feel pain, heat, or cold, you have a greater risk of damage to the area. and pumping tips Continue to breastfeed your baby on demand. This means feeding your baby whenever he or she is hungry. Ask your doctor or measurement specialist whether you need to change your routine. Avoid using nipple johnson, if possible. Ask a measurement specialist for help. Change the breast you offer first at each feeding to make sure your baby feeds from both breasts. Offer both breasts to your baby every time your baby feeds. Use gentle breast massage during feeding or pumping sessions only as told by your doctor or measurement specialist. Avoid letting your breasts get very full with milk (engorged). If your breasts are very full, you can hand express a small amount of milk for comfort. If you are pumping, keep pumping on the same schedule as you were before. In the breast with mastitis, pump until very little milk is coming out. Do not empty your breast. Emptying your breast causes your body to make more milk and can make symptoms worse. Ask your doctor or measurement specialist whether you need to change your pumping routine. Medicines Take idun-cwh-rhfmqpi and prescription medicines only as told by your doctor. If you were prescribed an antibiotic medicine, take it as told by your doctor. Do not stop taking it even if you start to feel better. Contact a doctor if: You have pus-like fluid leaking from your breast. You have a fever. Your symptoms do not get better within 2 days of starting treatment. Get help right away if: Your pain and swelling are getting worse. Your pain is not helped by medicine. You have a red line going from your breast toward your armpit. Summary Mastitis is irritation and swelling in an area of the breast. Mastitis will sometimes go away on its own. Get plenty of rest. Contact a doctor if your symptoms do not get better within 2 days. If you were prescribed an antibiotic medicine, do not stop taking it even if you start to feel better. This information is not intended to replace advice given to you by your health care provider. Make sure you discuss any questions you have with your health care provider. Document Revised: 06/23/2022 Document Reviewed: 03/21/2021 [employer] Patient Education 2022 [employer] 08/07/2023 22:37:04 and Mastitis and Mastitis Mastitis is inflammation of the breast tissue. It can occur in women who are . This can make painful. Mastitis will sometimes go away on its own with continued or pumping, especially if it is not caused by an infection (noninfectious mastitis). A health care provider will help determine if medical treatment is needed. What are the causes? Inflammation may be caused by a blocked milkduct, which can happen when too much milk builds up in the breast. Causes of excess milk in the breast can include: Poor latch. If your child is not latched on to your breast properly, he or she may not empty your breast completely while . Allowing too much time to pass between feedings, or scheduling feedings instead of feeding on demand. Wearing a bra or other clothing that is too tight. This puts extra pressure on your milk ducts so milk does not flow through them as it should. Milk remaining in the breast because it is overfilled (engorged). This is often from oversupply or missed feedings. Mastitis is often caused by a bacterial infection. Bacteria may enter the breast tissue through cuts, cracks, or openings in the skin near the nipple area. Cracks in the skin often develop when your child does not latch on properly to your breast. What increases the risk? The following factors may make you more likely to develop this condition: History of mastitis. Poor technique. Poor nutrition and hydration. Smoking. Stress. Tiredness (fatigue). What are the signs or symptoms? Symptoms of this condition include: Swelling, redness, tenderness, and pain in an area of your breast. These usually affect the upper part of the breast, toward the armpit region. In most cases, these symptoms affect only one breast. In some cases, the symptoms may occur in both breasts at the same time and affect a larger portion of breast tissue. Swelling of the glands under your arm on the same side. Fatigue, headache, and flu-like muscle aches. Fever. Rapid pulse. Symptoms usually last 2 5 days. Breast pain and redness are at their worst on days 2 and 3, and they usually go away by day 5. If an infection is left to worsen, a collection of pus, or an abscess, may develop. How is this diagnosed? This condition is usually diagnosed based on: Your symptoms. A physical exam. In some cases, tests may be done, such as: Blood tests to check whether your body is fighting a bacterial infection. Mammogram or ultrasound tests to rule out other problems or diseases. Fluid tests. If an abscess has developed, the fluid in the abscess may be removed with a needle. The fluid may be checked to see whether bacteria are present. Breast milk testing. A sample of your breast milk may be tested for bacteria. How is this treated? This condition will sometimes go away on its own with continued or pumping. Your health care provider may choose to wait 24 hours after first seeing you to decide whether treatment is needed. If treatment is needed, it may include: Continuing to breastfeed or pump from both breasts to allow adequate milk flow and prevent an abscess from forming. Strategies to support include: ? from the affected side first. ?Using gentle breast massage. Your health care provider or a specialist (databases software consultant) can show you how to perform breast massage. ?Applying warmth to the affected area before . This can help with milk flow. Try a warm cloth or warm shower. Self-care, such as rest and drinking more fluids. Pain medicine. Antibiotic medicine to treat a bacterial infection. Using a fine needle to remove fluid from an abscess if one has developed. Follow these instructions at home: Medicines Take posg-hut-nlitpwc and prescription medicines only as told by your health care provider. If you were prescribed an antibiotic medicine, take it as told by your health care provider. Do not stop taking the antibiotic even if you start to feel better. Managing pain and swelling If directed, put ice on the affected area of your breast right after or pumping. To do this: Put ice in a plastic bag. Place a towel between your skin and the bag. Leave the ice on for 20 minutes, 2 3 times a day. Remove the ice if your skin turns bright red. This is very important. If you cannot feel pain, heat, or cold, you have a greater risk of damage to the area. Breast care Keep your nipples clean and dry. Do not wear a tight or underwire bra. Wear a soft, supportive bra. Check your nipples for any cracks or blisters. If you find any, talk with your health care provider or databases software consultant for treatment. and pumping tips Continue to breastfeed your baby on demand. This means feeding your baby whenever he or she is hungry. ?Ask your health care provider or databases software consultant whether you need to change your or pumping routine. ?Alternate the breast you offer first at each feeding to make sure your baby feeds from both breasts equally. ?Offer both breasts to your baby at every feeding. ?Avoid using nipple johnson for feedings, if possible. Ask a databases software consultant for assistance if needed. If directed, apply moist heat to the affected area of your breast right before or pumping. Use the heat source that your health care provider recommends. Use gentle breast massage during feeding or pumping sessions only as told by your health care provider or databases software consultant. Avoid allowing your breasts to become engorged. If your breasts are engorged, you can hand express a small amount of milk for comfort. If you are pumping, continue to pump on the same schedule as you were before. In the breast with mastitis, pump until very little milk is coming out. Do not empty your breast. Emptying your breast causes your body to make more milk and can make symptoms worse. General instructions Drink enough fluid to keep your urine pale yellow. This is especially important if you have a fever. Get plenty of rest. Wash your hands often with soap and water for at least 20 seconds. Wash pump parts using the catalytic converter operator's instructions. Keep all follow-up visits. This is important. Where to find more information [employer]: llli.org Contact a health care provider if: You have pus-like discharge from your breast. You have a fever. Your symptoms do not improve within 2 days of starting treatment. Your symptoms return after you have recovered from a breast infection. Get help right away if: Your pain and swelling are getting worse. You have pain that is not controlled with medicine. You have a red line going from your breast toward your armpit. Summary Mastitis is inflammation of the breast tissue. It is often caused by a blocked milk duct or bacteria. If needed, treatment may include continuing to breastfeed or pump, applying warmth or cold and other strategies, self-care, and medicines. Continue to breastfeed your baby on demand or pump on the same schedule as you were before. If you were prescribed an antibiotic medicine, take it as told by your health care provider. Do not stop taking the antibiotic even if you start to feel better. This information is not intended to replace advice given to you by your health care provider. Make sure you discuss any questions you have with your health care provider. Document Revised: 06/23/2022 Document Reviewed: 09/22/2020 [employer] Patient Education 2022 [employer] Follow Up Care 08/07/2023 20:05:39 With:[facility] [phone]; [facility] [phone] Address:Unknown When:08/10/2023 With:PHIL MUELLER Address: [address] [facility] [address] [place] [id number]- Business (1) When:08/10/2023 21:58:58 [facility] 07-19-2023 History of Present illness Narrative Reason for Appointment: Patient ID: Shelly Hannon is a 28 y.o. female who presents for Post-op Visit (S/p c/section on 07/14/2023) Patient presents today for Post Follow Up and 1 Week Post Op appointment. Current Medications: has a current medication list which includes the following prescription(s): docusate sodium, ibuprofen, and albuterol hfa. Medical History: Active Ambulatory Problems Diagnosis Date Noted No Active Ambulatory Problems Resolved Ambulatory Problems Diagnosis Date Noted No Resolved Ambulatory Problems Past Medical History: Diagnosis Date ADD (attention deficit disorder) ADHD (attention deficit hyperactivity disorder) (CMS/HCC) Adrenal abnormality (CMS/FORMERLY [facility]) Amenorrhea FERNANDO I (cervical intraepithelial neoplasia I) [...] Procedure Laterality Date CAST APPLICATION Right wrist SECTION, CLASSIC 07/14/2023 COLPOSCOPY 01/02/2015 FERNANDO 1 PAP SMEAR 07/03/2022 negative No Known Allergies Review of Systems: Review of Systems Constitutional: Negative. HENT: Negative. Eyes: Negative. Respiratory: Negative. Cardiovascular: Negative. Gastrointestinal: Negative. Musculoskeletal: Negative. Skin: Negative. Neurological: Negative. Psychiatric/Behavioral: Negative. All other systems reviewed and are negative. Hematological: Negative. Endocrine: Negative. Objective Physical Exam Constitutional: Appearance: Normal appearance. She is normal weight. HENT: Head: Normocephalic. Cardiovascular: Rate and Rhythm: Normal rate. Pulses: Normal pulses. Pulmonary: Effort: Pulmonary effort is normal. Breath sounds: Normal breath sounds. Abdominal: Palpations: Abdomen is soft. Comments: Pfannenstiel incision clean dry, steri strips intact Musculoskeletal: General: Normal range of motion. Neurological: General: No focal deficit present. Mental Status: She is alert and oriented to person, place, and time. Psychiatric: Mood and Affect: Mood normal. Behavior: Behavior normal. Thought Content: Thought content normal. Judgment: Judgment normal. Vitals and nursing note reviewed. Vitals: Estimated body mass index is 28.87 kg/m as calculated from the following: Height as of 01/11/23: 5' 3 . Weight as of this encounter: 163 lb. BP: 114/74 Patient's last menstrual period was 10/12/2022. Assessment/Plan Encounter Diagnoses Name Primary? Postoperative visit S/P section Patient presents today for a one week postop section check. Patient is doing well with minor complaints of pain. Incision has been noted as healing well with no signs and symptoms of infection. Pt educated on removal of steri strips, did not want removed today Follow Up: Patient is to return in 5 weeks for 6 week evaluation. Documented by DANII Spencer on behalf of: DANII Spencer documented in this encounter [facility] 07-10-2023 History of Present illness Narrative Reason for Appointment: Patient ID: [...] deficit disorder) ADHD (attention deficit hyperactivity disorder) ([facility]) Adrenal abnormality ([facility]) Amenorrhea FERNANDO I (cervical intraepithelial neoplasia I) [...] nursing note reviewed. Exam conducted with a bioprocess engineer present. Vitals: Estimated body mass index is [...] Tayo Tavares DO documented in this encounter [facility] 07-14-2022 Evaluation note Encounter Date Diagnosis Assessment [...] is going to be seeing a different STORE TEAM LEADER, and I think this is certainly not unreasonable. [facility] Other 12-08-2022 Evaluation + Plan note Diagnostic Tests Pending * T3 Free 05/11/22 [facility] Evaluation note* Encounter Date Diagnosis Assessment Notes Treatment Notes Treatment Clinical Notes May, Chronic fatigue (ICD-10 - R53.82) We will simply call patient with results of the blood work. Should all of this proved to be normal, she would just simply need to continue to follow-up with STORE TEAM LEADER. May, Vitamin D deficiency (ICD-10 - E55.9) [facility] Other 06-28-2022 Evaluation note* Encounter Date Diagnosis Assessment Notes Treatment Notes Treatment Clinical Notes Nov, Asthma exacerbation (ICD-10 - J45.901) [facility] Other 04-05-2022 Evaluation note* Encounter Date Diagnosis Assessment Notes Treatment Notes Treatment Clinical Notes Sep, Asthma exacerbation (ICD-10 - J45.901) Sep, Folliculitis (ICD-10 - L73.9) [facility] Other 04-04-2022 Evaluation note* Encounter Date Diagnosis [...] Other No change today...Continue as is...FU PRN/Yearly... [facility] Other 01-01-2015 History general Narrative - Reported* Type Description Date Medical History 6 Weeks Premature Medical History Asthma Medical History ADD Surgical History cervical bx. from STORE TEAM LEADER = Dr. Leyva 06/2014 Hospitalization History - Apnea [email or web address] Other Evaluation + Plan note No data available for this section [facility] noteExtracted from: Title:ED Note Author:Vianey Guzman PA-C Date:08/08/23 1. Mastitis (N61.0: Mastitis without abscess) Orders: ceftriaxone + Sodium Chloride 0.9% intravenous solution 50 mL, 1,000 mg = 1 EA, IV Piggyback, Once, Stop date 08/07/23 21:56:00 EST, STAT, Start date 08/07/23 21:56:00 EST, 100 mL/hr, Infuse over 30 minute(s), 08/07/23 21:56:00 EST cephalexin, 500 mg = 1 cap(s), Oral, QID, # 40 cap(s), Refills(s) 0, Pharmacy: [facility], 160, cm, 08/07/23 20:13:00 EST, Height/Length Dosing, 64, kg, 08/07/23 20:13:00 EST, Weight Dosing Basic Metabolic Panel Blood Culture Charcoal Blood Culture Charcoal CBC w/ Auto Diff Change IV to Saline Lock eGFR Extra Blue Tube Extra SST Tube UA With Cult Reflex Urine Culture Diagnostic Tests Pending * Blood Culture Charcoal 08/07/23 * Blood Culture Charcoal 08/07/23 * Urine Culture 08/07/23 [facility] Other Evaluation note* Diagnosis Third trimester state, incidental documented in this encounter [facility] [facility] HealthcareEvaluation note* Diagnosis Postoperative visit S/P section Other postprocedural status documented in this encounter [facility] Discharge instructions No data available for this [facility] data available for this section [facility] Summary Purpose Family History No Family History Records Found No data available for this section No Family History Records FoundNo Family History Records Found Advance Directives No Advanced Directives Records FoundNo Advanced Directives Records FoundNo Advanced Directives Records Found Additional Source Comments REASON FOR VISIT (unrecogniz ed section and content) Reason Comments Routine Visit Reason Comments Post-op Visit S/p c/section on 03/2024 Patient Care team informatio n (unrecognized section and content) Duty Officer Relationship Specialty Start Date End Date Phil Mueller MD [address] [phone] PCP - General Family Medicine 12/21/22 Duty Officer Relationship Specialty Start Date End Date Phil Mueller MD [address] [phone] PCP - General Family Medicine 12/21/22 INFORMATION SOURCE (unrecogn ized section and content) DATE CREATED AUTHOR 09/29/2022 [facility] DATE CREATED AUTHOR AUTHOR'S ORGANIZ ATION 08/17/2023 [facility] DATE CREATED AUTHOR AUTHOR'S ORGANIZ ATION 08/24/2023 [facility] FOR RECORDS PERTAINING TO PATIENTS WHO [...] BE BASED ON THE PRIMARY CLINICAL RECORDS. [employer] provides no warranty or guarantee of the accuracy or completeness of information in this document.
[2023-12-11 11:09] LABS: Age Gdln ACOG Testing Note (.); HPV Aptima Negative (Negative); IGP, Aptima HPV, rfx 16/18,45 Note (.)
== END 2023-12-05 21:25 | disposition home or self-care (01) ==
LOC: LAB 21:24
PROVIDERS: PCP Family Medicine; Visit Provider Obstetrics & Gynecology
DX: Z01.419 Encounter for gynecological examination (general) (routine) without abnormal findings (principal)
CPT/HCPCS: 87624; 88175

== ENCOUNTER 2024-12-11 19:16 | Outpatient (REF) | payer OTHER, SELFPAY ==
--- OUTSIDE RECORDS SUMMARY | 2024-12-11 19:33 | XMS_ITS | CCD ---
Author Organization [facility] Care Team Providers Care Cabin Equipment Supervisor Name Role Phone Phil Mueller Unavailable PHIL MUELLER Primary Care Physician [phone] TAYO TAVARES Attending Unavailable TAYO TAVARES Consulting Unavailable TAYO TAVARES Admitting Unavailable DR PHIL MUELLER Primary Care Unavailable Ervin MEZA, [place] Primary Care Provider IZZY THAKKAR Attending Unavailable TAYO TAVARES Attending Unavailable TAYO TAVARES Attending Unavailable TAYO TAVARES Attending Unavailable IZZY THAKKAR Attending Unavailable IZZY THAKKAR Attending Unavailable TAYO TAVARES Attending Unavailable IZZY THAKKAR Attending Unavailable TAYO TAVARES Attending Unavailable Walter Denton Attending Unavailable Dariel Godfrey Attending Unavailable Walter Denton Attending Unavailable Ervin MEZA, [place] Primary Care Provider [phone] Allergies Allergy Classification Reported Allergen(s) Allergy Type Date of Onset Reaction(s) Facility (11 sources) montelukast Drug Allergy [facility] [employer] Other Medications Current Medications Medication Drug Class(es) Dates Sig (Normalized) Sig (Original) [id number] 200 actuat albuterol 0.09 mg/actuat metered dose inhaler (14 sources) beta2-Adrenergic Agonist Start: 06-06-2024 albuterol HFA 90 mcg/act inhaler 06/06/2024 Active Start: 05-26-2021 ProAir HFA Inh alation, q6hr, Refill(s) 0 Start Date: 05/26/21 Status: [...] 0 Active cephalexin 500 mg oral capsule (2 sources) Cephalosporin Antibacterial Start: 08-07-2023 take 1 capsule by mouth four times daily cephalexin 500 mg Cap 500 mg = 1 cap(s), Oral, QID, # 40 cap(s), Refills(s) 0, Pharmacy: [facility], 160, cm, 08/07/23 20:13:00 EST, Height/Length [...] mg / norethindrone 1 mg oral tablet (9 sources) Estrogen Start: 05-26-2021 Blisovi FE 06/23 oral tablet Refill(s) 0 Start Date: 05/26/21 Status: Ordered Microgestin FE 1-20 MG-MCG 1 tablet Orally Daily for Three Weeks, 1 Week off for 30 day(s) Active Flovent HFA 44 mcg/inh inhalation aerosol with adapter (4 sources) Start: 01-04-2020 take 2 puff(s) by mouth twice daily Flovent HFA 44 mcg/inh inhalation aerosol with adapter = 2 puff(s), Inhalation, BID, rinse mouth and throat after use, # 1 EA, Refills(s) 0, Pharmacy: [facility], 158, cm, 01/04/20 10:14:00 EDT, Height/Length [...] days Sep, Active fluticasone 0.05 mg/inh Nasal [place] (4 sources) Start: 01-04-2020 fluticasone 0.05 mg/inh Nasal [place] 2 spray(s), Nasal, Daily Congestion, 16 gram, Refill(s) 0, each nostril, [facility], 158, cm, 01/04/20 10:14:00 EDT, Height/Length [...] 07/17/2023 Active montelukast 10 mg oral tablet (4 sources) Leukotriene Receptor Antagonist Start: 01-04-2020 take 1 tablet by mouth once daily in the evening Singulair 10 mg Tab 10 mg = 1 tab(s), Oral, qPM, # 30 tab(s), Refills(s) 0, Pharmacy: [facility], 158, cm, 01/04/20 10:14:00 EDT, Height/Length [...] if needed. 0 12/08/2022 07/19/2023 Discontinued (Other) predniSONE 20 mg oral tablet (2 sources) Start: 06-06-2024 predniSONE (Deltasone) 20 MG tablet 06/06/2024 Active ProAir HFA 108 (90 Base) MCG/ACT [...] a day for 90 days Nov, Active Zofran ODT 4 mg Tab-Dis (1 source) Start: 06-03-2024 take 1 tablet by mouth every eight hours as needed for nausea Zofran ODT 4 mg Tab-Dis 4 mg = 1 tab(s), Oral, q8hr, PRN Nausea/Vomiting, # 12 tab(s), Refills(s) 0, Nausea/Vomiting, Pharmacy: [facility], 152, cm, 06/03/24 21:48:00 EST, Height/Length Dosing, 52.2, kg, 06/03/24 21:48:00 EST, Weight Dosing Start Date: 06/03/24 Status: Ordered Completed/Discontinued Medications Medication Drug Class(es) Dates Sig (Normalized) Sig (Original) sodium chloride 0.111 meq/ml nasal spray (4 sources) Start: 01-04-2020 Owen 0.65% Nasal [place] 2 spray(s), Nasal, QID Congestion, 1 EA, Refill(s) 0, [facility], 158, cm, 01/04/20 10:14:00 EDT, Height/Length Measured, 58.4, kg, 01/04/20 10:14:00 EDT, Weight Measured Start Date: 01/04/20 Status: Ordered Start: 01-04-2020 Owen 0.65% Na melquiades [place] 2 spray(s), Nasal, QID Congestion, 1 EA, Refill(s) 0, [facility], 158, cm, 01/04/20 10:14:00 EDT, [...] Translations: [Irregular menstruation, unspecified] Onset: 09-22-2022 Chronic Noninfectious gastroenteritis (1 source) Noninfectious enteritis; Translations: [Noninfective gastroenteritis and colitis, unspecified] Onset: 06-03-2024 Episodic Nonmalignant breast conditions (1 source) Inflammatory disorder [...] Translations: [Primary focal hyperhidrosis, unspecified] Episodic Unclassified (4 sources) Body mass index 20-24 - normal 01-04-2020 Past or Other Problems Problem Classification Problem Date Documented Da te Episodic/Chronic Other skin disorders (2 sources) Follicular disorder, unspecified Onset: 09-05-2021 Resolved: 09-06-2021 Episodic Results Test Name Value Interpretation Reference Range Facility [facility] 06-03-2024 Anion gap [Moles/Vol] 16 mmol/L Normal 6-16 [facility] Comment on above: Performed By: #### 2 [id number] #### [facility] [address] [place] [address] Calcium [Mass/Vol] 10.3 mg/dL Normal 8.9-11.1 [facility] Comment on above: Performed By: #### 2 [id number] #### [facility] [address] [place] [address] Chloride [Moles/Vol] 104 mmol/L Normal 101-111 [facility] Comment on above: Performed By: #### 2 [id number] #### [facility] [address] [place] [address] CO2 [Moles/Vol] 23 mmol/L Normal 21-31 [facility] Comment on above: Performed By: #### 2 [id number] #### [facility] [address] [place] [address] Creatinine [Mass/Vol] 0.9 mg/dL Normal 0.5-1.3 [facility] Comment on above: Performed By: #### 2 [id number] #### [facility] [address] [place] [address] Glucose [Mass/Vol] 149 mg/dL Normal 55-199 [facility] Comment on above: Performed By: #### 2 [id number] #### [facility] [address] [place] [address] Potassium [Moles/Vol] 4.1 mmol/L Normal 3.5-5.3 [facility] Comment on above: Performed By: #### 2 [id number] #### [facility] [address] [place] [address] Sodium [Moles/Vol] 139 mmol/L Normal 135-145 [facility] Comment on above: Performed By: #### 2 [id number] #### [facility] [address] [place] [address] Urea nitrogen [Mass/Vol] 20 mg/dL Normal 5-21 [facility] Comment on above: Performed By: #### 2 [id number] #### [facility] [address] [place] [address] Urea nitrogen/Creatinine [Mass ratio] 22 No Units High 10-20 [facility] Comment on above: Performed By: #### 2 [id number] #### [facility] [address] [place] [address] CBC w/ Auto Diffon 4 Basophils/100 WBC (Bld) 0.1 % Normal 0.0-2.0 [facility] Comment on above: Performed By: #### 2 [id number] #### [facility] [address] [place] [address] Basophils/Leukocytes Auto (Bld) [Pure # fraction] 0.0 E9/L Normal 0.0-0.2 [facility] Comment on above: Performed By: #### 2 [id number] #### [facility] [address] [place] [address] Eosinophils (Bld) [#/Vol] 0.3 E9/L Normal 0.0-0.5 [facility] Comment on above: Performed By: #### 2 [id number] #### [facility] [address] [place] [address] Eosinophils/100 WBC (Bld) 1.9 % Normal 0.0-8.0 [facility] Comment on above: Performed By: #### 2 155877 #### [facility] [address] [place] [address] Erythrocyte distribution width (RBC) [Ratio] 13.7 % Normal 10.9-14.2 [facility] Comment on above: Performed By: #### 2 [id number] #### [facility] [address] [place] [address] Hematocrit (Bld) [Volume fraction] 49.0 % High 34.0-46.0 [facility] Comment on above: Performed By: #### 2 [id number] #### [facility] [address] [place] [address] Hemoglobin (Bld) [Mass/Vol] 17.0 g/dL High 12.0-16.0 [facility] Comment on above: Performed By: #### 2 [id number] #### [facility] [address] [place] [address] Lymphocytes (Bld) [#/Vol] 0.8 E9/L Low 1.0-4.0 [facility] Comment on above: Performed By: #### 2 [id number] #### [facility] [address] [place] [address] Lymphocytes/100 WBC (Bld) 5.3 % Low 14.0-50.0 [facility] Comment on above: Performed By: #### 2 [id number] #### [facility] [address] [place] [address] MCH (RBC) [Entitic mass] 30.6 pg Normal 27.0-34.0 [facility] Comment on above: Performed By: #### 2 [id number] #### [facility] [address] [place] [address] MCHC (RBC) [Mass/Vol] 34.6 g/dL Normal 31.4-36.0 [facility] Comment on above: Performed By: #### 2 [id number] #### [facility] [address] [place] [address] MCV (RBC) [Entitic vol] 88.4 fL Normal 80.0-100.0 [facility] Comment on above: Performed By: #### 2 [id number] #### [facility] [address] [place] [address] Monocytes (Bld) [#/Vol] 0.9 E9/L Normal 0.2-1.0 [facility] Comment on above: Performed By: #### 2 [id number] #### [facility] [address] [place] [address] Neutrophils (Bld) [#/Vol] 12.6 E9/L High 2.0-7.5 [facility] Comment on above: Performed By: #### 2 211115 #### [facility] [address] [place] [address] Neutrophils/100 WBC (Bld) 86.2 % High 36.0-75.0 [facility] Comment on above: Performed By: #### 2 [id number] #### [facility] [address] [place] [address] Platelet 306.0 E9/L Normal 150.0-500.0 [facility] Comment on above: Performed By: #### 2 [id number] #### [facility] [address] [place] [address] Platelet mean volume (Bld) [Entitic vol] 7.5 fL Normal 6.4-10.8 [facility] Comment on above: Performed By: #### 2 [id number] #### [facility] [address] [place] [address] RBC (Bld) [#/Vol] 5.5 E12/L Normal 4.3-5.9 [facility] Comment on above: Performed By: #### 2 [id number] #### [facility] [address] [place] [address] WBC corrected for nucl RBC Auto (Bld) [#/Vol] 14.6 E9/L High 4.0-11.0 [facility] Comment on above: Performed By: #### 2 [id number] #### [facility] [address] [place] [address] CHEMISTRYOrdered By: SYSTEM SYSTEM on 06-03-2024 Albumin [Mass/Vol] 5.0 g/dL Normal 3.3 - 5.0 gm/dL Remisol Chem Albumin/Globulin [Mass ratio] 1.5 {ratio} Normal 1.1 - 2.2 [facility] ALP [Catalytic activity/Vol] 118 [iU]/d High 21 - 98 Int._Unit/L Remisol Chem ALT No additional P-5'-P [Catalytic activity/Vol] 17 [iU]/d Normal 6 - 46 Int._Unit/L [facility] Anion gap [Moles/Vol] 16 mmol/L Normal 6 - 16 mEq/L R emisol Chem AST [Catalytic activity/Vol] 15 [iU]/d Normal 5 - 43 Int._Unit/L [facility] Bilirubin [Mass/Vol] 0.9 mg/dL Normal 0.0 - 1 .1 mg/dL [facility] Bilirubin.direct [Mass/Vol] 0.1 mg/dL Normal 0.0 - 0.4 mg/dL Rem[facility] Chem Bilirubin.indirect [Mass or moles/Vol] 0.8 mg/dL Normal 0.1 - 0.9 mg/dL [facility] Calcium [Mass/Vol] 10.3 mg/dL Normal 8.9 - 11. 1 mg/dL [facility] Chloride [Moles/Vol] 104 mmol/L Normal 101 - 1 11 mmol/L [facility] CO2 [Moles/Vol] 23 mmol/L Normal 21 - 31 mmol/L [facility] Creatinine [Mass/Vol] 0.9 mg/dL Normal 0.5 - 1.3 mg/dL [facility] eGFR 88 mL/min/1.73 m2 Normal >=59mL/min /1. 73 m2 [facility] Globulin (S) [Mass/Vol] 3.4 g/dL Normal 1.4 - 4.0 gm/dL [facility] Glucose [Mass/Vol] 149 mg/dL Normal 55 - 199 mg/dL [facility] Lipase [Catalytic activity/Vol] 36 U/L Normal 13 - 58 unit/L [facility] Potassium [Moles/Vol] 4.1 mmol/L Normal 3.5 - 5.3 mmol/L [facility] Protein [Mass/Vol] 8.4 g/dL High 6.0 - 7.8 gm/dL [facility] Sodium [Moles/Vol] 139 mmol/L Normal 135 - 145 mmol/L [facility] Urea nitrogen [Mass/Vol] 20 mg/dL Normal 5 - 21 mg/dL [facility] Urea nitrogen/Creatinine [Mass ratio] 22 mg/mg High 10 - 20 [facility] ED Clinical Summaryon 2023 ED Clinical Summary ED Clinical Summary [address] [address] ED Clinical Summary Person Information Name: SHELLY HANNON [place] Age: 29 Years : 1995 Sex: Female Language: Welsh PCP: PHIL MUELLER DO Marital Status: Phone: [phone] Visit Id: Visit Reason: Chills; Diarrhea; Vomiting; vomiting, diarrhea Speciality: Acuity: 3 Enc Type: Emergency Med Service: Emergency Arrival: 06/03/2024 21:40:33 Discharge: 06/03/2024 23:54:45 LOS: 000 02:14 Checkin: 06/03/2024 21:40:33 Checkout: 06/03/2024 23:54:45 Dispo Type: Home (Routine DC) EVENTS: Event Name Event Status Request Date/Time Start Date/Time Complete Date/Time Arrive Complete 06/03/2024 21:40:33 06/03/2024 21:40:33 06/03/2024 21:40:33 Document Home Meds Request 06/03/2024 21:40:33 Triage Complete 06/03/2024 21:40:33 06/03/2024 21:48:54 06/03/2024 21:48:54 Bed Assign Complete 06/03/2024 21:43:00 06/03/2024 21:43:00 06/03/2024 21:43:00 Dr Exam Complete 06/03/2024 21:43:00 06/03/2024 21:50:30 06/03/2024 21:50:30 RN Exam Complete 06/03/2024 21:43:00 06/03/2024 22:13:44 06/03/2024 22:13:44 Registration Complete 06/03/2024 21:44:48 06/03/2024 21:44:48 06/03/2024 21:44:48 Reg Complete Request 06/03/2024 21:44:48 Reg Bed Request Complete 06/03/2024 21:44:48 06/03/2024 21:44:48 06/03/2024 21:44:48 Pending Labs Complete 06/03/2024 21:50:27 06/03/2024 23:35:16 Lab Complete 06/03/2024 21:50:27 06/03/2024 23:35:16 Meds Admin Complete 06/03/2024 21:50:27 06/03/2024 22:04:09 Patient Care Complete 06/03/2024 21:50:27 06/03/2024 22:05:26 Urine Collect Complete 06/03/2024 21:50:27 06/03/2024 23:35:16 Registration Start 06/03/2024 21:50:30 06/03/2024 21:50:46 Meds Admin Complete 06/03/2024 21:55:33 06/03/2024 22:09:18 Pending Labs Complete 06/03/2024 22:15:38 06/03/2024 22:15:38 06/03/2024 22:40:44 Lab Complete 06/03/2024 22:15:38 06/03/2024 22:15:38 06/03/2024 22:40:44 Possible SIRS Request 06/03/2024 22:45:40 Discharge Complete 06/03/2024 23:42:27 06/03/2024 23:54:49 06/03/2024 23:54:49 Transfer Complete 06/03/2024 23:54:49 06/03/2024 23:54:49 06/03/2024 23:54:49 ADDRESS: [address] [place] [phone] PHYS DOC NOTES: MEDICAL INFORMATION: Prescriptions Given: New Medications [facility], [address] [id number], [phone] ondansetron (Zofran ODT 4 mg Tab-Dis) 1 Tablets By Mouth every 8 hours as needed Nausea/Vomiting. Refills: 0. Medications to Continue with No Changes Other Medications albuterol (ProAir HFA) Inhalation every 6 hours. cephalexin (cephalexin 500 mg Cap) 1 Capsules By Mouth 4 times a day. Refills: 0. ethinyl estradiol-norethindr one (Blisovi FE / oral tablet) fluticasone (Flovent HFA 44 mcg/inh inhalation aerosol with adapter) 2 Puffs Inhalation 2 times a day. rinse mouth and throat after use. Refills: 0. fluticasone nasal (fluticasone 0.05 mg/inh Nasal [place]) 2 Sprays Nasal Inhalation every day as needed Congestion. each nostril. Refills: 0. montelukast (Singulair 10 mg Tab) 1 Tablets By Mouth once a day (in the evening). Refills: 0. sodium chloride nasal (Owen 0.65% Nasal [place]) 2 Sprays Nasal Inhalation 4 times a day as needed Congestion. Refills: 0. PATIENT EDUCATION INFORMATION: Instructions: Viral Gastroenteritis, Adult Follow up: With: Address: When: PHIL MUELLER [address] [place], [place] [phone] Business (1) In 3 days DIAGNOSIS: Acute gastroenteritis Normal [facility] ED Note-Physicianon 06-03-20 24 ED Note-Physician ED Note-Physician Basic Information Time Seen: Corrie Walter LOCKWOODAugusto 06/03/2024 21:50 Chief Complaint pt to ED with c/o vomiting and diarrrhea non stop since approx 1800. also states body aches and chills. states intermittent abd cramps and sore throat from dry heaving. History of Present Illness HPI: Patient is a 29-year-old female who has a past medical history of asthma presents the ED for nausea vomiting diarrhea. Patient states this started approximate 1800 has been constant since that time. She has had some intermittent left upper quadrant cramping before she vomits but denies otherwise abdominal pain. No fever that she is aware of but she does have chills. She has mild bodyaches with this. ROS: Pertinent review of systems conducted and is negative except as noted above. Physical exam: General: nontoxic appearing and in no distress HEENT: Mucous membranes moist Neuro: awake and alert Neck: supple, trachea midline Card: Heart regular rate and rhythm no murmur Resp: Lungs clear to auscultation no wheeze or rhonchi Abd: Soft and nondistended. No tenderness to palpation with no rebound or guarding. Ext: No gross deformity or edema Physical Exam Vitals & Measurements T: 36.6 ???C(Oral) HR: 114(Peripheral) RR: 16 BP: 104/77 SpO2: 99% HT: 152 cm WT: 52.2 kg BMI: 22.59 Medical Decision Making MEDICAL DECISION MAKING Number and Complexity of Problems Differential Diagnosis: [] [facility] Data External documents reviewed: N/A My EKG interpretation: Noted in chart if applicable My CT interpretation: N/A My X-ray interpretation: Noted in chart if applicable My Ultrasound interpretation: N/A Decision rules/scores evaluated: N/A Discussed with: N/A Treatment and Disposition ED Course: Patient is nontoxic-appearing in no distress. She has acute nausea vomiting diarrhea. We will obtain lab work and give her IV fluids as well as Zofran. Lab work is overall reassuring. After the medicine she was able to tolerate water with no further vomiting. She feels significantly improved. We discussed the likely diagnosis of viral gastroenteritis. We discussed the plan of discharge with prescription for oral Zofran. We encouraged her to drink fluids with electrolytes as well as easy digest diet. Will have her follow-up close with a primary care physician. We discussed return precautions. Patient was discharged in stable condition. Shared decision making: As above Code status: N/A Assessment/Plan Acute gastroenteritis (K52.9: Noninfective gastroenteritis and colitis, unspecified) Orders: Lactated Ringers Injection, 1,000 mL, Soln-IV, IV, Once, Stop date 06/03/24 21:54:00 EST, STAT, Start date 06/03/24 21:54:00 EST, mL/hr, Infuse over 61, minute(s) ondansetron, 4 mg = 2 mL, Injection, IV Push, Once, Stop date 06/03/24 21:50:00 EST, STAT, Start date 06/03/24 21:50:00 EST, 06/03/24 21:50:00 EST ondansetron, 4 mg = 1 tab(s), Oral, q8hr, PRN Nausea/Vomiting, # 12 tab(s), Refills(s) 0, Nausea/Vomiting, Pharmacy: [facility], 152, cm, 06/03/24 21:48:00 EST, Height/Length Dosing, 52.2, kg, 06/03/24 21:48:00 EST, Weight Dosing Basic Metabolic Panel CBC w/ Auto Diff eGFR Hepatic Function Panel Lipase Level Saline Lock Insert U Beta Hcg Qual UA with Cult Rflx Medications Administered Given [id number] [F], 1000 mL, IV ondansetron 4 mg/2 mL Inj, 4 mg, IV Push Disposition Plan Discharge Prescription List Prescriptions Zofran ODT 4 mg Tab-Dis, 4 mg= 1 tab(s), Oral, q8hr, PRN Follow-up With When Contact Information PHIL MUELLER In 3 days [address], [facility] [address] [place] [address]- Business (1) Additional Instructions: Patient Education Viral Gastroenteritis, Adult Problem List/Past Medical History Ongoing BMI 23.0-23.9, adult Historical No qualifying data Procedure/Surgical History None. Medications Inpatient LR 1000 mL Bolus, 1000 mL, IV, Once ondansetron 4 mg/2 mL Inj, 4 mg= 2 mL, IV Push, Once Home Blisovi FE 06/23 oral tablet cephalexin 500 mg Cap, 500 mg= 1 cap(s), Oral, QID Flovent HFA 44 mcg/inh inhalation aerosol with adapter, 2 puff(s), Inhalation, BID, Not taking fluticasone 0.05 mg/inh Nasal [place], 2 spray(s), Nasal, Daily, PRN, Not taking Owen 0.65% Nasal [place], 2 spray(s), Nasal, QID, PRN, Not taking ProAir HFA, Inhalation, q6hr Singulair 10 mg Tab, 10 mg= 1 tab(s), Oral, qPM, Not taking Allergies No Known Allergies Social History Alcohol Substance Abuse Tobacco - Denies Tobacco Use, 05/26/2021 Never (less than 100 in lifetime) Tobacco Use:. Never Smokeless Tobacco Use:. Cigarettes, 05/26/2021 Never (less than 100 in lifetime) Tobacco Use:. Never Smokeless Tobacco Use:., 01/04/2020 Family History Diabetes mellitus type 2: Mother. Hypertension: Father. Lab Results WBC: 14.6 E9/L High (06/03/24 22:09:00) RBC: 5.5 E12/L (06/03/24 22:09:00) HGB: 17 gm/dL High (06/03/24 22:09:00) Hct: 49 % High (06/03/24 22 (more content not included)... Normal [facility] Comment on above: Result Comment: Elec tronically Signed By: Walter Denton DO\.br\Date and Time Signed: 06/03/24 23:44 EST ED Patient Summaryon 024 ED Patient Summary ED Patient Summary [address] [address] Patient Discharge Instructions Person Information Name: SHELLY HANNON Age: 29 Years Arrival Date: 06/03/2024 21:40:33 Discharge Diagnosis: Acute gastroenteritis Primary Care Physician: PHIL MUELLER DO Provider Information Primary Provider: Walter Denton DO Advanced Health Promotion Coordinator:None The exam and treatment you received in the Emergency Department were for an urgent problem and are not intended as complete care. It is important that you follow up with a doctor, nurse practitioner, or physician???s assistant front end manager for ongoing care. If your symptoms become worse or you do not improve as expected and you are unable to reach your usual health care provider, you should return to the Emergency Department. We are available 24 hours a day. SHELLY HANNON has been given the following list of patient education materials, prescriptions and follow-up instructions: Follow-up Instructions: With: Address: When: PHIL MUELLER [address] [place], [place] [phone] Business (1) In 3 days In the event that this physician does not participate in your insurance network, please consult with your insurance company to find a nearby participating provider. Patient Education Materials: Viral Gastroenteritis, Adult A MESSAGE TO ALL PATIENTS REGARDING OPIOIDS PRESCRIPTION OPIOIDS: WHAT YOU NEED TO KNOW Prescription opioids can be used to help relieve dgjvcglo-st-tboyza pain and are often prescribed following a [...] as well, even when taken as directed: ??? Tolerance???meaning you might need to take more of the medication for the same pain relief ??? Physical dependence???meaning you have symptoms of withdrawal when a medication is stopped ??? Increased sensitivity to pain ??? Constipation ??? Nausea, vomiting, and dry mouth ??? Sleepiness and dizziness ??? Confusion ??? Depression ??? Low levels of testosterone that can result in lower sex drive, energy, and strength ??? Itching and sweating RISKS ARE GREATER WITH: ??? History of drug misuse, substance use disorder, or overdose ??? Mental health conditions (such as depression or anxiety) ??? Sleep apnea ??? Older age (65 years and older) ??? Avoid alcohol while taking prescription opioids. Also, unless specifically advised by your health care provider, medications to avoid include: ??? Benzodiazepines (such as Xanax or Valium) ??? Muscle relaxants (such as Soma or Flexeril) ??? Hypnotics (such as Ambien or Lunesta) ??? Other prescription opioids KNOW YOUR OPTIONS Talk to your health care provider about ways to manage your pain that don???t involve prescription opioids. Some of these options may actually work better and have fewer risks and side effects. Options may include: ??? Pain relievers such as acetaminophen, ibuprofen, and naproxen ??? Some medication that are also used for depression or seizures ??? Physical therapy and exercise ??? Cognitive behavioral therapy, a psychological, goal-directed approach, in which patients learn how to modify physical, behavioral, and emotional triggers of pain and stress. IF YOU ARE PRESCRIBED OPIOIDS FOR PAIN: ??? Never take opioids in greater amounts or more often than prescribed. ??? Follow up with your primary health care provider. o Work together to create a plan on how to manage your pain. o Talk about ways to help manage your pain that don???t involve prescription opioids. o Talk about any and all concerns and side effects. ??? Help prevent misuse and abuse o Never sell or share prescription opioids. o Never use another person???s prescription opioids. ??? Store prescription opioids in a secure place and out of reach of others (this may include visitors, children, friends, and family). ??? Safely dispose of unused prescription opioids: Find your community drug take-back program or your pharmacy mail-back program, or flush them down the toilet, following guidance from the Food and Drug Administration (www.fda.gov/Drugs/R esourcesForYou). ??? Visit www.cdc.gov/drugover dose to learn about the risks of opioids abuse and overdose. ??? If you believe you may be struggling with addiction, tell your health child care and ask for guid (more content not included)... Normal [facility] HEMATOLOGYOrdered By: SYSTEM SYSTEM on 06-03-2024 Basophils/100 WBC (Bld) 0.1 % Normal 0.0 - 2.0 % Remisol Heme Basophils/Leukocytes Auto (Bld) [Pure # fraction] 0.0 E9/L Normal 0.0 - 0.2 E9/L Remisol Heme Eosinophils (Bld) [#/Vol] 0.3 E9/L Normal 0.0 - 0.5 E9/L Remisol Heme Eosinophils/100 WBC (Bld) 1.9 % Normal 0.0 - 8.0 % Remisol Heme Erythrocyte distribution width (RBC) [Ratio] 13.7 % Normal 10.9 - 14.2 % Remisol Heme Hematocrit (Bld) [Volume fraction] 49.0 % High 34.0 - 46.0 % Remisol Heme Hemoglobin (Bld) [Mass/Vol] 17.0 g/dL High 12.0 - 16.0 gm/dL Remisol Heme Lymphocytes (Bld) [#/Vol] 0.8 E9/L Low 1.0 - 4.0 E9/L Remisol Heme Lymphocytes/100 WBC (Bld) 5.3 % Low 14.0 - 50.0 % Remisol Heme MCH (RBC) [Entitic mass] 30.6 pg Normal 27.0 - 34.0 pg Remisol Heme MCHC (RBC) [Mass/Vol] 34.6 g/dL Normal 31.4 - 36.0 gm/dL Remisol Heme MCV (RBC) [Entitic vol] 88.4 fL Normal 80.0 - 100.0 fL Remisol Heme Monocytes (Bld) [#/Vol] 0.9 E9/L Normal 0.2 - 1.0 E9/L Remisol Heme Monocytes/100 WBC (Bld) 6.5 % Normal 4.0 - 14.0 % Remisol Heme Neutrophils (Bld) [#/Vol] 12.6 E9/L High 2.0 - 7.5 E9/L Remisol Heme Neutrophils/100 WBC (Bld) 86.2 % High 36.0 - 75.0 % Remisol Heme Platelet 306.0 E9/L Normal 150.0 - 500.0 E9/L Remisol Heme Platelet mean volume (Bld) [Entitic vol] 7.5 fL Normal 6.4 - 10.8 fL Remisol Heme RBC (Bld) [#/Vol] 5.5 E12/L Normal 4.3 - 5.9 E12/L Remisol Heme WBC corrected for nucl RBC Auto (Bld) [#/Vol] 14.6 E9/L High 4.0 - 11.0 E9/L Remisol Heme Hep Func Panelon 06-03-2024 Albumin [Mass/Vol] 5.0 g/dL Normal 3.3-5.0 [facility] Comment on above: Performed By: #### 2 [id number] #### [facility] [address] [place] [address] Albumin/Globulin (S) [Mass conc ratio] 1.5 Normal 1.1-2.2 [facility] Comment on above: Performed By: #### 2 [id number] #### [facility] [address] [place] [address] ALP [Catalytic activity/Vol] 118 Int._Unit/L High 21-98 [facility] Comment on above: Performed By: #### 2 [id number] #### [facility] [address] [place] [address] ALT No additional P-5'-P [Catalytic activity/Vol] 17 Int._Unit/L Normal 6-46 [facility] Comment on above: Performed By: #### 2 [id number] #### [facility] [address] [place] [address] AST [Catalytic activity/Vol] 15 Int._Unit/L Normal 5-43 [facility] Comment on above: Performed By: #### 2 [id number] #### [facility] [address] [place] [address] Bilirubin [Mass/Vol] 0.9 mg/dL Normal 0.0-1.1 [facility] Comment on above: Performed By: #### 2 [id number] #### [facility] [address] [place] [address] Bilirubin.direct [Mass/Vol] 0.1 mg/dL Normal 0.0-0.4 [facility] Comment on above: Performed By: #### 2 [id number] #### [facility] [address] [place] [address] Bilirubin.indirect [Mass or moles/Vol] 0.8 mg/dL Normal 0.1-0.9 [facility] Comment on above: Performed By: #### 2 [id number] #### [facility] [address] [place] [address] Globulin (S) [Mass/Vol] 3.4 g/dL Normal 1.4-4.0 [facility] Comment on above: Performed By: #### 2 [id number] #### [facility] [address] [place] [address] Protein [Mass/Vol] 8.4 g/dL High 6.0-7.8 [facility] Comment on above: Performed By: #### 2 118210 #### [facility] [address] [place] [address] Lipase Levelon 06-03-2024 Lipase [Catalytic activity/Vol] 36 U/L Normal 13-58 [facility] Comment on above: Performed By: #### 2 [id number] #### [facility] [address] [place] [address] SEROLOGYOrdered By: Rhonda Haas on 06-03-2024 HCG.beta subunit (U) [Moles/Vol] Negative Normal [facility] Man Sero U BetaHcg Qualon 06-03-2024 HCG.beta subunit (U) [Moles/Vol] Negative Normal [facility] Comment on above: Performed By: #### 2 [id number] #### [facility] [address] [place] [address] UA with Cult Rflxon 06-03-20 24 Bilirubin Ql (U) Negative Normal Negative [facility] Comment on above: Performed By: #### 4 [id number] #### [facility] [address] [place] [address] Clarity (U) Clear Normal Clear [facility] Comment on above: Performed By: #### 4 [id number] #### [facility] [address] [place] [address] Color (U) Yellow Normal Yellow [facility] Comment on above: Result Comment: Micr oscopic readings are only performed on those samples that meet specific criteria set forth by [facility]. Performed By: #### 4 [id number] #### [facility] [address] [place] [address] Glucose Ql (U) Negative Normal Negative [facility] Comment on above: Performed By: #### 4 [id number] #### [facility] [address] [place] [address] Hemoglobin Auto test strip (U) [Mass/Vol] Negative Normal Negative [facility] Comment on above: Performed By: #### 4 [id number] #### [facility] [address] [place] [address] Ketones Auto test strip Ql (U) 1+ mg/dL Abnormal Negative [facility] Comment on above: Performed By: #### 4 [id number] #### [facility] [address] [place] [address] Leukocyte esterase Auto test strip Ql (U) Negative Normal Negative [facility] Comment on above: Performed By: #### 4 [id number] #### [facility] [address] [place] [address] Nitrite Auto test strip Ql (U) Negative Normal Negative [facility] Comment on above: Performed By: #### 4 [id number] #### [facility] [address] [place] [address] pH (U) 5.5 [pH] Invalid Interpretation Code 5.0-9.0 [facility] Comment on above: Performed By: #### 4 [id number] #### [facility] [address] [place] [address] Protein Ql (U) Trace Abnormal Negative [facility] Comment on above: Performed By: #### 4 [id number] #### [facility] [address] [place] [address] Specific gravity (U) [Rel density] 1.026 Invalid Interpretation Code 1.005-1.030 [facility] Comment on above: Performed By: #### 4 [id number] #### [facility] [address] [place] [id number] Urobilinogen (U) [Mass/Vol] Negative Normal Negative [facility] Comment on above: Performed By: #### 4 [id number] #### [facility] [address] [place] [address] Type of Urine collection method Clean Catch Normal [facility] Comment on above: Performed By: #### 4 [id number] #### [facility] [address] [place] [address] URINALYSISOrdered By: SYSTEM SYSTEM on 06-03-2024 Bilirubin Ql (U) Negative Normal Negativemg/dL [facility] UA Auto SS Clarity (U) Clear (06/03/24 11:22 PM) Normal Clear [facility] UA Auto SS Color (U) Yellow 1 (06/03/24 11:22 PM) Normal Yellow [facility] UA Auto SS Comment on above: Interpretive Data: M icroscopic readings are only performed on those samples that meet specific criteria set forth by [facility]. Glucose Ql (U) Negative Normal Negativemg/dL [facility] UA Auto SS Hemoglobin Auto test strip (U) [Mass/Vol] Negative Normal Negativemg/dL [facility] UA Aut o SS Ketones Auto test strip Ql (U) 1+ mg/dL Invalid Interpretation Code Negativemg/dL [facility] UA Auto SS Leukocyte esterase Auto test strip Ql (U) Negative Normal NegativeLeu/u L [facility] UA Auto SS Nitrite Auto test strip Ql (U) Negative Normal Negativemg/dL [facility] UA Auto SS pH (U) 5.5 *NA* (06/03/24 11:22 PM) Invalid Interpretation Code 5.0 - 9.0 [facility] UA Auto SS Protein Ql (U) Trace mg/dL Invalid Interpretation Code Negativemg/dL [facility] UA Auto SS Specific gravity (U) [Rel density] 1.026 *NA* (06/03/24 11:22 PM) Invalid Interpretation Code 1.005 - 1.030 [facility] UA Auto SS Urobilinogen (U) [Mass/Vol] Negative Normal Negativemg/dL [facility] UA Auto SS URINALYSISOrdered By: Walter guerin on 06-03-2024 UA Spec Desc Clean Catch (06/03/24 11:22 PM) Normal [facility] UA Auto SS eGFRon 06-03-2024 eGFR 88 mL/min/1.73 m2 Normal >=59 [facility] Comment on above: Performed By: #### 1 [id number] #### [facility] [address] [place] [address] C Urineon 08-10-2023 Bacteria identified Cx Nom [...] Locations R1: This test was performed at: [facility], [address] [place] [address], [address]- , , Normal [facility] Comment on above: Performed By: #### 1 [id number], [id number] #### [facility] [address] [place] [address] ED Note-Physicianon 08-08-19 ED Note-Physician Basic Information Time Seen: Megan GUERRA Vianey Bel 08/07/2023 21:08 Chief Complaint Pt. is a 3 wks post- reports left breast tenderness and discharges from [facility]. Pt. also reports fever, chills, and body aches. History of Present Illness This patient presents emergency department with chief complaint of left breast pain. The patient states she is 3 weeks . 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 She states earlier today she [...] did call today and talk to the environmental health specialist who advised her to come in [...] if she has requested consultation with the environmental health specialist. She is going to call tomorrow to schedule an appointment. The patient w (more content not included)... Normal [facility] Comment on above: Result Comment: Elec tronically Signed By: Vianey Guzman PA-C\.br\Date and Time Signed: 08/08/23 00:19 EST\.br\Electronically Co-Signed By: Dariel Godfrey M.D.\.br\Date and Time Co-Signed: 08/08/23 00:20 EST BMPon 08-07-2023 Anion gap [Moles/Vol] 14 mmol/L Normal 6-16 [facility] Comment on above: Performed By: #### 2 560389, [id number], [id number] #### [facility] [address] [place] [address] Calcium [Mass/Vol] 9.1 mg/dL Normal 8.9-11.1 [facility] Comment on above: Performed By: #### 2 497628, 8495571, [id number] #### [facility] [address] [place] [address] Chloride [Moles/Vol] 107 mmol/L Normal 101-111 [facility] Comment on above: Performed By: #### 2 595448, 9726694, [id number] #### [facility] [address] [place] [address] CO2 [Moles/Vol] 22 mmol/L Normal 21-31 [facility] Comment on above: Performed By: #### 2 999252, 1272764, 13899378 #### [facility] [address] [place] [address] Creatinine [Mass/Vol] 1.0 mg/dL Normal 0.5-1.3 [facility] Comment on above: Performed By: #### 2 592948, 6233597, [id number] #### [facility] [address] [place] [address] Glucose [Mass/Vol] 104 mg/dL Normal 55-199 [facility] Comment on above: Performed By: #### 2 412874, 9367397, 10153395 #### [facility] [address] [place] [address] Potassium [Moles/Vol] 3.6 mmol/L Normal 3.5-5.3 [facility] Comment on above: Performed By: #### 2 010345, 8343177, [id number] #### [facility] [address] [place] [address] Sodium [Moles/Vol] 139 mmol/L Normal 135-145 [facility] Comment on above: Performed By: #### 2 532686, 0140179, 43426956 #### [facility] [address] [place] [address] Urea nitrogen [Mass/Vol] 20 mg/dL Normal 5-21 [facility] Comment on above: Performed By: #### 2 732297, 9205800, 03926757 #### [facility] [address] [place] [address] Urea nitrogen/Creatinine [Mass ratio] 20 No Units Normal 10-20 [facility] Comment on above: Performed By: #### 2 252350, 4693299, [id number] #### [facility] [address] [place] [address] CBC w/ Auto Diffon 4 Basophils/100 WBC (Bld) 0.6 % Normal 0.0-2.0 [facility] Comment on above: Performed By: #### 2 959629, 3534036, 04402692 #### [facility] [address] [place] [address] Basophils/Leukocytes Auto (Bld) [Pure # fraction] 0.1 E9/L Normal 0.0-0.2 [facility] Comment on above: Performed By: #### 2 668134, 9938030, 26409648 #### [facility] [address] [place] [address] Eosinophils (Bld) [#/Vol] 0.5 E9/L Normal 0.0-0.5 [facility] Comment on above: Performed By: #### 2 673101, 5540666, 66670381 #### [facility] [address] [place] [address] Eosinophils/100 WBC (Bld) 3.5 % Normal 0.0-8.0 [facility] Comment on above: Performed By: #### 2 087999, 9662159, 50868989 #### [facility] [address] [place] [address] Erythrocyte distribution width (RBC) [Ratio] 15.5 % High 10.9-14.2 [facility] Comment on above: Performed By: #### 2 472928, 8345648, 96344788 #### [facility] [address] [place] [address] Hematocrit (Bld) [Volume fraction] 35.7 % Normal 34.0-46.0 [facility] Comment on above: Performed By: #### 2 715080, 2105525, 46498025 #### [facility] [address] [place] [address] Hemoglobin (Bld) [Mass/Vol] 11.6 g/dL Low 12.0-16.0 [facility] Comment on above: Performed By: #### 2 873596, 8597109, 92950835 #### [facility] [address] [place] [address] Lymphocytes (Bld) [#/Vol] 2.1 E9/L Normal 1.0-4.0 [facility] Comment on above: Performed By: #### 2 375794, 5384575, 57181761 #### [facility] [address] [place] [address] Lymphocytes/100 WBC (Bld) 13.5 % Low 14.0-50.0 [facility] Comment on above: Performed By: #### 2 079397, 8521387, 70660341 #### [facility] [address] [place] [address] MCH (RBC) [Entitic mass] 28.1 pg Normal 27.0-34.0 [facility] Comment on above: Performed By: #### 2 015876, 5844475, 89802468 #### [facility] [address] [place] [address] MCHC (RBC) [Mass/Vol] 32.5 g/dL Normal 31.4-36.0 [facility] Comment on above: Performed By: #### 2 009771, 6301737, 93547743 #### [facility] [address] [place] [address] MCV (RBC) [Entitic vol] 86.3 fL Normal 80.0-100.0 [facility] Comment on above: Performed By: #### 2 622854, 9302489, 00834418 #### [facility] [address] [place] [address] Monocytes (Bld) [#/Vol] 1.1 E9/L High 0.2-1.0 [facility] Comment on above: Performed By: #### 2 652855, 9927305, 95025853 #### [facility] [address] [place] [address] Neutrophils (Bld) [#/Vol] 11.5 E9/L High 2.0-7.5 [facility] Comment on above: Performed By: #### 2 448584, 0973611, 51780699 #### [facility] [address] [place] [address] Neutrophils/100 WBC (Bld) 75.4 % High 36.0-75.0 [facility] Comment on above: Performed By: #### 2 195153, 3486845, 62456144 #### [facility] [address] [place] [address] Platelet mean volume (Bld) [Entitic vol] 7.0 fL Normal 6.4-10.8 [facility] Comment on above: Performed By: #### 2 933051, 2374791, 09081431 #### [facility] [address] [place] [address] Platelets (Bld) [#/Vol] 417.0 E9/L Normal 150.0-500.0 [facility] Comment on above: Performed By: #### 2 311800, 8626296, 43256811 #### [facility] [address] [place] [address] RBC (Bld) [#/Vol] 4.1 E12/L Low 4.3-5.9 [facility] Comment on above: Performed By: #### 2 061786, 0610355, 20043770 #### [facility] [address] [place] [address] WBC corrected for nucl RBC Auto (Bld) [#/Vol] 15.3 E9/L High 4.0-11.0 [facility] Comment on above: Performed By: #### 2 444309, 5405584, 09628623 #### [facility] [address] [place] [address] CHEMISTRYOrdered By: SYSTEM SYSTEM on 08-07-2023 Anion [...] for Treatmenton Consent for Treatment [id number] #1.00TIFF Normal [facility] Discharge Instructionson Discharge Instructions [id number] 8#1.00TIFF Normal [facility] ED Clinical Summaryon 2023 ED Clinical Summary [address] [address] ED Clinical Summary Person Information Name: SHELLY HANNON Mary/[facility] Age: 28 Years : 1995 Sex: Female Language: Welsh PCP: PHIL MUELLER DO Marital Status: Phone: [phone] Visit Id: Visit Reason: Fever; Breast Pain/Discharge; [...] 08/07/2023 22:37:04 08/07/2023 22:37:04 08/07/2023 22:37:04 ADDRESS: [address] [place] [id number] PHYS DOC NOTES: MEDICAL INFORMATION: Prescriptions Given: New Medications [facility], [address] [place], [place] [id number], [phone] cephalexin (cephalexin 500 mg Cap) 1 Capsules By Mouth 4 times a day. Refills: 0. Medications to Continue with No Changes Other Medications albuterol (ProAir HFA) Inhalation every 6 hours. ethinyl estradiol-norethindr one (Blisovi FE /20 oral tablet) fluticasone (Flovent HFA 44 mcg/inh inhalation aerosol with adapter) 2 Puffs Inhalation 2 times a day. rinse mouth and throat after use. Refills: 0. fluticasone nasal (fluticasone 0.05 mg/inh Nasal [place]) 2 Sprays Nasal Inhalation every day as needed Congestion. each nostril. Refills: 0. montelukast (Singulair 10 mg Tab) 1 Tablets By Mouth once a day (in the evening). Refills: 0. sodium chloride nasal (Owen 0.65% Nasal [place]) 2 Sprays Nasal Inhalation 4 times a day as needed Congestion. Refills: 0. PATIENT EDUCATION INFORMATION: Instructions: Mastitis, Zeqe-pd-Tmnp; and Mastitis Follow up: With: Address: When: [facility] support group [phone]; [facility] [phone] In 3 days 08/10/2023 With: Address: When: PHIL MUELLER [facility] [address] [address] Business (1) In 3 days 08/10/2023 DIAGNOSIS: 1:Mastitis Normal [facility] ED Patient Education Noteon 08-07-2023 ED Patient Education Note Obstetrics and Gynecology [...] the heat source that your doctor or environmental health specialist tells you to use. ? If [...] is hungry. ? Ask your doctor or environmental health specialist whether you need to change your routine. ? Avoid using nipple johnson, if possible. Ask a environmental health specialist for help. ? Change the breast you offer first at each feeding to make sure your baby feeds from both breasts. ? Offer both breasts to your baby every time your baby feeds. ? Use gentle breast massage during feeding or pumping sessions only as told by your doctor or environmental health specialist. ? Avoid letting your breasts get [...] symptoms worse. ? Ask your doctor or environmental health specialist whether you need to change your pumping routine. Medicines ? Take eiqx-soz-qcvfiix and prescription medicines only as told by [...] Make sure (more content not included)... Normal [facility] ED Patient Summaryon 024 ED Patient Summary [address] [address] Patient Discharge Instructions Person Information Name: SHELLY HANNON Age: 28 Years Arrival Date: 08/07/2023 20:03:26 Discharge Diagnosis: 1:Mastitis Primary Care Physician: PHIL MUELLER DO Provider Information Primary Provider: Dariel Godfrey M.D. Advanced Health Promotion Coordinator:None The exam and treatment you received in the Emergency Department were for an urgent problem and are not intended as complete care. It is important that you follow up with a doctor, nurse practitioner, or physician?s assistant front end manager for ongoing care. If your symptoms become worse or you do not improve as expected and you are unable to reach your usual health care provider, you should return to the Emergency Department. We are available 24 hours a day. SHELLY HANNON has been given the following list of patient education materials, prescriptions and follow-up instructions: Follow-up Instructions: With: Address: When: [facility] support group [phone]; [facility] [phone] In 3 days 08/10/2023 With: Address: When: PHIL MUELLER [address] [place] [address] [address] [facility] (1) In 3 days 08/10/2023 In the event that this physician does not participate in your insurance network, please consult with your insurance company to find a nearby participating provider. Patient Education Materials: Mastitis, Exvp-zd-Qpme; and Mastitis A MESSAGE TO ALL PATIENTS REGARDING OPIOIDS PRESCRIPTION OPIOIDS: WHAT YOU NEED TO KNOW Prescription opioids can be used to help relieve exnmkjes-mn-mdfuon pain and are often prescribed following a [...] be struggli (more content not included)... Normal [facility] HEMATOLOGYOrdered By: SYSTEM SYSTEM on 08-07-2023 [...] High 4.0 - 11.0 E9/L Remisol Heme UA With Cult Reflexon 2023 Bacteria LM Ql (Urine sed) TRACE Normal Trace [facility] Comment on above: Performed By: #### 1 [id number], [id number] #### [facility] [address] [place] [address] Bilirubin Ql (U) Negative Normal Negative [facility] Comment on above: Performed By: #### 1 [id number], [id number] #### [facility] [address] [place] [address] Clarity (U) CLEAR Normal Clear [facility] Comment on above: Performed By: #### 1 7354721, [id number] #### [facility] [address] [place] [address] Color (U) YELLOW Normal Yellow [facility] Comment on above: Performed By: #### 1 [id number], [id number] #### [facility] [address] [place] [address] Epithelial cells.squamous LM.HPF (Urine sed) [#/Area] 3-4 Normal 0-2 [facility] Comment on above: Performed By: #### 1 6469291, [id number] #### [facility] [address] [place] [address] Glucose Test strip (U) [Mass/Vol] Negative Normal Negative [facility] Comment on above: Performed By: #### 1 8941364, 2082501 #### [facility] [address] [place] [address] Hemoglobin Ql (U) 1+ Abnormal Negative [facility] Comment on above: Performed By: #### 1 2616199, [id number] #### [facility] [address] [place] [address] Ketones (U) [Mass/Vol] 1+ Abnormal Negative [facility] Comment on above: Performed By: #### 1 [id number], [id number] #### [facility] [address] [place] [address] [place].plasma/Lithiu m.RBC (Bld) [Mass ratio] 4-20 Normal 0-3 [facility] Comment on above: Performed By: #### 1 [id number] #### [facility] [address] [place] [address] Nitrite Ql (U) Negative Normal Negative [facility] Comment on above: Performed By: #### 1 [id number], [id number] #### [facility] [address] [place] [address] pH (U) 6.0 [pH] Invalid Interpretation Code 5.0-9.0 [facility] Comment on above: Performed By: #### 1 [id number], [id number] #### [facility] [address] [place] [address] Protein (U) [Mass/Vol] Negative Normal Negative [facility] Comment on above: Performed By: #### 1 [id number] #### [facility] [address] [place] [address] Specific gravity (U) [Rel density] 1.020 Invalid Interpretation Code 1.005-1.030 [facility] Comment on above: Performed By: #### 1 [id number] #### [facility] [address] [place] [address] Type of Urine collection method Clean Catch Normal [facility] Comment on above: Performed By: #### 1 [id number], [id number] #### [facility] [address] [place] [address] Urobilinogen Qn (U) 0.2 {Jayce'U}/dL Normal 0.0-1.0 [facility] Comment on above: Performed By: #### 1 [id number], [id number] #### [facility] [address] [place] [address] WBC Auto Ql (U) 1+ Abnormal Negative [facility] Comment on above: Performed By: #### 1 [id number], [id number] #### [facility] [address] [place] [id number] WBC LM.HPF (Urine sed) [#/Area] 6-15 Abnormal 0-5 [facility] Comment on above: Performed By: #### 1 [id number], [id number] #### [facility] [address] [place] [address] URINALYSISOrdered By: Johny Merino on 08-07-2023 Bacteria LM Ql (Urine sed) Trace /HPF Normal Trace/HPF [facility]A Auto SS Bilirubin Ql (U) Negative [...] Auto SS Hemoglobin Ql (U) 1+ *ABN* (08/07/23 10:30 PM) Invalid Interpretation Code Negative [facility] UA Auto SS Ketones (U) [Mass/Vol] 1+ *ABN* (08/07/23 10:30 PM) Invalid Interpretation Code Negative [facility] UA Auto SS [place].plasma/Lithiu m.RBC (Bld) [Mass ratio] 4-20 /HPF Normal 0-3/HPF [facility] UA Auto SS Nitrite Ql (U) Negative (08/07/23 10:30 PM) Normal Negative [facility] UA Auto SS pH (U) 6.0 *NA* (08/07/23 10:30 PM) Invalid Interpretation Code 5.0 - 9.0 [facility] UA Auto SS Protein (U) [Mass/Vol] Negative (08/07/23 10:30 PM) Normal Negative [facility] UA Auto SS Specific gravity (U) [Rel density] 1.020 *NA* (08/07/23 10:30 PM) Invalid Interpretation Code 1.005 - 1.030 [facility] UA Auto SS UA Spec Desc Clean Catch (08/07/23 10:30 PM) Normal [facility] UA Auto SS Urobilinogen Qn (U) 0.7287446 {Jayce'U}/dL Normal 0.0 - 1.0 EU/dL [facility] UA Auto SS WBC Auto Ql (U) 1+ *ABN* (08/07/23 10:30 PM) Invalid Interpretation Code Negative [facility] UA Auto SS WBC LM.HPF (Urine sed) [#/Area] 6-15 /HPF Invalid Interpretation Code 0-5/HPF [facility] UA Auto SS eGFRon 08-07-2023 eGFR 78 mL/min/1.73 m2 Normal >=59 [facility] Comment on above: Order Comment: Order added by Discern Expert. Performed By: #### 2 [id number] #### [facility] [address] [place] [address] Urinalysis macro (dipstick) panel (U)Ordered By: Mary Chavez on 07-10-2023 Bilirubin, UA Negative Negative - 4(70) +++ mg/dL [facility] Work Phone: Blood, UA Negative Negative - 50 Pasha/mcL [facility] Work Phone: Clarity, UA Clear [facility] Work Phone: Color, UA Yellow [facility] Work Phone: Glucose, UA Negative Negative - 1999(110) ++++ mg/dL [facility] Work Phone: Interpretation and review of laboratory results Abnormal [facility] Work Phone: Ketones, UA Negative Negative - 160(16) ++++ mg/dL [facility] Work Phone: Leukocytes, UA Trace Negative - 500+++ Lavern/mcL [facility] Work Phone: Nitrite, UA Negative Negative - Positive [facility] Work Phone: pH, UA 7.0 5 - 9 [facility] Work Phone: Protein, UA Negative Negative - 1999(20) ++++ mg/dL [facility] Work Phone: Spec Grav, UA 1.015 1 - 1.03 [facility] Work Phone: Urobilinogen, UA 0.2 0.2 - 12 mg/dL [facility] Work Phone: [facility] Work Phone: ANTI-MULLERIAN HORMONEon Anti-Mullerian Hormone (AMH) 6.57 ng/mL Normal [facility] Comment on above: Result Comment: For assays employing antibodies, the possibility exists for interference by heterophile antibodies in the samples.1 1.Demond Nunez Interferences in Immunoassays - still a threat. Clin. Chem. 2000; 46: 9791-2455. This test was developed and its performance characteristics determined by [employer]. It has not been cleared or approved by the Food and Drug Administration. Reference Range: Females 26 - 30y: 1.03 - 11.10 Median 4.20 AMH concentrations of >= 1.06 ng/mL is correlated with a better response to ovarian stimulation, produced more retrievable oocytes and higher odds of live according to Andrzej et al. Fertility and Sterility. 2010: 94:3983-2679. The current AMH test method correlates with [...] tumor. Performed By: #### A AGGIE #### [facility] [id number] Matilde Fitch PROGESTERONEon 09-23-2022 Progesterone 0.4 ng/mL Normal [facility] Comment on above: Result Comment: Foll icular phase 0.1 - 0.9 Luteal phase 1.8 - 23.9 Ovulation phase 0.1 - 12.0 First trimester 11.0 - 44.3 Second trimester 25.4 - 83.3 Third trimester 58.7 - 214.0 Postmenopausal 0.0 - 0.1 Performed By: #### P ALBA #### [facility] [address] [address] [address] Matilde Fitch CHEMISTRYOrdered By: SYSTEM SYSTEM [...] 316.0 E9/L Normal 150.0 - 500.0 E9/L [facility] HemeAutoSS RBC (Bld) [#/Vol] 5.0 E12/L Normal 4.3 - 5.9 E12/L [facility] HemeAutoSS WBC corrected for nucl RBC Auto (Bld) [#/Vol] 8.5 E9/L Normal 4.0 - 11.0 E9/L [facility] HemeAutoSS CHEMISTRYOrdered By: SYSTEM SYSTEM on 05-06-2022 Progesterone [Mass/Vol] 1.10 ng/mL Invalid Interpretation Code [facility] Remisol Vital Signs Date Time Vital Sign Value Performing Clinician Facility 12-11-2024 11:49-0400 Body height 152.4 cm [employer] Work Phone: [facility] 12-11-2024 11:49-0400 Body mass index (BMI) [Ratio] 24.22 kg/m2 [employer] Work Phone: [facility] 12-11-2024 11:49-0400 Body weight 56.25 kg [employer] Work Phone: [facility] 12-11-2024 11:49-0400 Diastolic blood pressure 70 mm[Hg] Tayo Chaitanya [employer] Work Phone: [facility] 12-11-2024 11:49-0400 Systolic blood pressure 116 mm[Hg] Tayo Chaitanya DO Work Phone: [facility] 06-03-2024 23:52-0500 Diastolic blood pressure 79 mm[Hg] Walter Corrie [facility] 06-03-2024 23:52-0500 Heart rate 92 /min Walter Corrie [facility] 06-03-2024 23:52-0500 Mean blood pressure 90 mm[Hg] Walter Corrie [facility] 06-03-2024 23:52-0500 Respiratory rate 16 /min Walter Corrie [facility] 06-03-2024 23:52-0500 SaO2% (BldA) [Mass fraction] 99 % Walter Corrie [facility] 06-03-2024 23:52-0500 Systolic blood pressure 113 mm[Hg] Walter Corrie [facility] 06-03-2024 23:20-0500 Diastolic blood pressure 71 mm[Hg] Walter Corrie [facility] 06-03-2024 23:20-0500 Mean blood pressure 85 mm[Hg] Walter Corrie [facility] 06-03-2024 23:20-0500 Respiratory rate 16 /min Walter Corrie [facility] 06-03-2024 23:20-0500 SaO2% (BldA) [Mass fraction] 99 % Walter Corrie [facility] 06-03-2024 23:20-0500 Systolic blood pressure 112 mm[Hg] Walter Corrie [facility] 06-03-2024 22:38-0500 Diastolic blood pressure 73 mm[Hg] Walter Corrie [facility] 06-03-2024 22:38-0500 Heart rate 98 /min Walter Corrie [facility] 06-03-2024 22:38-0500 Mean blood pressure 87 mm[Hg] Walter Corrie [facility] 06-03-2024 22:38-0500 Respiratory rate 16 /min Walter Corrie [facility] 06-03-2024 22:38-0500 SaO2% (BldA) [Mass fraction] 100 % Walter Corrie [facility] 06-03-2024 22:38-0500 Systolic blood pressure 115 mm[Hg] Walter Corrie [facility] 06-03-2024 22:28-0500 Heart rate 96 /min Walter Corrie [facility] 06-03-2024 21:45-0500 Body temperature 97.88 [degF] Walter Corrie [facility] 06-03-2024 21:45-0500 Heart rate 114 /min Walter Corrie [facility] 08-07-2023 22:35-0500 Diastolic blood pressure 89 mm[Hg] [facility] 08-07-2023 22:35-0500 Heart rate 106 /min [facility] 08-07-2023 22:35-0500 Mean blood pressure 102 mm[Hg] [facility] 08-07-2023 22:35-0500 Respiratory rate 18 /min [facility] 08-07-2023 22:35-0500 SaO2% (BldA) [Mass fraction] 96 % [facility] 08-07-2023 22:35-0500 Systolic blood pressure 127 mm[Hg] [facility] 08-07-2023 22:09-0500 Diastolic blood pressure 85 mm[Hg] [facility] 08-07-2023 22:09-0500 Heart rate 100 /min [facility] 08-07-2023 22:09-0500 Mean blood pressure 101 mm[Hg] [facility] 08-07-2023 22:09-0500 Respiratory rate 18 /min [facility] 08-07-2023 22:09-0500 SaO2% (BldA) [Mass fraction] 96 % [facility] 08-07-2023 22:09-0500 Systolic blood pressure 132 mm[Hg] [facility] 08-07-2023 21:57-0500 Diastolic blood pressure 85 mm[Hg] [facility] 08-07-2023 21:57-0500 Heart rate 104 /min [facility] 08-07-2023 21:57-0500 Mean blood pressure 101 mm[Hg] [facility] 08-07-2023 21:57-0500 Respiratory rate 18 /min [facility] 08-07-2023 21:57-0500 SaO2% (BldA) [Mass fraction] 96 % [facility] 08-07-2023 21:57-0500 Systolic blood pressure 132 mm[Hg] [facility] 08-07-2023 20:09-0500 Body temperature 100.76 [degF] [facility] 08-07-2023 20:09-0500 Heart rate 117 /min [facility] 07-19-2023 11:07-0500 Body mass index (BMI) [Ratio] 28.87 kg/m2 Izzy FOY Work Phone: [facility] 07-19-2023 11:07-0500 Body weight 73.94 kg Izzy FOY Work Phone: [facility] 07-19-2023 11:07-0500 Diastolic blood pressure 74 mm[Hg] Izzy FOY Work Phone: [facility] 07-19-2023 11:07-0500 Systolic blood pressure 114 mm[Hg] Izzy FOY Work Phone: [facility] 07-10-2023 09:38-0500 Body mass index (BMI) [Ratio] 30.79 kg/m2 Tayo Chaitanya DO Work Phone: [facility] 07-10-2023 09:38-0500 Body weight 78.83 kg Tayo Chaitanya DO Work Phone: [facility] 07-10-2023 09:38-0500 Diastolic blood pressure 80 mm[Hg] Tayo Chaitanya DO Work Phone: [facility] 07-10-2023 09:38-0500 Systolic blood pressure 112 mm[Hg] Tayo Chaitanya DO Work Phone: [facility] 07-14-2022 09:45-0500 Body height 153.67 cm Phil Ervin Other [employer] Other 07-14-2022 09:45-0500 Body mass index (BMI) [Ratio] 26.7 kg/m2 Phil Ervin Other [employer] Other 07-14-2022 09:45-0500 Body temperature 96 [degF] Phil Ervin Other [employer] Other 07-14-2022 09:45-0500 Body weight 63.05 kg Phil Ervin Other [employer] Other 07-14-2022 09:45-0500 Diastolic blood pressure 62 mm[Hg] Phil Ervin Other [employer] Other 07-14-2022 09:45-0500 Respiratory rate 16 /min Phil Ervin Other [employer] Other 07-14-2022 09:45-0500 SaO2% (BldA) [Mass fraction] 97 % Phil Ervin Other [employer] Other 07-14-2022 09:45-0500 Systolic blood pressure 98 mm[Hg] Phil Ervin Other [employer] Other 05-09-2022 12:45-0500 Body height 153.67 cm Phil Ervin Other [employer] Other 05-09-2022 12:45-0500 Body mass index (BMI) [Ratio] 26.12 kg/m2 Phil Ervin Other [employer] Other 05-09-2022 12:45-0500 Body temperature 97.9 [degF] Phil Ervin Other [employer] Other 05-09-2022 12:45-0500 Body weight 61.69 kg Phil Ervin Other [employer] Other 05-09-2022 12:45-0500 Diastolic blood pressure 82 mm[Hg] Phil Ervin Other [employer] Other 05-09-2022 12:45-0500 Respiratory rate 16 /min Phil Ervin Other [employer] Other 05-09-2022 12:45-0500 SaO2% (BldA) [Mass fraction] 98 % Hpil Ervin Other [employer] Other 05-09-2022 12:45-0500 Systolic blood pressure 124 mm[Hg] Phil Ervin Other [employer] Other 09-05-2021 11:00-0400 Body height 153.67 cm Phil Ervin Other [employer] Other 09-05-2021 11:00-0400 Body mass index (BMI) [Ratio] 26.5 kg/m2 Phil Ervin Other [employer] Other 09-05-2021 11:00-0400 Body temperature 98.5 [degF] Phil Ervin Other [employer] Other 09-05-2021 11:00-0400 Body weight 62.6 kg Phil Ervin Other [employer] Other 09-05-2021 11:00-0400 Diastolic blood pressure 60 mm[Hg] Phil Ervin Other [employer] Other 09-05-2021 11:00-0400 Respiratory rate 16 /min Phil Ervin Other [employer] Other 09-05-2021 11:00-0400 SaO2% (BldA) [Mass fraction] 98 % Phil Ervin Other [employer] Other 09-05-2021 11:00-0400 Systolic blood pressure 96 mm[Hg] Phil Ervin Other [employer] Other Encounters Encounter Date Encounter Type Care Provider Facility Start: 12-11-2024 End: 12-11-2024 Bamboo flowsheet Tayo Chaitanya DO Work Phone: [facility] Start: 12-11-2024 End: 12-11-2024 Bamboo flowsheet Tayo Chaitanya DO Work Phone: [facility] Start: 12-11-2024 End: 12-11-2024 Patient encounter procedure Tayo Chaitanya DO Work Phone: [facility] Start: 12-11-2024 End: 12-11-2024 Periodic preventive med est patient 18-39 yrs Tayo Chaitanya DO Work Phone: [facility] Comment on above: Well woman exam with routine gynecological exam Start: 06-03-2024 End: 06-03-2024 Emergency department patient visit Walter Denton [facility] Start: 12-05-2023 End: 12-05-2023 ambulatory TAYO CHAITANYA Not Available Start: 08-23-2023 End: 08-23-2023 ambulatory IZZY ARIANE Not Available Start: 08-07-2023 End: 08-07-2023 Emergency department patient visit Dariel Godfrey [facility] Start: 07-19-2023 End: 07-19-2023 ambulatory IZZY ARIANE Not Available Start: 07-19-2023 End: 07-19-2023 Postop follow up visit related to original px Izzy Thakkar PA Work Phone: [facility] Comment on above: Postoperative visit; S/P section Start: 07-10-2023 End: 07-10-2023 flow sheet Tayo Chaitanya DO Work Phone: [facility] Comment on above: Third trimester preg ashleigh Start: 07-10-2023 End: 07-10-2023 ambulatory TAYO CHAITANYA Not Available Start: 07-03-2023 End: 07-03-2023 ambulatory TAYO CHAITANYA Not Available Start: 06-26-2023 End: 06-26-2023 ambulatory TAYO CHAITANYA Not Available Start: 06-12-2023 End: 06-12-2023 ambulatory IZZY ARIANE Not Available Start: 05-24-2023 End: 05-24-2023 ambulatory IZZY ARIANE Not Available Start: 05-10-2023 End: 05-10-2023 ambulatory TAYO CHAITANYA Not Available Start: 11-06-2022 End: 11-06-2022 ambulatory Phil Mueller Other [employer] Other Start: 11-06-2022 Telephone encounter Phil Mueller [facility] Start: 09-22-2022 End: 09-23-2022 ambulatory TAYO CHAITANYA Facility:[facility] Start: 07-14-2022 End: 07-14-2022 ambulatory Phil Ervin Other [employer] Other Start: 07-14-2022 Office outpatient vi sit 25 minutes Phil Ervin [facility] Start: 07-14-2022 Telephone encounter Phil Ervin [facility] Start: 07-11-2022 End: 07-11-2022 ambulatory Phil Ervin Other [employer] Other Start: 07-11-2022 Telephone encounter Phil Ervin [facility] Start: 05-16-2022 End: 05-16-2022 ambulatory Phil Ervin Other [employer] Other Start: 05-16-2022 Telephone encounter Phil Ervin [facility] Start: 05-11-2022 End: 05-11-2022 Patient encounter procedure PHIL M ERVIN [facility] Start: 05-09-2022 End: 05-09-2022 ambulatory Phil Ervin Other [employer] Other Start: 05-09-2022 Office outpatient vi sit 15 minutes Phil Ervin [facility] Start: 05-06-2022 End: 05-06-2022 Patient encounter procedure ROMIMEGHA NELSON [facility] Start: 05-02-2022 End: 05-02-2022 ambulatory Phil Ervin Other [employer] Other Start: 05-02-2022 Telephone encounter Phil Ervin [facility] Start: 11-29-2021 End: 11-29-2021 ambulatory Phil Ervin Other [employer] Other Start: 11-29-2021 Telephone encounter Phil Ervin [facility] Start: 09-09-2021 End: 09-09-2021 ambulatory Phil Ervin Other [employer] Other Start: 09-09-2021 Telephone encounter Phil Ervin [facility] Start: 09-06-2021 End: 09-06-2021 ambulatory Phil Ervin Other [employer] Other Start: 09-06-2021 Telephone encounter Phil Ervin [facility] Start: 09-05-2021 End: 09-05-2021 ambulatory Phil Ervin Other [employer] Other Start: 09-05-2021 Encounter for genera l adult medical examination without abnormal findings Phil Ervin [facility] Start: 09-05-2021 Periodic preventive med est patient 18-39 yrs Phil Ervin [facility] Procedures Date Procedure Procedure Detail Performing Clinician Start: 07-10-2023 Urnls dip stick/tabl et rgnt non-auto w/o micrscp Tayo Tavares DO Work Phone: H/O: section S/P sectio n Izzy FOY Work Phone: None (qualifier value) JESUS NELSON Plan of Treatment Date Care Activity Detail Author Start: 12-17-2025 End: 12-17-2025 Patient encounter procedure 12/17/2025 11:00 AM EDT Office Visit [facility] [address] [place] [phone] Tayo Tavares DO [address] [place], [place] [id number] [facility] Start: 12-11-2024 End: 12-11-2024 Patient encounter procedure 12/11/2024 11:40 AM EDT [facility] [address] [phone] Tayo Tavares, DO [address] [place], [place] [id number] Arrived [facility] Comment on above: Arrived Start: 08-23-2023 End: 08-23-2023 ambulatory 08/23/2023 9:30 AM EDT [facility] [address] [phone] Izzy Thakkar PA [address] [place] [address] [facility] Start: 07-17-2023 End: 07-17-2023 Patient encounter procedure 07/17/2023 8:30 AM EST Routine [facility] [address] [phone] Tayo Tavares, DO [address] [place] [address] [facility] Cytology Cervical or vaginal smear or scraping study Pap Smear Pathology and Cytology Routine Well woman exam with routine gynecological exam Ordered: 12/11/2024 [facility] Work Phone: Comment on above: Ordered: 12/11/2024 Human papilloma viru s DNA [Presence] in Unspecified specimen by Probe with amplification HPV DNA probe, amplified Microbiology Routine Well woman exam with routine gynecological exam Ordered: 12/11/2024 [facility] Comment on above: Ordered: 12/11/2024 Immunizations Immunization Date Immunization Notes Care Provider [facility] 03-20-2021 COVID-19 Vaccine Pfizer - Documentation Purposes Only Phil Mueller Other [employer] Other 02-27-2021 COVID-19 Vaccine Pfizer - Documentation Purposes Only Phil Ervin Other [employer] Other NEGATED: Highlighted row has not occurred!12-17-2018 influenza, injectable, quadrivalent, contains preservative Patient Objection Phil Ervin Other [employer] Other NEGATED: Highlighted row has not occurred!07-14-2016 influenza, injectable, quadrivalent, contains preservative Patient Objection Phil Ervin Other [employer] Other Payers Date Payer Category Payer Private Health Insurance [employer] [id number] 2022 Unknown [id number] 1993 Unknown [id number] 2.16.840.1.672702.3.579.2. 593 1993 Unknown [id number] 2.16.840.1.554913.3.579.2. 1259 1993 Unknown [id number] 2.16.840.1.246578.3.579.2. 1259 1993 Unknown [id number] 2.16.840.1.352127.3.579.2. 1259 1993 Unknown [id number] 2.16.840.1.865544.3.579.2. 1259 1993 Unknown [id number] 2.16.840.1.988674.3.579.2. 1259 1993 Unknown [id number] 2.16.840.1.233170.3.579.2. 1259 1993 Unknown [id number] 2.16.840.1.497846.3.579.2. 1259 1993 Unknown [id number] 2.16.840.1.976961.3.579.2. 1259 1993 Unknown [id number] 2.16.840.1.242951.3.579.2. 1259 1993 Unknown [id number] 2.16.840.1.870874.3.579.2. 727 1993 Unknown [id number] 2.16.840.1.272619.3.579.2. 727 1993 Unknown [id number] 2.16.840.1.900910.3.579.2. 727 1959 Unknown [id number] [id number] [facility] [id number] Social History Date Type Detail Facility Unknown if ever smoked [employer] Other Start: 04-11-2023 End: 12-11-2024 Sex Assigned At [facility] Start: 05-26-2021 End: 01-09-2023 Tobacco smoking status Never smoked tobacco (finding) [facility] Tobacco smoking status Never [facility] Start: 01-09-2023 Tobacco use and exposure Smokeless tobacco non-user [facility] Start: 07-10-2023 End: 12-11-2024 Alcohol intake Current drinker of alcohol (finding) [facility] Start: 04-11-2023 End: 12-11-2024 History of Social function [facility] How [...] Sex Assigned At Not on file [facility] Start: 08-16-2022 Gender identity Identifies as female gender (finding) [facility] Functional Status Date Assessment Result Facility 06-03-2024 Functional Status N/A [facility] 08-07-2023 Functional Status N/A [facility] Clinical Notes 06-04-2014 to 12-11-2024 Ashlee Xiong MA - 12/11/2024 11:40 AM EDT Note Date & Type Note Facility 12-11-2024 History of Present illness Narrative Reason for Appointment: Patient ID: Shelly Hannon is a 29 y.o. female who presents for Gynecologic Exam Patient presents today for Annual Exam. MEDICATIONS Current Outpatient Medications Medication Instructions albuterol HFA 90 mcg/act inhaler predniSONE (Deltasone) 20 MG tablet ALLERGIES No Known Allergies PROBLEMS Active Ambulatory Problems Diagnosis Date Noted No Active Ambulatory Problems Resolved Ambulatory Problems Diagnosis Date Noted No Resolved Ambulatory Problems Past Medical History: Diagnosis Date ADD (attention deficit disorder) ADHD (attention deficit hyperactivity disorder) Adrenal abnormality (HCC) Amenorrhea FERNANDO I (cervical intraepithelial neoplasia I) History of medical problems Insulin resistance Irregular menses Mild cervical dysplasia Ovarian dysfunction Prematurity (HHS-HCC) HISTORY PAST MEDICAL HISTORY SOCIAL HISTORY Past Medical History: Diagnosis Date ADD (attention deficit disorder) ADHD (attention deficit hyperactivity disorder) Adrenal abnormality (HCC) Amenorrhea FERNANDO I (cervical intraepithelial neoplasia I) History of medical problems adrenal gland issues as a child Insulin resistance Irregular menses Mild cervical dysplasia Ovarian dysfunction Prematurity (HHS-HCC) Social History Tobacco Use Smoking status: Never Smokeless tobacco: Never Substance Use Topics Alcohol use: Yes Comment: Alcohol: 3 or 4 drinks /2 to 4 times a month. Caffeine: occasional soda Drug use: Never FAMILY HISTORY Family History Problem Relation Name Age of Onset Pancreatitis Mother Learning disabilities Brother Cancer Neg Hx SURGICAL HISTORY Past Surgical History: Procedure Laterality Date CAST APPLICATION Right wrist SECTION, CLASSIC 07/14/2023 COLPOSCOPY 01/02/2015 FERNANDO 1 PAP SMEAR 07/03/2022 negative REVIEW OF SYSTEMS Review of Systems: Review of Systems Constitutional: Negative. HENT: Negative. Eyes: Negative. Respiratory: Negative. Cardiovascular: Negative. Gastrointestinal: Negative. Genitourinary: Negative. Musculoskeletal: Negative. Skin: Negative. Neurological: Negative. All other systems reviewed and are negative. Hematological: Negative. Endocrine: Negative. Allergic/Immunologic: Negative. OBJECTIVE Objective: Physical Exam Constitutional: Appearance: Normal appearance. She [...] nursing note reviewed. Exam conducted with a pattern filer present. Vitals: Estimated body mass index is 24.22 kg/m as calculated from the following: Height as of this encounter: 5'. Weight as of this encounter: 124 lb. BP: 116/70 Patient's last menstrual period was 11/20/2024 (approximate). ASSESSMENT & PLAN ICD-10-CM 1. Well woman exam with routine gynecological exam Z01.419 Pap Smear HPV DNA probe, amplified Annual Exam: Patient presents today for an annual exam. Patient states she is doing well and has no complaints. Pap was obtained without difficulty. Orders Placed This Encounter Procedures HPV DNA probe, amplified Follow Up: Patient is to return in one year for annual unless needed otherwise. Documented by Ashlee Xiong MA on behalf of: oscar montse documented in this encounter [facility] 06-04-2024 Hospital Discharge instructions Patient Education 06/03/2024 23:54:50 Viral Gastroenteritis, Adult Viral Gastroenteritis, Adult Viral gastroenteritis is also known as the stomach flu. This condition may affect your stomach, small intestine, and large intestine. It can cause sudden watery diarrhea, fever, and vomiting. This condition is caused by many different viruses. These viruses can be passed from person to person very easily (are contagious). Diarrhea and vomiting can make you feel weak and cause you to become dehydrated. You may not be able to keep fluids down. Dehydration can make you tired and thirsty, cause you to have a dry mouth, and decrease how often you urinate. It is important to replace the fluids that you lose from diarrhea and vomiting. What are the causes? Gastroenteritis is caused by many viruses, including rotavirus and norovirus. Norovirus is the most common cause in adults. You can get sick after being exposed to the viruses from other people. You can also get sick by: Eating food, drinking water, or touching a surface contaminated with one of these viruses. Sharing utensils or other personal items with an infected person. What increases the risk? You are more likely to develop this condition if you: Have a weak body defense system (immune system). Live with one or more children who are younger than 2 years. Live in a alf. Travel on cruise ships. What are the signs or symptoms? Symptoms of this condition start suddenly 1 3 days after exposure to a virus. Symptoms may last for a few days or for as long as a week. Common symptoms include watery diarrhea and vomiting. Other symptoms include: Fever. Headache. Fatigue. Pain in the abdomen. Chills. Weakness. Nausea. Muscle aches. Loss of appetite. How is this diagnosed? This condition is diagnosed with a medical history and physical exam. You may also have a stool test to check for viruses or other infections. How is this treated? This condition typically goes away on its own. The focus of treatment is to prevent dehydration and restore lost fluids (rehydration). This condition may be treated with: An oral rehydration solution (ORS) to replace important salts and minerals (electrolytes) in your body. Take this if told by your health care provider. This is a drink that is sold at pharmacies and retail stores. Medicines to help with your symptoms. Probiotic supplements to reduce symptoms of diarrhea. Fluids given through an IV, if dehydration is severe. Older adults and people with other diseases or a weak immune system are at higher risk for dehydration. Follow these instructions at home: Eating and drinking Take an ORS as told by your health care provider. Drink clear fluids in small amounts as you are able. Clear fluids include: ?Water. ?Ice chips. ?Diluted fruit juice. ?Low-calorie sports drinks. Drink enough fluid to keep your urine pale yellow. Eat small amounts of healthy foods every 3 4 hours as you are able. This may include whole grains, fruits, vegetables, lean meats, and yogurt. Avoid fluids that contain a lot of sugar or caffeine, such as energy drinks, sports drinks, and soda. Avoid spicy or fatty foods. Avoid alcohol. General instructions Wash your hands often, especially after having diarrhea or vomiting. If soap and water are not available, use hand diesel technology instructor. Make sure that all people in your household wash their hands well and often. Take agkr-wtx-rizmrtw and prescription medicines only as told by your health care provider. Rest at home while you recover. Watch your condition for any changes. Take a warm bath to relieve any burning or pain from frequent diarrhea episodes. Keep all follow-up visits. This is important. Contact a health care provider if you: Cannot keep fluids down. Have symptoms that get worse. Have new symptoms. Feel light-headed or dizzy. Have muscle cramps. Get help right away if you: Have chest pain. Have trouble breathing or you are breathing very quickly. Have a fast heartbeat. Feel extremely weak or you faint. Have a severe headache, a stiff neck, or both. Have a rash. Have severe pain, cramping, or bloating in your abdomen. Have skin that feels cold and clammy. Feel confused. Have pain when you urinate. Have signs of dehydration, such as: ?Dark urine, very little urine, or no urine. ?Cracked lips. ?Dry mouth. ?Sunken eyes. ?Sleepiness. ?Weakness. Have signs of bleeding, such as: ?Seeing blood in your vomit. ?Having vomit that looks like coffee grounds. ?Having bloody or black stools or stools that look like tar. These symptoms may be an emergency. Get help right away. Call 911. Do not wait to see if the symptoms will go away. Do not drive yourself to the hospital. Summary Viral gastroenteritis is also known as the stomach flu. It can cause sudden watery diarrhea, fever, and vomiting. This condition can be passed from person to person very easily (is contagious). Take an oral rehydration solution (ORS) if told by your health care provider. This is a drink that is sold at pharmacies and retail stores. Wash your hands often, especially after having diarrhea or vomiting. If soap and water are not available, use hand diesel technology instructor. This information is not intended to replace advice given to you by your health care provider. Make sure you discuss any questions you have with your health care provider. Document Revised: 03/20/2022 Document Reviewed: 03/20/2022 [employer] Patient Education 2023 [employer]. Follow Up Care 06/03/2024 21:42:28 With:PHIL MUELLER Address: [address] [place] [address] Business (1) When:Within 3 Day(s) [facility] 06-03-2024 Note ED Patient Education Note Gastroenterology Viral Gastroenteritis, Adult Viral gastroenteritis is also known as the stomach flu. This condition may affect your stomach, small intestine, and large intestine. It can cause sudden watery diarrhea, fever, and vomiting. This condition is caused by many different viruses. These viruses can be passed from person to person very easily (are contagious). Diarrhea and vomiting can make you feel weak and cause you to become dehydrated. You may not be able to keep fluids down. Dehydration can make you tired and thirsty, cause you to have a dry mouth, and decrease how often you urinate. It is important to replace the fluids that you lose from diarrhea and vomiting. What are the causes? Gastroenteritis is caused by many viruses, including rotavirus and norovirus. Norovirus is the most common cause in adults. You can get sick after being exposed to the viruses from other people. You can also get sick by: ??? Eating food, drinking water, or touching a surface contaminated with one of these viruses. ??? Sharing utensils or other personal items with an infected person. What increases the risk? You are more likely to develop this condition if you: ??? Have a weak body defense system (immune system). ??? Live with one or more children who are younger than 2 years. ??? Live in a alf. ??? Travel on cruise ships. What are the signs or symptoms? Symptoms of this condition start suddenly 1?3 days after exposure to a virus. Symptoms may last for a few days or for as long as a week. Common symptoms include watery diarrhea and vomiting. Other symptoms include: ??? Fever. ??? Headache. ??? Fatigue. ??? Pain in the abdomen. ??? Chills. ??? Weakness. ??? Nausea. ??? Muscle aches. ??? Loss of appetite. How is this diagnosed? This condition is diagnosed with a medical history and physical exam. You may also have a stool test to check for viruses or other infections. How is this treated? This condition typically goes away on its own. The focus of treatment is to prevent dehydration and restore lost fluids (rehydration). This condition may be treated with: ??? An oral rehydration solution (ORS) to replace important salts and minerals (electrolytes) in your body. Take this if told by your health care provider. This is a drink that is sold at pharmacies and retail stores. ??? Medicines to help with your symptoms. ??? Probiotic supplements to reduce symptoms of diarrhea. ??? Fluids given through an IV, if dehydration is severe. Older adults and people with other diseases or a weak immune system are at higher risk for dehydration. Follow these instructions at home: Eating and drinking ??? Take an ORS as told by your health care provider. ??? Drink clear fluids in small amounts as you are able. Clear fluids include: ? Water. ? Ice chips. ? Diluted fruit juice. ? Low-calorie sports drinks. ??? Drink enough fluid to keep your urine pale yellow. ??? Eat small amounts of healthy foods every 3?4 hours as you are able. This may include whole grains, fruits, vegetables, lean meats, and yogurt. ??? Avoid fluids that contain a lot of sugar or caffeine, such as energy drinks, sports drinks, and soda. ??? Avoid spicy or fatty foods. ??? Avoid alcohol. General instructions ??? Wash your hands often, especially after having diarrhea or vomiting. If soap and water are not available, use hand diesel technology instructor. ??? Make sure that all people in your household wash their hands well and often. ??? Take lohy-wri-outtavl and prescription medicines only as told by your health care provider. ??? Rest at home while you recover. ??? Watch your condition for any changes. ??? Take a warm bath to relieve any burning or pain from frequent diarrhea episodes. ??? Keep all follow-up visits. This is important. Contact a health care provider if you: ??? Cannot keep fluids down. ??? Have symptoms that get worse. ??? Have new symptoms. ??? Feel light-headed or dizzy. ??? Have muscle cramps. Get help right away if you: ??? Have chest pain. ??? Have trouble breathing or you are breathing very quickly. ??? Have a fast heartbeat. ??? Feel extremely weak or you faint. ??? Have a severe headache, a stiff neck, or both. ??? Have a rash. ??? Have severe pain, cramping, or bloating in your abdomen. ??? Have skin that feels cold and clammy. ??? Feel confused. ??? Have pain when you urinate. ??? Have signs of dehydration, such as: ? Dark urine, very little urine, or no urine. ? Cracked lips. ? Dry mouth. ? Sunken eyes. ? Sleepiness. ? Weakness. ??? Have signs of bleeding, such as: ? Seeing blood in your vomit. ? Having vomit that looks like coffee grounds. ? Having bloody or black stools or stools that look like tar. These symptoms may be an emergency. Get help right (more content not included)... [facility] 06-03-2024 Evaluation + Plan note Extrac dilma from: Title:ED Note Author:Walter Denton DO Date :06/03/24 Acute gastroenteritis (K52.9 : Noninfective gastroenteritis and colitis, unspecified) Orders: Lactated Ringers Injection, 1,000 mL, Soln-IV, IV, Once, Stop date 06/03/24 21:54:00 EST, STAT, Start date 06/03/24 21:54:00 EST, mL/hr, Infuse over 61, minute(s) ondansetron, 4 mg = 2 mL, Injection, IV Push, Once, Stop date 06/03/24 21:50:00 EST, STAT, Start date 06/03/24 21:50:00 EST, 06/03/24 21:50:00 EST ondansetron, 4 mg = 1 tab(s), Oral, q8hr, PRN Nausea/Vomiting, # 12 tab(s), Refills(s) 0, Nausea/Vomiting, Pharmacy: [facility], 152, cm, 06/03/24 21:48:00 EST, Height/Length Dosing, 52.2, kg, 06/03/24 21:48:00 EST, Weight Dosing Basic Metabolic Panel CBC w/ Auto Diff eGFR Hepatic Function Panel Lipase Level Saline Lock Insert U Beta Hcg Qual UA with Cult Rflx [facility] 03-13-2024 NoteMicrobiology PROCEDURE: Blood Culture Charcoal [R1] SOURCE: Blood BODY SITE: Arm L COLLECTED DATE/TIME: 08/07/2023 21:37 EST RECEIVED DATE/TIME: 08/07/2023 21:44 EST START DATE/TIME: 08/08/2023 07:30 EST FREE TEXT SOURCE: lt melva Guzman PA-C, Vianey Guzman PA-C, Vianey Staples FINAL REPORTS Final Report [] Verified Date/Time: 08/15/2023 15:48 EDT No growth at 7 days. Performing Locations R1: This test was performed at: [facility], [address] [place] [address], [id number] , , [facility] HospitalComment on above:Performed By: #### [id number] #### [address] [id number] NoteMicrobiology PROCEDURE: Blood Culture Charcoal [R1] SOURCE: Blood BODY SITE: Arm R COLLECTED DATE/TIME: 08/07/2023 21:36 EST RECEIVED DATE/TIME: 08/07/2023 21:44 EST START DATE/TIME: 08/08/2023 07:30 EST FREE TEXT SOURCE: rt melva Guzman PA-C, Vianey Guzman PA-C, Vianey Cisneros. FINAL REPORTS Final Report [] Verified Date/Time: 08/15/2023 15:48 EDT No growth at 7 days. Performing Locations R1: This test was performed at: [facility], [address] [place] [address], [id number] , , [facility]wR[facility] HospitalComment on above:Performed By: #### [id number] #### [facility] [address] [place] [address] [id number] Hospital Discharge instructions Patient Education 08/07/2023 22:37:04 Mastitis, Ebrc-ug-Eeem Mastitis Mastitis is irritation and swelling (inflammation) [...] milk flow and prevent a pocket of fluidfrom forming. Using hot or cold compresses. Taking medicine for pain. Taking antibiotic medicine. Rest. Drinking plenty of fluids. Taking out fluid with a needle, if a pocket of fluid has formed. Follow these instructions at home: Breast care Keep your nipples clean and dry. If told, put heat on the affected area of your breast. Use the heat source that your doctor or environmental health specialist tells you to use. If told, [...] she is hungry. Ask your doctor or environmental health specialist whether you need to change your routine. Avoid using nipple johnson, if possible. Ask a environmental health specialist for help. Change the breast you offer first at each feeding to make sure your baby feeds from both breasts. Offer both breasts to your baby every time your baby feeds. Use gentle breast massage during feeding or pumping sessions only as told by your doctor or environmental health specialist. Avoid letting your breasts get very full with milk (engorged). If your breasts are very full, you can hand express a small amount of milk for comfort. If you are pumping, keep pumping on the same schedule as you were before. In the breast with mastitis, pump until very little milk is coming out. Do not empty your breast. Emptying your breast causesyour body to make more milk and can make symptoms worse. Ask your doctor or environmental health specialist whether you need to change your pumping routine. Medicines Take mjhx-rjq-gsxuaaq and prescription medicines only as told by [...] provider. Document Revised: 06/23/2022 Document Reviewed: 03/21/2021 [employer] Patient Education 2022 [employer]. 08/07/2023 22:37:04 and Mastitis and Mastitis Mastitis is inflammation of the breast tissue. It can occur in women who are . This can make painful. Mastitis will sometimes go away on its own with continued or pumping, especially if it is not caused by an infection (noninfectious mastitis). A health careprovider will help determine if medical treatment is [...] same time and affect a larger portion ofbreast tissue. Swelling of the glands under your [...] Your health care provider or a specialist (consultant education) can show you how to perform breast [...] Follow these instructions at home: Medicines Take kfmb-etm-wisvzcl and prescription medicines only as told by your health care provider. If you were prescribed an antibiotic medicine, take it as told by your health care provider. Do notstop taking the antibiotic even if you start [...] find any, talk with your health care provideror consultant education for treatment. and pumping tips Continue to breastfeed your baby on demand. This means feeding your baby whenever he or she is hungry. ?Ask your health care provider or consultant education whether you need to change your or pumping routine. ?Alternate the breast you offer first at each feeding to make sure your baby feeds from both breasts equally. ?Offer both breasts to your baby at every feeding. ?Avoid using nipple johnson for feedings, if possible. Ask a consultant education for assistance ifneeded. If directed, apply moist heat to the affected area of your breast right before or pumping. Use the heat source that your health care provider recommends. Use gentle breast massage during feeding or pumping sessions only as told by your health care provider or consultant education. Avoid allowing your breasts to become engorged. [...] 20 seconds. Wash pump parts using the road supervisor's instructions. Keep all follow-up visits. This is important. Where to find more information [employer]: llli.org Contact a health care [...] told by your health care provider. Do notstop taking the antibiotic even if you start to feel better. This information is not intended to replace advice given to you by your health care provider. Make sure you discuss any questions you have with your health care provider. Document Revised: 06/23/2022 Document Reviewed: 09/22/2020 [employer] Patient Education 2022 [employer]. Follow Up Care 08/07/2023 20:05:39 With:[facility] support group [phone] [id number]; [phone] Address:Unknown When:08/10/2023 With:PHIL MUELLER Address: [address] [address] Business (1) When:08/10/2023 21:58:58 [facility]02-15-2024 History of Present illness Narrative* DANII Spencer - 07/19/2023 10:40 AM EST Reason for Appointment: Patient ID: Shelly Hannon [...] behalf of: DANII Spencer documented in this encounterNorthwest [facility] [id number] History of Present illness Narrative* Marguerite Hawley LPN - 07/10/2023 9:30 AM EST Reason for Appointment: Patient ID: Shelly Hannon [...] deficit disorder) ADHD (attention deficit hyperactivity disorder) ([facility]) 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 Exam conducted with a pattern filer present. Vitals: Estimated body mass index is [...] of: Tayo Tavares DO documented in this encounterNorthwest Medical [id number] Evaluation note* Encounter Date Diagnosis Assessment Notes Treatment Notes Treatment Clinical Notes Jul, Irregular periods (ICD-10 - N92.6) [...] is going to be seeing a different [facility] [facility], and I think this is certainly not unreasonable. [employer] Other 12-08-2022 Evaluation + Plan note Diagnostic Tests Pending * T3 Free 05/11/22 [facility]12-06-2022 Evaluation note* Encounter Date Diagnosis Assessment Notes Treatment Notes Treatment Clinical Notes May, Chronic fatigue (ICD-10 - R53.82) We will simply call patient with results of the blood work. Should all of this proved to be normal, she would just simply need to continue to follow-up with [facility] [facility]. May, Vitamin D deficiency (ICD-10 - E55.9) [employer] Other 06-28-2022 Evaluation note* Encounter Date Diagnosis Assessment Notes Treatment Notes Treatment Clinical Notes Nov, Asthma exacerbation (ICD-10 - J45.901) [employer] Other 04-05-2022 Evaluation note* Encounter Date Diagnosis Assessment Notes Treatment Notes Treatment Clinical Notes Sep, Asthma exacerbation (ICD-10 - J45.901) Sep, Folliculitis (ICD-10 - L73.9) [employer] Other 04-04-2022 Evaluation note* Encounter Date Diagnosis [...] Other No change today...Continue as is...FU PRN/Yearly... [employer] Other 01-01-2015 History general Narrative - Reported* Type Description Date Medical History 6 Weeks Premature Medical History Asthma Medical History ADD Surgical History cervical bx. from [facility] = Dr. Leyva 06/2014 Hospitalization History - Apnea [facility] [employer] Other Evaluation + Plan note No data available for this section [facility] noteExtracted from: Title:ED Note Author:Vianey [...] QID, # 40 cap(s), Refills(s) 0, Pharmacy: [facility], 160, cm, 08/07/23 20:13:00 EST, Height/Length Dosing, 64, kg, 08/07/23 20:13:00 EST, Weight Dosing Basic Metabolic Panel Blood Culture Charcoal Blood Culture Charcoal CBC w/ Auto Diff Change IV to Saline Lock eGFR Extra Blue Tube Extra SST Tube UA With Cult Reflex Urine Culture Diagnostic Tests Pending * Blood Culture Charcoal 08/07/23 * Blood Culture Charcoal 08/07/23 * Urine Culture 08/07/23 [facility]No [facility] [employer] Other Evaluation note* Diagnosis Third trimester state, incidental documented in this encounter [facility] HealthcareEvaluation note* Diagnosis Postoperative visit S/P section Other postprocedural status documented in this encounter [facility] HealthcareEvaluation note* Diagnosis Well woman exam with routine gynecological exam Routine gynecological examination documented in this encounter [facility] HealthcareHospital Discharge instructions No data available for this section [facility] No data available for this section [facility] Summary Purpose Family History No Family History Records Found No data available for this section No Family History Records Found No data [...] Comments Post-op Visit S/p c/section on 03/2024 Reason Comments Gynecologic Exam Patient Care team informatio n (unrecognized section and content) Cabin Equipment Supervisor Relationship Specialty Start Date End Date Phil Mueller MD [address] [facility] [address] [place] [id number] PCP - General Family Medicine 12/21/22 [employer] Equipment Supervisor Relationship Specialty Start Date End Date Phil Mueller MD [address] [facility] [address] [place] [id number] PCP - General Family Medicine 12/21/22 [employer]in Equipment Supervisor Relationship Specialty Start Date End Date Phil Mueller MD PCP - General Family Medicine 12/21/22 [employer]in Equipment Supervisor Relationship Specialty Start Date End Date Phil Mueller MD PCP - General Family Medicine 12/21/22 INFORMATION SOURCE (unrecogn ized section and content) DATE CREATED AUTHOR 09/29/2022 [facility] DATE CREATED AUTHOR AUTHOR'S ORGANIZ ATION 12/07/2023 [facility] DATE CREATED AUTHOR AUTHOR'S ORGANIZ ATION 06/05/2024 [facility] DATE CREATED AUTHOR AUTHOR'S ORGANIZ ATION 06/14/2024 [facility] FOR RECORDS PERTAINING TO PATIENTS WHO ARE [...] BE BASED ON THE PRIMARY CLINICAL RECORDS. [facility]. provides no warranty or guarantee of the accuracy or completeness of information in this document.
== END 2024-12-11 19:17 | disposition home or self-care (01) ==
LOC: LAB 19:16
PROVIDERS: PCP Family Medicine; Visit Provider Obstetrics & Gynecology
DX: Z01.419 Encounter for gynecological examination (general) (routine) without abnormal findings (principal)
CPT/HCPCS: 88175